=== PATIENT | male | born 1960 | race Caucasian/White ===

== ENCOUNTER 2021-03-24 09:14 | Emergency (ER) | payer MEDICAID, SELFPAY ==
[2021-03-24] VITALS (7 sets, daily range): BP systolic 117–142; BP diastolic 68–89; PULSE 80–116; RESP 16–20; TEMP 36.6–37.1; O2SAT 95–99; BMI 22.4
--- NOTE | ~2021-03-24 | XR_ITS ---
EXAMINATION: PELVIS AND LEFT FEMUR X-RAY CLINICAL INFORMATION: Pain post fall COMPARISON: None TECHNIQUE: One view of the pelvis and 2 views of the left femur FINDINGS: Pelvis: Bone alignment is normal. No fracture or dislocation is seen. There is mild arthritis at both hip joints. There is ankylosis of the lower lumbar spine and ankylosis at the sacroiliac joints. Soft tissues are unremarkable. Left femur: There is a laterally placed plate and screws seen in the left distal femur. There is a fracture of the distal medial tibial shaft and supracondylar region which appears recent or acute. There is a approximately 8 x 3.5 cm area of lucency and surrounding and sclerosis seen in the lateral distal femoral shaft. It is uncertain whether this is related to old trauma, osteopenia or underlying bone lesion. Correlation with patient's clinical history is recommended. There is also question of a lucency in the proximal to mid femoral shaft measuring 1 x 2 cm versus changes due to osteopenia. Soft tissues are unremarkable. XR/XR pelvis 1-2V IMPRESSION: Recent appearing fracture of the distal medial femoral shaft and supracondylar region. Orthopedic hardware seen in the lateral distal femoral shaft and condylar region. Question osteopenia versus bone lesion in the femur. Correlation with patient's clinical history is recommended. Arthritis at the hip joints. Ankylosis of the visualized lower lumbar spine and sacroiliac joints.
--- NOTE | ~2021-03-24 | XR_ITS ---
EXAMINATION: PELVIS AND LEFT FEMUR X-RAY CLINICAL INFORMATION: Pain post fall COMPARISON: None TECHNIQUE: One view of the pelvis and 2 views of the left femur FINDINGS: Pelvis: Bone alignment is normal. No fracture or dislocation is seen. There is mild arthritis at both hip joints. There is ankylosis of the lower lumbar spine and ankylosis at the sacroiliac joints. Soft tissues are unremarkable. Left femur: There is a laterally placed plate and screws seen in the left distal femur. There is a fracture of the distal medial tibial shaft and supracondylar region which appears recent or acute. There is a approximately 8 x 3.5 cm area of lucency and surrounding and sclerosis seen in the lateral distal femoral shaft. It is uncertain whether this is related to old trauma, osteopenia or underlying bone lesion. Correlation with patient's clinical history is recommended. There is also question of a lucency in the proximal to mid femoral shaft measuring 1 x 2 cm versus changes due to osteopenia. Soft tissues are unremarkable. XR/XR femur LT 2V IMPRESSION: Recent appearing fracture of the distal medial femoral shaft and supracondylar region. Orthopedic hardware seen in the lateral distal femoral shaft and condylar region. Question osteopenia versus bone lesion in the femur. Correlation with patient's clinical history is recommended. Arthritis at the hip joints. Ankylosis of the visualized lower lumbar spine and sacroiliac joints.
--- NOTE | 2021-03-24 09:48 | ED_ITS ---
HPI - Fall General Chief Complaint: Fall <JOCELYNE Amos - Last Filed: 03/24/21 14:11> Stated Complaint: FALL T-1, R KNEE/LEG PAIN <JOCELYNE Amos - Last Filed: 03/24/21 14:11> Time Seen by Provider: 03/24/21 09:21 <JOCELYNE Amos - Last Filed: 03/24/21 14:11> Source: EMS <JOCELYNE Amos - Last Filed: 03/24/21 14:11> Mode of arrival: EMS <JOCELYNE Amos Last Filed: 03/24/21 14:11> Limitations: altered mental status <JOCELYNE Amos Last Filed: 03/24/21 14:11> History of Present Illness HPI Narrative: 60 y/o male with history of schizoaffective disorder, encephalomalacia, spastic quadriplegia, cerebral atrophy, peripheral neuropathy, atrial fibrillation, HTN, osteoporosis, seizure disorder, and history of bilateral femur fractures in 2017 who presents to the ED from SNF via EMS with left knee pain and swelling after a fall out of his wheelchair last night. He was brought to the ER for further evaluation. Patient is a poor historian, only reporting pain and not answering questions appropriately. Unknown baseline. Left knee is tender and swollen as well as distal femur. Unable to straighten leg due to pain. <JOCELYNE Amos - Last Filed: 03/24/21 14:11> MD complaint: fall <JOCELYNE Amos - Last Filed: 03/24/21 14:11> Onset (ago): hour(s) (12+) <JOCELYNE Amos - Last Filed: 03/24/21 14:11> Fall from: wheelchair <JOCELYNE Amos - Last Filed: 03/24/21 14:11> Place fall occurred: [facility] <JOCELYNE Amos - Last Filed: 03/24/21 14:11> Loss of consciousness: none <JOCELYNE Amos - Last Filed: 03/24/21 14:11> Prolonged down time: no <JOCELYNE Amos - Last Filed: 03/24/21 14:11> Symptoms prior to fall: none <JOCELYNE Amos - Last Filed: 03/24/21 14:11> Location of injury - extremities: left: knee <JOCELYNE Amos - Last Filed: 03/24/21 14:11> Associated symptoms (after fall): denies <JOCELYNE Amos - Last Filed: 03/24/21 14:11> Related Data Home Medications: Home Medications Medication Instructions Recorded Confirmed acetaminophen 650 mg PO Q4H PRN 03/24/21 03/24/21 alendronate 70 mg PO BERRY 03/24/21 03/24/21 bupropion HCl 100 mg PO BID 03/24/21 03/24/21 cholecalciferol (vitamin D3) 25 mcg PO DAILY 03/24/21 03/24/21 divalproex 1,000 mg PO BID@0900,1500 03/24/21 03/24/21 divalproex 1,000 mg PO Q2D@2100 03/24/21 03/24/21 divalproex 500 mg PO Q2D@2100 03/24/21 03/24/21 docusate sodium 100 mg PO BID 03/24/21 03/24/21 finasteride 5 mg PO DAILY 03/24/21 03/24/21 fluticasone propionate [Flovent 2 puff INHALATION BID 03/24/21 03/24/21 HFA] lactulose 30 ml PO BEDTIME PRN 03/24/21 03/24/21 loperamide 2 mg PO QID PRN 03/24/21 03/24/21 mometasone 1 appl TOPICAL DAILY PRN 03/24/21 03/24/21 multivitamin 1 tab PO DAILY 03/24/21 03/24/21 phenobarbital 32.4 mg PO DAILY 03/24/21 03/24/21 risperidone 3 mg PO DAILY 03/24/21 03/24/21 selenium sulfide-aloe vera 1 ea TOPICAL TUSA 03/24/21 03/24/21 tamsulosin [Flomax] 0.4 mg PO DAILY 03/24/21 03/24/21 tizanidine 4 mg PO BID 03/24/21 03/24/21 <JOCELYNE Amos - Last Filed: 03/24/21 14:11> Allergies/Adverse Reactions: Allergies Allergy/AdvReac Type Severity Reaction Status Date / Time morphine [MORPHINE] Allergy Mild LOOPY Verified 03/24/21 11:17 ciprofloxacin [CIPROFLOXACIN] AdvReac Intermediate skin Verified 03/24/21 11:17 erythema/macular rash <JOCELYNE Amos - Last Filed: 03/24/21 14:11> Review of Systems Review of Systems: Constitutional: No Fever, No Chills ENT/Mouth: No sore throat, No Rhinorrhea, No Swallowing Difficulty Eyes: No Eye Pain, No Swelling, No Redness Cardiovascular: No Chest Pain, No SOB, No Orthopnea, No Edema Respiratory: No Cough, No Sputum, No Wheezing, No dyspnea Gastrointestinal: No Nausea, No Vomiting, No Diarrhea, No abdominal Pain Genitourinary: No Dysuria, No Urinary Frequency, No Hematuria Musculoskeletal: + joint pain, + Myalgias Skin: No Skin Lesions, No rash Neuro: No Weakness, No Numbness, No Dizziness, No Headache Psych: No Anxiety/Panic, No Depression Heme/Lymph: No Bruising, No Lymphadenopathy Endocrine: No Polyuria, No Polydipsia <JOCELYNE Amos Last Filed: 03/24/21 14:11> [facility] Past Medical History Attestation statement: The following information was validated with the patient. <JOCELYNE Amos - Last Filed: 03/24/21 14:11> Social History Social History: Social History Use of substances other than those prescribed or required for medical reasons: No Any prior treatment program specific to substance use: No Advance Directives: No Advance Directives Information Provided: No <JOCELYNE Amos - Last Filed: 03/24/21 14:11> Physical Exam Vital Signs: Vital Signs: Last Vital Signs Temp 97.8 F 03/24/21 16:06 Pulse 74 03/25/21 05:00 Resp 16 03/25/21 05:00 BP 122/68 03/25/21 05:00 Pulse Ox 96 03/25/21 04:00 Body Mass Index 22.4 Appearance: Chronically ill appearing male, sitting up in bed, eyes closed, appears older than stated age, no distress Eyes: Pupils equal, round and reactive to light. ENT: Pharynx normal. Neck: Normal inspection. Neck supple. CVS: Normal heart rate and rhythm. Pulses normal. Respiratory: No respiratory distress. Breath sounds normal. Abdomen: Soft and nontender. +BS x4 Skin: Skin warm and dry. Normal skin color. Normal skin turgor. No rashes. Extremities: left lower extremity with swelling and tenderness to left knee superiorly, slight bend in knee, unable to straighten or flex further. no skin changes, no ecchymosis. Neuro: Oriented X 2. Slow to respond. Agitated at times. Bed bound. Uncooperative with exam. <JOCELYNE Amos - Last Filed: 03/24/21 14:11> Vital Signs: Last Vital Signs Temp 97.8 F 03/24/21 16:06 Pulse 74 03/25/21 05:00 Resp 16 03/25/21 05:00 BP 122/68 03/25/21 05:00 Pulse Ox 96 03/25/21 04:00 Body Mass Index 22.4 <Raphael Clemente MD - Last Filed: 03/24/21 11:43> Vital Signs: Last Vital Signs Temp 97.8 F 03/24/21 16:06 Pulse 74 03/25/21 05:00 Resp 16 03/25/21 05:00 BP 122/68 03/25/21 05:00 Pulse Ox 96 03/25/21 04:00 Body Mass Index 22.4 <Pooja Gregg DO - Last Filed: 03/25/21 07:10> Course Course Course Narrative: 60 y/o male presenting with left knee and leg pain s/p fall out of wheelchair. History of bilateral femur fractures in 2017. XR's are pending. <JOCELYNE Amos - Last Filed: 03/24/21 14:11> I have discussed the case and management with the YELENA <Raphael Clemente MD - Last Filed: 03/24/21 11:43> 03/25 Physician observation continued. Patient started on oxycodone and tylenol for L femur fracture - orthopedics consulted recommended conservative management. Needs CM for placement as he cannot be managed at retirement at this time. VS stable.. Patient resting comfortably, NAD, lungs clear, CV RRR, Abd nontender. <Pooja Gregg DO - Last Filed: 03/25/21 07:10> Reevaluation(s) Reevaluation #1: XR showing Recent appearing fracture of the distal medial femoral shaft and supracondylar region. Orthopedic hardware seen in the lateral distal femoral shaft and condylar region. Question osteopenia versus bone lesion in the femur. Correlation with patient's clinical history is recommended. Arthritis at the hip joints. Ankylosis of the visualized lower lumbar spine and sacroiliac joints. Dr. Garnica from Ortho has been paged for recs. <JOCELYNE Amos - Last Filed: 03/24/21 14:11> Reevaluation #2: Spoke with Dr. Garnica who is not recommending any surgical intervention at this time. He states the patient can be splinted in a knee immobilizer for comfort however patient has LLE contracture at baseline and is unable to fully straighten his leg. This was confirmed with the patient's BARREL BANDER at bedside who states his left leg is always somewhat bent. Will conservatively manage with pain control. He comes from longterm NOT a SNF. Given patient's acute injury he will need placement to a SNF for pain control and rehab. Case Management consulted. Does not need PT consult given he is bed/wheelchair bound. Physician observation started at 13:40. Patient placed in physician observation because patient is awaiting placement to a SNF. At the time observation was started patient's vital signs were stable. Patient is alert and oriented x2. Neuro exam is non-focal. CV: RRR and lungs are clear. Will continue to monitor. <JOCELYNE Amos - Last Filed: 03/24/21 14:11> Consultations Consultation #1: Ortho - Dr. Garnica <JOCELYNE Amos - Last Filed: 03/24/21 14:11> Consultation #2: Case management <JOCELYNE Amos - Last Filed: 03/24/21 14:11> MDM - Fall Lab Data Labs: Lab Results 03/24/21 Range/Units 12:48 COVID-19 (ALAN) Negative (Negative) COVID-19 Clin Com See Note <JOCELYNE Amos - Last Filed: 03/24/21 14:11> Lab Results 03/24/21 Range/Units 12:48 COVID-19 (ALAN) Negative (Negative) COVID-19 Clin Com See Note <Raphael Cleemnte MD - Last Filed: 03/24/21 11:43> Lab Results 03/24/21 Range/Units 12:48 COVID-19 (ALAN) Negative (Negative) COVID-19 Clin Com See Note <Pooja Gregg DO - Last Filed: 03/25/21 07:10> Discharge Plan Discharge Clinical Impression: Femur fracture, left Qualifiers: Encounter type: initial encounter Femur location: shaft Fracture type: closed Fracture morphology: unspecified fracture morphology Qualified Code(s): S72.302A - Unspecified fracture of shaft of left femur, initial encounter for closed fracture <JOCELYNE Amos - Last Filed: 03/24/21 14:11> Patient Disposition: Xfer SNF <JOCELYNE Amos - Last Filed: 03/24/21 14:11> Instructions: Leg Fracture (ED) <JOCELYNE Amos - Last Filed: 03/24/21 14:11> Additional Instructions: X-ray today showed a small fracture at the end of the femur bone, down near the knee. No surgical intervention is recommended at this time. Knee immobilizer is recommended <JOCELYNE Amos - Last Filed: 03/24/21 14:11> Prescriptions: No Action alendronate 70 mg Tablet 70 mg PO BERRY RF: 0 divalproex 500 mg Tablet,Delayed Release (Dr/Ec) 1,000 mg PO Q2D@2100 RF: 0 bupropion HCl 100 mg Tablet 100 mg PO BID RF: 0 selenium sulfide-aloe vera 1 % Shampoo 1 ea TOPICAL TUSA RF: 0 cholecalciferol (vitamin D3) 25 mcg (1,000 unit) Tablet 25 mcg PO DAILY RF: 0 multivitamin Tablet 1 tab PO DAILY RF: 0 acetaminophen 325 mg Tablet 650 mg PO Q4H PRN (Reason: Pain) RF: 0 loperamide 2 mg Capsule 2 mg PO QID PRN (Reason: Diarrhea) RF: 0 tizanidine 4 mg Tablet 4 mg PO BID RF: 0 divalproex 500 mg Tablet,Delayed Release (Dr/Ec) 1,000 mg PO BID@0900,1500 RF: 0 divalproex 500 mg Tablet,Delayed Release (Dr/Ec) 500 mg PO Q2D@2100 RF: 0 risperidone 3 mg Tablet 3 mg PO DAILY RF: 0 tamsulosin [Flomax] 0.4 mg Capsule 0.4 mg PO DAILY RF: 0 docusate sodium 100 mg Capsule 100 mg PO BID RF: 0 finasteride 5 mg Tablet 5 mg PO DAILY RF: 0 Flovent HFA 110 mcg/actuation Hfa Aerosol Inhaler 2 puff INHALATION BID RF: 0 mometasone 0.1 % Cream 1 appl TOPICAL DAILY PRN (Reason: Dry Skin) RF: 0 phenobarbital 32.4 mg Tablet 32.4 mg PO DAILY RF: 0 lactulose 10 gram/15 mL Solution 30 ml PO BEDTIME PRN (Reason: Constipation) RF: 0 <JOCELYNE Amos - Last Filed: 03/24/21 14:11> Referrals: Carine Shankar NP [Primary Care Provider] - 2 days <JOCELYNE Amos - Last Filed: 03/24/21 14:11>
[2021-03-24] MEDS: Acetaminophen 325 MG TABLET 975 MG PO (10:26)
--- NOTE | 2021-03-24 13:08 | MHC.CM.ED ---
Received case management consult from Barbara CASANOVA. Patient lives at a skilled nursing. Is wheelchair bound at baseline. Typically is able to self transfer. However, patient fell transferring and was found to have fractured a piece of his femur. Per ortho, not a surgical candidate. Patient will need to be non-weight bearing at this time. Per Celso at patient's skilled nursing, he will need to be able to self transfer in order to return. Short term rehab is anticipated to be needed for patient's safety, in order to transfer back to the skilled nursing when medically stable. PASRR screening completed and faxed to [facility]. Continue to monitor for d/c needs.
[2021-03-24 13:16] LABS: COVID-19 Test Negative (Negative)
--- NOTE | 2021-03-24 14:00 | MHC.CM.ED ---
Spoke with Celso. Patient received 2nd Pfizer on 11/29. Spoke with patient's sister/HCP, Neelam Lopez via telephone at [phone]. Patient has been to [facility] in the past. Neelam Lopez does not want patient to return there. Neelam Lopez requesting referral to [facility] Referral made via [employer]. Continue to monitor for d/c needs.
[2021-03-24] MEDS: oxyCODONE HCl Immed Release 5 MG TABLET PO ×2 (16:17→22:46)
--- NOTE | 2021-03-24 17:09 | MHC.CM.ED ---
CM spoke with HCP/sister Yamini Lopez and given an update. Aware that pt will go to [facility] tomorrow and that the PASSR consent has been obtained. Yamini Lopez stated that vaccination record can be obtained from [facility]. Alex Lopez had no specific questions or concerns. CM called and spoke with Shreya, quality assurance group leader, who will email CM copy of pt Vaccination record. Update give to Shreya as to PASSR approval and [facility] offering a bed tomorrow. Will upload vaccination record into [email or web address] when obtained. CM to follow for d/c needs.
--- NOTE | 2021-03-24 22:39 | MHC.CM.ED ---
Covid Vaccination record e-mailed to CM from longterm. Uploaded into [employer]. CM will follow for d/c needs.
[2021-03-25] MEDS: oxyCODONE HCl Immed Release 5 MG TABLET PO ×2 (03:57→11:56)
[2021-03-25] MEDS: Acetaminophen 325 MG TABLET 650 MG PO ×2 (03:57→09:26)
[2021-03-25 04:00] VITALS: BP 129/84; PULSE 100; RESP 16; O2SAT 96
[2021-03-25 05:00] VITALS: BP 122/68; PULSE 74; RESP 16
[2021-03-25 08:00] VITALS: BP 120/80; PULSE 109; RESP 18; TEMP 37.1
--- NOTE | 2021-03-25 10:42 | MHC.CM.ED ---
Patient remains in ER. Per Lexi at [facility], patient can leave at 2pm. [facility] BLS booked. Med [facility] with chart. Patient, sister/HCP Neelam Jessica, manager group home Sully [place] RN and Barbara CASANOVA aware. Continue to monitor for d/c needs.
[2021-03-25 11:57] VITALS: BP 118/73; PULSE 109; RESP 16; O2SAT 95
== END 2021-03-25 14:20 | disposition skilled nursing facility (03) ==
PROVIDERS: Physician Assistant; Emergency Provider Emergency Medicine; PCP Nurse Practitioner Family
DX: S72.302A Unspecified fracture of shaft of left femur, initial encounter for closed fracture (principal); M79.605 Pain in left leg; I48.91 Unspecified atrial fibrillation; I10 Essential (primary) hypertension; R10.2 Pelvic and perineal pain; G82.50 Quadriplegia, unspecified; F20.9 Schizophrenia, unspecified; W05.0XXA Fall from non-moving wheelchair, initial encounter; Y93.9 Activity, unspecified; Y92.129 Unspecified place in nursing home as the place of occurrence of the external cause; Y99.9 Unspecified external cause status; Z79.899 Other long term (current) drug therapy; Z20.822 Contact with and (suspected) exposure to COVID-19
CPT/HCPCS: 36415; 72170; 73552; 87635; 99285

== ENCOUNTER 2021-06-18 11:00 | Outpatient (REF) | payer MEDICAID, SELFPAY | END 2021-06-18 11:01 | disposition home or self-care (01) | LOC: HO.LNP 11:00 | PROVIDERS: PCP Nurse Practitioner Family | DX: N39.0 Urinary tract infection, site not specified (principal) | CPT/HCPCS: 51798; 87086; 87088; 87186; 99212 ==

== ENCOUNTER 2021-12-17 16:10 | Outpatient (REF) | payer MEDICAID, SELFPAY ==
[2021-12-17 17:49] LABS: Prostate Specific Antigen < 0.05 ng/mL (<0.05-4.0)
== END 2021-12-17 16:11 | disposition home or self-care (01) ==
LOC: HO.LAB 16:10
PROVIDERS: Visit Provider Urology
DX: Z12.5 Encounter for screening for malignant neoplasm of prostate (principal)
CPT/HCPCS: 36415; 84153

== ENCOUNTER → 2022-01-07 13:36 | Outpatient (BNVA) | payer MEDICAID, SELFPAY | PROVIDERS: PCP Nurse Practitioner Family; Visit Provider Urology | DX: R33.9 Retention of urine, unspecified (principal); N39.0 Urinary tract infection, site not specified; R97.20 Elevated prostate specific antigen [PSA]; Z88.6 Allergy status to analgesic agent; Z88.3 Allergy status to other anti-infective agents; Z99.3 Dependence on wheelchair | CPT/HCPCS: 99202 ==

== ENCOUNTER 2022-02-21 04:07 | Emergency (ER) | payer MEDICAID, SELFPAY ==
[2022-02-21] VITALS (7 sets, daily range): BP systolic 109–140; BP diastolic 63–91; PULSE 83–110; RESP 14–18; TEMP 36.3–37.1; O2SAT 97–98; BMI 27.7
--- NOTE | ~2022-02-21 | XR_ITS ---
EXAMINATION: LEFT TIBIA-FIBULA LEFT FOOT CLINICAL INFORMATION: Trauma. Pain. Fall. COMPARISON: Left femur 03/24/2021 TECHNIQUE: Left tibia-fibula: 3 views Left foot: 3 views FINDINGS: Left tibia-fibula: Diffuse pronounced demineralization. 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 Plate and screw fixation of distal femoral fracture. No acute tibial or fibular fracture. There appears to be an old healed proximal fibular fracture with well-corticated irregularity. Diffuse cervical pediatric. Diffuse soft tissue swelling. Extensive vascular calcifications. Diffuse soft tissue swelling. Vascular calcifications. Hammertoe deformities. Degenerative disease. No cortical destruction or periosteal reaction to indicate osteomyelitis. XR/XR tibia fibula LT 2V IMPRESSION: Diffuse soft tissue swelling. Diffuse osteopenia. Extensive vascular calcifications. Old healed fibular fracture. ORIF distal femoral fracture.
--- NOTE | ~2022-02-21 | CT_ITS ---
EXAMINATION: CT LEFT LOWER LEG CT LEFT FOOT CLINICAL INFORMATION: Pain, status post fall COMPARISON: X-ray 02/21/2022 TECHNIQUE: Axial imaging. Sagittal and coronal reconstructions. FINDINGS: Left lower extremity: Bones are severely osteopenic markedly limiting sensitivity and specificity. Postsurgical changes with hardware in the distal femur. Metallic artifact limits evaluation. Dysmorphic appearance of the distal femur, probably chronic. No definite acute fractures seen. There is a mildly displaced fracture of the proximal fibular head/neck junction. There is patchy sclerosis in the proximal tibia. There is a mildly displaced fracture of the proximal tibial metaphysis, with mild cortical offset anteriorly and posteriorly. No definite displaced fractures identified in the more distal aspect of the tibia or fibula. There is an area of increased attenuation in the muscles of the proximal calf. Image [id number]. This measures approximately 2.3 x 2.2 cm in cross-sectional measurements. This probably reflects a hematoma. There is fatty atrophy of the musculature otherwise. Arthritis in the knee, suboptimally evaluated. Suspected loose body in the posterior joint space. Right lower extremity: The right lower extremities included in the [id number] on the axial imaging. There is incomplete evaluation on the provided sequences. Bones are diffusely osteopenic limiting evaluation. On the provided axial sequences, there are postsurgical changes, hardware metallic artifact in the distal femur limiting evaluation. On the axial sequences, no definite acute displaced fractures identified in the tibia or fibula. Left foot: Bones are severely osteopenic, markedly limiting sensitivity and specificity. There is a displaced fracture of the dorsal aspect of the talar head/neck, with an osseous fragment displaced superiorly by approximately 6 mm. There is a angulation of the inferior cortex of the anterior process of the calcaneus. There is some apparent irregularity of the anterior process of the calcaneus more dorsally. Findings raise concern for possible undisplaced fracture in this region. No additional grossly displaced fractures are identified. Plantar and posterior calcaneal spurring. Extensive fatty atrophy of the intrinsic muscles of the foot. Dorsal subcutaneous edema. CT/CT lower leg LT wo con IMPRESSION: Left lower extremity: 1. Bones are severely osteopenic, markedly limiting sensitivity and specifically. Close clinical correlation is recommended. If this clinical concern for additional occult osseous injuries, further evaluation with MRI should be obtained. 2. Mildly displaced fracture of the left proximal fibular head/neck. 3. Mildly displaced left proximal tibial metaphyseal fracture 4. Focus of increased attenuation in the posterior muscles of the proximal calf, could represent hematoma. 5. Postsurgical changes in the distal femur. Left knee arthritis, suboptimally evaluated. Left foot: 1. Displaced fracture of the dorsal aspect of the talar head and neck, described above. 2. Question fracture of the anterior process of the calcaneus, described above. 3. Given the marked osteopenia, additional fractures cannot be excluded. Close clinical correlation management is recommended. If there is clinical concern for additional osseous injuries/fracture, further evaluation with MRI should be obtained. Additional findings and details as above.
--- NOTE | ~2022-02-21 | XR_ITS ---
EXAMINATION: LEFT TIBIA-FIBULA LEFT FOOT CLINICAL INFORMATION: Trauma. Pain. Fall. COMPARISON: Left femur 03/24/2021 TECHNIQUE: Left tibia-fibula: 3 views Left foot: 3 views FINDINGS: Left tibia-fibula: Diffuse pronounced demineralization. 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 Plate and screw fixation of distal femoral fracture. No acute tibial or fibular fracture. There appears to be an old healed proximal fibular fracture with well-corticated irregularity. Diffuse cervical pediatric. Diffuse soft tissue swelling. Extensive vascular calcifications. Diffuse soft tissue swelling. Vascular calcifications. Hammertoe deformities. Degenerative disease. No cortical destruction or periosteal reaction to indicate osteomyelitis. XR/XR foot LT min 3V IMPRESSION: Diffuse soft tissue swelling. Diffuse osteopenia. Extensive vascular calcifications. Old healed fibular fracture. ORIF distal femoral fracture.
--- NOTE | 2022-02-21 06:57 | ED_ITS ---
HPI - Fall General Chief Complaint: Fall Stated Complaint: left leg and knee pain due to fall Time Seen by Provider: 02/21/22 06:55 History of Present Illness HPI Narrative: Patient is a 61-year-old male in a nursing home. Presents today with having fallen. Patient was awake alert taking a shower at the time. Patient is slated he slipped and fell. Subsequently having pain to his left lower extremity. Patient denies any loss of consciousness no head injury not on blood thinners. He was having some diarrhea earlier. No coughing or congestion or upper respiratory symptoms. No fever no chills. Patient stated that it was an accident. Related Data Home Medications Medication Instructions Recorded Confirmed acetaminophen 325 mg tablet 650 mg PO Q4H PRN 03/24/21 02/21/22 alendronate 70 mg tablet 70 mg PO QWEEK 03/24/21 02/21/22 bupropion HCl 100 mg tablet 100 mg PO BID 03/24/21 02/21/22 cholecalciferol (vitamin D3) 25 25 mcg PO DAILY 03/24/21 02/21/22 mcg (1,000 unit) tablet divalproex 500 mg tablet,delayed 1,000 mg PO BID 03/24/21 02/21/22 release divalproex 500 mg tablet,delayed 1,000 mg PO BID@0900,1500 03/24/21 02/21/22 release divalproex 500 mg tablet,delayed 500 mg PO Q2D@2100 03/24/21 02/21/22 release finasteride 5 mg tablet 5 mg PO DAILY 03/24/21 02/21/22 fluticasone propionate 110 1 puff INHALATION BID 03/24/21 02/21/22 mcg/actuation HFA aerosol inhaler (Flovent HFA) lactulose 10 gram/15 mL oral 30 ml PO BEDTIME PRN 03/24/21 02/21/22 solution loperamide 2 mg capsule 2 mg PO QID PRN 03/24/21 02/21/22 mometasone 0.1 % topical cream 1 appl TOPICAL DAILY PRN 03/24/21 02/21/22 multivitamin 1 tab PO DAILY 03/24/21 02/21/22 phenobarbital 32.4 mg tablet 32.4 mg PO DAILY 03/24/21 02/21/22 risperidone 3 mg tablet 3 mg PO DAILY 03/24/21 02/21/22 selenium sulfide-aloe vera 1 % 1 ea TOPICAL TUSA 03/24/21 02/21/22 shampoo tamsulosin 0.4 mg capsule (Flomax) 0.4 mg PO DAILY 03/24/21 02/21/22 tizanidine 4 mg tablet 4 mg PO BID 03/24/21 02/21/22 Previous Rx's Medication Instructions Recorded oxycodone 5 mg tablet 5 mg PO Q8H PRN #10 tab 03/25/21 sulfamethoxazole 800 1 tab PO BID 5 Days #10 tab 06/20/21 mg-trimethoprim 160 mg tablet (Bactrim DS) Allergies Allergy/AdvReac Type Severity Reaction Status Date / Time morphine [MORPHINE] Allergy Mild LOOPY Verified 01/07/22 13:38 ciprofloxacin [CIPROFLOXACIN] AdvReac Intermediate skin Verified 01/07/22 13:38 erythema/macular rash Review of Systems Review of Systems: Positive pain to the left lower extremity. Positive fall. No head injury. No nausea no vomiting. No focal weakness. Yes all other systems are reviewed and are negative PMFSH Past Medical History Medical History UTI (urinary tract infection) Social History Social History Advance Directives: Yes Advance Directives on File: Yes Advance Directives Date on File: 03/24/21 Physical Exam Vital Signs: Vital Signs: Last Vital Signs Temp 98.7 F 02/21/22 12:05 Pulse 83 02/21/22 05:32 Resp 18 02/21/22 12:05 BP 123/74 02/21/22 14:11 Pulse Ox 97 02/21/22 14:11 BMI result Body Mass Index 27.7 Appearance: Alert. Oriented X3. No acute distress. Eyes: Pupils equal, round and reactive to light. ENT: Pharynx normal. Neck: Normal inspection. Neck supple. No lymph nodes noted. No crepitus CVS: Normal heart rate and rhythm. Pulses normal. Normal S1 and S2 Respiratory: No respiratory distress. Breath sounds normal. No Wheezing. No rales Abdomen: Soft and nontender. No rigidity. No distention. good BS x4 Skin: Skin warm and dry. Normal skin color. Normal skin turgor. Extremities: Positive pain on palpation of the left lower tib-fib area. Minimal movement in the left ankle. Pain on palpation the left foot. Skin intact. Sensation over the foot intact. Able to move his toes. Pulses 2+ at dorsalis pedis. Capillary refill at the toes intact. Neuro: Oriented X 3. No motor deficit. No sensory deficit. Moving all ext ermities. No slurred speech MDM - Fall MDM Narrative Medical decision making narrative: X-ray showed questionable fractures. A CT scan was done. Showed multiple fractures. The finding is out as below. Bones are severely osteopenic, markedly limiting sensitivity and specifically. Close clinical correlation is recommended. If this clinical concern for additional occult osseous injuries, further evaluation with MRI should be obtained. ? 2. Mildly displaced fracture of the left proximal fibular head/neck. ? 3. Mildly displaced left proximal tibial metaphyseal fracture ? 4. Focus of increased attenuation in the posterior muscles of the proximal calf, could represent hematoma. ? 5. Postsurgical changes in the distal femur. Left knee arthritis, suboptimally evaluated. ? ? Left foot: ? 1. Displaced fracture of the dorsal aspect of the talar head and neck, described above. ? 2. Question fracture of the anterior process of the calcaneus, described above. The CT finding were discussed with Orthopedics. Given patient normally just pivots. Does not ambulate. Does not feel patient his a candidate for operations. Will have patient follow-up on an outpatient basis. Patient michael scott lives in a nursing home. nursing home feels they are unable to take care of patient given the multiple fractures. Physical therapy documented patient cannot ambulate. Case management involved for placement. Patient will require follow-up with orthopedics on an outpatient basis. Lab Data Result diagrams: 02/21/22 07:19 02/21/22 07:19 Labs: Lab Results 02/21/22 02/21/22 Range/Units 07:19 07:19 WBC 13.3 H (4.8-10.8) X10*3/uL RBC 4.57 L (4.60-5.80) X10*6/uL Hgb 13.7 L (14.0-18.0) g/dl Hct 42.3 (42.0-52.0) % MCV 92.6 (80.0-98.0) fL MCH 30.0 (27.0-33.0) pg MCHC 32.4 (31.0-36.0) g/dl RDW 12.0 (11.0-16.0) % Plt Count 128 L (160-400) X10*3/uL MPV 11.0 (9.4-12.4) fL Immature Gran % (Auto) 0.3 (0.0-0.4) % Neut % (Auto) 82.7 H (45-73) % Lymph % (Auto) 7.6 L (20-40) % Lewis % (Auto) 8.6 (2-11) % Eos % (Auto) 0.5 (0-4) % Baso % (Auto) 0.3 (0-2) % Lymph # (Auto) 1.0 L (1.2-4.9) X10*3/uL Lewis # (Auto) 1.2 (0.1-1.2) X10*3/uL Eos # (Auto) 0.1 (0.0-0.4) X10*3/uL Baso # (Auto) 0.0 (0.0-0.2) X10*3/uL Abs Immat Gran (auto) 0.04 H (0.00-0.03) X10*3/uL Absolute Neuts (auto) 11.0 H (2.0-8.3) x10*3/uL Absolute Nucleated RBC 0.000 (0.0-0.012) X10*3/uL Nucleated RBC % (auto) 0.0 (0.0-0.2) /100WBC Sodium 142 (135-145) mmol/L Potassium 4.3 (3.3-5.1) mmol/L Chloride 105 (96-108) mmol/L Carbon Dioxide 30 H (22-29) mmol/L Anion Gap 11 L (12-20) BUN 9 (9-16) mg/dL Creatinine 0.74 (0.5-1.4) mg/dL Estim Creat Clear Calc 118.4 Estimated GFR > 60 Random Glucose 126 H (60-115) mg/dL Calcium 10.4 H (8.4-10.2) mg/dL Discharge Plan Discharge Clinical Impression: Closed fracture of leg, Closed fracture of foot, Closed fracture of ankle Patient Disposition: Still a Patient Prescriptions: No Action alendronate 70 mg Tablet 70 mg PO QWEEK 0RF divalproex 500 mg Tablet,Delayed Release (Dr/Ec) 1,000 mg PO BID 0RF Rx Instructions: 1000MG IN THE MORNING AND NOON, AND 1000MG ALTERNATING WITH 500MG EVERY OTHER DAY AT NIGHT bupropion HCl 100 mg Tablet 100 mg PO BID 0RF selenium sulfide-aloe vera 1 % Shampoo 1 ea TOPICAL TUSA 0RF cholecalciferol (vitamin D3) 25 mcg (1,000 unit) Tablet 25 mcg PO DAILY 0RF multivitamin Tablet 1 tab PO DAILY 0RF acetaminophen 325 mg Tablet 650 mg PO Q4H PRN (Reason: Pain) 0RF loperamide 2 mg Capsule 2 mg PO QID PRN (Reason: Diarrhea) 0RF tizanidine 4 mg Tablet 4 mg PO BID 0RF divalproex 500 mg Tablet,Delayed Release (Dr/Ec) 1,000 mg PO BID@0900,1500 0RF Rx Instructions: 1000MG IN THE MORNING AND NOON, AND 1000MG ALTERNATING WITH 500MG EVERY OTHER DAY AT NIGHT divalproex 500 mg Tablet,Delayed Release (Dr/Ec) 500 mg PO Q2D@2100 0RF Rx Instructions: 1000MG IN THE MORNING AND NOON, AND 1000MG ALTERNATING WITH 500MG EVERY OTHER DAY AT NIGHT risperidone 3 mg Tablet 3 mg PO DAILY 0RF tamsulosin [Flomax] 0.4 mg Capsule 0.4 mg PO DAILY 0RF finasteride 5 mg Tablet 5 mg PO DAILY 0RF Flovent HFA 110 mcg/actuation Hfa Aerosol Inhaler 1 puff INHALATION BID 0RF mometasone 0.1 % Cream 1 appl TOPICAL DAILY PRN (Reason: Dry Skin) 0RF phenobarbital 32.4 mg Tablet 32.4 mg PO DAILY 0RF lactulose 10 gram/15 mL Solution 30 ml PO BEDTIME PRN (Reason: Constipation) 0RF oxycodone 5 mg tablet 5 mg PO Q8H PRN (Reason: pain) Qty: 10 0RF sulfamethoxazole-trimethoprim [Bactrim DS] 800-160 mg tablet 1 tab PO BID 5 Days Qty: 10 0RF
[2022-02-21 07:22] LABS: MANUAL DIFF FLAG NO
[2022-02-21 07:25] LABS: PLT CLUMP 1; SCAN SMEAR FLAG 1
[2022-02-21 07:35] LABS: Basophils Percent Auto 0.3 % (0-2); Eosinophils Absolute Auto 0.1 X10*3/uL (0.0-0.4); Eosinophils Percent Auto 0.5 % (0-4); Hematocrit 42.3 % (42.0-52.0); Hemoglobin 13.7 g/dl (14.0-18.0); Imm Gran Abs Auto 0.04 X10*3/uL (0.00-0.03); Imm Gran Pct Auto 0.3 % (0.0-0.4); Lymphocytes Percent Auto 7.6 % (20-40); Mean Corpuscular HGB Conc 32.4 g/dl (31.0-36.0); Mean Corpuscular Volume 92.6 fL (80.0-98.0); Monocytes Absolute Auto 1.2 X10*3/uL (0.1-1.2); Monocytes Percent Auto 8.6 % (2-11); Neutrophils Percent Auto 82.7 % (45-73); Platelet Count 128 X10*3/uL (160-400); Red Blood Count 4.57 X10*6/uL (4.60-5.80); White Blood Count 13.3 X10*3/uL (4.8-10.8)
[2022-02-21 07:44] LABS: Anion Gap 11 (12-20); Blood Urea Nitrogen 9 mg/dL (9-16); Calcium 10.4 mg/dL (8.4-10.2); Carbon Dioxide 30 mmol/L (22-29); Chloride 105 mmol/L (96-108); Creatinine Clr Calc Pharmacy 118.4; Estimated Glomerular Filt Rate > 60; Glucose Random 126 mg/dL (60-115); Potassium 4.3 mmol/L (3.3-5.1); Sodium 142 mmol/L (135-145)
--- NOTE | 2022-02-21 14:03 | MHC.CM.ED ---
PATIENT'S TIE TAPE MACHINE OPERATOR IS ABHINAV ([phone]) CARE HOME RN IS JASBIR HUFFMAN IS INVOLVED WITH [facility] AND ABHINAV WILL GET US THE NECESSARY INFORMATION HCP IS ON FILE AND VERIFIED. ABHINAV ASKS FOR A REFERRAL TO [facility] IN ANTICIPATION OF NEEDING STR
--- NOTE | 2022-02-21 17:14 | PC.NURSE ---
POSTERIOR SHORT LEG SPLINT PLACED ON LEFT LEG PER PROVIDER.
--- NOTE | 2022-02-21 17:15 | PC.NURSE ---
PT INCONTINENT OF URINE AND LARGE AMOUNT OF SOFT BROWN STOOL. PT CLEANED AND BEDDING CHANGED, RN AWARE.
--- NOTE | 2022-02-21 18:48 | PHA.MEDREC ---
Pharmacy Consult ? Medication Reconciliation Pharmacy has completed the medication reconciliation.
[2022-02-21] MEDS: buPROPion HCL 100 MG TABLET PO (21:36)
[2022-02-21] MEDS: TiZANidine HCL 4 MG TABLET PO (21:36)
[2022-02-21] MEDS: Divalproex Sodium 500 MG TABLET.DR 1000 MG PO (21:37)
--- NOTE | 2022-02-21 21:41 | PC.NURSE ---
Pt medicated per DEC, takes pills whole with applesauce. No difficulty swallowing noted.
[2022-02-21] MEDS: Morphine Sulfate 2 MG/ML CARTRIDGE IVPUSH (21:52)
--- NOTE | 2022-02-21 21:53 | PC.NURSE ---
2mg Morphine given after IV established.
[2022-02-22] VITALS (8 sets, daily range): BP systolic 119–151; BP diastolic 76–97; PULSE 96–127; RESP 14–20; TEMP 36.6–37.1; O2SAT 94–98
[2022-02-22] MEDS: oxyCODONE HCl Immed Release 5 MG TABLET PO ×3 (01:34→19:15)
[2022-02-22 02:38] LABS: COVID-19 Test Negative (Negative)
[2022-02-22] MEDS: PHENobarbitaL 30 MG TABLET PO (08:13)
[2022-02-22] MEDS: TiZANidine HCL 4 MG TABLET PO ×2 (08:13→20:14)
[2022-02-22] MEDS: Divalproex Sodium 500 MG TABLET.DR 1000 MG PO ×2 (08:14→16:41)
[2022-02-22] MEDS: Finasteride 5 MG TABLET PO (08:15)
[2022-02-22] MEDS: Cholecalciferol (Vitamin D3) 25 MCG TABLET PO (08:15)
[2022-02-22] MEDS: Tamsulosin HCL 0.4 MG CAPSULE PO (08:15)
[2022-02-22] MEDS: Multivitamin TABLET 1 TAB PO (08:15)
[2022-02-22] MEDS: risperiDONE 3 MG TABLET PO (08:15)
[2022-02-22] MEDS: Fluticasone Propionate 100 MCG BLST.W.DEV 1 PUFF INHALE ×2 (08:38→20:18)
[2022-02-22] MEDS: buPROPion HCL 100 MG TABLET PO ×2 (08:53→20:14)
[2022-02-22] MEDS: Acetaminophen 325 MG TABLET 975 MG PO ×2 (09:29→19:15)
--- NOTE | 2022-02-22 11:28 | PC.NURSE ---
winery worker at bedside with pt at this time.
[2022-02-22] MEDS: Divalproex Sodium 500 MG TABLET.DR PO (20:15)
--- NOTE | 2022-02-22 20:58 | ECG_ITS ---
Test Reason : TACHYCARDIA Blood Pressure : / mmHG Vent. Rate : 136 BPM Atrial Rate : 136 BPM P-R Int : 094 ms QRS Dur : 090 ms QT Int : 290 ms P-R-T Axes : 018 010 -05 degrees QTc Int : 436 ms Poor data quality Sinus tachycardia with Premature ventricular complexes Possible Inferior-posterior infarct Abnormal ECG When compared with ECG of 11-JUL-2012 19:39, Inverted T waves have replaced nonspecific T wave abnormality in Anterior leads Referred By: Zackery Rainey Electronically Signed By:ED FERNANDO MD
[2022-02-22] MEDS: 0.9 % Sodium Chloride 1,000 ML 999 ML IV (21:40)
[2022-02-22 21:41] LABS: MANUAL DIFF FLAG NO
[2022-02-22 21:43] LABS: Basophils Absolute Auto 0.1 X10*3/uL (0.0-0.2); Basophils Percent Auto 0.4 % (0-2); Eosinophils Percent Auto 3.9 % (0-4); Imm Gran Pct Auto 0.3 % (0.0-0.4); Mean Corpuscular Hemoglobin 30.4 pg (27.0-33.0); PLT CLUMP 1; SCAN SMEAR FLAG 1
[2022-02-22 21:45] LABS: Eosinophils Absolute Auto 0.5 X10*3/uL (0.0-0.4); Hematocrit 39.3 % (42.0-52.0); Imm Gran Abs Auto 0.03 X10*3/uL (0.00-0.03); Lymphocytes Absolute Auto 1.5 X10*3/uL (1.2-4.9); Mean Corpuscular HGB Conc 33.1 g/dl (31.0-36.0); Mean Corpuscular Volume 91.8 fL (80.0-98.0); Mean Platelet Volume 10.7 fL (9.4-12.4); Monocytes Absolute Auto 1.5 X10*3/uL (0.1-1.2); Monocytes Percent Auto 12.4 % (2-11); Neutrophils Absolute Auto 8.2 x10*3/uL (2.0-8.3); Red Blood Count 4.28 X10*6/uL (4.60-5.80); Red Cell Distribution Width 12.4 % (11.0-16.0)
[2022-02-22 21:46] LABS: Platelet Count 126 X10*3/uL (160-400); White Blood Count 11.7 X10*3/uL (4.8-10.8)
[2022-02-22 21:51] LABS: INTERNATIONAL NORM RATIO 1.1 (0.9-1.1); Prothrombin Time 12.5 SEC (9.9-13.0)
[2022-02-22 21:53] LABS: D Dimer High Sensitivity 721 NG/ML; Partial Thromboplastin Time 35.3 SEC (24.1-38.0)
[2022-02-22 21:59] LABS: Alanine Aminotransferase 12 U/L (0-40); Albumin Level 3.5 g/dL (3.5-5.0); Alkaline Phosphatase 68 U/L (39-117); Anion Gap 13 (12-20); Aspartate Amino Transferase 20 U/L (5-37); Bilirubin Total 0.5 mg/dL (0.0-1.0); Blood Urea Nitrogen 9 mg/dL (9-16); Calcium 10.4 mg/dL (8.4-10.2); Carbon Dioxide 25 mmol/L (22-29); Chloride 106 mmol/L (96-108); Creatinine Clr Calc Pharmacy 112.3; Estimated Glomerular Filt Rate > 60; Glucose Random 142 mg/dL (60-115); Potassium 4.4 mmol/L (3.3-5.1); Sodium 140 mmol/L (135-145); Total Protein 6.6 g/dL (6.5-8.0)
[2022-02-22 22:02] LABS: B Type Natriuretic Peptide 41 pg/mL (<100); Troponin-I High Sensitivity 8.8 ng/L (<3.5-35.0)
[2022-02-23] VITALS (10 sets, daily range): BP systolic 95–138; BP diastolic 45–98; PULSE 94–133; RESP 15–20; TEMP 36.4–37.2; O2SAT 94–98
--- NOTE | 2022-02-23 00:24 | PC.NURSE ---
patient was change into hospital attire by this pct ,patient was incontinent of large amount of urine ,bed bath was given ,bedding was change ,patient had a drink of water ,now patient resting quietly watching television .
[2022-02-23] MEDS: oxyCODONE HCl Immed Release 5 MG TABLET PO ×3 (05:00→20:02)
[2022-02-23] MEDS: Fluticasone Propionate 100 MCG BLST.W.DEV 1 PUFF INHALE ×2 (08:29→19:38)
[2022-02-23] MEDS: PHENobarbitaL 30 MG TABLET PO (08:36)
[2022-02-23] MEDS: Finasteride 5 MG TABLET PO (08:36)
[2022-02-23] MEDS: Divalproex Sodium 500 MG TABLET.DR 1000 MG PO ×3 (08:36→22:37)
[2022-02-23] MEDS: Tamsulosin HCL 0.4 MG CAPSULE PO (08:36)
[2022-02-23] MEDS: TiZANidine HCL 4 MG TABLET PO ×2 (08:36→20:03)
[2022-02-23] MEDS: Cholecalciferol (Vitamin D3) 25 MCG TABLET PO (08:36)
[2022-02-23] MEDS: risperiDONE 3 MG TABLET PO (08:36)
[2022-02-23] MEDS: buPROPion HCL 100 MG TABLET PO ×2 (08:36→22:36)
[2022-02-23] MEDS: Multivitamin TABLET 1 TAB PO (08:36)
--- NOTE | 2022-02-23 10:05 | MHC.CM.ED ---
Addendum entered by Nancy Darden 02/23/22 12:24: [facility] PASRR screen completed and emailed to [facility]. Original Note: Patient remains in ER. Physical therapy eval completed. STR is being recommended. Patient has Medicaid for insurance. May be difficult to place due to this. Referral broadcasted within 20 miles of patient's residence. Continue to monitor for d/c needs.
--- NOTE | 2022-02-23 13:56 | MHC.CM.ED ---
24 referrals have been made at this time. Still waiting to hear from [facility]. Referral broadcasted within 40 miles. Continue to monitor for d/c needs.
--- NOTE | 2022-02-23 19:44 | PC.NURSE ---
patient ate 50 % of meal ,drank 360 ml fluids ,patient was given a bed bath ,had small bowel movement ,bedding was change ,patient now resting and watching television .
[2022-02-24 02:00] VITALS: BP 119/66; PULSE 100; RESP 16; TEMP 36.6; O2SAT 96
[2022-02-24 04:03] VITALS: BP 134/57; PULSE 102; RESP 21; O2SAT 94
[2022-02-24 06:05] VITALS: BP 122/62; PULSE 100; RESP 24; O2SAT 94
[2022-02-24 07:07] VITALS: BP 142/68; PULSE 108; RESP 24; O2SAT 93
[2022-02-24] MEDS: Finasteride 5 MG TABLET PO (07:59)
[2022-02-24] MEDS: risperiDONE 3 MG TABLET PO (07:59)
[2022-02-24] MEDS: Cholecalciferol (Vitamin D3) 25 MCG TABLET PO (08:00)
[2022-02-24] MEDS: PHENobarbitaL 30 MG TABLET PO (08:00)
[2022-02-24] MEDS: TiZANidine HCL 4 MG TABLET PO (08:00)
[2022-02-24] MEDS: Multivitamin TABLET 1 TAB PO (08:03)
[2022-02-24] MEDS: Divalproex Sodium 500 MG TABLET.DR 1000 MG PO (08:03)
[2022-02-24] MEDS: buPROPion HCL 100 MG TABLET PO (08:04)
[2022-02-24] MEDS: Tamsulosin HCL 0.4 MG CAPSULE PO (08:05)
[2022-02-24 08:35] VITALS: PULSE 114; RESP 14; O2SAT 97
[2022-02-24] MEDS: Fluticasone Propionate 100 MCG BLST.W.DEV 1 PUFF INHALE (08:35)
--- NOTE | 2022-02-24 09:23 | MHC.CM.ED ---
Patient remains in ER. 45 referrals made. No bed offers yet. PASRR Level 2 was submitted to [facility]. Left voicemail asking for return call. Continue to monitor for d/c needs.
[2022-02-24] MEDS: oxyCODONE HCl Immed Release 5 MG TABLET PO (10:42)
--- NOTE | 2022-02-24 12:57 | MHC.CM.ED ---
Received telephone call from [facility] of [facility] PASRR. Patient's cognitive issues occurred after the age of 22. He does not screen in for [facility]. He also doesn't screen in for [facility]. Level 1 PASRR screen updated. [facility]antal Fajardo should be able to accept patient on 02/25. New Covid swab is needed. Test is currently pending. [facility] completed and faxed to [facility]. Continue to monitor for d/c needs.
--- NOTE | 2022-02-24 13:26 | MHC.CM.ED ---
Addendum entered by Nancy Darden 02/24/22 13:45: Radha NELSON, Glendy Lopez and Venkata at [facility] aware. Original Note: Patient can transfer to [facility] at 3pm. [facility] booked. Patient, sister Neelam Jessica, Madelin CASANOVA aware. Continue to monitor for d/c needs.
[2022-02-24 14:01] LABS: COVID-19 Test Negative (Negative)
--- NOTE | 2022-02-24 14:52 | PC.NURSE ---
attempted to call julien bassett # is not in service
== END 2022-02-24 14:51 | disposition skilled nursing facility (03) ==
PROVIDERS: Emergency Medicine Emergency Medical Services; Physician Assistant; Emergency Provider Emergency Medicine Emergency Medical Services; PCP Nurse Practitioner Family
DX: S82.832A Other fracture of upper and lower end of left fibula, initial encounter for closed fracture (principal); S82.192A Other fracture of upper end of left tibia, initial encounter for closed fracture; S92.122A Displaced fracture of body of left talus, initial encounter for closed fracture; S92.112A Displaced fracture of neck of left talus, initial encounter for closed fracture; M85.89 Other specified disorders of bone density and structure, multiple sites; I49.3 Ventricular premature depolarization; R00.0 Tachycardia, unspecified; R79.1 Abnormal coagulation profile; Z79.899 Other long term (current) drug therapy; Z20.822 Contact with and (suspected) exposure to COVID-19; W18.2XXA Fall in (into) shower or empty bathtub, initial encounter; Y93.E1 Activity, personal bathing and showering; Y92.192 Bathroom in other specified residential institution as the place of occurrence of the external cause; Y99.9 Unspecified external cause status
CPT/HCPCS: 36415; 73590; 73630; 73700; 80048; 80053; 83880; 84484; 85025; 85379; 85610; 85730; 87635; 93005; 96361; 96374; 97163; 99285; J2270

== ENCOUNTER 2022-04-29 16:30 | Emergency (ER) | payer MEDICAID, SELFPAY ==
--- NOTE | ~2022-04-29 | XR_ITS ---
EXAMINATION: XR foot LT 2V, XR tibia fibula LT 2V CLINICAL INFORMATION: Reason for Exam swollen and red COMPARISON: CT left lower extremity and foot 12/22/2021 TECHNIQUE: 3 views left foot; AP and lateral views left tibia and fibula FINDINGS: Left foot: Generalized osteopenia. No acute fracture or dislocation. Interval sclerosis of the dorsal cortex of the talar head/neck likely healing of the prior avulsion fracture seen on CT of 12/22/2021. No osseous destructive change or periostitis. Diffuse soft tissue swelling about the dorsal foot. Minimal degenerative change at the first MTP joint. Prominent plantar calcaneal spur. Left tibia and fibula: Generalized osteopenia. Chronic appearing proximal fibular fracture deformity. There is trabecular sclerosis to the proximal tibial metaphysis compatible with subacute to chronic healing fracture as well. Status post plate and screw fixation of a prior distal femur fracture. No acute fracture. No osseous destructive change or periostitis. No tracking soft tissue gas. Mild vascular calcifications. XR/XR tibia fibula LT 2V IMPRESSION: 1. No acute fracture or radiographic evidence of advanced osteomyelitis identified. 2. Subacute to chronic healing or healed fractures of the proximal tibia, fibula, and dorsal talar head/neck. 3. Marked osteopenia/osteoporosis.
--- NOTE | ~2022-04-29 | XR_ITS ---
EXAMINATION: XR foot LT 2V, XR tibia fibula LT 2V CLINICAL INFORMATION: Reason for Exam swollen and red COMPARISON: CT left lower extremity and foot 12/22/2021 TECHNIQUE: 3 views left foot; AP and lateral views left tibia and fibula FINDINGS: Left foot: Generalized osteopenia. No acute fracture or dislocation. Interval sclerosis of the dorsal cortex of the talar head/neck likely healing of the prior avulsion fracture seen on CT of 12/22/2021. No osseous destructive change or periostitis. Diffuse soft tissue swelling about the dorsal foot. Minimal degenerative change at the first MTP joint. Prominent plantar calcaneal spur. Left tibia and fibula: Generalized osteopenia. Chronic appearing proximal fibular fracture deformity. There is trabecular sclerosis to the proximal tibial metaphysis compatible with subacute to chronic healing fracture as well. Status post plate and screw fixation of a prior distal femur fracture. No acute fracture. No osseous destructive change or periostitis. No tracking soft tissue gas. Mild vascular calcifications. XR/XR foot LT 2V IMPRESSION: 1. No acute fracture or radiographic evidence of advanced osteomyelitis identified. 2. Subacute to chronic healing or healed fractures of the proximal tibia, fibula, and dorsal talar head/neck. 3. Marked osteopenia/osteoporosis.
--- NOTE | ~2022-04-29 | US_ITS ---
EXAMINATION: US VENOUS ULTRASOUND WITH DOPPLER LOWER EXTREMITY, LEFT CLINICAL INFORMATION: Left lower extremity swelling, question DVT COMPARISON: 08/02/2012 TECHNIQUE: Ultrasound of the deep veins is performed from the hip to the calf with compression sonography and color and pulse Doppler assessment. Spectral analysis with color-flow imaging is performed. FINDINGS: The left posterior tibial vein appears noncompressible, suspicious for thrombosis. There is otherwise normal venous compression and respiratory variation and augmented flow. The visualized common femoral vein, superficial femoral vein, profunda femoral vein, popliteal vein, and peroneal vein show no evidence of deep venous thrombosis. There is no significant popliteal fossa cyst. US/US venous duplex LE LT IMPRESSION: Noncompressible posterior tibial vein in the midcalf, consistent with thrombosis. This critical result was discussed with JOCELYNE Combs on 04/30/2022 1:36 AM, and it was ascertained that the content and urgency of the report was understood at the time of direct communication.
[2022-04-29 17:28] VITALS: BP 127/64; PULSE 92; RESP 18; TEMP 36.8; O2SAT 98; BMI 26.2
[2022-04-29 17:48] LABS: MANUAL DIFF FLAG NO
[2022-04-29 17:49] LABS: Basophils Percent Auto 0.4 % (0-2); Eosinophils Absolute Auto 0.3 X10*3/uL (0.0-0.4); Eosinophils Percent Auto 3.4 % (0-4); Hematocrit 38.9 % (42.0-52.0); Hemoglobin 12.5 g/dl (14.0-18.0); Imm Gran Abs Auto 0.02 X10*3/uL (0.00-0.03); Imm Gran Pct Auto 0.3 % (0.0-0.4); Lymphocytes Absolute Auto 1.4 X10*3/uL (1.2-4.9); Mean Corpuscular HGB Conc 32.1 g/dl (31.0-36.0); Mean Corpuscular Hemoglobin 29.5 pg (27.0-33.0); Mean Corpuscular Volume 91.7 fL (80.0-98.0); Mean Platelet Volume 10.2 fL (9.4-12.4); Monocytes Absolute Auto 0.8 X10*3/uL (0.1-1.2); Neutrophils Absolute Auto 5.3 x10*3/uL (2.0-8.3); Neutrophils Percent Auto 67.9 % (45-73); Platelet Count 171 X10*3/uL (160-400); Red Blood Count 4.24 X10*6/uL (4.60-5.80); White Blood Count 7.9 X10*3/uL (4.8-10.8)
[2022-04-29 18:05] LABS: Alanine Aminotransferase 9 U/L (0-40); Albumin Level 3.7 g/dL (3.5-5.0); Alkaline Phosphatase 83 U/L (39-117); Anion Gap 11 (12-20); Aspartate Amino Transferase 14 U/L (5-37); Bilirubin Total 0.3 mg/dL (0.0-1.0); Blood Urea Nitrogen 10 mg/dL (9-16); Carbon Dioxide 27 mmol/L (22-29); Chloride 108 mmol/L (96-108); Creatinine Clr Calc Pharmacy 123.6; Estimated Glomerular Filt Rate > 60; Glucose Random 113 mg/dL (60-115); Potassium 4.4 mmol/L (3.3-5.1); Sodium 142 mmol/L (135-145); Total Protein 6.7 g/dL (6.5-8.0)
[2022-04-29 22:58] LABS: Partial Thromboplastin Time 52.1 SEC (24.1-38.0)
[2022-04-29 23:03] VITALS: BP 108/62; PULSE 77; RESP 16; TEMP 36.8; O2SAT 96
--- NOTE | 2022-04-29 23:26 | ED.GENADULT ---
HPI - General Adult General Chief complaint: Extremity Injury, Lower Stated complaint: left foot swollen Time Seen by Provider: 04/29/22 21:23 Source: patient Mode of arrival: ambulatory Limitations: no limitations History of Present Illness HPI narrative: 61 yold male with pmh of afib, htn, and wheel chair bound with chronic paralysis of lower extremities presents to the ED left leg swelling and redness. Patient states hits has been occurring the past 3 days. patient denies any swelling of right leg, chest pain, shortness of breath, pleurisy, recent long travel, recent surgery, or estrogen use. As per [facility] aide and patient INR last weeks 1.6 and 1.9 Related Data Home Medications Medication Instructions Recorded Confirmed acetaminophen 325 mg tablet 650 mg PO Q6H PRN Pain 03/24/21 02/21/22 alendronate 70 mg tablet 70 mg PO SA 03/24/21 02/21/22 bupropion HCl 100 mg tablet 100 mg PO BID 03/24/21 02/21/22 cholecalciferol (vitamin D3) 25 25 mcg PO DAILY 03/24/21 02/21/22 mcg (1,000 unit) tablet divalproex 500 mg tablet,delayed 1,000 mg PO BID@0900,1600 03/24/21 02/21/22 release divalproex 500 mg tablet,delayed 1,000 mg PO Q2D@199903/24/21 02/21/22 release finasteride 5 mg tablet 5 mg PO DAILY 03/24/21 02/21/22 fluticasone propionate 110 1 puff inhalation BID 03/24/21 02/21/22 mcg/actuation HFA aerosol inhaler (Flovent HFA) multivitamin 1 tab PO DAILY 03/24/21 02/21/22 phenobarbital 32.4 mg tablet 32.4 mg PO DAILY 03/24/21 02/21/22 risperidone 3 mg tablet 3 mg PO DAILY 03/24/21 02/21/22 tamsulosin 0.4 mg capsule (Flomax) 0.4 mg PO BEDTIME 03/24/21 02/21/22 tizanidine 4 mg tablet 4 mg PO BID 03/24/21 02/21/22 atorvastatin 20 mg tablet 20 mg PO BEDTIME 02/21/22 02/21/22 divalproex 500 mg tablet,delayed 500 mg PO Q2D@199902/21/22 02/21/22 release (Depakote) Previous Rx's Medication Instructions Recorded hydrocodone 5 mg-acetaminophen 325 1 tab PO Q8H PRN pain, severe 3 02/24/22 mg tablet days #9 tabs Allergies Allergy/AdvReac Type Severity Reaction Status Date / Time morphine [MORPHINE] Allergy Mild LOOPY Verified 04/29/22 17:28 ciprofloxacin [CIPROFLOXACIN] AdvReac Intermediate skin Verified 04/29/22 17:28 erythema/macular rash Review of Systems Review of Systems: LEft leg swelling Yes all other systems are reviewed and are negative [facility] Past Medical History Medical History UTI (urinary tract infection) Social History Social History Advance Directives: Yes Advance Directives on File: Yes Advance Directives Date on File: 03/24/21 Physical Exam ED Vital Signs: Vital Signs - 24 hr 04/29/22 17:28 04/29/22 23:03 Temperature 98.3 F 98.3 F Pulse Rate 92 77 Respiratory Rate 18 16 Blood Pressure 127/64 108/62 Pulse Oximetry 98 96 Oxygen Delivery Method Room Air Room Air BMI result Body Mass Index 26.2 Const General: cooperative, healthy appearing, comfortable, no acute distress, well developed, alert, awake and Physically active Orientation/consciousness: oriented to person, oriented to place, oriented to time and patient oriented x3 HENMT Head: Yes normal to inspection, Yes No palpable skull fracture present, Yes normocephalic, Yes atraumatic and No abrasion Eyes General: appearance normal, both eyes and all related structures Neck Neck: Yes normal visual inspection, Yes full ROM, Yes no lymphadenopathy, Yes no meningeal signs, Yes trachea midline, Yes supple, No anterior neck swelling and No tender Chest Chest palpation & inspection: normal inspection of the chest and normal palpation of entire chest wall Resp Effort & Inspection: normal respiratory effort and able to speak in complete sentences Auscultation: clear to auscultation bilaterally Cardio Jugular venous distension: no JVD Heart sounds: S1 normal heart sound present and S2 normal heart sound present Bruits: no abdominal aortic bruits GI Inspection: Yes normal to inspection and No abdominal wall ecchymosis Palpation (GI): No Abdominal aortic bruit present, Soft to palpation, not firm, nontender, no guarding and not rigid General: No CVA tenderness and Yes no CVA tenderness Back/Spine/Pelvis Back: no CVA tenderness, No CVA tenderness and No back tenderness Skin General skin exam: no rashes or lesions noted and elasticity normal Neuro Other: Chronic left leg paralysis General: oriented to person, oriented to place, oriented to time, patient oriented x3, no meningeal signs and CN's II-XI intact bilaterally Extrem General: Yes normal to inspection and Yes full ROM Upper/lower leg/hip images: 1. positive for redness and swelling with pitting edema and warmth. Negative for crepitus ecchymosis or deformity. Pedal pulses intact. motor neuro exam decreased due to the paralysis of lower extremity which is chronic. Psych Appearance: grossly normal, well kempt and not disheveled Course Course Course Narrative: labs drawn wet ESR CRP. Lower extremity x-ray and ultrasound. Reevaluation(s) Reevaluation #1: Labs negative for elevated WBC. Xray negative for osteomyelitis. ESR normal and CRP slightly elevated. Ultrasound of lower extremity shows Posterior tibial VEint thrombosis. patient has no chest pain or shortness of breath. Not suspecting PE. Case discussed with Dr. Dsouza who states can be given one dose of lovenox and patient can be discharged and patient and [facility] nurse and Director should contact Coumadin clinic to increase coumaind dose. patient presently taking 4mg of coumadin Time: 02:13 Medical Decision Making [facility] Narrative Medical decision making narrative: Posterior tibial vein thrombosis Lab Data Result diagrams: 04/29/22 17:38 04/29/22 17:38 Labs: Lab Results 04/29/22 04/29/22 04/29/22 Range/Units 17:38 17:38 22:41 WBC 7.9 (4.8-10.8) X10*3/uL RBC 4.24 L (4.60-5.80) X10*6/uL Hgb 12.5 L (14.0-18.0) g/dl Hct 38.9 L (42.0-52.0) % MCV 91.7 (80.0-98.0) fL MCH 29.5 (27.0-33.0) pg MCHC 32.1 (31.0-36.0) g/dl RDW 13.0 (11.0-16.0) % Plt Count 171 D (160-400) X10*3/uL MPV 10.2 (9.4-12.4) fL Immature Gran % (Auto) 0.3 (0.0-0.4) % Neut % (Auto) 67.9 (45-73) % Lymph % (Auto) 18.0 L (20-40) % [place] % (Auto) 10.0 (2-11) % Eos % (Auto) 3.4 (0-4) % Baso % (Auto) 0.4 (0-2) % Lymph # (Auto) 1.4 (1.2-4.9) X10*3/uL [place] # (Auto) 0.8 (0.1-1.2) X10*3/uL Eos # (Auto) 0.3 (0.0-0.4) X10*3/uL Baso # (Auto) 0.0 (0.0-0.2) X10*3/uL Abs Immat Gran (auto) 0.02 (0.00-0.03) X10*3/uL Absolute Neuts (auto) 5.3 (2.0-8.3) x10*3/uL Absolute Nucleated RBC 0.000 (0.0-0.012) X10*3/uL Nucleated RBC % (auto) 0.0 (0.0-0.2) /100WBC ESR (0-15) MM/HR PT 24.0 H (10.0-13.1) SEC INR 2.0 H (0.9-1.1) APTT 52.1 H D (24.1-38.0) SEC Sodium 142 (135-145) mmol/L Potassium 4.4 (3.3-5.1) mmol/L Chloride 108 (96-108) mmol/L Carbon Dioxide 27 (22-29) mmol/L Anion Gap 11 L (12-20) BUN 10 (9-16) mg/dL Creatinine 0.75 (0.5-1.4) mg/dL Estim Creat Clear Calc 123.6 Estimated GFR > 60 Random Glucose 113 (60-115) mg/dL Calcium 10.0 (8.4-10.2) mg/dL Total Bilirubin 0.3 (0.0-1.0) mg/dL AST 14 (5-37) U/L ALT 9 (0-40) U/L Alkaline Phosphatase 83 D (39-117) U/L C-Reactive Protein (< or = 0.50) mg/dL Total Protein 6.7 (6.5-8.0) g/dL Albumin 3.7 (3.5-5.0) g/dL 04/29/22 04/29/22 Range/Units 22:41 22:41 WBC (4.8-10.8) X10*3/uL RBC (4.60-5.80) X10*6/uL Hgb (14.0-18.0) g/dl Hct (42.0-52.0) % MCV (80.0-98.0) fL MCH (27.0-33.0) pg MCHC (31.0-36.0) g/dl RDW (11.0-16.0) % Plt Count (160-400) X10*3/uL MPV (9.4-12.4) fL Immature Gran % (Auto) (0.0-0.4) % Neut % (Auto) (45-73) % Lymph % (Auto) (20-40) % [place] % (Auto) (2-11) % Eos % (Auto) (0-4) % Baso % (Auto) (0-2) % Lymph # (Auto) (1.2-4.9) X10*3/uL [place] # (Auto) (0.1-1.2) X10*3/uL Eos # (Auto) (0.0-0.4) X10*3/uL Baso # (Auto) (0.0-0.2) X10*3/uL Abs Immat Gran (auto) (0.00-0.03) X10*3/uL Absolute Neuts (auto) (2.0-8.3) x10*3/uL Absolute Nucleated RBC (0.0-0.012) X10*3/uL Nucleated RBC % (auto) (0.0-0.2) /100WBC ESR 10 (0-15) MM/HR PT (10.0-13.1) SEC INR (0.9-1.1) APTT (24.1-38.0) SEC Sodium (135-145) mmol/L Potassium (3.3-5.1) mmol/L Chloride (96-108) mmol/L Carbon Dioxide (22-29) mmol/L Anion Gap (12-20) BUN (9-16) mg/dL Creatinine (0.5-1.4) mg/dL Estim Creat Clear Calc Estimated GFR Random Glucose (60-115) mg/dL Calcium (8.4-10.2) mg/dL Total Bilirubin (0.0-1.0) mg/dL AST (5-37) U/L ALT (0-40) U/L Alkaline Phosphatase (39-117) U/L C-Reactive Protein 1.20 H (< or = 0.50) mg/dL Total Protein (6.5-8.0) g/dL Albumin (3.5-5.0) g/dL Discharge Plan Discharge Clinical Impression: Deep vein thrombosis (DVT) of tibial vein Patient Disposition: Home, Self-Care Instructions: Deep Vein Thrombosis (ED) Additional Instructions: ultrasound showed DVT in posterior tibial vein of left leg. Please follow-up with Coumadin clinic today so they can adjust and increasing Coumadin dosage to address DVT in your leg. You were given 1 dose of Lovenox in the ER. Return to the ED immediately for any chest pain, shortness of breath, increased swelling of legs, rectal bleeding, vomiting blood, syncope, or any other concerning symptoms. Prescriptions: No Action alendronate 70 mg Tablet 70 mg PO SA bupropion HCl 100 mg Tablet 100 mg PO BID cholecalciferol (vitamin D3) 25 mcg (1,000 unit) Tablet 25 mcg PO DAILY multivitamin Tablet 1 tab PO DAILY acetaminophen 325 mg Tablet 650 mg PO Q6H PRN (Reason: Pain) tizanidine 4 mg Tablet 4 mg PO BID divalproex 500 mg Tablet,Delayed Release (Dr/Ec) 1,000 mg PO BID@0900,1600 divalproex 500 mg Tablet,Delayed Release (Dr/Ec) 1,000 mg PO Q2D@2000 Rx Instructions: 1000MG IN THE MORNING AND NOON, AND 1000MG ALTERNATING WITH 500MG EVERY OTHER DAY AT NIGHT risperidone 3 mg Tablet 3 mg PO DAILY tamsulosin [Flomax] 0.4 mg Capsule 0.4 mg PO BEDTIME finasteride 5 mg Tablet 5 mg PO DAILY Flovent HFA 110 mcg/actuation Hfa Aerosol Inhaler 1 puff INHALATION BID phenobarbital 32.4 mg Tablet 32.4 mg PO DAILY atorvastatin 20 mg Tablet 20 mg PO BEDTIME divalproex [Depakote] 500 mg Tablet,Delayed Release (Dr/Ec) 500 mg PO Q2D@2000 hydrocodone-acetaminophen 5-325 mg tablet 1 tab PO Q8H PRN (Reason: pain, severe) 3 Days Qty: 9 0RF Print Language: Thai
[2022-04-29 23:29] LABS: Erythrocyte Sedimentation Rate 10 MM/HR (0-15)
[2022-04-30] MEDS: Enoxaparin Sodium 100 MG/ML SYRINGE 90 MG SUBCUT (02:16)
== END 2022-04-30 03:14 | disposition home or self-care (01) ==
PROVIDERS: Physician Assistant; Emergency Provider Internal Medicine
DX: I82.442 Acute embolism and thrombosis of left tibial vein (principal); R60.0 Localized edema
CPT/HCPCS: 36415; 73590; 73620; 80053; 85025; 85610; 85652; 85730; 86140; 93971; 96372; 99284; J1650

== ENCOUNTER 2022-05-14 16:23 | Emergency (ER) | payer MEDICAID, SELFPAY ==
[2022-05-14 20:14] VITALS: BP 118/78; PULSE 86; RESP 18; TEMP 36.8; O2SAT 97; BMI 28.9
--- NOTE | 2022-05-14 22:36 | ED_ITS ---
HPI - Extremity Injury (Lower) General Chief Complaint: Extremity Injury, Lower Stated Complaint: swollen l foot Time Seen by Provider: 05/14/22 22:19 Source: patient and other (penitentiary staff member, Chaya) Mode of arrival: ambulatory Limitations: no limitations History of Present Illness HPI Narrative: 61-year-old male who presents emergency department for evaluation of swelling of his left lower extremity. The patient was seen here in the emergency department on 04/29/2022 for left lower extremity swelling and redness x3 days. The patient was diagnosed with a left posterior to revealed deep venous thrombosis. The patient was taking Coumadin and he was given a dose of Lovenox and advised to follow-up with his who was in clinic for further management. The nursing home was concerned that the patient's left lower extremity swelling has not improved. The nursing home did bring in a dosing schedule dated 05/11/2022 for the patient is taking 5 mg on Wednesday, Wednesday, 6 mg Wednesday, 5 mg Wednesday, 6 mg , 5 mg Wednesday and Wednesday. The patient denies any symptoms such as chest pain, shortness of breath, fever, chills, cough, nausea, vomiting. Related Data Home Medications Medication Instructions Recorded Confirmed acetaminophen 325 mg tablet 650 mg PO Q6H PRN Pain 03/24/21 02/21/22 alendronate 70 mg tablet 70 mg PO SA 03/24/21 02/21/22 bupropion HCl 100 mg tablet 100 mg PO BID 03/24/21 02/21/22 cholecalciferol (vitamin D3) 25 25 mcg PO DAILY 03/24/21 02/21/22 mcg (1,000 unit) tablet divalproex 500 mg tablet,delayed 1,000 mg PO BID@0900,1600 03/24/21 02/21/22 release divalproex 500 mg tablet,delayed 1,000 mg PO Q2D@2000 03/24/21 02/21/22 release finasteride 5 mg tablet 5 mg PO DAILY 03/24/21 02/21/22 fluticasone propionate 110 1 puff inhalation BID 03/24/21 02/21/22 mcg/actuation HFA aerosol inhaler (Flovent HFA) multivitamin 1 tab PO DAILY 03/24/21 02/21/22 phenobarbital 32.4 mg tablet 32.4 mg PO DAILY 03/24/21 02/21/22 risperidone 3 mg tablet 3 mg PO DAILY 03/24/21 02/21/22 tamsulosin 0.4 mg capsule (Flomax) 0.4 mg PO BEDTIME 03/24/21 02/21/22 tizanidine 4 mg tablet 4 mg PO BID 03/24/21 02/21/22 atorvastatin 20 mg tablet 20 mg PO BEDTIME 02/21/22 02/21/22 divalproex 500 mg tablet,delayed 500 mg PO Q2D@199902/21/22 02/21/22 release (Depakote) Previous Rx's Medication Instructions Recorded hydrocodone 5 mg-acetaminophen 325 1 tab PO Q8H PRN pain, severe 3 02/24/22 mg tablet days #9 tabs enoxaparin 150 mg/mL subcutaneous 150 mg subcut DAILY 7 days #7 mL 05/14/22 syringe (Lovenox) Allergies Allergy/AdvReac Type Severity Reaction Status Date / Time morphine [MORPHINE] Allergy Mild LOOPY Verified 04/29/22 17:28 ciprofloxacin [CIPROFLOXACIN] AdvReac Intermediate skin Verified 04/29/22 17:28 erythema/macular rash Review of Systems Review of Systems: Yes all other systems are reviewed and are negative [facility] Past Medical History [facility] Narrative: Social history: The patient lives in a nursing home. Patient is wheelchair- bound. He does not smoke cigarettes and does not drink alcohol. He denies drug use. Medical History UTI (urinary tract infection) Social History Social History Advance Directives: Yes Advance Directives on File: Yes Advance Directives Date on File: 03/24/21 Physical Exam Vital Signs: Vital Signs: Last Vital Signs Temp 98.3 F 05/14/22 20:14 Pulse 86 05/14/22 20:14 Resp 18 05/14/22 20:14 BP 118/78 05/14/22 20:14 Pulse Ox 97 05/14/22 20:14 O2 Del Method 05/14/22 20:14 BMI result Body Mass Index 28.9 Const: General: cooperative and no acute distress Orientation/ consciousness: oriented to person and oriented to place Limitations: no limitations HEENT: Head: Yes normocephalic and Yes atraumatic Ears: external ears normal General nose exam: Normal external nose present Face and sinus: Yes normal facial exam Mouth: Normal oral and palatal mucosa present Throat: Yes posterior oropharynx normal Eyes: General: appearance normal, both eyes and all related structures Pupils: Equal, round and reactive pupils present Neck: Neck: Yes normal visual inspection, Yes no lymphadenopathy, Yes trachea midline and Yes supple Chest: Chest palpation & inspection: normal inspection of the chest and normal palpation of entire chest wall Resp: Effort & Inspection: normal respiratory effort and able to speak in complete sentences Auscultation: clear to auscultation bilaterally Cardio: Rate: regular rate Rhythm: regular rhythm Heart sounds: S1 normal heart sound present, S2 normal heart sound present and no murmurs GI: Inspection: Yes normal to inspection Palpation (GI): Soft to palpation, nontender and no guarding Auscultation: normal bowel sounds : General: Yes no CVA tenderness Back/Spine/Pelvis: Back: no CVA tenderness Skin: General skin exam: no rashes or lesions noted Neuro: General: oriented to person and oriented to place Cranial nerves: Yes CN's II-XII intact bilaterally and Yes Equal, round and reactive pupils present Cognition (Neuro): normal cognition Motor exam (neuro): 5/5 motor strength present throughout Extrem: Other: The patient's left lower extremities approximately 1/2 times the size of the right lower extremity, patient does have bilateral nonpitting edema, his extremities neurovascularly intact. Psych: Appearance: grossly normal Speech and movement: Normal speech and movement present Affect: normal affect Attitude: cooperative Thought process: Normal thought process present Thought content: Normal thought content present Course Course Course Narrative: 61-year-old male brought to the emergency department from his nursing home for evaluation persistent swelling of his left lower extremity despite being on Coumadin for a left posterior tibial vein DVT diagnosed on 04/29/2022. The patient's Coumadin is been managed by a Coumadin clinic at [facility] in [place]. Over the past 2 weeks, the patient's INR has been 1.8 and 1.5 and he is subtherapeutic. The patient has not had any symptoms that are concerning for a pulmonary embolism. I did order a CBC, CMP, PT/INR and PTT. 2344: Laboratory evaluation: H&H was normal. Platelet count is 265034 this is chronic. PT/INR was 1.9 and 21.8 which is subtherapeutic. PTT is elevated 42.4. CMP was normal. The nursing home was concerned that there is no improvement in the patient's swelling however I did tell the nursing home member and the patient that the swelling from a DVT can sometimes persist for 6 months and can often be chronic. More concerning however the patient is still subtherapeutic after 2 weeks of being on Coumadin. Therefore the patient was given Lovenox 1.5 milligrams/kilogram subcutaneously (150 mg). The patient will be started on Lovenox 150 mg subcutaneously daily for 1 week. This medication can be stopped if the patient becomes therapeutic or should be continued until his INR is between 2 and 3. The patient will be discharged back to his group facility. MDM - Extremity Injury (Lower) Lab Data Result diagrams: 05/14/22 22:58 05/14/22 22:58 Labs: Lab Results 05/14/22 05/14/22 05/14/22 Range/Units 22:58 22:58 22:58 WBC 6.5 (4.8-10.8) X10*3/uL RBC 4.35 L (4.60-5.80) X10*6/uL Hgb 12.8 L (14.0-18.0) g/dl Hct 40.0 L (42.0-52.0) % MCV 92.0 (80.0-98.0) fL MCH 29.4 (27.0-33.0) pg MCHC 32.0 (31.0-36.0) g/dl RDW 13.1 (11.0-16.0) % Plt Count 153 L (160-400) X10*3/uL MPV 10.2 (9.4-12.4) fL Immature Gran % (Auto) 0.2 (0.0-0.4) % Neut % (Auto) 63.5 (45-73) % Lymph % (Auto) 21.8 (20-40) % Ponce % (Auto) 10.2 (2-11) % Eos % (Auto) 3.7 (0-4) % Baso % (Auto) 0.6 (0-2) % Lymph # (Auto) 1.4 (1.2-4.9) X10*3/uL Ponce # (Auto) 0.7 (0.1-1.2) X10*3/uL Eos # (Auto) 0.2 (0.0-0.4) X10*3/uL Baso # (Auto) 0.0 (0.0-0.2) X10*3/uL Abs Immat Gran (auto) 0.01 (0.00-0.03) X10*3/uL Absolute Neuts (auto) 4.1 (2.0-8.3) x10*3/uL Absolute Nucleated RBC 0.000 (0.0-0.012) X10*3/uL Nucleated RBC % (auto) 0.0 (0.0-0.2) /100WBC PT 21.8 H (10.0-13.1) SEC INR 1.9 H (0.9-1.1) APTT 42.4 H (26.0-36.4) SEC Sodium 139 (135-145) mmol/L Potassium 4.4 (3.3-5.1) mmol/L Chloride 104 (96-108) mmol/L Carbon Dioxide 28 (22-29) mmol/L Anion Gap 11 L (12-20) BUN 14 (9-16) mg/dL Creatinine 0.74 (0.5-1.4) mg/dL Estim Creat Clear Calc 137.4 Estimated GFR > 60 Random Glucose 120 H (60-115) mg/dL Calcium 10.2 (8.4-10.2) mg/dL Total Bilirubin < 0.2 (0.0-1.0) mg/dL AST 17 (5-37) U/L ALT 12 (0-40) U/L Alkaline Phosphatase 77 (39-117) U/L Total Protein 7.0 (6.5-8.0) g/dL Albumin 3.8 (3.5-5.0) g/dL Discharge Plan Discharge Clinical Impression: Left leg swelling, Acute DVT of left tibial vein, Subtherapeutic a nticoagulation Patient Disposition: Home, Self-Care Instructions: Deep Vein Thrombosis (ED) Additional Instructions: The swelling of your left legs is caused by the deep venous thrombosis (DVT) and decreased blood flow out of your leg caused by the blood clot. This swelling can sometimes last up to 6 months and can sometimes not go away completely Eventually, your body will reabsorbed the blood clots in your leg and hopefully the blood flow will improve and then the swelling will go down. The goal of anticoagulation therapy with Coumadin (warfarin) is to prevent new blood clots from forming on top of the old blood clots and to prevent you from getting a blood clot in your lungs (pulmonary embolism). A therapeutic Coumadin/INR is between 2 and 3. Your INR today was 1.9. I am starting you on subcutaneous Lovenox 150 mg daily for 1 week. You were given your 1st dose of Lovenox this evening. You need to stay on Lovenox daily until your INR is between 2 and 3. Therefore I prescribed 1 week of this medication but you may need to be on it longer if it takes a longer period of time to get your INR in the therapeutic range. Your nursing home will need to arrange for visiting nurse to give you the Lovenox shots once a day until your INR is therapeutic. Follow-up with your doctor in 2 days. Please return to the emergency department if your symptoms get worse or if you d evelop any symptoms that are concerning to you. Prescriptions: New enoxaparin [Lovenox] 150 mg/mL syringe 150 mg subcut DAILY 7 Days Qty: 7 0RF No Action alendronate 70 mg Tablet 70 mg PO SA bupropion HCl 100 mg Tablet 100 mg PO BID cholecalciferol (vitamin D3) 25 mcg (1,000 unit) Tablet 25 mcg PO DAILY multivitamin Tablet 1 tab PO DAILY acetaminophen 325 mg Tablet 650 mg PO Q6H PRN (Reason: Pain) tizanidine 4 mg Tablet 4 mg PO BID divalproex 500 mg Tablet,Delayed Release (Dr/Ec) 1,000 mg PO BID@0900,1600 divalproex 500 mg Tablet,Delayed Release (Dr/Ec) 1,000 mg PO Q2D@2000 Rx Instructions: 1000MG IN THE MORNING AND NOON, AND 1000MG ALTERNATING WITH 500MG EVERY OTHER DAY AT NIGHT risperidone 3 mg Tablet 3 mg PO DAILY tamsulosin [Flomax] 0.4 mg Capsule 0.4 mg PO BEDTIME finasteride 5 mg Tablet 5 mg PO DAILY Flovent HFA 110 mcg/actuation Hfa Aerosol Inhaler 1 puff INHALATION BID phenobarbital 32.4 mg Tablet 32.4 mg PO DAILY atorvastatin 20 mg Tablet 20 mg PO BEDTIME divalproex [Depakote] 500 mg Tablet,Delayed Release (Dr/Ec) 500 mg PO Q2D@1999 hydrocodone-acetaminophen 5-325 mg tablet 1 tab PO Q8H PRN (Reason: pain, severe) 3 Days Qty: 9 0RF
[2022-05-14 23:08] LABS: MANUAL DIFF FLAG NO
[2022-05-14 23:09] LABS: Basophils Percent Auto 0.6 % (0-2); Eosinophils Absolute Auto 0.2 X10*3/uL (0.0-0.4); Eosinophils Percent Auto 3.7 % (0-4); Hemoglobin 12.8 g/dl (14.0-18.0); Imm Gran Abs Auto 0.01 X10*3/uL (0.00-0.03); Imm Gran Pct Auto 0.2 % (0.0-0.4); Lymphocytes Absolute Auto 1.4 X10*3/uL (1.2-4.9); Lymphocytes Percent Auto 21.8 % (20-40); Mean Corpuscular Hemoglobin 29.4 pg (27.0-33.0); Mean Platelet Volume 10.2 fL (9.4-12.4); Monocytes Absolute Auto 0.7 X10*3/uL (0.1-1.2); Monocytes Percent Auto 10.2 % (2-11); Neutrophils Absolute Auto 4.1 x10*3/uL (2.0-8.3); Neutrophils Percent Auto 63.5 % (45-73); Platelet Count 153 X10*3/uL (160-400); Red Blood Count 4.35 X10*6/uL (4.60-5.80); Red Cell Distribution Width 13.1 % (11.0-16.0); White Blood Count 6.5 X10*3/uL (4.8-10.8)
[2022-05-14 23:17] LABS: INTERNATIONAL NORM RATIO 1.9 (0.9-1.1); Prothrombin Time 21.8 SEC (10.0-13.1)
[2022-05-14 23:19] LABS: Partial Thromboplastin Time 42.4 SEC (26.0-36.4)
[2022-05-14 23:29] LABS: Alanine Aminotransferase 12 U/L (0-40); Albumin Level 3.8 g/dL (3.5-5.0); Alkaline Phosphatase 77 U/L (39-117); Anion Gap 11 (12-20); Aspartate Amino Transferase 17 U/L (5-37); Bilirubin Total < 0.2 mg/dL (0.0-1.0); Blood Urea Nitrogen 14 mg/dL (9-16); Calcium 10.2 mg/dL (8.4-10.2); Carbon Dioxide 28 mmol/L (22-29); Chloride 104 mmol/L (96-108); Creatinine Clr Calc Pharmacy 137.4; Estimated Glomerular Filt Rate > 60; Glucose Random 120 mg/dL (60-115); Potassium 4.4 mmol/L (3.3-5.1); Sodium 139 mmol/L (135-145)
[2022-05-14 23:32] VITALS: BP 125/68; PULSE 73; RESP 13; TEMP 36.6; O2SAT 99
[2022-05-15] MEDS: Enoxaparin Sodium 150 MG/ML SYRINGE SUBCUT (00:08)
--- NOTE | 2022-05-15 12:05 | MHC.CM.ED ---
Patient was discharged from ER around 1230am. [facility] is from a [facility] and was prescribed Lovenox. Recieved telephone call from Venkata at the [facility]. He can be reached via telephone at [phone]. He is requesting VNA be arranged. Referral made to [facility]. They will be able to see patient tomorrow, 05/16, help with Lovenox and draw INR.
== END 2022-05-15 00:41 | disposition home or self-care (01) ==
PROVIDERS: Emergency Provider Emergency Medicine Emergency Medical Services; PCP Physician Assistant
DX: I82.442 Acute embolism and thrombosis of left tibial vein (principal); R60.0 Localized edema; Z79.899 Other long term (current) drug therapy
CPT/HCPCS: 36415; 80053; 85025; 85610; 85730; 96372; 99283; 99284; J1650

== ENCOUNTER 2022-09-24 13:43 | Emergency (ER) | payer MEDICAID, SELFPAY ==
--- NOTE | ~2022-09-24 | XR_ITS ---
EXAMINATION: XR CHEST CLINICAL INFORMATION: Altered mental status. COMPARISON: 12/03/2012 chest radiograph. TECHNIQUE: 2 views of the chest were obtained. FINDINGS: No significant abnormality is noted involving the heart, lungs, mediastinum, bony thorax or soft tissues. Sclerosis in the proximal left humerus without interval change. XR/XR chest 2V IMPRESSION: No acute cardiopulmonary process.
--- NOTE | ~2022-09-24 | CT_ITS ---
EXAMINATION: CT HEAD WITHOUT CONTRAST CLINICAL INFORMATION: Altered mental status. COMPARISON: Head CT scan dated 08/29/2010. TECHNIQUE: Contiguous axial imaging was performed from the skull base to vertex without intravenous administration of contrast. Coronal and sagittal reformatted images were obtained. This CT examination was performed using dose optimization techniques as appropriate, variously including the following: *Automated exposure control *Adjustment of mA and/or kV according to patient size (this includes techniques or standardized protocols for targeted exams where dose is matched to indication/reason for exam; i.e. extremities or head) *Use of iterative reconstruction technique DLP: 1332.08 mGy-cm FINDINGS: There is moderate widening of the cortical sulci. Symmetric lateral ventriculomegaly appears mildly out of proportion to the degree of cortical atrophy. Callosal angle is 23 degrees. The third and fourth ventricles are in their normal midline position. The basilar and prepontine cisterns are unremarkable. There is no acute intra or extracerebral abnormality. There is no mass effect or midline shift. Sections through the bony calvarium are unremarkable. The paranasal sinuses are clear. The bony orbits and orbital contents are unremarkable. Mild anterior nasal septal deviation is seen apex to the left. CT/CT head/brain wo IV con IMPRESSION: 1. No acute intracranial pathology. 2. Symmetric lateral ventriculomegaly appears mildly out of proportion to the degree of cortical atrophy. This could be secondary to normal pressure hydrocephalus. Atrophy appears mildly increased compared to the 2010 study.
--- NOTE | 2022-09-24 13:54 | ECG_ITS ---
Test Reason : AMS Blood Pressure : / mmHG Vent. Rate : 090 BPM Atrial Rate : 090 BPM P-R Int : 152 ms QRS Dur : 086 ms QT Int : 356 ms P-R-T Axes : 019 028 -15 degrees QTc Int : 435 ms Sinus rhythm with Premature atrial complexes with Aberrant conduction Nonspecific ST and T wave abnormality Abnormal ECG When compared with ECG of 22-FEB-2022 20:54, Previous ECG has undetermined rhythm, needs review Referred By: Joellen Dewey Electronically Signed By:ED FERNANDO MD
[2022-09-24 14:10] VITALS: BP 130/68; PULSE 107; O2SAT 97
[2022-09-24 14:11] VITALS: BP 108/72; PULSE 94; RESP 20; TEMP 36.4; O2SAT 96; BMI 28.5
[2022-09-24 15:48] LABS: MANUAL DIFF FLAG NO
[2022-09-24 15:52] LABS: Appearance Urine Cloudy; Color Urine Yellow; Glucose Urine UA Negative (Negative); Leukocyte Esterase Urine Large (3+) (Negative); Nitrite Urine Negative (Negative); PH 7.5 (5.0-9.0); Specific Gravity - Urine 1.015 (1.005-1.025); UMIC TRIGGER UACC YES; Urine Blood Small (1+) (Negative); Urine Ketones Negative (Negative); Urine Protein 30 (1+) mg/dL (Neg-Trace)
[2022-09-24 15:56] LABS: Hemoglobin 13.7 g/dl (14.0-18.0); PLT CLUMP 1; Red Cell Distribution Width 13.3 % (11.0-16.0); SCAN SMEAR FLAG 1
[2022-09-24 15:57] LABS: Basophils Percent Auto 0.3 % (0-2); Eosinophils Absolute Auto 0.1 X10*3/uL (0.0-0.4); Eosinophils Percent Auto 1.1 % (0-4); Hematocrit 41.7 % (42.0-52.0); Imm Gran Abs Auto 0.03 X10*3/uL (0.00-0.03); Imm Gran Pct Auto 0.5 % (0.0-0.4); Lymphocytes Absolute Auto 0.5 X10*3/uL (1.2-4.9); Lymphocytes Percent Auto 8.7 % (20-40); Mean Corpuscular HGB Conc 32.9 g/dl (31.0-36.0); Mean Corpuscular Volume 91.2 fL (80.0-98.0); Mean Platelet Volume 10.5 fL (9.4-12.4); Monocytes Absolute Auto 0.7 X10*3/uL (0.1-1.2); Monocytes Percent Auto 11.3 % (2-11); Neutrophils Absolute Auto 4.8 x10*3/uL (2.0-8.3); Neutrophils Percent Auto 78.1 % (45-73); Red Blood Count 4.57 X10*6/uL (4.60-5.80)
[2022-09-24 16:00] LABS: Platelet Count 122 X10*3/uL (160-400); White Blood Count 6.2 X10*3/uL (4.8-10.8)
[2022-09-24 16:04] LABS: Bacteria Urine None Seen (None Seen); Hyaline Casts Urine 0-2 /LPF (0-2); Squamous Epithelial Cell Urine 0-2 /HPF (0-2); UACC Culture Trigger YES; WBC Urine >50 /HPF (0-5)
[2022-09-24 16:10] LABS: Alanine Aminotransferase 26 U/L (0-40); Albumin Level 3.5 g/dL (3.5-5.0); Alkaline Phosphatase 67 U/L (39-117); Anion Gap 10 (12-20); Aspartate Amino Transferase 31 U/L (5-37); Bilirubin Total 0.4 mg/dL (0.0-1.0); Blood Urea Nitrogen 16 mg/dL (9-16); Calcium 10.6 mg/dL (8.4-10.2); Carbon Dioxide 29 mmol/L (22-29); Chloride 108 mmol/L (96-108); Estimated Glomerular Filt Rate > 60; Glucose Random 95 mg/dL (60-115); Potassium 4.4 mmol/L (3.3-5.1); Sodium 143 mmol/L (135-145); Total Protein 6.2 g/dL (6.5-8.0)
--- NOTE | 2022-09-24 16:24 | ED_ITS ---
HPI - Altered Mental Status General Chief Complaint: Altered Mental Status Stated Complaint: AMS, HX TBI Time Seen by Provider: 09/24/22 13:50 Source: EMS and old records reviewed Mode of arrival: EMS Limitations: altered mental status and physical limitation History of Present Illness HPI narrative: 61 year old wheelchair-bound male with a past medical history of schizoaffective disorder, encephalomalacia, spastic quadriplegia, cerebral atrophy, peripheral neuropathy, atrial fibrillation, HTN, osteoporosis, seizure disorder, and history of bilateral femur fractures in 2017 presents to the [facility] from senior living via EMS?with REFINERY TECHNICIAN from senior living with complaints of altered mental status. REFINERY TECHNICIAN states patient has been less engaged and increasingly somnolent throughout the day which is abnormal for him. Her REFINERY TECHNICIAN report patient has not had any recent illness, sick contacts, fever, chills, nausea, vomiting, diarrhea, or constipation. She states he has not had any complaints of headache, chest pain, abdominal pain, myalgias, or arthralgias. MD complaint: altered mental status Onset (ago): hour(s) Timing confirmed by: caregiver Severity: mild Consistency of symptoms: unknown Context: unknown Associated symptoms: denies other symptoms Related Data Home Medications Medication Instructions Recorded Confirmed acetaminophen 325 mg tablet 650 mg PO Q6H PRN Pain 03/24/21 08/11/22 alendronate 70 mg tablet 70 mg PO SA 03/24/21 08/11/22 bupropion HCl 100 mg tablet 100 mg PO BID 03/24/21 08/11/22 cholecalciferol (vitamin D3) 25 25 mcg PO DAILY 03/24/21 08/11/22 mcg (1,000 unit) tablet divalproex 500 mg tablet,delayed 1,000 mg PO BID@0900,1600 03/24/21 08/11/22 release divalproex 500 mg tablet,delayed 1,000 mg PO Q2D@2000 03/24/21 08/11/22 release fluticasone propionate 110 1 puff inhalation BID 03/24/21 08/11/22 mcg/actuation HFA aerosol inhaler (Flovent HFA) multivitamin 1 tab PO DAILY 03/24/21 08/11/22 phenobarbital 32.4 mg tablet 32.4 mg PO DAILY 03/24/21 08/11/22 risperidone 3 mg tablet 3 mg PO DAILY 03/24/21 08/11/22 tizanidine 4 mg tablet 4 mg PO BID 03/24/21 08/11/22 atorvastatin 20 mg tablet 20 mg PO BEDTIME 02/21/22 08/11/22 divalproex 500 mg tablet,delayed 500 mg PO Q2D@199902/21/22 08/11/22 release (Depakote) Previous Rx's Medication Instructions Recorded hydrocodone 5 mg-acetaminophen 325 1 tab PO Q8H PRN pain, severe 3 02/24/22 mg tablet days #9 tabs enoxaparin 150 mg/mL subcutaneous 150 mg subcut DAILY 7 days #7 mL 05/14/22 syringe (Lovenox) finasteride 5 mg tablet 5 mg PO DAILY 90 days #90 tabs 08/11/22 tamsulosin 0.4 mg capsule (Flomax) 0.4 mg PO BEDTIME 90 days #90 caps 08/11/22 cefuroxime axetil 500 mg tablet 500 mg PO BID 7 days #14 tabs 09/24/22 Allergies Allergy/AdvReac Type Severity Reaction Status Date / Time morphine [MORPHINE] Allergy Mild LOOPY Verified 08/06/22 10:29 ciprofloxacin [CIPROFLOXACIN] AdvReac Intermediate skin Verified 08/06/22 10:29 erythema/macular rash Review of Systems Review of Systems: Yes Unobtainable due to mental status (Limited, obtained from senior living REFINERY TECHNICIAN ) Constitutional: Constitutional: Reports no additional constitutional complaints, Denies chills, Reports daytime sleepiness, Denies fever(s), Denies frequent falls, Denies headache(s), Denies night sweats, Denies weakness and Denies weight loss Eyes: Eyes: Reports no additional eye complaints ENT: Reports system reviewed and no additional complaints, except as documented, Denies dysphagia, Denies headache(s), Denies nasal congestion, Denies nasal discharge and Denies sore throat Cardiovascular: Cardiovascular: Reports no additional cardiovascular complaints, Denies chest pain, Reports leg edema (baseline per REFINERY TECHNICIAN and patient), Denies Loss of Consciousness and Denies dyspnea Respiratory: Respiratory: Reports no additional respiratory complaints, Denies chest congestion, Denies cough, Denies dyspnea and Denies wheezing Gastrointestinal: Gastrointestinal: Reports no additional gastrointestinal complaints, Denies abdominal pain, Denies change in bowel habits, Denies constipation, Denies dysphagia, Denies diarrhea, Denies nausea and Denies vomiting Genitourinary: Genitourinary: Reports no additional male genitourinary complaints and Denies oliguria Musculoskeletal: Musculoskeletal: Reports no additional musculoskeletal complaints and Denies myalgias Integumentary/Breasts: Skin/Breast: Reports system reviewed and no additional complaints, except as docu, Denies lesions, Denies rash, Denies sores and Denies wounds Neurologic: Reports system reviewed and no additional complaints, except as documented, Reports confusion, Denies frequent falls, Denies headache(s) and Denies weakness Psychiatric: Psychiatric: Reports no additional psychiatric complaints and Reports confusion Endocrine: Endocrine: Reports no additional endocrine complaints, Denies change in body appearance, Denies polyphagia, Denies polydipsia and Denies polyuria Hematologic/Lymphatic: Hematologic/Lymphatic: Reports no additional hematologic/lymphatic complaints, Denies easy bleeding and Denies easy bruising Allergic/Immunologic: Allergic/Immunologic: Reports no additional allergic/immunologic complaints, Denies seasonal rhinorrhea and Denies wheezing PMFSH Past Medical History Attestation statement: The following information was validated with the patient. Source: old records reviewed and obtained from family Medical History Impaired cognition Rectal bleeding UTI (urinary tract infection) Social History Social History Advance Directives: Yes Advance Directives on File: Yes Advance Directives Date on File: 03/24/21 Physical Exam ED Vital Signs: Vital Signs - 24 hr 09/24/22 14:11 Temperature 97.5 F Pulse Rate 94 Respiratory Rate 20 Blood Pressure 108/72 Pulse Oximetry 96 Oxygen Delivery Method Room Air BMI result Body Mass Index 28.5 Const General: alert, confusion and other Nutritional Appearance: average body habitus Orientation/consciousness: oriented to person and confusion Limitations: altered mental status and physical limitations HENMA Other: No acute changes to [facility] assessment. Head: Yes atraumatic Ears: external ears normal and TM's normal bilaterally General nose exam: Normal nares present Face and sinus: Yes scar (left mormon, healed) Eyes General: appearance normal, both eyes and all related structures Visual Kraft: normal visual kraft by confrontation Alignment and Position: alignment normal Periorbital: periorbital findings normal Eyelids: Yes eyelids normal Conjunctivae: conjunctivae normal Sclerae: sclerae normal Corneas: corneas normal Pupils: Equal, round and reactive pupils present EOM: EOMs intact bilaterally Neck Neck: Yes normal visual inspection and Yes no lymphadenopathy Chest Chest palpation & inspection: normal inspection of the chest Resp Effort & Inspection: normal respiratory effort and not labored Auscultation: no crackles, no rhonchi, no wheezes and diminished lung sounds bilateral in the lower lung kraft Cardio Rate: regular rate Rhythm: regular rhythm GI Inspection: Yes normal to inspection Palpation (GI): Soft to palpation and nontender Auscultation: normal bowel sounds Skin General skin exam: no rashes or lesions noted Neuro General: oriented to person, confusion and Unable to assess gait Cranial nerves: Yes Equal, round and reactive pupils present Cognition (Neuro): abnormal cognition Gait exam (Neuro): Unable to assess gait Medical Decision Making Medical Decision Making MDM Narrative: 61-year-old wheelchair bound with man with complex medical history presents to the emergency department by EMS with complaints of altered mental status. During exam patient is alert answering questions and following commands appropriate to his baseline, moving upper extremities with good strength. Blood work unremarkable. Chest x-ray with no acute cardiopulmonary process. CT head with no acute intracranial pathology with mildly increased atrophy compared to 2010 study. Urinalysis consistent with urinary tract infection. Cefuroxime 500 mg given in the emergency department start antibiotic therapy with plan to continue cefuroxime b.i.d. x7 days. HPI, physical, diagnosis, plan discussed with REFINERY TECHNICIAN from senior living with no answer questions. Preferred pharmacy verified with REFINERY TECHNICIAN. Educated to return to the emergency department with worsening mental status, fever despite use of [id number] Tylenol or Motrin, abdominal pain, or any other concerning symptoms. Recommended to follow up with primary care for further treatment and management. Discharge Plan Discharge Clinical Impression: UTI (urinary tract infection) Patient Disposition: Home, Self-Care Instructions: Cefuroxime (By mouth), Urinary Tract Infection in Men (ED) Additional Instructions: You have been diagnosed with a urinary tract infection. Urinary tract infections can contribute to changes in mental status, weakness, fatigue, and potential fever. A prescription for antibiotics has been prescribed to your p referred pharmacy to be taken 2 times a day. He has received a dose in the Emergency Department, your next dose is due tomorrow morning, 09/25/2022. Please complete the prescription as ordered. Please return to the emergency department with worsening mental status, fever despite use of [id number] Tylenol or Motrin, abdominal pain, or any other concerning symptoms. Recommended to follow up with primary care for further treatment and management. Prescriptions: New cefuroxime axetil 500 mg tablet 500 mg PO BID 7 Days Qty: 14 0RF No Action finasteride 5 mg tablet 5 mg PO DAILY 90 Days Qty: 90 3RF alendronate 70 mg Tablet 70 mg PO SA bupropion HCl 100 mg Tablet 100 mg PO BID cholecalciferol (vitamin D3) 25 mcg (1,000 unit) Tablet 25 mcg PO DAILY multivitamin Tablet 1 tab PO DAILY acetaminophen 325 mg Tablet 650 mg PO Q6H PRN (Reason: Pain) tizanidine 4 mg Tablet 4 mg PO BID divalproex 500 mg Tablet,Delayed Release (Dr/Ec) 1,000 mg PO BID@0900,1600 divalproex 500 mg Tablet,Delayed Release (Dr/Ec) 1,000 mg PO Q2D@1999 Rx Instructions: 1000MG IN THE MORNING AND NOON, AND 1000MG ALTERNATING WITH 500MG EVERY OTHER DAY AT NIGHT risperidone 3 mg Tablet 3 mg PO DAILY Flovent HFA 110 mcg/actuation Hfa Aerosol Inhaler 1 puff INHALATION BID phenobarbital 32.4 mg Tablet 32.4 mg PO DAILY atorvastatin 20 mg Tablet 20 mg PO BEDTIME divalproex [Depakote] 500 mg Tablet,Delayed Release (Dr/Ec) 500 mg PO Q2D@1999 hydrocodone-acetaminophen 5-325 mg tablet 1 tab PO Q8H PRN (Reason: pain, severe) 3 Days Qty: 9 0RF enoxaparin [Lovenox] 150 mg/mL syringe 150 mg subcut DAILY 7 Days Qty: 7 0RF tamsulosin [Flomax] 0.4 mg capsule 0.4 mg PO BEDTIME 90 Days Qty: 90 3RF
--- NOTE | 2022-09-24 18:52 | PC.NURSE ---
Pt has been resting on stretcher in hallway with no complaints. hop farm worker is present at the bedside. Pt states he has no pain and would like to go home. Awaiting an ambulance for transport back to the residential at this time
== END 2022-09-24 20:47 | disposition home or self-care (01) ==
PROVIDERS: Nurse Practitioner Family; Emergency Provider Emergency Medicine; PCP Nurse Practitioner Family
DX: N39.0 Urinary tract infection, site not specified (principal); R41.82 Altered mental status, unspecified; R51.9 Headache, unspecified; R07.89 Other chest pain; Z79.899 Other long term (current) drug therapy
CPT/HCPCS: 36415; 70450; 71046; 80053; 81001; 85025; 87086; 87088; 87186; 93005; 99284

== ENCOUNTER 2023-02-09 16:04 | Emergency (ER) | payer OTHER, SELFPAY ==
--- NOTE | ~2023-02-09 | XR_ITS ---
EXAMINATION: XR FOOT, LEFT CLINICAL INFORMATION: Evaluate for osteomyelitis. COMPARISON: Radiograph of the left foot 04/29/2022. TECHNIQUE: AP, lateral, and oblique views of the left foot. FINDINGS: Marked diffuse osteopenia limiting evaluation of fine osseous details. Accounting for this limitation, no discrete erosive changes are noted to suspect osteomyelitis. No displaced fractures. Mild to moderate multifocal degenerative osteoarthritis. Extensive diffuse soft tissue thickening. XR/XR foot LT min 3V IMPRESSION: No discrete erosive changes to suspect osteomyelitis. However, if there is high clinical suspicious for osteomyelitis, correlation with an MR is recommended.
--- NOTE | ~2023-02-09 | US_ITS ---
EXAMINATION: US VENOUS ULTRASOUND WITH DOPPLER LOWER EXTREMITY, BILATERAL CLINICAL INFORMATION: Bilateral lower extremity edema. COMPARISON: None available. TECHNIQUE: Ultrasound of the deep veins is performed from the hip to the calf with compression sonography and color and pulse Doppler assessment. Spectral analysis with color-flow imaging is performed. FINDINGS: RIGHT: There is normal venous compression and respiratory variation and augmented flow. The visualized common femoral vein, superficial femoral vein, profunda femoral vein, popliteal vein, and the trifurcation region shows no evidence of deep venous thrombosis. There is no significant popliteal fossa cyst. LEFT: There is normal venous compression and respiratory variation and augmented flow. The visualized common femoral vein, superficial femoral vein, profunda femoral vein, popliteal vein, and the visualized trifurcation region shows no evidence of deep venous thrombosis. There is no significant popliteal fossa cyst. If the patient's symptoms persist, followup ultrasound in 5 days 7 days might be of value to exclude proximal propagation from a non-visualized calf vein. US/US venous duplex LE BI IMPRESSION: No DVT demonstrated in the bilateral lower extremities.
[2023-02-09 16:25] VITALS: BP 101/74; PULSE 84; RESP 19; TEMP 35.9; O2SAT 94; BMI 26.2
--- NOTE | 2023-02-09 16:25 | ED.LOWEXIN ---
HPI - Extremity Injury (Lower) General Chief Complaint: Extremity Problem <JOCELYNE Scott - Last Filed: 02/09/23 16:32> Stated Complaint: ?L foot infection <JOCELYNE Scott - Last Filed: 02/09/23 16:32> Time Seen by Provider: 02/09/23 20:35 <JOCELYNE Scott - Last Filed: 02/09/23 16:32> Source: patient <Zackery Rainey MD - Last Filed: 02/09/23 21:35> Mode of arrival: ambulatory <Zackery Rainey MD - Last Filed: 02/09/23 21:35> Limitations: no limitations <Zackery Rainey MD - Last Filed: 02/09/23 21:35> History of Present Illness HPI Narrative: 62-year-old male brought in from his intermediate for evaluation of infected right toenail. The patient has been on Keflex for approximately 5 days with no improvement. According to the intermediate staff member, the toe is been draining pus. Patient has not been ill in any other way. The patient does have significant peripheral edema in does have a DVT of the left tibial vein. <Zackery Rainey MD - Last Filed: 02/09/23 21:35> Related Data Home Medications: Home Medications Medication Instructions Recorded Confirmed acetaminophen 325 mg tablet 650 mg PO Q6H PRN Pain 03/24/21 08/11/22 alendronate 70 mg tablet 70 mg PO SA 03/24/21 08/11/22 bupropion HCl 100 mg tablet 100 mg PO BID 03/24/21 08/11/22 cholecalciferol (vitamin D3) 25 25 mcg PO DAILY 03/24/21 08/11/22 mcg (1,000 unit) tablet divalproex 500 mg tablet,delayed 1,000 mg PO BID@0900,1600 03/24/21 08/11/22 release divalproex 500 mg tablet,delayed 1,000 mg PO Q2D@2000 03/24/21 08/11/22 release fluticasone propionate 110 1 puff inhalation BID 03/24/21 08/11/22 mcg/actuation HFA aerosol inhaler (Flovent HFA) multivitamin 1 tab PO DAILY 03/24/21 08/11/22 phenobarbital 32.4 mg tablet 32.4 mg PO DAILY 03/24/21 08/11/22 risperidone 3 mg tablet 3 mg PO DAILY 03/24/21 08/11/22 tizanidine 4 mg tablet 4 mg PO BID 03/24/21 08/11/22 atorvastatin 20 mg tablet 20 mg PO BEDTIME 02/21/22 08/11/22 divalproex 500 mg tablet,delayed 500 mg PO Q2D@199902/21/22 08/11/22 release (Depakote) Previous Rx's Medication Instructions Recorded hydrocodone 5 mg-acetaminophen 325 1 tab PO Q8H PRN pain, severe 3 02/24/22 mg tablet days #9 tabs enoxaparin 150 mg/mL subcutaneous 150 mg subcut DAILY 7 days #7 mL 05/14/22 syringe (Lovenox) finasteride 5 mg tablet 5 mg PO DAILY 90 days #90 tabs 08/11/22 tamsulosin 0.4 mg capsule (Flomax) 0.4 mg PO BEDTIME 90 days #90 caps 08/11/22 cefuroxime axetil 500 mg tablet 500 mg PO BID 7 days #14 tabs 09/24/22 bacitracin 500 unit/gram topical 1 appl topical BID 7 days #28 grams 02/09/23 ointment cephalexin 500 mg capsule 500 mg PO QID 5 days #20 caps 02/09/23 doxycycline hyclate 100 mg tablet 100 mg PO Q12H 5 days #10 tabs 02/09/23 <JOCELYNE Scott - Last Filed: 02/09/23 16:32> Allergies/Adverse Reactions: Allergies Allergy/AdvReac Type Severity Reaction Status Date / Time morphine [MORPHINE] Allergy Mild LOOPY Verified 08/06/22 10:29 ciprofloxacin [CIPROFLOXACIN] AdvReac Intermediate skin Verified 08/06/22 10:29 erythema/macular rash <JOCELYNE Scott - Last Filed: 02/09/23 16:32> Review of Systems Review of Systems: Yes all other systems are reviewed and are negative <Zackery Rainey MD - Last Filed: 02/09/23 21:35> PMFSH Past Medical History Medical History: Medical History Impaired cognition Rectal bleeding UTI (urinary tract infection) <JOCELYNE Scott - Last Filed: 02/09/23 16:32> Social History Social History: Social History Alcohol intake: never Advance Directives Date on File: 03/24/21 <JOCELYNE Scott - Last Filed: 02/09/23 16:32> Physical Exam Vital Signs: Vital Signs: Last Vital Signs Temp 96.6 F L 02/09/23 16:25 Pulse 84 02/09/23 16:25 Resp 19 02/09/23 16:25 BP 101/74 02/09/23 16:25 Pulse Ox 94 02/09/23 16:25 O2 Del Method Room Air 02/09/23 16:25 BMI result Body Mass Index 26.2 <JOCELYNE Scott - Last Filed: 02/09/23 16:32> Vital Signs: Last Vital Signs Temp 96.6 F L 02/09/23 16:25 Pulse 84 02/09/23 16:25 Resp 19 02/09/23 16:25 BP 101/74 02/09/23 16:25 Pulse Ox 94 02/09/23 16:25 O2 Del Method Room Air 02/09/23 16:25 BMI result Body Mass Index 26.2 Vital signs stable <Zackery Rainey MD - Last Filed: 02/09/23 21:35> General: Awake, alert, male patient, minimally verbal secondary to his encephalomalacia Extremities: Patient has 2+ pitting edema to the feet and lower extremities which are symmetric the patient left great toenail is thick secondary to fungal infection could there is significant periungual erythema with purulent drainage from the medial aspect of the great toe your <Zackery Rainey MD - Last Filed: 02/09/23 21:35> Course Course Course Narrative: RME: 61 year old wheelchair-bound male with a PMHx of schizoaffective disorder, encephalomalacia, spastic quadriplegia, cerebral atrophy, peripheral neuropathy, atrial fibrillation, HTN, osteoporosis, seizure disorder, and history of bilateral femur fractures presenting to the ED from intermediate c/o infected L toe x 1 week with active pus drainage. reports acute on chronic LE edema. has been on Keflex since Wednesday w/o improvement Denies fever, SOB +4 b/l LE pitting edema, L great toe with erythema and drainage Labs, lactic/blood Cx, venous duplex US, Foot XR ordered Full HPI, ROS and PE to be performed by primary ED provider. <JOCELYNE Scott - Last Filed: 02/09/23 16:32> Medical Decision Making Medical Decision Making [facility] Narrative: 62-year-old male with past medical history of schizoaffective disorder, encephalomalacia, spastic quadriplegia, cerebral atrophy, peripheral neuropathy, atrial fibrillation, HTN, osteoporosis, seizure disorder, and history of bilateral femur fractures in 2017 presents to the ED for evaluation infected left great toe . The patient has been on Keflex for 5 days with only minimal improvement. The patient most likely has an ingrown toenail which is infected. The left great toe anesthetized with a digital block and the toenail was then removed. The toenail was however with bacitracin and a gauze dressing. Patient will be discharged with instructions to apply bacitracin twice a day keep the toenail wrapped with gauze dressing . Patient was given prescriptions for Keflex 500 mg 4 times a day for 5 days and doxycycline 100 mg every 12 hours for 5 days your <Zackery Rainey MD - Last Filed: 02/09/23 21:35> Differential Diagnosis Differential diagnosis includes was not limited to cellulitis, infected ingrown toenail, osteomyelitis, DVT <Zackery Rainey MD - Last Filed: 02/09/23 21:35> Admission/Observation Consideration of admission/observation: Escalation of care including admission/observation considered <Zackery Rainey MD - Last Filed: 02/09/23 21:35> Lab Data [facility] Lab Attestation statement: I reviewed the patient's lab results. <Zackery Rainey MD - Last Filed: 02/09/23 21:35> My interpretation of the patient's laboratory data is as follows: Low platelet count [id number]. Elevated glucose 143. <Zackery Rainey MD - Last Filed: 02/09/23 21:35> Result Diagrams: 02/09/23 17:16 02/09/23 17:16 <JOCELYNE Scott - Last Filed: 02/09/23 16:32> Labs: Lab Results 02/09/23 02/09/23 02/09/23 Range/Units 17:16 17:16 17:16 WBC 6.3 (4.8-10.8) X10*3/uL RBC 4.80 (4.60-5.80) X10*6/uL Hgb 14.9 (14.0-18.0) g/dl Hct 45.3 (42.0-52.0) % MCV 94.4 (80.0-98.0) fL MCH 31.0 (27.0-33.0) pg MCHC 32.9 (31.0-36.0) g/dl RDW 12.1 (11.0-16.0) % Plt Count 131 L (160-400) X10*3/uL MPV 10.8 (9.4-12.4) fL Immature Gran % (Auto) 0.3 (0.0-0.4) % Neut % (Auto) 65.0 (45-73) % Lymph % (Auto) 17.3 L (20-40) % Powell % (Auto) 13.8 H (2-11) % Eos % (Auto) 3.3 (0-4) % Baso % (Auto) 0.3 (0-2) % Lymph # (Auto) 1.1 L (1.2-4.9) X10*3/uL Powell # (Auto) 0.9 (0.1-1.2) X10*3/uL Eos # (Auto) 0.2 (0.0-0.4) X10*3/uL Baso # (Auto) 0.0 (0.0-0.2) X10*3/uL Abs Immat Gran (auto) 0.02 (0.00-0.03) X10*3/uL Absolute Neuts (auto) 4.1 (2.0-8.3) x10*3/uL Absolute Nucleated RBC 0.000 (0.0-0.012) X10*3/uL Nucleated RBC % (auto) 0.0 (0.0-0.2) /100WBC PT 38.2 H (10.0-13.1) SEC INR 3.2 H (0.9-1.1) Sodium 139 (135-145) mmol/L Potassium 3.8 (3.3-5.1) mmol/L Chloride 97 (96-108) mmol/L Carbon Dioxide 32 H (22-29) mmol/L Anion Gap 14 (12-20) BUN 18 H (9-16) mg/dL Creatinine 1.01 (0.5-1.4) mg/dL Estim Creat Clear Calc 90.6 Estimated GFR > 60 Random Glucose 143 H (60-115) mg/dL Lactic Acid (0.5-2.0) mmol/L Calcium 10.6 H (8.4-10.2) mg/dL Total Bilirubin 0.4 (0.0-1.0) mg/dL Direct Bilirubin 0.2 (0.0-0.5) mg/dL AST 27 (5-37) U/L ALT 19 (0-40) U/L Alkaline Phosphatase 79 (39-117) U/L B-Natriuretic Peptide (<100) pg/mL Total Protein 7.2 (6.5-8.0) g/dL Albumin 3.9 (3.5-5.0) g/dL 02/09/23 02/09/23 Range/Units 17:16 17:16 WBC (4.8-10.8) X10*3/uL RBC (4.60-5.80) X10*6/uL Hgb (14.0-18.0) g/dl Hct (42.0-52.0) % MCV (80.0-98.0) fL MCH (27.0-33.0) pg MCHC (31.0-36.0) g/dl RDW (11.0-16.0) % Plt Count (160-400) X10*3/uL MPV (9.4-12.4) fL Immature Gran % (Auto) (0.0-0.4) % Neut % (Auto) (45-73) % Lymph % (Auto) (20-40) % Powell % (Auto) (2-11) % Eos % (Auto) (0-4) % Baso % (Auto) (0-2) % Lymph # (Auto) (1.2-4.9) X10*3/uL Powell # (Auto) (0.1-1.2) X10*3/uL Eos # (Auto) (0.0-0.4) X10*3/uL Baso # (Auto) (0.0-0.2) X10*3/uL Abs Immat Gran (auto) (0.00-0.03) X10*3/uL Absolute Neuts (auto) (2.0-8.3) x10*3/uL Absolute Nucleated RBC (0.0-0.012) X10*3/uL Nucleated RBC % (auto) (0.0-0.2) /100WBC PT (10.0-13.1) SEC INR (0.9-1.1) Sodium (135-145) mmol/L Potassium (3.3-5.1) mmol/L Chloride (96-108) mmol/L Carbon Dioxide (22-29) mmol/L Anion Gap (12-20) BUN (9-16) mg/dL Creatinine (0.5-1.4) mg/dL Estim Creat Clear Calc Estimated GFR Random Glucose (60-115) mg/dL Lactic Acid 1.5 (0.5-2.0) mmol/L Calcium (8.4-10.2) mg/dL Total Bilirubin (0.0-1.0) mg/dL Direct Bilirubin (0.0-0.5) mg/dL AST (5-37) U/L ALT (0-40) U/L Alkaline Phosphatase (39-117) U/L B-Natriuretic Peptide 85 (<100) pg/mL Total Protein (6.5-8.0) g/dL Albumin (3.5-5.0) g/dL <JOCELYNE Scott - Last Filed: 02/09/23 16:32> Lab Results 02/09/23 02/09/23 02/09/23 Range/Units 17:16 17:16 17:16 WBC 6.3 (4.8-10.8) X10*3/uL RBC 4.80 (4.60-5.80) X10*6/uL Hgb 14.9 (14.0-18.0) g/dl Hct 45.3 (42.0-52.0) % MCV 94.4 (80.0-98.0) fL MCH 31.0 (27.0-33.0) pg MCHC 32.9 (31.0-36.0) g/dl RDW 12.1 (11.0-16.0) % Plt Count 131 L (160-400) X10*3/uL MPV 10.8 (9.4-12.4) fL Immature Gran % (Auto) 0.3 (0.0-0.4) % Neut % (Auto) 65.0 (45-73) % Lymph % (Auto) 17.3 L (20-40) % Powell % (Auto) 13.8 H (2-11) % Eos % (Auto) 3.3 (0-4) % Baso % (Auto) 0.3 (0-2) % Lymph # (Auto) 1.1 L (1.2-4.9) X10*3/uL Powell # (Auto) 0.9 (0.1-1.2) X10*3/uL Eos # (Auto) 0.2 (0.0-0.4) X10*3/uL Baso # (Auto) 0.0 (0.0-0.2) X10*3/uL Abs Immat Gran (auto) 0.02 (0.00-0.03) X10*3/uL Absolute Neuts (auto) 4.1 (2.0-8.3) x10*3/uL Absolute Nucleated RBC 0.000 (0.0-0.012) X10*3/uL Nucleated RBC % (auto) 0.0 (0.0-0.2) /100WBC PT 38.2 H (10.0-13.1) SEC INR 3.2 H (0.9-1.1) Sodium 139 (135-145) mmol/L Potassium 3.8 (3.3-5.1) mmol/L Chloride 97 (96-108) mmol/L Carbon Dioxide 32 H (22-29) mmol/L Anion Gap 14 (12-20) BUN 18 H (9-16) mg/dL Creatinine 1.01 (0.5-1.4) mg/dL Estim Creat Clear Calc 90.6 Estimated GFR > 60 Random Glucose 143 H (60-115) mg/dL Lactic Acid (0.5-2.0) mmol/L Calcium 10.6 H (8.4-10.2) mg/dL Total Bilirubin 0.4 (0.0-1.0) mg/dL Direct Bilirubin 0.2 (0.0-0.5) mg/dL AST 27 (5-37) U/L ALT 19 (0-40) U/L Alkaline Phosphatase 79 (39-117) U/L B-Natriuretic Peptide (<100) pg/mL Total Protein 7.2 (6.5-8.0) g/dL Albumin 3.9 (3.5-5.0) g/dL 02/09/23 02/09/23 Range/Units 17:16 17:16 WBC (4.8-10.8) X10*3/uL RBC (4.60-5.80) X10*6/uL Hgb (14.0-18.0) g/dl Hct (42.0-52.0) % MCV (80.0-98.0) fL MCH (27.0-33.0) pg MCHC (31.0-36.0) g/dl RDW (11.0-16.0) % Plt Count (160-400) X10*3/uL MPV (9.4-12.4) fL Immature Gran % (Auto) (0.0-0.4) % Neut % (Auto) (45-73) % Lymph % (Auto) (20-40) % Powell % (Auto) (2-11) % Eos % (Auto) (0-4) % Baso % (Auto) (0-2) % Lymph # (Auto) (1.2-4.9) X10*3/uL Powell # (Auto) (0.1-1.2) X10*3/uL Eos # (Auto) (0.0-0.4) X10*3/uL Baso # (Auto) (0.0-0.2) X10*3/uL Abs Immat Gran (auto) (0.00-0.03) X10*3/uL Absolute Neuts (auto) (2.0-8.3) x10*3/uL Absolute Nucleated RBC (0.0-0.012) X10*3/uL Nucleated RBC % (auto) (0.0-0.2) /100WBC PT (10.0-13.1) SEC INR (0.9-1.1) Sodium (135-145) mmol/L Potassium (3.3-5.1) mmol/L Chloride (96-108) mmol/L Carbon Dioxide (22-29) mmol/L Anion Gap (12-20) BUN (9-16) mg/dL Creatinine (0.5-1.4) mg/dL Estim Creat Clear Calc Estimated GFR Random Glucose (60-115) mg/dL Lactic Acid 1.5 (0.5-2.0) mmol/L Calcium (8.4-10.2) mg/dL Total Bilirubin (0.0-1.0) mg/dL Direct Bilirubin (0.0-0.5) mg/dL AST (5-37) U/L ALT (0-40) U/L Alkaline Phosphatase (39-117) U/L B-Natriuretic Peptide 85 (<100) pg/mL Total Protein (6.5-8.0) g/dL Albumin (3.5-5.0) g/dL <Zackery Rainey MD - Last Filed: 02/09/23 21:35> Independent Interpretation I performed an independent interpretation of an: Plain X-Ray <Zackery Rainey MD - Last Filed: 02/09/23 21:35> Interpretation: No acute fracture, no evidence for osteomyelitis lesion over the great toe <Zackery Rainey MD - Last Filed: 02/09/23 21:35> Radiology Impression Discussion of test interpretation with radiology: I have reviewed the radiologist's reading. <Zackery Rainey MD - Last Filed: 02/09/23 21:35> Radiologist Impression: XR foot LT min 3V IMPRESSION: No discrete erosive changes to suspect osteomyelitis. However, if there is high clinical suspicious for osteomyelitis, correlation with an MR is recommended. ? Dictated By: Nasrin Spencer Duplex ultrasound Bilateral lower extremities, no DVT <Zackery Rainey MD - Last Filed: 02/09/23 21:35> Independent Historian Clinical information obtained from an independent historian. History obtained from or confirmed by: Other (intermediate staff member, Chaya) <Zackery Rainey MD - Last Filed: 02/09/23 21:35> External Record Review External record reviewed: Inpatient record <Zackery Rainey MD - Last Filed: 02/09/23 21:35> Procedures Procedure Narrative Procedure Narrative: Left great toe Infected ingrown toenail, toenail room co The patient's left great toe was prepped with Betadine. 6 cc of 1% lidocaine was used for a digital block of the left great toe. Using hemostats, a left great toe was grasped and with gentle pressure was removed intact. The nailbed was then covered with bacitracin and a gauze dressing was applied. The patient tolerated the procedure well. <Zackery Rainey MD - Last Filed: 02/09/23 21:35> Discharge Plan Discharge Clinical Impression: Ingrowing left great toenail, Cellulitis <JOCELYNE Scott - Last Filed: 02/09/23 16:32> Patient Disposition: Home, Self-Care <JOCELYNE Scott - Last Filed: 02/09/23 16:32> Instructions: Ingrown Nail (ED), Warm Compress or Soak (ED) <JOCELYNE Scott - Last Filed: 02/09/23 16:32> Additional Instructions: Your left great toenail was ingrown infected. This was removed by me. Apply bacitracin to the nailbed twice a day and keep the nail bed wrapped with a gauze dressing. Apply warm compress for 15 minutes 4 to 6 times a day to the toe. This will increase the blood flow to the area and help the healing process. Take Keflex (cephalexin) 500 mg pills, 1 pill 4 times a day for 5 days Take doxycycline 100 mg pills, 1 pill every 12 hours for 5 days Follow-up with your doctor in 2 days. Please return to the emergency department if your symptoms get worse or if you develop any symptoms that are concerning to you. The x-ray of your toe did not reveal an infection of the bone The duplex ultrasound of your extremities did not reveal any blood clots. <JOCELYNE Scott - Last Filed: 02/09/23 16:32> Prescriptions: New cephalexin 500 mg capsule 500 mg PO QID 5 Days Qty: 20 0RF doxycycline hyclate 100 mg tablet 100 mg PO Q12H 5 Days Qty: 10 0RF bacitracin 500 unit/gram ointment 1 appl topical BID 7 Days Qty: 28 0RF Rx Instructions: Apply to left great toe nail bed No Action finasteride 5 mg tablet 5 mg PO DAILY 90 Days Qty: 90 3RF alendronate 70 mg Tablet 70 mg PO SA bupropion HCl 100 mg Tablet 100 mg PO BID cholecalciferol (vitamin D3) 25 mcg (1,000 unit) Tablet 25 mcg PO DAILY multivitamin Tablet 1 tab PO DAILY acetaminophen 325 mg Tablet 650 mg PO Q6H PRN (Reason: Pain) tizanidine 4 mg Tablet 4 mg PO BID divalproex 500 mg Tablet,Delayed Release (Dr/Ec) 1,000 mg PO BID@0900,1600 divalproex 500 mg Tablet,Delayed Release (Dr/Ec) 1,000 mg PO Q2D@2000 Rx Instructions: 1000MG IN THE MORNING AND NOON, AND 1000MG ALTERNATING WITH 500MG EVERY OTHER DAY AT NIGHT risperidone 3 mg Tablet 3 mg PO DAILY Flovent HFA 110 mcg/actuation Hfa Aerosol Inhaler 1 puff INHALATION BID phenobarbital 32.4 mg Tablet 32.4 mg PO DAILY cefuroxime axetil 500 mg tablet 500 mg PO BID 7 Days Qty: 14 0RF atorvastatin 20 mg Tablet 20 mg PO BEDTIME divalproex [Depakote] 500 mg Tablet,Delayed Release (Dr/Ec) 500 mg PO Q2D@2000 hydrocodone-acetaminophen 5-325 mg tablet 1 tab PO Q8H PRN (Reason: pain, severe) 3 Days Qty: 9 0RF enoxaparin [Lovenox] 150 mg/mL syringe 150 mg subcut DAILY 7 Days Qty: 7 0RF tamsulosin [Flomax] 0.4 mg capsule 0.4 mg PO BEDTIME 90 Days Qty: 90 3RF <JOCELYNE Scott - Last Filed: 02/09/23 16:32>
[2023-02-09 17:22] LABS: MANUAL DIFF FLAG NO
[2023-02-09 17:36] LABS: INTERNATIONAL NORM RATIO 3.2 (0.9-1.1); Prothrombin Time 38.2 SEC (10.0-13.1)
[2023-02-09 17:39] LABS: Lactic Acid 1.5 mmol/L (0.5-2.0)
[2023-02-09 17:48] LABS: Alanine Aminotransferase 19 U/L (0-40); Albumin Level 3.9 g/dL (3.5-5.0); Alkaline Phosphatase 79 U/L (39-117); Anion Gap 14 (12-20); Aspartate Amino Transferase 27 U/L (5-37); Bilirubin Direct 0.2 mg/dL (0.0-0.5); Bilirubin Total 0.4 mg/dL (0.0-1.0); Blood Urea Nitrogen 18 mg/dL (9-16); Calcium 10.6 mg/dL (8.4-10.2); Carbon Dioxide 32 mmol/L (22-29); Chloride 97 mmol/L (96-108); Creatinine Clr Calc Pharmacy 90.6; Estimated Glomerular Filt Rate > 60; Glucose Random 143 mg/dL (60-115); Potassium 3.8 mmol/L (3.3-5.1); Sodium 139 mmol/L (135-145); Total Protein 7.2 g/dL (6.5-8.0)
[2023-02-09 17:50] LABS: B Type Natriuretic Peptide 85 pg/mL (<100)
[2023-02-09 17:54] LABS: Basophils Percent Auto 0.3 % (0-2); Eosinophils Absolute Auto 0.2 X10*3/uL (0.0-0.4); Eosinophils Percent Auto 3.3 % (0-4); Hematocrit 45.3 % (42.0-52.0); Hemoglobin 14.9 g/dl (14.0-18.0); Imm Gran Abs Auto 0.02 X10*3/uL (0.00-0.03); Imm Gran Pct Auto 0.3 % (0.0-0.4); Lymphocytes Absolute Auto 1.1 X10*3/uL (1.2-4.9); Lymphocytes Percent Auto 17.3 % (20-40); Mean Corpuscular HGB Conc 32.9 g/dl (31.0-36.0); Mean Corpuscular Volume 94.4 fL (80.0-98.0); Mean Platelet Volume 10.8 fL (9.4-12.4); Monocytes Absolute Auto 0.9 X10*3/uL (0.1-1.2); Monocytes Percent Auto 13.8 % (2-11); Neutrophils Absolute Auto 4.1 x10*3/uL (2.0-8.3); Platelet Count 131 X10*3/uL (160-400); Red Cell Distribution Width 12.1 % (11.0-16.0); White Blood Count 6.3 X10*3/uL (4.8-10.8)
[2023-02-09 20:51] VITALS: BP 154/75; PULSE 91; RESP 20; TEMP 37.1; O2SAT 99
[2023-02-09] MEDS: cephALEXin 500 MG CAPSULE PO (21:35)
[2023-02-09] MEDS: Doxycycline Monohydrate 100 MG CAPSULE PO (21:35)
[2023-02-09] MEDS: Bacitracin Oint 0.9 GM PACKET 1 APPL TOPICAL (21:36)
== END 2023-02-09 22:12 | disposition home or self-care (01) ==
PROVIDERS: Physician Assistant; Emergency Provider Emergency Medicine Emergency Medical Services; PCP Physician Assistant
DX: L60.0 Ingrowing nail (principal); L03.032 Cellulitis of left toe; M79.672 Pain in left foot; R60.0 Localized edema; R06.02 Shortness of breath; Z79.899 Other long term (current) drug therapy
CPT/HCPCS: 11750; 36415; 73630; 80048; 80076; 83605; 83880; 85025; 85610; 87040; 93970; 99284

== ENCOUNTER 2023-02-16 17:11 | Emergency (ER) | payer OTHER, SELFPAY ==
--- NOTE | ~2023-02-16 | XR_ITS ---
EXAMINATION: XR CHEST CLINICAL INFORMATION: Shortness of breath. COMPARISON: Chest radiograph 09/24/2022. TECHNIQUE: Frontal view of the chest was obtained. FINDINGS: Stable prominence of the cardiomediastinal silhouette. Diffuse interstitial thickening, not significantly changed. No new focal airspace opacity, pleural effusion or pneumothorax. Redemonstration of a nonaggressive appearing proximal left humeral lesion, only partially included within the [id number]. No acute osseous abnormalities. XR/XR chest 1V IMPRESSION: No significant change when compared to 09/24/2022. No new focal airspace opacity.
[2023-02-16 17:44] VITALS: BP 108/70; BP 140/68; PULSE 110; PULSE 111; RESP 20; TEMP 37.9; O2SAT 95; BMI 30.3
--- NOTE | 2023-02-16 18:33 | ED.GENADULT ---
HPI - General Adult General Chief complaint: General Medical Stated complaint: ams Time Seen by Provider: 02/16/23 17:14 Source: other (Staff member, Chaya) Mode of arrival: EMS Limitations: other (Encephalomalacia) History of Present Illness HPI narrative: 62-year-old male with past medical history of schizoaffective disorder, encephalomalacia, spastic quadriplegia, cerebral atrophy, peripheral neuropathy, atrial fibrillation, HTN, osteoporosis, seizure disorder, and history of bilateral femur fractures, left lower extremity DVT who presents emergency department for evaluation of shaking, elevated heart rate of 110 and increased peripheral edema. The information comes from the patient's caregiver, Chaya. The patient had an episode of shaking today which the caregiver states does not look like his seizure disorder. He was found to have an elevated heart rate of 110. Patient has had decreased oral intake. Patient has had increasing peripheral edema over the past week. The patient was seen here in the emergency department on 02/09/2023 for left great toe infection and the toenail was removed. He was started on doxycycline and Keflex. He has completed his course of this medication. According to his caregiver the toe infections seems to have improved. Related Data Home Medications Medication Instructions Recorded Confirmed acetaminophen 325 mg tablet 650 mg PO Q6H PRN Pain 03/24/21 08/11/22 alendronate 70 mg tablet 70 mg PO SA 03/24/21 08/11/22 bupropion HCl 100 mg tablet 100 mg PO BID 03/24/21 08/11/22 cholecalciferol (vitamin D3) 25 25 mcg PO DAILY 03/24/21 08/11/22 mcg (1,000 unit) tablet divalproex 500 mg tablet,delayed 1,000 mg PO BID@0900,1600 03/24/21 08/11/22 release divalproex 500 mg tablet,delayed 1,000 mg PO Q2D@2000 03/24/21 08/11/22 release fluticasone propionate 110 1 puff inhalation BID 03/24/21 08/11/22 mcg/actuation HFA aerosol inhaler (Flovent HFA) multivitamin 1 tab PO DAILY 03/24/21 08/11/22 phenobarbital 32.4 mg tablet 32.4 mg PO DAILY 03/24/21 08/11/22 risperidone 3 mg tablet 3 mg PO DAILY 03/24/21 08/11/22 tizanidine 4 mg tablet 4 mg PO BID 03/24/21 08/11/22 atorvastatin 20 mg tablet 20 mg PO BEDTIME 02/21/22 08/11/22 divalproex 500 mg tablet,delayed 500 mg PO Q2D@199902/21/22 08/11/22 release (Depakote) Previous Rx's Medication Instructions Recorded hydrocodone 5 mg-acetaminophen 325 1 tab PO Q8H PRN pain, severe 3 02/24/22 mg tablet days #9 tabs enoxaparin 150 mg/mL subcutaneous 150 mg subcut DAILY 7 days #7 mL 05/14/22 syringe (Lovenox) finasteride 5 mg tablet 5 mg PO DAILY 90 days #90 tabs 08/11/22 tamsulosin 0.4 mg capsule (Flomax) 0.4 mg PO BEDTIME 90 days #90 caps 08/11/22 cefuroxime axetil 500 mg tablet 500 mg PO BID 7 days #14 tabs 09/24/22 bacitracin 500 unit/gram topical 1 appl topical BID 7 days #28 grams 02/09/23 ointment cephalexin 500 mg capsule 500 mg PO QID 5 days #20 caps 02/09/23 doxycycline hyclate 100 mg tablet 100 mg PO Q12H 5 days #10 tabs 02/09/23 furosemide 40 mg tablet (Lasix) See Rx Instructions .Route 02/16/23 .COMPLEX #42 tabs Allergies Allergy/AdvReac Type Severity Reaction Status Date / Time morphine [MORPHINE] Allergy Mild LOOPY Verified 08/06/22 10:29 ciprofloxacin [CIPROFLOXACIN] AdvReac Intermediate skin Verified 08/06/22 10:29 erythema/macular rash Review of Systems Review of Systems: Yes Unobtainable due to mental condition [facility] Past Medical History [facility] Narrative: Past medical history: schizoaffective disorder, encephalomalacia, spastic quadriplegia, cerebral atrophy, peripheral neuropathy, atrial fibrillation, HTN, osteoporosis, seizure disorder, and history of bilateral femur fractures, left lower extremity DVT. Social history: Patient lives in a fpc and there was a staff member here with the patient. Medical History Impaired cognition Rectal bleeding UTI (urinary tract infection) Social History Social History Alcohol intake: never Smoked in Last 30 Days: No Use of substances other than those prescribed or required for medical reasons: No Advance Directives: Yes Advance Directives on File: Yes Advance Directives Date on File: 03/24/21 Physical Exam ED Vital Signs: Vital Signs - 24 hr 02/16/23 17:44 Temperature 100.2 F Pulse Rate 111 H Respiratory Rate 20 Blood Pressure 108/70 Pulse Oximetry 95 Oxygen Delivery Method Room Air BMI result Body Mass Index 30.3 General: Awake, alert, male patient, does answer questions in 1 or 2 word sentences. HEENT: Head is atraumatic, pupils are pinpoint but symmetric and reactive, mouth revealed moist membranes, no erythema or exudate Neck: Supple, no adenopathy Lung: Clear to auscultation breath sounds symmetric bilateral Heart: Regular rate rhythm, normal S1-S2 Abdomen: Soft, nontender, normoactive bowel sounds Back: No CVA tenderness Extremities: 2+ pitting edema left greater than right. Left great toe does not appear to be infected, toenail has been removed , the nail bed is intact with no bleeding Neuro: Patient moves extremities symmetrically Medications Administered Discontinued Medications Generic Name Dose Route Start Last Admin Trade Name Freq PRN Reason Stop Dose Admin Lorazepam 2 mg 02/16/23 18:45 02/16/23 19:43 Lorazepam 1 Mg Tablet PO 02/16/23 18:46 2 mg ONCE STA Administration Medical Decision Making Medical Decision Making MDM Narrative: 62-year-old male lives in a fpc, brought to emergency department by ambulance for evaluation of shaking, decreased oral intake, tachycardia and increased peripheral edema. Patient's examination is consistent with his baseline, the left great toe does not appear to be infected. The patient has significant pitting edema. I did order a CBC, CMP, lipase, PT/INR, PTT, troponin, EKG chest x-ray one view. Patient was ordered to get lorazepam 2 mg orally for possible anxiety. 2202: My interpretation patient's laboratory evaluation is as follows: CBC revealed low platelet count a [id number] which is chronic.. PT/INR 38.93.2-therapeutic. PTT elevated 46. Bicarb elevated 30-summer previous values. Glucose elevated 137. Chest x-ray unremarkable. Twelve EKG was difficult to interpret secondary to the patient's tremors, but was unchanged from previous. This time, I do not think that the patient had a seizure or rigors to explain his symptoms. The patient does appear to be fluid loaded with significant peripheral edema therefore I will increase the patient's Lasix to 80 mg in the morning and 40 mg at night. Patient will be placed on a fluid restriction of 1 L per day to try to get him in a negative fluid balance. Differential Diagnosis Differential diagnosis includes was not limited to peripheral edema, congestive heart failure, right-sided heart failure, electrolyte abnormality, pneumonia Admission/Observation Consideration of admission/observation: Escalation of care including admission/observation considered Lab Data [facility] Lab Attestation statement: I reviewed the patient's lab results. See [facility] 02/16/23 21:30 02/16/23 21:30 Labs: Lab Results 02/16/23 02/16/23 02/16/23 Range/Units 21:30 21:30 21:30 WBC 9.1 (4.8-10.8) X10*3/uL RBC 4.77 (4.60-5.80) X10*6/uL Hgb 14.6 (14.0-18.0) g/dl Hct 43.6 (42.0-52.0) % MCV 91.4 (80.0-98.0) fL MCH 30.6 (27.0-33.0) pg MCHC 33.5 (31.0-36.0) g/dl RDW 12.2 (11.0-16.0) % Plt Count 115 L (160-400) X10*3/uL MPV 10.7 (9.4-12.4) fL Immature Gran % (Auto) 0.6 H (0.0-0.4) % Neut % (Auto) 82.1 H (45-73) % Lymph % (Auto) 6.7 L (20-40) % [place] % (Auto) 10.2 (2-11) % Eos % (Auto) 0.2 (0-4) % Baso % (Auto) 0.2 (0-2) % Lymph # (Auto) 0.6 L (1.2-4.9) X10*3/uL [place] # (Auto) 0.9 (0.1-1.2) X10*3/uL Eos # (Auto) 0.0 (0.0-0.4) X10*3/uL Baso # (Auto) 0.0 (0.0-0.2) X10*3/uL Abs Immat Gran (auto) 0.05 H (0.00-0.03) X10*3/uL Absolute Neuts (auto) 7.4 (2.0-8.3) x10*3/uL Absolute Nucleated RBC 0.000 (0.0-0.012) X10*3/uL Nucleated RBC % (auto) 0.0 (0.0-0.2) /100WBC PT 38.9 H (10.0-13.1) SEC INR 3.2 H (0.9-1.1) APTT 46.0 H (26.0-36.4) SEC Sodium 142 (135-145) mmol/L Potassium 3.3 (3.3-5.1) mmol/L Chloride 102 (96-108) mmol/L Carbon Dioxide 30 H (22-29) mmol/L Anion Gap 13 (12-20) BUN 18 H (9-16) mg/dL Creatinine 0.76 (0.5-1.4) mg/dL Estim Creat Clear Calc 134.9 Estimated GFR > 60 Random Glucose 137 H (60-115) mg/dL Calcium 10.8 H (8.4-10.2) mg/dL Total Bilirubin 0.5 (0.0-1.0) mg/dL AST 35 (5-37) U/L ALT 23 (0-40) U/L Alkaline Phosphatase 77 (39-117) U/L Troponin I High Sens (<3.5-35.0) ng/L Total Protein 6.7 (6.5-8.0) g/dL Albumin 3.6 (3.5-5.0) g/dL Lipase 10 (8-78) U/L 02/16/23 Range/Units 21:30 WBC (4.8-10.8) X10*3/uL RBC (4.60-5.80) X10*6/uL Hgb (14.0-18.0) g/dl Hct (42.0-52.0) % MCV (80.0-98.0) fL MCH (27.0-33.0) pg MCHC (31.0-36.0) g/dl RDW (11.0-16.0) % Plt Count (160-400) X10*3/uL MPV (9.4-12.4) fL Immature Gran % (Auto) (0.0-0.4) % Neut % (Auto) (45-73) % Lymph % (Auto) (20-40) % [place] % (Auto) (2-11) % Eos % (Auto) (0-4) % Baso % (Auto) (0-2) % Lymph # (Auto) (1.2-4.9) X10*3/uL [place] # (Auto) (0.1-1.2) X10*3/uL Eos # (Auto) (0.0-0.4) X10*3/uL Baso # (Auto) (0.0-0.2) X10*3/uL Abs Immat Gran (auto) (0.00-0.03) X10*3/uL Absolute Neuts (auto) (2.0-8.3) x10*3/uL Absolute Nucleated RBC (0.0-0.012) X10*3/uL Nucleated RBC % (auto) (0.0-0.2) /100WBC PT (10.0-13.1) SEC INR (0.9-1.1) APTT (26.0-36.4) SEC Sodium (135-145) mmol/L Potassium (3.3-5.1) mmol/L Chloride (96-108) mmol/L Carbon Dioxide (22-29) mmol/L Anion Gap (12-20) BUN (9-16) mg/dL Creatinine (0.5-1.4) mg/dL Estim Creat Clear Calc Estimated GFR Random Glucose (60-115) mg/dL Calcium (8.4-10.2) mg/dL Total Bilirubin (0.0-1.0) mg/dL AST (5-37) U/L ALT (0-40) U/L Alkaline Phosphatase (39-117) U/L Troponin I High Sens 6.7 (<3.5-35.0) ng/L Total Protein (6.5-8.0) g/dL Albumin (3.5-5.0) g/dL Lipase (8-78) U/L Independent Interpretation I performed an independent interpretation of an: EKG and Plain X-Ray Interpretation: My independent interpretation patient's 12 EKG done at 21:12 is as follows: Patient is tremulous making the baseline difficult to interpret, normal sinus rhythm with a rate of 99, normal MA interval, elevated QRS duration of 102 milliseconds normal QTC interval, ST segment depression V2 and V3. Compared to EKG dated 02/16/2023 there is no significant change. My independent review of the patient's one-view chest x-ray is as follows: No acute disease Radiology Impression Discussion of test interpretation with radiology: I have reviewed the radiologist's reading. Radiologist Impression: XR chest 1V IMPRESSION: No significant change when compared to 09/24/2022. No new focal airspace opacity. Dictated By:Nasrin Spencer Independent Historian Clinical information obtained from an independent historian. History obtained from or confirmed by: Other (snf member) External Record Review External record reviewed: Outpatient record Discharge Plan Discharge Clinical Impression: Tremors of nervous system Patient Disposition: Home, Self-Care Additional Instructions: Your complete blood count was unremarkable except for low platelet count which is chronic. Your blood chemistries were unremarkable as well and similar to your previous labs. Your 12 EKG was unremarkable and similar to previous 12 EKG. I am increasing your Lasix to 80 mg in the morning and 40 mg in the afternoon for 2 weeks. You need to be placed on a fluid restriction to 1 L of fluid per day to try to get you into a negative fluid balance to improve the edema in your legs. Follow-up with your doctor in 2 days. Please return to the emergency department if your symptoms get worse or if you develop any symptoms that are concerning to you. Prescriptions: New furosemide [Lasix] 40 mg tablet See Rx Instructions .ROUTE .COMPLEX Qty: 42 0RF Rx Instructions: Lasix 40 mg pills, 2 pills in the morning and 1 pill 6 hours later x2 weeks No Action finasteride 5 mg tablet 5 mg PO DAILY 90 Days Qty: 90 3RF alendronate 70 mg Tablet 70 mg PO SA bupropion HCl 100 mg Tablet 100 mg PO BID cholecalciferol (vitamin D3) 25 mcg (1,000 unit) Tablet 25 mcg PO DAILY multivitamin Tablet 1 tab PO DAILY acetaminophen 325 mg Tablet 650 mg PO Q6H PRN (Reason: Pain) tizanidine 4 mg Tablet 4 mg PO BID divalproex 500 mg Tablet,Delayed Release (Dr/Ec) 1,000 mg PO BID@0900,1600 divalproex 500 mg Tablet,Delayed Release (Dr/Ec) 1,000 mg PO Q2D@2000 Rx Instructions: 1000MG IN THE MORNING AND NOON, AND 1000MG ALTERNATING WITH 500MG EVERY OTHER DAY AT NIGHT risperidone 3 mg Tablet 3 mg PO DAILY Flovent HFA 110 mcg/actuation Hfa Aerosol Inhaler 1 puff INHALATION BID phenobarbital 32.4 mg Tablet 32.4 mg PO DAILY cefuroxime axetil 500 mg tablet 500 mg PO BID 7 Days Qty: 14 0RF atorvastatin 20 mg Tablet 20 mg PO BEDTIME divalproex [Depakote] 500 mg Tablet,Delayed Release (Dr/Ec) 500 mg PO Q2D@2000 hydrocodone-acetaminophen 5-325 mg tablet 1 tab PO Q8H PRN (Reason: pain, severe) 3 Days Qty: 9 0RF enoxaparin [Lovenox] 150 mg/mL syringe 150 mg subcut DAILY 7 Days Qty: 7 0RF cephalexin 500 mg capsule 500 mg PO QID 5 Days Qty: 20 0RF doxycycline hyclate 100 mg tablet 100 mg PO Q12H 5 Days Qty: 10 0RF bacitracin 500 unit/gram ointment 1 appl topical BID 7 Days Qty: 28 0RF Rx Instructions: Apply to left great toe nail bed tamsulosin [Flomax] 0.4 mg capsule 0.4 mg PO BEDTIME 90 Days Qty: 90 3RF
--- NOTE | 2023-02-16 18:55 | ECG_ITS ---
Test Reason : weakness Blood Pressure : / mmHG Vent. Rate : 102 BPM Atrial Rate : 102 BPM P-R Int : 126 ms QRS Dur : 094 ms QT Int : 346 ms P-R-T Axes : 019 005 -45 degrees QTc Int : 450 ms Sinus tachycardia with occasional Premature ventricular complexes Possible Inferior-posterior infarct ST & T wave abnormality, consider lateral ischemia Abnormal ECG When compared with ECG of 24-SEP-2022 16:19, Premature ventricular complexes are now Present Aberrant conduction is no longer Present T wave inversion more evident in Anterior leads Referred By: Zackery Rainey Electronically Signed By:ED FERNANDO MD
[2023-02-16] MEDS: LORazepam 1 MG TABLET 2 MG PO (19:43)
--- NOTE | 2023-02-16 19:46 | PC.NURSE ---
Pt a&ox3 responds to verbal command. Pt given meds per mar. Pt has peripheral pitting edema bilaterally. No distress noted. Will continue to monitor.
[2023-02-16 21:35] LABS: Basophils Percent Auto 0.2 % (0-2); Mean Corpuscular Volume 91.4 fL (80.0-98.0); Mean Platelet Volume 10.7 fL (9.4-12.4); PLT CLUMP 1; Red Cell Distribution Width 12.2 % (11.0-16.0); SCAN SMEAR FLAG 1
[2023-02-16 21:37] LABS: Eosinophils Percent Auto 0.2 % (0-4); Hematocrit 43.6 % (42.0-52.0); Hemoglobin 14.6 g/dl (14.0-18.0); Imm Gran Abs Auto 0.05 X10*3/uL (0.00-0.03); Imm Gran Pct Auto 0.6 % (0.0-0.4); Lymphocytes Absolute Auto 0.6 X10*3/uL (1.2-4.9); Lymphocytes Percent Auto 6.7 % (20-40); MANUAL DIFF FLAG SCAN; Mean Corpuscular HGB Conc 33.5 g/dl (31.0-36.0); Mean Corpuscular Hemoglobin 30.6 pg (27.0-33.0); Monocytes Absolute Auto 0.9 X10*3/uL (0.1-1.2); Monocytes Percent Auto 10.2 % (2-11); Neutrophils Absolute Auto 7.4 x10*3/uL (2.0-8.3); Neutrophils Percent Auto 82.1 % (45-73); Red Blood Count 4.77 X10*6/uL (4.60-5.80)
[2023-02-16 21:42] LABS: INTERNATIONAL NORM RATIO 3.2 (0.9-1.1); Prothrombin Time 38.9 SEC (10.0-13.1)
[2023-02-16 21:51] LABS: Alanine Aminotransferase 23 U/L (0-40); Albumin Level 3.6 g/dL (3.5-5.0); Alkaline Phosphatase 77 U/L (39-117); Anion Gap 13 (12-20); Aspartate Amino Transferase 35 U/L (5-37); Bilirubin Total 0.5 mg/dL (0.0-1.0); Blood Urea Nitrogen 18 mg/dL (9-16); Calcium 10.8 mg/dL (8.4-10.2); Carbon Dioxide 30 mmol/L (22-29); Chloride 102 mmol/L (96-108); Creatinine Clr Calc Pharmacy 134.9; Estimated Glomerular Filt Rate > 60; Glucose Random 137 mg/dL (60-115); Lipase 10 U/L (8-78); Potassium 3.3 mmol/L (3.3-5.1); Sodium 142 mmol/L (135-145); Total Protein 6.7 g/dL (6.5-8.0)
[2023-02-16 21:59] LABS: Troponin-I High Sensitivity 6.7 ng/L (<3.5-35.0)
[2023-02-16 22:06] LABS: White Blood Count 9.1 X10*3/uL (4.8-10.8)
[2023-02-16 22:07] LABS: Platelet Count 115 X10*3/uL (160-400)
[2023-02-16 22:08] LABS: SLIDE REVIEW VERIFIED
--- NOTE | 2023-02-16 22:22 | PC.NURSE ---
Provider with pt. Per provider pt okay to eat. Pt requesting food and drink. Pt given sandwich and juice. No signs of distress. Will continue to monitor.
[2023-02-16 22:29] VITALS: RESP 16
--- NOTE | 2023-02-16 22:54 | PC.NURSE ---
pt a&o,no sob or chest pain, no sign of distress, reviewed discharge instructions , pt verbalized understanding.
== END 2023-02-16 22:55 | disposition home or self-care (01) ==
PROVIDERS: Emergency Provider Emergency Medicine Emergency Medical Services; PCP Physician Assistant
DX: R25.1 Tremor, unspecified (principal); R06.02 Shortness of breath; I10 Essential (primary) hypertension; Z79.899 Other long term (current) drug therapy
CPT/HCPCS: 36415; 71045; 80053; 83690; 84484; 85025; 85610; 85730; 93005; 99283; 99284

== ENCOUNTER 2023-03-18 13:49 | Emergency (ER) | payer OTHER, SELFPAY ==
[2023-03-18 13:58] VITALS: BP 106/61; BP 115/62; PULSE 66; PULSE 70; RESP 16; TEMP 36.7; O2SAT 96; O2SAT 98; BMI 26.4
[2023-03-18 15:17] VITALS: BP 106/55; PULSE 74; RESP 14; O2SAT 94
[2023-03-18 15:37] LABS: MANUAL DIFF FLAG NO
[2023-03-18 15:39] LABS: Basophils Percent Auto 0.4 % (0-2); Hemoglobin 13.1 g/dl (14.0-18.0); Imm Gran Abs Auto 0.03 X10*3/uL (0.00-0.03); Imm Gran Pct Auto 0.4 % (0.0-0.4); Monocytes Absolute Auto 0.7 X10*3/uL (0.1-1.2); PLT CLUMP 1; SCAN SMEAR FLAG 1
[2023-03-18 15:41] LABS: Eosinophils Absolute Auto 0.2 X10*3/uL (0.0-0.4); Eosinophils Percent Auto 2.3 % (0-4); Hematocrit 40.1 % (42.0-52.0); Lymphocytes Absolute Auto 1.3 X10*3/uL (1.2-4.9); Mean Corpuscular HGB Conc 32.7 g/dl (31.0-36.0); Mean Corpuscular Hemoglobin 30.8 pg (27.0-33.0); Mean Corpuscular Volume 94.4 fL (80.0-98.0); Mean Platelet Volume 10.5 fL (9.4-12.4); Monocytes Percent Auto 9.8 % (2-11); Neutrophils Absolute Auto 5.1 x10*3/uL (2.0-8.3); Neutrophils Percent Auto 69.1 % (45-73); Red Blood Count 4.25 X10*6/uL (4.60-5.80); Red Cell Distribution Width 12.8 % (11.0-16.0)
[2023-03-18 15:42] LABS: Platelet Count 103 X10*3/uL (160-400); White Blood Count 7.4 X10*3/uL (4.8-10.8)
--- NOTE | 2023-03-18 15:45 | PC.NURSE ---
cleaned and changed into hospital attire, bilateral edema noted with swelling worse in left lower extremity
[2023-03-18 16:08] LABS: Alanine Aminotransferase 9 U/L (0-40); Albumin Level 3.3 g/dL (3.5-5.0); Alkaline Phosphatase 63 U/L (39-117); Anion Gap 12 (12-20); Aspartate Amino Transferase 27 U/L (5-37); B Type Natriuretic Peptide 35 pg/mL (<100); Bilirubin Total 0.4 mg/dL (0.0-1.0); Blood Urea Nitrogen 14 mg/dL (9-16); Calcium 10.4 mg/dL (8.4-10.2); Carbon Dioxide 25 mmol/L (22-29); Chloride 106 mmol/L (96-108); Creatinine Clr Calc Pharmacy 116.9; Estimated Glomerular Filt Rate > 60; Glucose Random 107 mg/dL (60-115); Potassium 4.6 mmol/L (3.3-5.1); Sodium 138 mmol/L (135-145); Total Protein 6.7 g/dL (6.5-8.0)
--- NOTE | 2023-03-18 16:10 | ED.MALEGU ---
HPI - Male Genitourinary General Chief complaint: Urogenital-Male Stated complaint: ATAFF ?'S AMS D/T UTI PER EMS Time Seen by Provider: 03/18/23 16:10 Source: patient, RN notes reviewed, old records reviewed and other (long-term staff) Mode of arrival: EMS Limitations: other (Previous TBI) History of Present Illness HPI Narrative: 62-year-old male with past medical history significant for UTI presents for evaluation of burning with urination. Staff at his adult daycare felt that he was not acting himself and seemed to feel that he was confused Per senior living staff, the patient currently at his mental baseline The patient does complain of ?I have another UTI. He states that he has some burning with urination and is having difficulty going He denies any blood in the urine Denies any abdominal pain, fevers, chills or flank pain Denies any rashes, testicular pain or swelling Related Data Home Medications Medication Instructions Recorded Confirmed acetaminophen 325 mg tablet 650 mg PO Q6H PRN Pain 03/24/21 08/11/22 alendronate 70 mg tablet 70 mg PO SA 03/24/21 08/11/22 bupropion HCl 100 mg tablet 100 mg PO BID 03/24/21 08/11/22 cholecalciferol (vitamin D3) 25 25 mcg PO DAILY 03/24/21 08/11/22 mcg (1,000 unit) tablet divalproex 500 mg tablet,delayed 1,000 mg PO BID@0900,1600 03/24/21 08/11/22 release divalproex 500 mg tablet,delayed 1,000 mg PO Q2D@199903/24/21 08/11/22 release fluticasone propionate 110 1 puff inhalation BID 03/24/21 08/11/22 mcg/actuation HFA aerosol inhaler (Flovent HFA) multivitamin 1 tab PO DAILY 03/24/21 08/11/22 phenobarbital 32.4 mg tablet 32.4 mg PO DAILY 03/24/21 08/11/22 risperidone 3 mg tablet 3 mg PO DAILY 03/24/21 08/11/22 tizanidine 4 mg tablet 4 mg PO BID 03/24/21 08/11/22 atorvastatin 20 mg tablet 20 mg PO BEDTIME 02/21/22 08/11/22 divalproex 500 mg tablet,delayed 500 mg PO Q2D@199902/21/22 08/11/22 release (Depakote) Previous Rx's Medication Instructions Recorded hydrocodone 5 mg-acetaminophen 325 1 tab PO Q8H PRN pain, severe 3 02/24/22 mg tablet days #9 tabs enoxaparin 150 mg/mL subcutaneous 150 mg subcut DAILY 7 days #7 mL 05/14/22 syringe (Lovenox) finasteride 5 mg tablet 5 mg PO DAILY 90 days #90 tabs 08/11/22 tamsulosin 0.4 mg capsule (Flomax) 0.4 mg PO BEDTIME 90 days #90 caps 08/11/22 cefuroxime axetil 500 mg tablet 500 mg PO BID 7 days #14 tabs 09/24/22 bacitracin 500 unit/gram topical 1 appl topical BID 7 days #28 grams 02/09/23 ointment cephalexin 500 mg capsule 500 mg PO QID 5 days #20 caps 02/09/23 doxycycline hyclate 100 mg tablet 100 mg PO Q12H 5 days #10 tabs 02/09/23 furosemide 40 mg tablet (Lasix) See Rx Instructions .Route 02/16/23 .COMPLEX #42 tabs cefuroxime axetil 250 mg tablet 250 mg PO Q12H #14 tabs 03/18/23 phenazopyridine 200 mg tablet 200 mg PO TID 6 doses #6 tabs 03/18/23 (Pyridium) Allergies Allergy/AdvReac Type Severity Reaction Status Date / Time morphine [MORPHINE] Allergy Mild LOOPY Verified 08/06/22 10:29 ciprofloxacin [CIPROFLOXACIN] AdvReac Intermediate skin Verified 08/06/22 10:29 erythema/macular rash Review of Systems Constitutional: Constitutional: Reports as per HPI, Denies chills, Denies fatigue, Denies fever(s) and Denies headache(s) ENT: Denies headache(s) Cardiovascular: Cardiovascular: Denies chest pain and Denies dyspnea Respiratory: Respiratory: Denies cough and Denies dyspnea Gastrointestinal: Gastrointestinal: Denies abdominal pain, Denies constipation and Denies vomiting Neurologic: Denies headache(s) and Denies focal weakness Endocrine: Endocrine: Denies fatigue PMFSH Past Medical History Medical History Impaired cognition Rectal bleeding UTI (urinary tract infection) Social History Social History Alcohol intake: never Smoked in Last 30 Days: No Use of substances other than those prescribed or required for medical reasons: No Advance Directives: Yes Advance Directives on File: Yes Advance Directives Date on File: 03/24/21 Physical Exam Vital Signs: Vital Signs: Last Vital Signs Temp 98.2 F 03/18/23 19:21 Pulse 87 03/18/23 19:21 Resp 14 03/18/23 19:21 BP 119/86 03/18/23 19:21 Pulse Ox 96 03/18/23 19:21 O2 Del Method Room Air 03/18/23 19:21 BMI result Body Mass Index 26.4 Const: General: no acute distress, alert and awake Nutritional Appearance: well nourished Orientation/consciousness: patient oriented x3 HEENT: Head: Yes normocephalic and Yes atraumatic Eyes: Eyelids: Yes eyelids normal Conjunctivae: conjunctivae normal Sclerae: sclerae normal Corneas: corneas normal Pupils: Equal, round and reactive pupils present EOM: EOMs intact bilaterally Resp: Effort & Inspection: normal respiratory effort, able to speak in complete sentences, no audible wheezes and not labored Auscultation: clear to auscultation bilaterally Cardio: Rate: regular rate Rhythm: regular rhythm GI: Inspection: No distended Palpation (GI): Soft to palpation, not firm, nontender, no guarding and not rigid Auscultation: normoactive bowel sounds : Other: Normal, circumcised male phallus, no significant rashes or edema Skin: General skin exam: no rashes or lesions noted and elasticity normal Neuro: General: patient oriented x3 Cranial nerves: Yes Equal, round and reactive pupils present and Yes Bilaterally intact EOM present Medical Decision Making Medical Decision Making MDM Narrative: 62-year-old male with medical history significant for TBI, intellectual disability presents for evaluation of UTI symptoms. Will get a bladder scan and possibly straight cath. His labs are reassuring, no significant renal injury, no leukocytosis. Vital signs are stable. He does have a very slight hypertension of 106/55 but consistent with his recent baseline. Differential Diagnosis Differential Diagnoses: The differential diagnosis associated with the presentation includes UTI Urosepsis obstructive uropathy Urinary retention BPH Lab Data 03/18/23 15:31 03/18/23 15:31 Labs: Lab Results 03/18/23 03/18/23 03/18/23 Range/Units 15:31 15:31 15:31 WBC 7.4 (4.8-10.8) X10*3/uL RBC 4.25 L (4.60-5.80) X10*6/uL Hgb 13.1 L (14.0-18.0) g/dl Hct 40.1 L (42.0-52.0) % MCV 94.4 (80.0-98.0) fL MCH 30.8 (27.0-33.0) pg MCHC 32.7 (31.0-36.0) g/dl RDW 12.8 (11.0-16.0) % Plt Count 103 L (160-400) X10*3/uL MPV 10.5 (9.4-12.4) fL Immature Gran % (Auto) 0.4 (0.0-0.4) % Neut % (Auto) 69.1 (45-73) % Lymph % (Auto) 18.0 L (20-40) % [place] % (Auto) 9.8 (2-11) % Eos % (Auto) 2.3 (0-4) % Baso % (Auto) 0.4 (0-2) % Lymph # (Auto) 1.3 (1.2-4.9) X10*3/uL [place] # (Auto) 0.7 (0.1-1.2) X10*3/uL Eos # (Auto) 0.2 (0.0-0.4) X10*3/uL Baso # (Auto) 0.0 (0.0-0.2) X10*3/uL Abs Immat Gran (auto) 0.03 (0.00-0.03) X10*3/uL Absolute Neuts (auto) 5.1 (2.0-8.3) x10*3/uL Absolute Nucleated RBC 0.000 (0.0-0.012) X10*3/uL Nucleated RBC % (auto) 0.0 (0.0-0.2) /100WBC Sodium 138 (135-145) mmol/L Potassium 4.6 D (3.3-5.1) mmol/L Chloride 106 (96-108) mmol/L Carbon Dioxide 25 (22-29) mmol/L Anion Gap 12 (12-20) BUN 14 (9-16) mg/dL Creatinine 0.74 (0.5-1.4) mg/dL Estim Creat Clear Calc 116.9 Estimated GFR > 60 Random Glucose 107 (60-115) mg/dL Calcium 10.4 H (8.4-10.2) mg/dL Total Bilirubin 0.4 (0.0-1.0) mg/dL AST 27 (5-37) U/L ALT 9 (0-40) U/L Alkaline Phosphatase 63 (39-117) U/L B-Natriuretic Peptide 35 (<100) pg/mL Total Protein 6.7 (6.5-8.0) g/dL Albumin 3.3 L (3.5-5.0) g/dL Urine Color Urine Appearance Urine pH (5.0-9.0) Ur Specific [place] (1.005-1.025) Urine Protein (Neg-Trace) mg/dL Urine Glucose (UA) (Negative) mg/dL Urine Ketones (Negative) mg/dL Urine Blood (Negative) Urine Nitrite (Negative) Ur Leukocyte Esterase (Negative) Urine RBC (0-2) /HPF Urine WBC (0-5) /HPF Ur Squamous Epith Cells (0-2) /HPF Urine Bacteria (None Seen) Hyaline Casts (0-2) /LPF 03/18/23 Range/Units 18:52 WBC (4.8-10.8) X10*3/uL RBC (4.60-5.80) X10*6/uL Hgb (14.0-18.0) g/dl Hct (42.0-52.0) % MCV (80.0-98.0) fL MCH (27.0-33.0) pg MCHC (31.0-36.0) g/dl RDW (11.0-16.0) % Plt Count (160-400) X10*3/uL MPV (9.4-12.4) fL Immature Gran % (Auto) (0.0-0.4) % Neut % (Auto) (45-73) % Lymph % (Auto) (20-40) % [place] % (Auto) (2-11) % Eos % (Auto) (0-4) % Baso % (Auto) (0-2) % Lymph # (Auto) (1.2-4.9) X10*3/uL [place] # (Auto) (0.1-1.2) X10*3/uL Eos # (Auto) (0.0-0.4) X10*3/uL Baso # (Auto) (0.0-0.2) X10*3/uL Abs Immat Gran (auto) (0.00-0.03) X10*3/uL Absolute Neuts (auto) (2.0-8.3) x10*3/uL Absolute Nucleated RBC (0.0-0.012) X10*3/uL Nucleated RBC % (auto) (0.0-0.2) /100WBC Sodium (135-145) mmol/L Potassium (3.3-5.1) mmol/L Chloride (96-108) mmol/L Carbon Dioxide (22-29) mmol/L Anion Gap (12-20) BUN (9-16) mg/dL Creatinine (0.5-1.4) mg/dL Estim Creat Clear Calc Estimated GFR Random Glucose (60-115) mg/dL Calcium (8.4-10.2) mg/dL Total Bilirubin (0.0-1.0) mg/dL AST (5-37) U/L ALT (0-40) U/L Alkaline Phosphatase (39-117) U/L B-Natriuretic Peptide (<100) pg/mL Total Protein (6.5-8.0) g/dL Albumin (3.5-5.0) g/dL Urine Color Yellow Urine Appearance Cloudy Urine pH 7.0 (5.0-9.0) Ur Specific [place] 1.015 (1.005-1.025) Urine Protein Trace (Neg-Trace) mg/dL Urine Glucose (UA) Negative (Negative) mg/dL Urine Ketones 15 (Negative) mg/dL Urine Blood Small (1+) H (Negative) Urine Nitrite Positive H (Negative) Ur Leukocyte Esterase Large (3+) H (Negative) Urine RBC 6-10 H (0-2) /HPF Urine WBC >50 H (0-5) /HPF Ur Squamous Epith Cells 0-2 (0-2) /HPF Urine Bacteria 1+ (None Seen) Hyaline Casts 3-5 (0-2) /LPF Discharge Plan Discharge Clinical Impression: UTI (urinary tract infection) Patient Disposition: Home, Self-Care Instructions: Urinary Tract Infection in Men (ED) Additional Instructions: Take Ceftin twice daily for the next 7 days Use Pyridium as needed for discomfort Drink lots of fluids Follow-up with your primary doctor Prescriptions: New cefuroxime axetil 250 mg tablet 250 mg PO Q12H Qty: 14 0RF phenazopyridine [Pyridium] 200 mg tablet 200 mg PO TID Qty: 6 0RF No Action finasteride 5 mg tablet 5 mg PO DAILY 90 Days Qty: 90 3RF alendronate 70 mg Tablet 70 mg PO SA bupropion HCl 100 mg Tablet 100 mg PO BID cholecalciferol (vitamin D3) 25 mcg (1,000 unit) Tablet 25 mcg PO DAILY multivitamin Tablet 1 tab PO DAILY acetaminophen 325 mg Tablet 650 mg PO Q6H PRN (Reason: Pain) tizanidine 4 mg Tablet 4 mg PO BID divalproex 500 mg Tablet,Delayed Release (Dr/Ec) 1,000 mg PO BID@0900,1600 divalproex 500 mg Tablet,Delayed Release (Dr/Ec) 1,000 mg PO Q2D@1999 Rx Instructions: 1000MG IN THE MORNING AND NOON, AND 1000MG ALTERNATING WITH 500MG EVERY OTHER DAY AT NIGHT risperidone 3 mg Tablet 3 mg PO DAILY Flovent HFA 110 mcg/actuation Hfa Aerosol Inhaler 1 puff INHALATION BID phenobarbital 32.4 mg Tablet 32.4 mg PO DAILY cefuroxime axetil 500 mg tablet 500 mg PO BID 7 Days Qty: 14 0RF atorvastatin 20 mg Tablet 20 mg PO BEDTIME divalproex [Depakote] 500 mg Tablet,Delayed Release (Dr/Ec) 500 mg PO Q2D@1999 hydrocodone-acetaminophen 5-325 mg tablet 1 tab PO Q8H PRN (Reason: pain, severe) 3 Days Qty: 9 0RF enoxaparin [Lovenox] 150 mg/mL syringe 150 mg subcut DAILY 7 Days Qty: 7 0RF furosemide [Lasix] 40 mg tablet See Rx Instructions .ROUTE .COMPLEX Qty: 42 0RF Rx Instructions: Lasix 40 mg pills, 2 pills in the morning and 1 pill 6 hours later x2 weeks cephalexin 500 mg capsule 500 mg PO QID 5 Days Qty: 20 0RF doxycycline hyclate 100 mg tablet 100 mg PO Q12H 5 Days Qty: 10 0RF bacitracin 500 unit/gram ointment 1 appl topical BID 7 Days Qty: 28 0RF Rx Instructions: Apply to left great toe nail bed tamsulosin [Flomax] 0.4 mg capsule 0.4 mg PO BEDTIME 90 Days Qty: 90 3RF
[2023-03-18 17:02] VITALS: BP 107/50; PULSE 62; RESP 14
[2023-03-18 19:04] LABS: Appearance Urine Cloudy; Color Urine Yellow; Glucose Urine UA Negative (Negative); Leukocyte Esterase Urine Large (3+) (Negative); Nitrite Urine Positive (Negative); Specific Gravity - Urine 1.015 (1.005-1.025); UMIC TRIGGER UACC YES; Urine Blood Small (1+) (Negative); Urine Ketones 15 mg/dL (Negative); Urine Protein Trace mg/dL (Neg-Trace)
[2023-03-18 19:09] LABS: Bacteria Urine 1+ (None Seen); Squamous Epithelial Cell Urine 0-2 /HPF (0-2); UACC Culture Trigger YES; WBC Urine >50 /HPF (0-5)
[2023-03-18 19:21] VITALS: BP 119/86; PULSE 87; RESP 14; TEMP 36.8; O2SAT 96
--- NOTE | 2023-03-18 20:51 | PC.NURSE ---
Took over care from OMAR Holley at 19:00, pt reposition for comfort, pt medicated per Mar, ambulance ride book, awaiting transportation back to senior living, group staff member at the bedside, no sign of distress at this time. Will continue tomonitor.
[2023-03-18 21:27] VITALS: BP 135/71; PULSE 70; RESP 14; TEMP 36.8; O2SAT 95
--- NOTE | 2023-03-18 22:31 | PC.NURSE ---
Reviewed, discharge instructions with jail co-worker, pt transported by to facility by ambulance.
== END 2023-03-18 22:32 | disposition home or self-care (01) ==
PROVIDERS: Physician Assistant; Emergency Provider Internal Medicine
DX: N39.0 Urinary tract infection, site not specified (principal); R06.02 Shortness of breath; R33.9 Retention of urine, unspecified; Z79.899 Other long term (current) drug therapy
CPT/HCPCS: 36415; 51798; 80053; 81001; 83880; 85025; 87086; 87088; 87186; 99283; 99285

== ENCOUNTER 2023-04-01 07:30 | Emergency (ER) | payer OTHER, SELFPAY ==
--- NOTE | ~2023-04-01 | XR_ITS ---
EXAMINATION: XR CHEST CLINICAL INFORMATION: Cough. Dyspnea. COMPARISON: 02/16/2023 TECHNIQUE: Frontal view of the chest was obtained. FINDINGS: Lung volumes are low. Central vascular prominence without overt edema. No pleural effusion or pneumothorax. No dense consolidation. The cardiomediastinal silhouette is within normal limits. Nonaggressive appearing lesion in the proximal left humerus, unchanged. XR/XR chest 1V IMPRESSION: Low lung volumes. Central vascular prominence without overt edema.
[2023-04-01 07:41] VITALS: BP 106/60; BP 132/49; PULSE 104; PULSE 105; RESP 20; TEMP 36.6; O2SAT 94; O2SAT 99; BMI 29.8
--- NOTE | 2023-04-01 07:59 | ECG_ITS ---
Test Reason : CHEST PAIN Blood Pressure : / mmHG Vent. Rate : 090 BPM Atrial Rate : 090 BPM P-R Int : 144 ms QRS Dur : 098 ms QT Int : 322 ms P-R-T Axes : 021 026 -31 degrees QTc Int : 393 ms Sinus rhythm with occasional Premature ventricular complexes ST & T wave abnormality, consider anterior ischemia Abnormal ECG When compared with ECG of 16-FEB-2023 21:11, Criteria for Inferior-posterior infarct are no longer Present Nonspecific T wave abnormality has replaced inverted T waves in Lateral leads Referred By: Dez Hernandez Electronically Signed By:ED FERNANDO MD
[2023-04-01 08:33] LABS: MANUAL DIFF FLAG NO
[2023-04-01 08:39] LABS: Basophils Percent Auto 0.1 % (0-2); Eosinophils Percent Auto 0.6 % (0-4); Hemoglobin 12.7 g/dl (14.0-18.0); Imm Gran Abs Auto 0.03 X10*3/uL (0.00-0.03); Imm Gran Pct Auto 0.4 % (0.0-0.4); Lymphocytes Absolute Auto 0.5 X10*3/uL (1.2-4.9); Lymphocytes Percent Auto 7.1 % (20-40); Mean Corpuscular HGB Conc 32.6 g/dl (31.0-36.0); Mean Corpuscular Hemoglobin 30.8 pg (27.0-33.0); Mean Corpuscular Volume 94.7 fL (80.0-98.0); Mean Platelet Volume 10.2 fL (9.4-12.4); Monocytes Absolute Auto 0.9 X10*3/uL (0.1-1.2); Monocytes Percent Auto 13.2 % (2-11); Neutrophils Absolute Auto 5.4 x10*3/uL (2.0-8.3); Neutrophils Percent Auto 78.6 % (45-73); Platelet Count 125 X10*3/uL (160-400); Red Blood Count 4.12 X10*6/uL (4.60-5.80); Red Cell Distribution Width 13.2 % (11.0-16.0); White Blood Count 6.9 X10*3/uL (4.8-10.8)
[2023-04-01 08:45] LABS: Lactic Acid 1.4 mmol/L (0.5-2.0)
[2023-04-01 09:00] LABS: Alanine Aminotransferase 14 U/L (0-40); Albumin Level 3.1 g/dL (3.5-5.0); Alkaline Phosphatase 56 U/L (39-117); Anion Gap 11 (12-20); Aspartate Amino Transferase 37 U/L (5-37); Bilirubin Total 0.4 mg/dL (0.0-1.0); Blood Urea Nitrogen 20 mg/dL (9-16); Calcium 10.5 mg/dL (8.4-10.2); Carbon Dioxide 28 mmol/L (22-29); Chloride 107 mmol/L (96-108); Creatinine Clr Calc Pharmacy 120.1; Estimated Glomerular Filt Rate > 60; Glucose Random 114 mg/dL (60-115); Potassium 3.9 mmol/L (3.3-5.1); Sodium 142 mmol/L (135-145); Total Protein 6.6 g/dL (6.5-8.0)
[2023-04-01 09:01] LABS: IDNOW Serial# BCCEAD1C; Influenza A Negative (Negative); Influenza B2 Negative (Negative)
[2023-04-01 09:11] LABS: TSH reflex Free T4 2.62 uIU/mL (0.32-4.0)
--- NOTE | 2023-04-01 09:49 | PHA.MEDREC ---
Pharmacy Consult ? Medication Reconciliation Pharmacy has completed the medication reconciliation. Spoke to patient's long-term for med list clarification on warfarin and depakote. According to long-term, patient is to be DC'd on lasix and put on torsemide, but they haven't started it yet. Warfarin is currently 4mg daily. Med list was sent to pharmacy.
[2023-04-01 09:58] LABS: COVID-19 Test Negative (Negative); IDNOW Serial# 9DB6401D
[2023-04-01 10:02] LABS: B Type Natriuretic Peptide 68 pg/mL (<100)
[2023-04-01 10:05] LABS: COVID-19 Test Invalid (Negative); IDNOW Serial# 9DB6401D
[2023-04-01 10:20] VITALS: BP 104/62; PULSE 85; RESP 20; TEMP 36.6; O2SAT 98
--- NOTE | 2023-04-01 12:39 | ED.GENADULT ---
HPI - General Adult General Chief complaint: Altered Mental Status Stated complaint: SOB,FEELS WARM,CONFUSED PER [facility] HOME Time Seen by Provider: 04/01/23 07:55 Source: EMS Mode of arrival: EMS Limitations: altered mental status History of Present Illness HPI narrative: 62-year-old male with history of schizoaffective disorder, cephalo malacia, spastic quadriplegia, cerebral atrophy, peripheral neuropathy, atrial fibrillation, hypertension, I have osteoporosis and seizure disorder presents with shortness of breath and altered mental status. Patient was last seen normal yesterday. When 8 from his shelter some today, he appeared to be having difficulty breathing and was confused and not particularly verbal. Symptoms are described as moderate to severe in nature. He has had similar symptoms in the past. He has had workups which are reportedly negative. There have been no reports of fevers, chills or cough. Patient is unable to provide any history due to his chronic mental conditions. Related Data Home Medications Medication Instructions Recorded Confirmed acetaminophen 325 mg tablet 650 mg PO Q6H PRN Fever Or Pain 03/24/21 04/01/23 alendronate 70 mg tablet 70 mg PO TU 03/24/21 04/01/23 cholecalciferol (vitamin D3) 25 25 mcg PO DAILY 03/24/21 04/01/23 mcg (1,000 unit) tablet divalproex 500 mg tablet,delayed 1,000 mg PO BID@0900,1600 03/24/21 04/01/23 release divalproex 500 mg tablet,delayed 1,000 mg PO Q2D@199903/24/21 04/01/23 release fluticasone propionate 110 1 puff inhalation BID 03/24/21 04/01/23 mcg/actuation HFA aerosol inhaler (Flovent HFA) multivitamin 1 tab PO DAILY 03/24/21 04/01/23 risperidone 3 mg tablet 3 mg PO BEDTIME 03/24/21 04/01/23 tizanidine 4 mg tablet 4 mg PO BID 03/24/21 04/01/23 divalproex 500 mg tablet,delayed 500 mg PO Q2D@199902/21/22 04/01/23 release (Depakote) bupropion HCl 100 mg tablet,12 hr 100 mg PO BID 04/01/23 04/01/23 sustained-release diltiazem HCl 240 mg 240 mg PO DAILY 04/01/23 04/01/23 capsule,extended release 24 hr, controlled (DILT-XR) docusate sodium 100 mg capsule 100 mg PO DAILY PRN Constipation 04/01/23 04/01/23 hydrocortisone 1 % topical cream 1 appl topical Q12H PRN Hemorrhoids 04/01/23 04/01/23 (Preparation H Hydrocortisone) lactulose 20 gram/30 mL oral 30 g PO BID PRN Constipation 04/01/23 04/01/23 solution loperamide 2 mg tablet (Imodium 4 mg PO Q6H PRN Loose Stool 04/01/23 04/01/23 A-D) metoprolol succinate 25 mg 25 mg PO DAILY 04/01/23 04/01/23 tablet,extended release 24 hr mometasone 0.1 % topical cream 1 appl topical DAILY PRN eczema 04/01/23 04/01/23 potassium chloride 10 mEq 10 meq PO DAILY 04/01/23 04/01/23 tablet,extended release torsemide 20 mg tablet 40 mg PO DAILY 04/01/23 04/01/23 warfarin 4 mg tablet 4 mg PO DAILY@1800 04/01/23 04/01/23 Previous Rx's Medication Instructions Recorded finasteride 5 mg tablet 5 mg PO DAILY 90 days #90 tabs 08/11/22 tamsulosin 0.4 mg capsule (Flomax) 0.4 mg PO BEDTIME 90 days #90 caps 08/11/22 Allergies Allergy/AdvReac Type Severity Reaction Status Date / Time morphine [MORPHINE] Allergy Mild LOOPY Verified 04/01/23 07:43 ciprofloxacin [CIPROFLOXACIN] AdvReac Intermediate skin Verified 04/01/23 07:43 erythema/macular rash Review of Systems Review of Systems: Yes Unobtainable due to mental condition and Unobtainable due to mental status [facility] Past Medical History Medical History Impaired cognition Rectal bleeding UTI (urinary tract infection) Social History Social History Alcohol intake: never Advance Directives: Yes Advance Directives on File: Yes Advance Directives Date on File: 03/24/21 Physical Exam ED Vital Signs: Vital Signs - 24 hr 04/01/23 07:41 04/01/23 10:20 Temperature 97.8 F 97.8 F Pulse Rate 105 H 85 Respiratory Rate 20 20 Blood Pressure 132/49 L 104/62 Pulse Oximetry 99 98 Oxygen Delivery Method Room Air Nasal Cannula Oxygen Flow Rate 2 BMI result Body Mass Index 29.8 GEN: Well developed, no acute distress, HEENT: Normocephalic, atraumatic, normal external ears, nose appears normal, no oropharyngeal edema or exudates Eyes: Normal to appearance Neck: Supple, no lymphadenopathy Respiratory: Tachypneic otherwise clear to auscultation bilaterally Cardiovascular: Regular rate and rhythm, no murmurs rubs or gallops Abdomen: Soft, nontender, nondistended, no guarding, no rebound Extremities: No clubbing cyanosis 3+ by pedal pitting edema Neurologic: Patient moves extremities symmetrically but limited Skin: No rash Course Course Course Narrative: 62-year-old male with multiple medical problems presents with shortness of breath mental status changes. Workup is complete. There is no significant elevated white blood cell count. There is no large consolidation, CHF and he is COVID negative. There is no significant anemia. Patient does have peripheral edema which apparently is chronic and not significantly changed. Na is currently present. He is at his baseline mental status. He appears to be breathing is baseline as well. At this time, there is no indication for for admission or further evaluation. I did discuss fluid restriction and return instructions. Medical Decision Making Medical Decision Making [facility] Narrative: Patient presents with shortness of breath and mental status changes. Exam reveals a chronically ill-appearing male, tachypneic but otherwise no acute distress. Oxygen saturation appears to be good. Lungs were clear to auscultation bilaterally. He does have significant peripheral edema which is apparently his baseline. Will order chest x-ray, EKG, laboratory analysis to rule out a plethora of differential diagnosis including CHF, pneumonia, bronchitis, viral infection, anemia, electrolyte abnormality, UTI. Differential Diagnosis Differential Diagnoses: The differential diagnosis associated with the presentation includes (See above) Acute dyspnea Admission/Observation Consideration of admission/observation: Escalation of care including admission/observation considered Lab Data [facility] Lab Attestation statement: I reviewed the patient's lab results. 04/01/23 08:25 04/01/23 08:25 Labs: Lab Results 04/01/23 04/01/23 04/01/23 Range/Units 08:25 08:25 08:25 WBC 6.9 (4.8-10.8) X10*3/uL RBC 4.12 L (4.60-5.80) X10*6/uL Hgb 12.7 L (14.0-18.0) g/dl Hct 39.0 L (42.0-52.0) % MCV 94.7 (80.0-98.0) fL MCH 30.8 (27.0-33.0) pg MCHC 32.6 (31.0-36.0) g/dl RDW 13.2 (11.0-16.0) % Plt Count 125 L (160-400) X10*3/uL MPV 10.2 (9.4-12.4) fL Immature Gran % (Auto) 0.4 (0.0-0.4) % Neut % (Auto) 78.6 H (45-73) % Lymph % (Auto) 7.1 L (20-40) % [place] % (Auto) 13.2 H (2-11) % Eos % (Auto) 0.6 (0-4) % Baso % (Auto) 0.1 (0-2) % Lymph # (Auto) 0.5 L (1.2-4.9) X10*3/uL [place] # (Auto) 0.9 (0.1-1.2) X10*3/uL Eos # (Auto) 0.0 (0.0-0.4) X10*3/uL Baso # (Auto) 0.0 (0.0-0.2) X10*3/uL Abs Immat Gran (auto) 0.03 (0.00-0.03) X10*3/uL Absolute Neuts (auto) 5.4 (2.0-8.3) x10*3/uL Absolute Nucleated RBC 0.000 (0.0-0.012) X10*3/uL Nucleated RBC % (auto) 0.0 (0.0-0.2) /100WBC Sodium 142 (135-145) mmol/L Potassium 3.9 (3.3-5.1) mmol/L Chloride 107 (96-108) mmol/L Carbon Dioxide 28 (22-29) mmol/L Anion Gap 11 L (12-20) BUN 20 H (9-16) mg/dL Creatinine 0.78 (0.5-1.4) mg/dL Estim Creat Clear Calc 120.1 Estimated GFR > 60 Random Glucose 114 (60-115) mg/dL Lactic Acid (0.5-2.0) mmol/L Calcium 10.5 H (8.4-10.2) mg/dL Total Bilirubin 0.4 (0.0-1.0) mg/dL AST 37 (5-37) U/L ALT 14 (0-40) U/L Alkaline Phosphatase 56 (39-117) U/L B-Natriuretic Peptide (<100) pg/mL Total Protein 6.6 (6.5-8.0) g/dL Albumin 3.1 L (3.5-5.0) g/dL TSH (0.32-4.0) uIU/mL COVID-19 (ALAN) Invalid (Negative) COVID-19 Clin Com See Note Influenza Type A (ABE) (Negative) Influenza Type B (ABE) (Negative) Influenza A & B Note 04/01/23 04/01/23 04/01/23 Range/Units 08:25 08:25 08:25 WBC (4.8-10.8) X10*3/uL RBC (4.60-5.80) X10*6/uL Hgb (14.0-18.0) g/dl Hct (42.0-52.0) % MCV (80.0-98.0) fL MCH (27.0-33.0) pg MCHC (31.0-36.0) g/dl RDW (11.0-16.0) % Plt Count (160-400) X10*3/uL MPV (9.4-12.4) fL Immature Gran % (Auto) (0.0-0.4) % Neut % (Auto) (45-73) % Lymph % (Auto) (20-40) % [place] % (Auto) (2-11) % Eos % (Auto) (0-4) % Baso % (Auto) (0-2) % Lymph # (Auto) (1.2-4.9) X10*3/uL [place] # (Auto) (0.1-1.2) X10*3/uL Eos # (Auto) (0.0-0.4) X10*3/uL Baso # (Auto) (0.0-0.2) X10*3/uL Abs Immat Gran (auto) (0.00-0.03) X10*3/uL Absolute Neuts (auto) (2.0-8.3) x10*3/uL Absolute Nucleated RBC (0.0-0.012) X10*3/uL Nucleated RBC % (auto) (0.0-0.2) /100WBC Sodium (135-145) mmol/L Potassium (3.3-5.1) mmol/L Chloride (96-108) mmol/L Carbon Dioxide (22-29) mmol/L Anion Gap (12-20) BUN (9-16) mg/dL Creatinine (0.5-1.4) mg/dL Estim Creat Clear Calc Estimated GFR Random Glucose (60-115) mg/dL Lactic Acid 1.4 (0.5-2.0) mmol/L Calcium (8.4-10.2) mg/dL Total Bilirubin (0.0-1.0) mg/dL AST (5-37) U/L ALT (0-40) U/L Alkaline Phosphatase (39-117) U/L B-Natriuretic Peptide (<100) pg/mL Total Protein (6.5-8.0) g/dL Albumin (3.5-5.0) g/dL TSH 2.62 (0.32-4.0) uIU/mL COVID-19 (ALAN) (Negative) COVID-19 Clin Com Influenza Type A (ABE) Negative (Negative) Influenza Type B (ABE) Negative (Negative) Influenza A & B Note See Note 04/01/23 04/01/23 Range/Units 08:25 09:23 WBC (4.8-10.8) X10*3/uL RBC (4.60-5.80) X10*6/uL Hgb (14.0-18.0) g/dl Hct (42.0-52.0) % MCV (80.0-98.0) fL MCH (27.0-33.0) pg MCHC (31.0-36.0) g/dl RDW (11.0-16.0) % Plt Count (160-400) X10*3/uL MPV (9.4-12.4) fL Immature Gran % (Auto) (0.0-0.4) % Neut % (Auto) (45-73) % Lymph % (Auto) (20-40) % [place] % (Auto) (2-11) % Eos % (Auto) (0-4) % Baso % (Auto) (0-2) % Lymph # (Auto) (1.2-4.9) X10*3/uL [place] # (Auto) (0.1-1.2) X10*3/uL Eos # (Auto) (0.0-0.4) X10*3/uL Baso # (Auto) (0.0-0.2) X10*3/uL Abs Immat Gran (auto) (0.00-0.03) X10*3/uL Absolute Neuts (auto) (2.0-8.3) x10*3/uL Absolute Nucleated RBC (0.0-0.012) X10*3/uL Nucleated RBC % (auto) (0.0-0.2) /100WBC Sodium (135-145) mmol/L Potassium (3.3-5.1) mmol/L Chloride (96-108) mmol/L Carbon Dioxide (22-29) mmol/L Anion Gap (12-20) BUN (9-16) mg/dL Creatinine (0.5-1.4) mg/dL Estim Creat Clear Calc Estimated GFR Random Glucose (60-115) mg/dL Lactic Acid (0.5-2.0) mmol/L Calcium (8.4-10.2) mg/dL Total Bilirubin (0.0-1.0) mg/dL AST (5-37) U/L ALT (0-40) U/L Alkaline Phosphatase (39-117) U/L B-Natriuretic Peptide 68 (<100) pg/mL Total Protein (6.5-8.0) g/dL Albumin (3.5-5.0) g/dL TSH (0.32-4.0) uIU/mL COVID-19 (ALAN) Negative (Negative) COVID-19 Clin Com See Note Influenza Type A (ABE) (Negative) Influenza Type B (ABE) (Negative) Influenza A & B Note Independent Interpretation I performed an independent interpretation of an: EKG (Normal sinus rhythm heart rate 90, PVC, no acute ST elevations , L visits of LVH. There are some ST depressions in V2 and V3 that her possibly consistent with strain pattern.) and Plain X-Ray (No acute cardiopulmonary disease seen on chest x-ray) Independent Historian Clinical information obtained from an independent historian. History obtained from or confirmed by: EMS and Other (Caregiver) External Record Review External record reviewed: Inpatient record Prescription Management I considered prescription management with: Antibiotic Discharge Plan Discharge Clinical Impression: Acute dyspnea Patient Disposition: Home, Self-Care Instructions: Dyspnea (ED) Prescriptions: No Action finasteride 5 mg tablet 5 mg PO DAILY 90 Days Qty: 90 3RF alendronate 70 mg Tablet 70 mg PO TU cholecalciferol (vitamin D3) 25 mcg (1,000 unit) Tablet 25 mcg PO DAILY multivitamin Tablet 1 tab PO DAILY acetaminophen 325 mg Tablet 650 mg PO Q6H PRN (Reason: Fever Or Pain) tizanidine 4 mg Tablet 4 mg PO BID divalproex 500 mg Tablet,Delayed Release (Dr/Ec) 1,000 mg PO BID@0900,1600 divalproex 500 mg Tablet,Delayed Release (Dr/Ec) 1,000 mg PO Q2D@2000 Rx Instructions: 1000MG IN THE MORNING AND NOON, AND 1000MG ALTERNATING WITH 500MG EVERY OTHER DAY AT NIGHT risperidone 3 mg Tablet 3 mg PO BEDTIME fluticasone propionate [Flovent HFA] 110 mcg/actuation Hfa Aerosol Inhaler 1 puff INHALATION BID divalproex [Depakote] 500 mg Tablet,Delayed Release (Dr/Ec) 500 mg PO Q2D@1999 diltiazem HCl [DILT-XR] 240 mg Capsule,Ext.Rel 24h Degradable 240 mg PO DAILY loperamide [Imodium A-D] 2 mg Tablet 4 mg PO Q6H PRN (Reason: Loose Stool) hydrocortisone [Preparation H Hydrocortisone] 1 % Cream 1 appl TOPICAL Q12H PRN (Reason: Hemorrhoids) docusate sodium 100 mg Capsule 100 mg PO DAILY PRN (Reason: Constipation) metoprolol succinate 25 mg Tablet Extended Release 24 Hr 25 mg PO DAILY mometasone 0.1 % Cream 1 appl TOPICAL DAILY PRN (Reason: eczema) Rx Instructions: apply to areas of red on face or forehead lactulose 20 gram/30 mL Solution 30 g PO BID PRN (Reason: Constipation) torsemide 20 mg tablet 40 mg PO DAILY potassium chloride 10 mEq tablet extended release 10 meq PO DAILY bupropion HCl 100 mg tablet sustained-release 12 hr 100 mg PO BID warfarin 4 mg tablet 4 mg PO DAILY@1800 tamsulosin [Flomax] 0.4 mg capsule 0.4 mg PO BEDTIME 90 Days Qty: 90 3RF Referrals: Fabiola Laws PA-C [Primary Care Provider] - 3 days
[2023-04-01 12:57] LABS: Appearance Urine Clear; Color Urine Yellow; Glucose Urine UA Negative (Negative); Leukocyte Esterase Urine Small (1+) (Negative); Nitrite Urine Negative (Negative); PH 6.5 (5.0-9.0); UMIC TRIGGER UACC YES; Urine Blood Trace (Negative); Urine Ketones Negative (Negative); Urine Protein Negative (Neg-Trace)
[2023-04-01 12:59] LABS: Bacteria Urine None Seen (None Seen); Hyaline Casts Urine 0-2 /LPF (0-2); Squamous Epithelial Cell Urine 0-2 /HPF (0-2); UACC Culture Trigger YES
== END 2023-04-01 14:15 | disposition home or self-care (01) ==
PROVIDERS: Physician Assistant; Emergency Provider Emergency Medicine; PCP Physician Assistant
DX: R06.02 Shortness of breath (principal); R05.9 Cough, unspecified; Z20.822 Contact with and (suspected) exposure to COVID-19; Z20.828 Contact with and (suspected) exposure to other viral communicable diseases; Z79.899 Other long term (current) drug therapy
CPT/HCPCS: 71045; 80053; 81001; 83605; 83880; 84443; 85025; 87040; 87086; 87088; 87186; 87502; 87635; 93005; 99284

== ENCOUNTER → 2023-04-06 14:37 | Outpatient (BNVA) | payer OTHER, SELFPAY | PROVIDERS: PCP Physician Assistant; Visit Provider Nurse Practitioner Family | DX: R32 Unspecified urinary incontinence (principal); N39.0 Urinary tract infection, site not specified | CPT/HCPCS: 51798 ==

== ENCOUNTER 2023-04-19 19:07 | Emergency (ER) | payer OTHER, SELFPAY ==
[2023-04-19 19:25] VITALS: BP 116/51; BP 121/70; PULSE 87; PULSE 88; RESP 15; TEMP 36.8; O2SAT 96; O2SAT 98; BMI 26.2
--- NOTE | 2023-04-19 20:03 | ED.GENADULT ---
HPI - General Adult General Chief complaint: General Medical Stated complaint: weakness Time Seen by Provider: 04/19/23 19:59 Source: patient, RN notes reviewed and old records reviewed Mode of arrival: EMS Limitations: no limitations History of Present Illness HPI narrative: Patient is 62 years old with history of schizoaffective disorder cephalo malacia spastic quadriplegic and cerebral atrophy atrial fibrillation, hypertension on Coumadin came here as patient did feel hungry since 1500 less interactive and lethargic. No fever no vomiting no diarrhea no abdominal pain On arrival patient asked for the food and had turkey sandwich and had fluids patient was here on 04/01 for similar reasons with workup negative Related Data Home Medications Medication Instructions Recorded Confirmed acetaminophen 325 mg tablet 650 mg PO Q6H PRN Fever Or Pain 03/24/21 04/01/23 alendronate 70 mg tablet 70 mg PO TU 03/24/21 04/01/23 cholecalciferol (vitamin D3) 25 25 mcg PO DAILY 03/24/21 04/01/23 mcg (1,000 unit) tablet divalproex 500 mg tablet,delayed 1,000 mg PO BID@0900,1600 03/24/21 04/01/23 release divalproex 500 mg tablet,delayed 1,000 mg PO Q2D@199903/24/21 04/01/23 release fluticasone propionate 110 1 puff inhalation BID 03/24/21 04/01/23 mcg/actuation HFA aerosol inhaler (Flovent HFA) multivitamin 1 tab PO DAILY 03/24/21 04/01/23 risperidone 3 mg tablet 3 mg PO BEDTIME 03/24/21 04/01/23 tizanidine 4 mg tablet 4 mg PO BID 03/24/21 04/01/23 divalproex 500 mg tablet,delayed 500 mg PO Q2D@199902/21/22 04/01/23 release (Depakote) bupropion HCl 100 mg tablet,12 hr 100 mg PO BID 04/01/23 04/01/23 sustained-release diltiazem HCl 240 mg 240 mg PO DAILY 04/01/23 04/01/23 capsule,extended release 24 hr, controlled (DILT-XR) docusate sodium 100 mg capsule 100 mg PO DAILY PRN Constipation 04/01/23 04/01/23 hydrocortisone 1 % topical cream 1 appl topical Q12H PRN Hemorrhoids 04/01/23 04/01/23 (Preparation H Hydrocortisone) lactulose 20 gram/30 mL oral 30 g PO BID PRN Constipation 04/01/23 04/01/23 solution loperamide 2 mg tablet (Imodium 4 mg PO Q6H PRN Loose Stool 04/01/23 04/01/23 A-D) metoprolol succinate 25 mg 25 mg PO DAILY 04/01/23 04/01/23 tablet,extended release 24 hr mometasone 0.1 % topical cream 1 appl topical DAILY PRN eczema 04/01/23 04/01/23 potassium chloride 10 mEq 10 meq PO DAILY 04/01/23 04/01/23 tablet,extended release torsemide 20 mg tablet 40 mg PO DAILY 04/01/23 04/01/23 warfarin 4 mg tablet 4 mg PO DAILY@1800 04/01/23 04/01/23 diltiazem HCl 240 mg 240 mg PO DAILY 04/06/23 capsule,extended release 24 hr furosemide 40 mg tablet 40 mg PO BID 04/06/23 Previous Rx's Medication Instructions Recorded finasteride 5 mg tablet 5 mg PO DAILY 90 days #90 tabs 08/11/22 tamsulosin 0.4 mg capsule (Flomax) 0.4 mg PO BEDTIME 90 days #90 caps 08/11/22 catheter ([facility] Male #[id number] ea 04/08/23 External Catheter) urinary bag ([email or web address] Urinary #6 ea 04/08/23 Drainage Bag) Allergies Allergy/AdvReac Type Severity Reaction Status Date / Time morphine [MORPHINE] Allergy Mild LOOPY Verified 04/06/23 15:16 ciprofloxacin [CIPROFLOXACIN] AdvReac Intermediate skin Verified 04/06/23 15:16 erythema/macular rash Review of Systems Review of Systems: Yes all other systems are reviewed and are negative [facility] Past Medical History Medical History Impaired cognition Rectal bleeding UTI (urinary tract infection) Social History Social History Alcohol intake: never Smoked in Last 30 Days: No Use of substances other than those prescribed or required for medical reasons: No Advance Directives: Yes Advance Directives on File: Yes Advance Directives Date on File: 03/24/21 Physical Exam ED Vital Signs: Vital Signs - 24 hr 04/19/23 19:25 04/19/23 21:21 Temperature 98.2 F 98.3 F Pulse Rate 87 85 Respiratory Rate 15 13 Blood Pressure 121/70 106/60 Pulse Oximetry 96 95 Oxygen Delivery Method Room Air Room Air BMI result Body Mass Index 26.2 Appearance: Alert. Oriented X2. No acute distress. Eyes: PERRLA, No Nystagmus ENT: Pharynx normal. Oral Mucosa moist Neck: Normal inspection. Neck supple. CVS: Normal heart rate and rhythm. Pulses normal. Respiratory: No respiratory distress. Equal air entry bilateral, no wheezing/rales/rhonchi Abdomen: Soft and nontender. Bowel sounds are present, no mass palpable, no CVA tenderness Skin: Skin warm and dry. Normal skin color. Normal skin turgor. Extremities: 1+ lower extremity edema. No calf tenderness limited movements of lower extremities Neuro: Oriented X 2. Limited movements of lower extremity Medical Decision Making Medical Decision Making [facility] Narrative: Patient ate sandwich and had p.o. fluids in the ER denies any significant abdominal pain symptoms likely psychological discharge patient back to [facility], labs are stable Lab Data [facility] Lab Attestation statement: I reviewed the patient's lab results. 04/19/23 20:32 04/19/23 20:32 Labs: Lab Results 04/19/23 04/19/23 04/19/23 Range/Units 20:32 20:32 20:32 WBC 10.4 (4.8-10.8) X10*3/uL RBC 4.58 L (4.60-5.80) X10*6/uL Hgb 14.5 (14.0-18.0) g/dl Hct 43.2 (42.0-52.0) % MCV 94.3 (80.0-98.0) fL MCH 31.7 (27.0-33.0) pg MCHC 33.6 (31.0-36.0) g/dl RDW 13.7 (11.0-16.0) % Plt Count 141 L (160-400) X10*3/uL MPV 10.6 (9.4-12.4) fL Immature Gran % (Auto) 0.7 H (0.0-0.4) % Neut % (Auto) 64.7 (45-73) % Lymph % (Auto) 18.0 L (20-40) % [place] % (Auto) 14.1 H (2-11) % Eos % (Auto) 2.2 (0-4) % Baso % (Auto) 0.3 (0-2) % Lymph # (Auto) 1.9 (1.2-4.9) X10*3/uL [place] # (Auto) 1.5 H (0.1-1.2) X10*3/uL Eos # (Auto) 0.2 (0.0-0.4) X10*3/uL Baso # (Auto) 0.0 (0.0-0.2) X10*3/uL Abs Immat Gran (auto) 0.07 H (0.00-0.03) X10*3/uL Absolute Neuts (auto) 6.7 (2.0-8.3) x10*3/uL Absolute Nucleated RBC 0.000 (0.0-0.012) X10*3/uL Nucleated RBC % (auto) 0.0 (0.0-0.2) /100WBC PT (10.0-13.1) SEC INR (0.9-1.1) Sodium 140 (135-145) mmol/L Potassium 3.7 (3.3-5.1) mmol/L Chloride 101 (96-108) mmol/L Carbon Dioxide 28 (22-29) mmol/L Anion Gap 15 (12-20) BUN 19 H (9-16) mg/dL Creatinine 0.88 (0.5-1.4) mg/dL Estim Creat Clear Calc 104.0 Estimated GFR > 60 Random Glucose 141 H (60-115) mg/dL Calcium 11.2 H D (8.4-10.2) mg/dL Total Bilirubin 0.5 (0.0-1.0) mg/dL AST 19 (5-37) U/L ALT 11 (0-40) U/L Alkaline Phosphatase 66 (39-117) U/L Total Protein 7.0 (6.5-8.0) g/dL Albumin 3.3 L (3.5-5.0) g/dL COVID-19 (ALAN) Invalid (Negative) COVID-19 Clin Com See Note 04/19/23 Range/Units 21:44 WBC (4.8-10.8) X10*3/uL RBC (4.60-5.80) X10*6/uL Hgb (14.0-18.0) g/dl Hct (42.0-52.0) % MCV (80.0-98.0) fL MCH (27.0-33.0) pg MCHC (31.0-36.0) g/dl RDW (11.0-16.0) % Plt Count (160-400) X10*3/uL MPV (9.4-12.4) fL Immature Gran % (Auto) (0.0-0.4) % Neut % (Auto) (45-73) % Lymph % (Auto) (20-40) % [place] % (Auto) (2-11) % Eos % (Auto) (0-4) % Baso % (Auto) (0-2) % Lymph # (Auto) (1.2-4.9) X10*3/uL [place] # (Auto) (0.1-1.2) X10*3/uL Eos # (Auto) (0.0-0.4) X10*3/uL Baso # (Auto) (0.0-0.2) X10*3/uL Abs Immat Gran (auto) (0.00-0.03) X10*3/uL Absolute Neuts (auto) (2.0-8.3) x10*3/uL Absolute Nucleated RBC (0.0-0.012) X10*3/uL Nucleated RBC % (auto) (0.0-0.2) /100WBC PT 15.7 H (10.0-13.1) SEC INR 1.4 H (0.9-1.1) Sodium (135-145) mmol/L Potassium (3.3-5.1) mmol/L Chloride (96-108) mmol/L Carbon Dioxide (22-29) mmol/L Anion Gap (12-20) BUN (9-16) mg/dL Creatinine (0.5-1.4) mg/dL Estim Creat Clear Calc Estimated GFR Random Glucose (60-115) mg/dL Calcium (8.4-10.2) mg/dL Total Bilirubin (0.0-1.0) mg/dL AST (5-37) U/L ALT (0-40) U/L Alkaline Phosphatase (39-117) U/L Total Protein (6.5-8.0) g/dL Albumin (3.5-5.0) g/dL COVID-19 (ALAN) (Negative) COVID-19 Clin Com Discharge Plan Discharge Clinical Impression: Adult failure to thrive Patient Disposition: Xfer Other Transfer Details: Patient had food in the ER no significant discomfort labs are stable INR 1.4 Instructions: Failure to Thrive in Older Adults (ED) Additional Instructions: Follow with PCP continue your medications Prescriptions: No Action finasteride 5 mg tablet 5 mg PO DAILY 90 Days Qty: 90 3RF (DME) [place] Male External Cath Misc See Rx Instructions .Route Qty: 180 1RF Rx Instructions: As directed 2 per day for incontinence (DME) [facility] Drainage Bag Misc See Rx Instructions .Route Qty: 6 1RF Rx Instructions: As directed 2 per month alendronate 70 mg Tablet 70 mg PO TU cholecalciferol (vitamin D3) 25 mcg (1,000 unit) Tablet 25 mcg PO DAILY multivitamin Tablet 1 tab PO DAILY acetaminophen 325 mg Tablet 650 mg PO Q6H PRN (Reason: Fever Or Pain) tizanidine 4 mg Tablet 4 mg PO BID divalproex 500 mg Tablet,Delayed Release (Dr/Ec) 1,000 mg PO BID@0900,1600 divalproex 500 mg Tablet,Delayed Release (Dr/Ec) 1,000 mg PO Q2D@2000 Rx Instructions: 1000MG IN THE MORNING AND NOON, AND 1000MG ALTERNATING WITH 500MG EVERY OTHER DAY AT NIGHT risperidone 3 mg Tablet 3 mg PO BEDTIME fluticasone propionate [Flovent HFA] 110 mcg/actuation Hfa Aerosol Inhaler 1 puff INHALATION BID divalproex [Depakote] 500 mg Tablet,Delayed Release (Dr/Ec) 500 mg PO Q2D@2000 diltiazem HCl [DILT-XR] 240 mg Capsule,Ext.Rel 24h Degradable 240 mg PO DAILY loperamide [Imodium A-D] 2 mg Tablet 4 mg PO Q6H PRN (Reason: Loose Stool) hydrocortisone [Preparation H Hydrocortisone] 1 % Cream 1 appl TOPICAL Q12H PRN (Reason: Hemorrhoids) docusate sodium 100 mg Capsule 100 mg PO DAILY PRN (Reason: Constipation) metoprolol succinate 25 mg Tablet Extended Release 24 Hr 25 mg PO DAILY mometasone 0.1 % Cream 1 appl TOPICAL DAILY PRN (Reason: eczema) Rx Instructions: apply to areas of red on face or forehead lactulose 20 gram/30 mL Solution 30 g PO BID PRN (Reason: Constipation) torsemide 20 mg tablet 40 mg PO DAILY potassium chloride 10 mEq tablet extended release 10 meq PO DAILY bupropion HCl 100 mg tablet sustained-release 12 hr 100 mg PO BID warfarin 4 mg tablet 4 mg PO DAILY@1800 tamsulosin [Flomax] 0.4 mg capsule 0.4 mg PO BEDTIME 90 Days Qty: 90 3RF furosemide 40 mg tablet 40 mg PO BID diltiazem HCl 240 mg capsule,extended release 24hr 240 mg PO DAILY Interventions: ED Discharge Assessment Last Done: 04/20/23 01:25 Discharge Date/Time: 04/20/23 01:26
[2023-04-19 21:01] LABS: Alanine Aminotransferase 11 U/L (0-40); Albumin Level 3.3 g/dL (3.5-5.0); Alkaline Phosphatase 66 U/L (39-117); Anion Gap 15 (12-20); Aspartate Amino Transferase 19 U/L (5-37); Bilirubin Total 0.5 mg/dL (0.0-1.0); Blood Urea Nitrogen 19 mg/dL (9-16); Calcium 11.2 mg/dL (8.4-10.2); Carbon Dioxide 28 mmol/L (22-29); Chloride 101 mmol/L (96-108); Estimated Glomerular Filt Rate > 60; Glucose Random 141 mg/dL (60-115); Potassium 3.7 mmol/L (3.3-5.1); Sodium 140 mmol/L (135-145)
[2023-04-19 21:21] VITALS: BP 106/60; PULSE 85; RESP 13; TEMP 36.8; O2SAT 95
--- NOTE | 2023-04-19 21:23 | PC.NURSE ---
Pt ate 1/2 turkey sandwich with thornton and 4oz of leonardo gasca. aware.
--- NOTE | 2023-04-19 22:38 | PC.NURSE ---
Pt provided with chicken salad sandwich and leonardo elo. [facility] staff at bedside assisting with feeding. Pt actively eating with no difficulty. Requires encouragement to eat.
--- NOTE | 2023-04-19 23:49 | MHC.EDTECH ---
call out to norma at 1147 to book transport back to [facility], ETA given was [phone]
== END 2023-04-20 01:26 | disposition other institution (70) ==
PROVIDERS: Emergency Provider Internal Medicine
DX: R62.7 Adult failure to thrive (principal); Z68.26 Body mass index [BMI] 26.0-26.9, adult; R53.1 Weakness; Z20.822 Contact with and (suspected) exposure to COVID-19; I10 Essential (primary) hypertension; I48.91 Unspecified atrial fibrillation; F25.9 Schizoaffective disorder, unspecified; G80.0 Spastic quadriplegic cerebral palsy; Z86.718 Personal history of other venous thrombosis and embolism; Z87.440 Personal history of urinary (tract) infections; Z79.01 Long term (current) use of anticoagulants; Z79.899 Other long term (current) drug therapy
CPT/HCPCS: 36415; 80053; 85025; 85610; 87635; 99283; 99284

== ENCOUNTER 2023-04-29 15:46 | Outpatient (REF) | payer OTHER, SELFPAY ==
[2023-04-29 19:05] LABS: Prostate Specific Antigen < 0.10 ng/mL (<0.05-4.0)
== END 2023-04-29 15:47 | disposition home or self-care (01) ==
LOC: HO.US 15:46
PROVIDERS: Visit Provider Nurse Practitioner Family
DX: Z12.5 Encounter for screening for malignant neoplasm of prostate (principal); N39.0 Urinary tract infection, site not specified; R32 Unspecified urinary incontinence
CPT/HCPCS: 36415; 84153

== ENCOUNTER 2023-05-05 15:55 | Outpatient (REF) | payer OTHER, SELFPAY ==
--- NOTE | ~2023-05-05 | US_ITS ---
EXAMINATION: US RETROPERITONEAL COMPLETE (RENAL) CLINICAL INFORMATION: Urinary tract infection, site not specified. COMPARISON: None available. TECHNIQUE: Real-time imaging of the kidneys and bladder. Technically limited study secondary to body habitus and patient mobility. FINDINGS: RIGHT KIDNEY: 10.3 x 5.0 x 4.6 cm (SAG x AP x TRV). The kidney is normal in size and contour. Increased parenchymal echogenicity. Renal cortical thickness is normal. No calculi or focal parenchymal lesions. No hydronephrosis. LEFT KIDNEY: 9.7 x 5.4 x 6.1 cm (SAG x AP x TRV). The kidney is normal in size and contour. Renal cortical thickness is normal. No renal calculi or hydronephrosis. Increased parenchymal echogenicity. Benign-appearing renal cyst measuring 2.0 cm. No follow up imaging is recommended. BLADDER: Well distended and normal. Bilateral ureteral jets are demonstrated. Prevoid bladder volume is 258 mL. Postvoid bladder volume is 26.6 mL. ADDITIONAL FINDINGS: Prostate is enlarged measuring 57.7 mL. US/US retroperitoneal comp IMPRESSION: 1. Echogenic kidneys which can be seen in the setting of medical renal disease. 2. Prostatomegaly.
== END 2023-05-05 15:56 | disposition home or self-care (01) ==
LOC: HO.US 15:55
PROVIDERS: Visit Provider Nurse Practitioner Family
DX: N39.0 Urinary tract infection, site not specified (principal); R32 Unspecified urinary incontinence
CPT/HCPCS: 76770

== ENCOUNTER 2023-05-25 15:22 | Outpatient (AMB) | payer OTHER, SELFPAY ==
--- NOTE | 2023-05-25 15:30 | A.OFFVIS_ITS ---
Intake Intake Visit Reasons: 6 wk ultrasound/psa(set) Intake Note: Patient presents for follow up recurrent uti/ultrasound/lab/recurrent uti (imaging 04/29 & 05/05) (psa 0.10) Urology Medications: d/c furosemide, tamsulosin, finasteride Blood Thinner: Warfarin PVR: 0ml Roofing Layer Required: No Accompanied by: Other Relationship Allergies morphine [MORPHINE] Allergy (Mild, Verified 04/06/23 15:16) LOOPY ciprofloxacin [CIPROFLOXACIN] Adverse Reaction (Intermediate, Verified 04/06/23 15:16) skin erythema/macular rash HPI HPI Comments History of Present Illness Details Ramsey is a pleasant 62-year-old male patient of Dr. Laws who is accompanied by his rn case manager hospice worker at today's visit. He resides in a senior living. He has a past medical history of impaired cognition, rectal bleeding, and recurrent UTIs. He presents to the office today for follow-up. Of note, patient was seen approximately 6 weeks ago as a new patient for recurrent urinary tract infections and incontinence at which time recommendations were made to obtain retroperitoneal ultrasound for further assessment evaluation and [place] catheter for urinary incontinence in the setting of decreased mobility. Much of today's history is provided by rn case manager hospice as patient only responding to yes or no questions and appears somewhat lethargic but easily arousable. Recent retroperitoneal ultrasound results reviewed with patient's rn case manager hospice and patient. Right kidney with no calculi, lesions, and or hydronephrosis. Left kidney with no calculi or hydronephrosis. Benign-appearing renal cyst measuring 2.0 cm with no imaging follow-up recommended per radiology report. The bladder is well distended and normal. Pre void bladder volume is approximately 260 mL. Postvoid bladder volume is approximately 30 mL. The prostate gland is measuring approximately 60 mL. Patient's medical case manager discusses patient's overall decline and increase in bilateral lower leg edema. He discusses question of retention however PVR 0 mL and most recent retroperitoneal ultrasound showing normal bladder. Discussed continuing finasteride and tamsulosin at this time. Difficult to obtain and understand history from patient due to cognitive impairment and slurred speech. Staff otherwise denies patient to have or report hematuria, dysuria, foul smelling urine, flank pain, fever, and or chills. Unable to obtain urine for urinalysis as patient with PVR 0mls. PSAs are as follows: 01/07--<0.05 05/09--<0.10 PFSH Medical History Impaired cognition Rectal bleeding UTI (urinary tract infection) Social History Alcohol intake: never Smoked in Last 30 Days: No Use of substances other than those prescribed or required for medical reasons: No Advance Directives: Yes Advance Directives on File: Yes Advance Directives Date on File: 03/24/21 Review of Systems Const Other (as noted in HPI ) Reports as per HPI Eyes Reports no additional complaints ENT Reports no additional complaints Resp Reports no additional complaints GI Reports as per HPI Reports as per HPI Musc Reports as per HPI Neuro Reports as per HPI Physical Exam Const General: cooperative, comfortable, no acute distress, well developed, ill appearing, lethargic and tired appearing Orientation/consciousness: oriented to person and lethargic Limitations: wheelchair Eyes Other: discharge noted from left eye Neck Neck: Yes normal visual inspection and Yes trachea midline Chest Chest palpation & inspection: normal inspection of the chest Resp Effort & Inspection: normal respiratory effort Cardio Rate: regular rate Skin Other: Skin breakdown per facility staff bilateral lower leg edema Neuro General: oriented to person Extrem Other: Bilateral lower extremity with significant edema right heal wound noted Psych Appearance: well kempt Speech and movement: Slurred speech present Attitude: cooperative Insight: Limited insight present (Psych) Judgement: Limited judgement present (Psych) Office Procedures Post Void Residual Post Residual Void Post Void Residual (PVR): 0 [id number] Void Residual by ultrasound Results Reviewed Results Reviewed: Date of Service: 05/05/23 EXAMINATION: US RETROPERITONEAL COMPLETE (RENAL) FINDINGS: RIGHT KIDNEY: 10.3 x 5.0 x 4.6 cm (SAG x AP x TRV). The kidney is normal in size and contour. Increased parenchymal echogenicity. Renal cortical thickness is normal. No calculi or focal parenchymal lesions. No hydronephrosis. LEFT KIDNEY: 9.7 x 5.4 x 6.1 cm (SAG x AP x TRV). The kidney is normal in size and contour. Renal cortical thickness is normal. No renal calculi or hydronephrosis. Increased parenchymal echogenicity. Benign-appearing renal cyst measuring 2.0 cm. No follow up imaging is recommended. BLADDER: Well distended and normal. Bilateral ureteral jets are demonstrated. Prevoid bladder volume is 258 mL. Postvoid bladder volume is 26.6 mL. ADDITIONAL FINDINGS: Prostate is enlarged measuring 57.7 mL. US/US retroperitoneal comp IMPRESSION: 1.? Echogenic kidneys which can be seen in the setting of medical renal disease. 2.? Prostatomegaly. Assessment & Plan Assessment & Plan (1) Incontinence: Code(s): R32 - Unspecified urinary incontinence (2) Renal cyst: Code(s): N28.1 - Cyst of kidney, acquired (3) Enlarged prostate: Code(s): N40.0 - Benign prostatic hyperplasia without lower urinary tract symptoms Plan Unable to obtain urine for urinalysis however PVR 0 mL. Recent retroperitoneal ultrasound results reviewed with the patient in rn case manager hospice today; as noted above Recent PSA results reviewed with the patient and rn case manager hospice today; as noted above Continue Flomax and finasteride as discussed Continue with [place] catheter due to urinary incontinence in the setting of cognitive decline in decreased mobility Follow-up in 6 months with PVR; or sooner with any issues, concerns, and or questions. Orders: Orders AMB Post Void Residual by ultrasound 05/25/23 N39.8 - Other specified disorders of urinary system Medications: Discontinued furosemide Lasix 40 mg pills, 2 pills in the morning and 1 pill 6 hours later x2 weeks 42 tabs 0RF Patient Instructions: The patient had an opportunity to ask questions regarding the treatment plan. All questions were answered. Physical exam, labs, and imaging were discussed and reviewed in detail. As well as risks, benefits, and discussion of treatment choices. No major barriers to understanding were identified. The patient exp ressed understanding and agreement with the above treatment plan. The patient was made aware they should contact our office by phone for worsening of their current condition, the appearance of new symptoms, or with any questions or concerns. Compliance is encouraged with any medications and follow up testing that is ordered. It is a privilege to be allowed the opportunity to participate in? your urological care.? Again, if you have any questions or concerns If you have any questions or concerns please do not hesitate to contact me. The office is [phone]. This note is constructed using voice recognition software. While every effort has been made to ensure accuracy slat basket maker machine errors may have been included. Yours sincerely, TIEN Rubi Coding Level of Care Code Est Pt Level 3 (01911) Diagnoses Incontinence R32 Renal cyst N28.1 Enlarged prostate N40.0 CPT Codes Post Residual Void - PVR CPT Code: 51337-Wlnh Void Residual by ultrasound ([id number])
== END 2023-05-25 15:52 | disposition home or self-care (01) ==
PROVIDERS: PCP Physician Assistant; Visit Provider Nurse Practitioner Family
DX: R32 Unspecified urinary incontinence (principal); N28.1 Cyst of kidney, acquired; N40.0 Benign prostatic hyperplasia without lower urinary tract symptoms
CPT/HCPCS: 99213

== ENCOUNTER → 2023-05-25 15:22 | Outpatient (BNVA) | payer OTHER, SELFPAY | PROVIDERS: PCP Physician Assistant; Visit Provider Nurse Practitioner Family | DX: R32 Unspecified urinary incontinence (principal); N28.1 Cyst of kidney, acquired; N40.0 Benign prostatic hyperplasia without lower urinary tract symptoms; N39.0 Urinary tract infection, site not specified; Z79.01 Long term (current) use of anticoagulants; Z79.899 Other long term (current) drug therapy | CPT/HCPCS: 51798 ==

== ENCOUNTER 2023-05-25 16:19 | Inpatient (IN) | payer MEDICAID, SELFPAY ==
--- NOTE | ~2023-05-25 | CT_ITS ---
EXAMINATION: CT HEAD WITHOUT CONTRAST CLINICAL INFORMATION: Lethargy. On Coumadin. COMPARISON: Head CT 09/24/2022. TECHNIQUE: Contiguous axial imaging was performed from the skull base to vertex without intravenous administration of contrast. This CT examination was performed using dose optimization techniques as appropriate, variously including the following: *Automated exposure control *Adjustment of mA and/or kV according to patient size (this includes techniques or standardized protocols for targeted exams where dose is matched to indication/reason for exam; i.e. extremities or head) *Use of iterative reconstruction technique DLP: 666 mGy-cm. FINDINGS: There is no intracranial hemorrhage, extra-axial collection, mass effect, or extra-axial fluid collection. There is disproportionate prominence of the ventricles, effacement of the sulci in the parietal vertex, and prominence of the subarachnoid spaces, which may represent normal pressure hydrocephalus but appears similar compared with prior. The extracranial structures are within normal limits. Degenerative changes are seen at the atlantodental articulation. CT/CT head/brain wo IV con IMPRESSION: No acute intracranial abnormality. No hemorrhage or extra-axial fluid collection. Redemonstration of disproportionate prominence of the ventricles, effacement of the sulci in the parietal vertex, and prominence of the subarachnoid spaces, which may represent normal pressure hydrocephalus but appears similar compared with 09/24/2022.
--- NOTE | ~2023-05-25 | XR_ITS ---
EXAMINATION: XR CHEST CLINICAL INFORMATION: Weakness COMPARISON: Chest x-ray 04/01/2023 TECHNIQUE: Frontal view of the chest was obtained. FINDINGS: The lungs are hypoexpanded but clear. The heart size is borderline enlarged. Pulmonary vascularity is normal. No gross bony abnormality. XR/XR chest 1V IMPRESSION: Low lung volumes otherwise unremarkable.
--- NOTE | ~2023-05-25 | XR_ITS ---
EXAMINATION: XR CHEST CLINICAL INFORMATION: Shortness of breath. COMPARISON: 05/25/2023 TECHNIQUE: Frontal view of the chest was obtained. FINDINGS: The lung volumes are low and the patient is rotated. The cardiomediastinal silhouette is stable. There is a left lower lobe infiltrate. The right lung is clear. There are no significant pleural effusions. There is a left proximal humeral bone infarct. The soft tissues are unremarkable XR/XR chest 1V IMPRESSION: Low lung volumes limits evaluation. Left lower lung field infiltrate. Suspect pneumonia.
[2023-05-25 16:36] VITALS: BP 126/67; PULSE 66; RESP 18; TEMP 36.6; O2SAT 95; BMI 24.4
--- NOTE | 2023-05-25 16:37 | ED.AMS ---
HPI - Altered Mental Status General Chief Complaint: Altered Mental Status Stated Complaint: Lethargic/ Out of it Time Seen by Provider: 05/25/23 19:09 Source: other (long-term staff member, Chaya) History of Present Illness HPI narrative: 62-year-old male who lives in a senior living was brought to emergency department by a senior living staff member,Chaya for evaluation of altered mental status and having difficulty swallowing. Patient also has a discharge from his left eye as well as a wound to his left ankle and right heel which the staff members concerned about. The patient is not able to give a history secondary to schizoaffective disorder, cerebral atrophy and encephalomalacia. According to the caregiver the patient has not been talking as much as usual and is not respond as quickly as usual. The caregiver states that this happens to him whenever he gets a urinary tract infection. Related Data Home Medications Medication Instructions Recorded Confirmed acetaminophen 325 mg tablet 650 mg PO Q6H PRN Fever Or Pain 03/24/21 05/25/23 alendronate 70 mg tablet 70 mg PO TU 03/24/21 05/25/23 cholecalciferol (vitamin D3) 25 25 mcg PO DAILY 03/24/21 05/25/23 mcg (1,000 unit) tablet divalproex 500 mg tablet,delayed 1,000 mg PO BID@0900,1600 03/24/21 05/25/23 release divalproex 500 mg tablet,delayed 1,000 mg PO Q2D@199903/24/21 05/25/23 release fluticasone propionate 110 1 puff inhalation BID 03/24/21 05/25/23 mcg/actuation HFA aerosol inhaler (Flovent HFA) multivitamin 1 tab PO DAILY 03/24/21 05/25/23 risperidone 3 mg tablet 3 mg PO BEDTIME 03/24/21 05/25/23 tizanidine 4 mg tablet 4 mg PO BID 03/24/21 05/25/23 divalproex 500 mg tablet,delayed 500 mg PO Q2D@199902/21/22 05/25/23 release (Depakote) bupropion HCl 100 mg tablet,12 hr 100 mg PO BID 04/01/23 05/25/23 sustained-release hydrocortisone 1 % topical cream 1 appl topical Q12H PRN Hemorrhoids 04/01/23 05/25/23 (Preparation H Hydrocortisone) loperamide 2 mg tablet (Imodium 4 mg PO Q6H PRN Loose Stool 04/01/23 05/25/23 A-D) metoprolol succinate 25 mg 25 mg PO DAILY 04/01/23 05/25/23 tablet,extended release 24 hr torsemide 20 mg tablet 40 mg PO BID 04/01/23 05/25/23 warfarin 4 mg tablet 2 mg PO DAILY@1800 04/01/23 05/25/23 diltiazem HCl 240 mg 240 mg PO DAILY 04/06/23 05/25/23 capsule,extended release 24 hr potassium chloride 20 mEq 20 meq PO BID 05/25/23 05/25/23 tablet,extended release(part/cryst) Previous Rx's Medication Instructions Recorded finasteride 5 mg tablet 5 mg PO DAILY 90 days #90 tabs 08/11/22 tamsulosin 0.4 mg capsule (Flomax) 0.4 mg PO BEDTIME 90 days #90 caps 08/11/22 catheter ([facility] Male #180 ea 04/08/23 External Catheter) urinary bag ([facility] #6 ea 04/08/23 Drainage Bag) Allergies Allergy/AdvReac Type Severity Reaction Status Date / Time morphine [MORPHINE] Allergy Mild LOOPY Verified 04/06/23 15:16 ciprofloxacin [CIPROFLOXACIN] AdvReac Intermediate skin Verified 04/06/23 15:16 erythema/macular rash Review of Systems Review of Systems: Yes Unobtainable due to mental condition [facility] Past Medical History [facility] Narrative: Past medical history: Schizoaffective disorder, encephalomalacia, spastic quadriplegia, cerebral atrophy, peripheral neuropathy, atrial fibrillation, HTN, osteoporosis, seizure disorder, and history of bilateral femur fractures, left lower extremity DVT. Social history: The patient lives in a senior living. Medical History Impaired cognition Rectal bleeding UTI (urinary tract infection) Social History Social History Alcohol intake: never Smoked in Last 30 Days: No Use of substances other than those prescribed or required for medical reasons: No Advance Directives: Yes Advance Directives on File: Yes Advance Directives Date on File: 03/24/21 Physical Exam ED Vital Signs: Vital Signs - 24 hr 05/25/23 16:36 05/25/23 21:16 Temperature 97.9 F Pulse Rate 66 98 Respiratory Rate 18 16 Blood Pressure 126/67 Pulse Oximetry 95 98 Oxygen Delivery Method Room Air Room Air BMI result Body Mass Index 24.4 Vital signs were normal General: Chronically ill-appearing male, does respond verbally Head: Normocephalic, atraumatic EENT: PERRL, Lids normal, sclera normal, conjunctiva normal, patient has a thick yellowish discharge from the left eye, nose normal , ears normal, throat without erythema or exudates, mouth revealed dry membranes Neck: Supple, no adenopathy, trachea midline and nontender Lung: breath sounds symmetric, no wheezing, rales or rhonchi Chest: symmetric movement, nontender Heart: regular rate and rhythm, normal S1, S2, 3/6 holosystolic murmur heard diffusely throughout the precordium Abdomen: soft, non-tender, nondistended, normal bowel sounds Extremities: Patient has significant peripheral edema of which is bilaterally symmetric, 1+ pitting, patient has a skin tear to the left medial malleolus which does not appear to be infected , he also has a chronic appearing right heel wound which does not appear to be infected Skin: no rashes, no lesion, normal color and warmth Neuro patient is awake, he is minimally verbal but this is consistent with his encephalomalacia Course Course Course Narrative: RME - 62 yo wheelchair bound male, schizoaffective disorder, cerebral atrophy, encephalomalacia, afib, DVT on Coumadin, hx UTI who presents to the ER for evaluation of lethargy and not acting himself that his caregiver noticed today. Was in usual state of health yesterday. Patient denies physical complaints. Recently had torsemide dose doubled, which he on for LE edema. VSS in triage. Plan: labs, UA, CXR, CT head Medical Decision Making Medical Decision Making [facility] Narrative: 62-year-old male with past medical history of schizoaffective disorder, encephalomalacia, spastic quadriplegia, cerebral atrophy, peripheral neuropathy, atrial fibrillation, HTN, osteoporosis, seizure disorder, and history of bilateral femur fractures, left lower extremity DVT who presents emergency department for evaluation change in mental status with decreased oral intake. Patient's vital signs were normal. Physical examination did reveal evidence for left eye infection consistent with his baseline. Following evaluation was ordered CBC, BMP, liver panel, ammonia, VBG, magnesium, PT/INR, PTT, urinalysis, TSH, COVID-19, flu, RSV 2157: Patient's laboratory evaluation was unremarkable except for a positive urinalysis. Patient's presentation is consistent with urinary tract infection. According to the patient's group am member, the patient is not able to swallow and he does not believe that the patient can be managed at the senior living. I did order blood culture x2, lactic acid, IV placement. Patient's last urine culture grew Pseudomonas aeruginosa, sensitive to cefepime and Zosyn. Therefore I ordered Zosyn 4.5 g IV. I will discuss admission with the covering hospitalist. 2234: I did discuss admission with the covering hospitalist the patient will be admitted for further treatment. 2301: The patient's lactic acid was 2.0. The patient has not had any low blood pressure, given his significant peripheral edema I do not think he needs a fluid bolus but I will given normal saline at 150 mL/hr Differential Diagnosis 2211: Differential diagnosis includes but is not limited to urinary tract infection, electrolyte abnormality, anemia Admission/Observation Consideration of admission/observation: Escalation of care including admission/observation considered Consult Healthcare Provider Management of the patient was discussed with: Hospitalist Lab Data MDM Lab Attestation statement: I reviewed the patient's lab results. My independent interpretation patient's laboratory evaluation is as follows: Normal CBC, no significant abnormalities on the BMP or liver panel. Calcium high at 11.5-similar elevations in the past. PH was elevated 7.51. TSH was normal at 2.12. Urinalysis was positive for protein, blood, leukocyte esterase and nitrates. Microscopic pending. Urine tox screen was negative. COVID-19, influenza and RSV were negative. 05/25/23 17:21 05/25/23 17:21 Labs: Lab Results 05/25/23 05/25/23 05/25/23 Range/Units 17:21 17:21 17:21 WBC 11.1 H (4.8-10.8) X10*3/uL RBC 4.67 (4.60-5.80) X10*6/uL Hgb 14.4 (14.0-18.0) g/dl Hct 44.1 (42.0-52.0) % MCV 94.4 (80.0-98.0) fL MCH 30.8 (27.0-33.0) pg MCHC 32.7 (31.0-36.0) g/dl RDW 14.5 (11.0-16.0) % Plt Count 171 (160-400) X10*3/uL MPV 10.2 (9.4-12.4) fL Immature Gran % (Auto) 0.5 H (0.0-0.4) % Neut % (Auto) 66.5 (45-73) % Lymph % (Auto) 13.4 L (20-40) % [place] % (Auto) 18.9 H (2-11) % Eos % (Auto) 0.5 (0-4) % Baso % (Auto) 0.2 (0-2) % Lymph # (Auto) 1.5 (1.2-4.9) X10*3/uL [place] # (Auto) 2.1 H (0.1-1.2) X10*3/uL Eos # (Auto) 0.1 (0.0-0.4) X10*3/uL Baso # (Auto) 0.0 (0.0-0.2) X10*3/uL Abs Immat Gran (auto) 0.06 H (0.00-0.03) X10*3/uL Absolute Neuts (auto) 7.4 (2.0-8.3) x10*3/uL Absolute Nucleated RBC 0.000 (0.0-0.012) X10*3/uL Nucleated RBC % (auto) 0.0 (0.0-0.2) /100WBC Smear Tech's Comments VERIFIED PT 27.0 H (11.1-13.3) SEC INR 2.2 H (0.9-1.1) APTT 40.9 H (26.0-36.4) SEC VBG pH (7.32-7.43) VBG pCO2 mmHg VBG pO2 mmHg VBG HCO3 (22-26) mmol/L VBG O2 Saturation % VBG Base Excess mmol/L Sodium 142 (135-145) mmol/L Potassium 3.6 (3.3-5.1) mmol/L Chloride 101 (96-108) mmol/L Carbon Dioxide 32 H (22-29) mmol/L Anion Gap 13 (12-20) BUN 15 (9-16) mg/dL Creatinine 0.69 (0.5-1.4) mg/dL Estim Creat Clear Calc 129.0 Estimated GFR > 60 Random Glucose 119 H (60-115) mg/dL Lactic Acid (0.5-2.0) mmol/L Calcium 11.5 H (8.4-10.2) mg/dL Magnesium 2.1 (1.6-2.6) mg/dL Total Bilirubin 0.5 (0.0-1.0) mg/dL Direct Bilirubin 0.2 (0.0-0.5) mg/dL AST 19 (5-37) U/L ALT 9 (0-40) U/L Alkaline Phosphatase 82 (39-117) U/L Total Protein 7.4 (6.5-8.0) g/dL Albumin 3.4 L (3.5-5.0) g/dL TSH (0.32-4.0) uIU/mL Urine Color Urine Appearance Urine pH (5.0-9.0) Ur Specific [place] (1.005-1.025) Urine Protein (Neg-Trace) mg/dL Urine Glucose (UA) (Negative) mg/dL Urine Ketones (Negative) mg/dL Urine Blood (Negative) Urine Nitrite (Negative) Ur Leukocyte Esterase (Negative) Urine RBC (0-2) /HPF Urine WBC (0-5) /HPF Ur Squamous Epith Cells (0-2) /HPF Urine Bacteria (None Seen) Hyaline Casts (0-2) /LPF Urine Opiates Screen (Not Detect) Urine Fentanyl Screen (Not Detect) Ur Barbiturates Screen (Not Detect) Ur Phencyclidine Scrn (Not Detect) Ur Amphetamines Screen (Not Detect) U Benzodiazepines Scrn (Not Detect) Urine Cocaine Screen (Not Detect) U Marijuana (THC) Screen (Not Detect) COVID-19 (ALAN) (Negative) COVID-19 Clin Com Influenza Type A (PCR) (Negative) Influenza Type B (PCR) (Negative) RSV RNA Qual (PCR) (Negative) SARS-CoV-2 RNA (RT-PCR) (Negative) 05/25/23 05/25/23 05/25/23 Range/Units 17:21 17:31 18:40 WBC (4.8-10.8) X10*3/uL RBC (4.60-5.80) X10*6/uL Hgb (14.0-18.0) g/dl Hct (42.0-52.0) % MCV (80.0-98.0) fL MCH (27.0-33.0) pg MCHC (31.0-36.0) g/dl RDW (11.0-16.0) % Plt Count (160-400) X10*3/uL MPV (9.4-12.4) fL Immature Gran % (Auto) (0.0-0.4) % Neut % (Auto) (45-73) % Lymph % (Auto) (20-40) % [place] % (Auto) (2-11) % Eos % (Auto) (0-4) % Baso % (Auto) (0-2) % Lymph # (Auto) (1.2-4.9) X10*3/uL [place] # (Auto) (0.1-1.2) X10*3/uL Eos # (Auto) (0.0-0.4) X10*3/uL Baso # (Auto) (0.0-0.2) X10*3/uL Abs Immat Gran (auto) (0.00-0.03) X10*3/uL Absolute Neuts (auto) (2.0-8.3) x10*3/uL Absolute Nucleated RBC (0.0-0.012) X10*3/uL Nucleated RBC % (auto) (0.0-0.2) /100WBC Smear Tech's Comments PT (11.1-13.3) SEC INR (0.9-1.1) APTT (26.0-36.4) SEC VBG pH 7.51 H (7.32-7.43) VBG pCO2 45 mmHg VBG pO2 61 mmHg VBG HCO3 36 H (22-26) mmol/L VBG O2 Saturation 87.0 % VBG Base Excess 11.6 mmol/L Sodium (135-145) mmol/L Potassium (3.3-5.1) mmol/L Chloride (96-108) mmol/L Carbon Dioxide (22-29) mmol/L Anion Gap (12-20) BUN (9-16) mg/dL Creatinine (0.5-1.4) mg/dL Estim Creat Clear Calc Estimated GFR Random Glucose (60-115) mg/dL Lactic Acid (0.5-2.0) mmol/L Calcium (8.4-10.2) mg/dL Magnesium (1.6-2.6) mg/dL Total Bilirubin (0.0-1.0) mg/dL Direct Bilirubin (0.0-0.5) mg/dL AST (5-37) U/L ALT (0-40) U/L Alkaline Phosphatase (39-117) U/L Total Protein (6.5-8.0) g/dL Albumin (3.5-5.0) g/dL TSH (0.32-4.0) uIU/mL Urine Color Urine Appearance Urine pH (5.0-9.0) Ur Specific [place] (1.005-1.025) Urine Protein (Neg-Trace) mg/dL Urine Glucose (UA) (Negative) mg/dL Urine Ketones (Negative) mg/dL Urine Blood (Negative) Urine Nitrite (Negative) Ur Leukocyte Esterase (Negative) Urine RBC (0-2) /HPF Urine WBC (0-5) /HPF Ur Squamous Epith Cells (0-2) /HPF Urine Bacteria (None Seen) Hyaline Casts (0-2) /LPF Urine Opiates Screen (Not Detect) Urine Fentanyl Screen (Not Detect) Ur Barbiturates Screen (Not Detect) Ur Phencyclidine Scrn (Not Detect) Ur Amphetamines Screen (Not Detect) U Benzodiazepines Scrn (Not Detect) Urine Cocaine Screen (Not Detect) U Marijuana (THC) Screen (Not Detect) COVID-19 (ALAN) Invalid (Negative) COVID-19 Clin Com See Note Influenza Type A (PCR) NEGATIVE (Negative) Influenza Type B (PCR) NEGATIVE (Negative) RSV RNA Qual (PCR) NEGATIVE (Negative) SARS-CoV-2 RNA (RT-PCR) NEGATIVE (Negative) 05/25/23 05/25/23 05/25/23 Range/Units 18:46 19:56 19:56 WBC (4.8-10.8) X10*3/uL RBC (4.60-5.80) X10*6/uL Hgb (14.0-18.0) g/dl Hct (42.0-52.0) % MCV (80.0-98.0) fL MCH (27.0-33.0) pg MCHC (31.0-36.0) g/dl RDW (11.0-16.0) % Plt Count (160-400) X10*3/uL MPV (9.4-12.4) fL Immature Gran % (Auto) (0.0-0.4) % Neut % (Auto) (45-73) % Lymph % (Auto) (20-40) % [place] % (Auto) (2-11) % Eos % (Auto) (0-4) % Baso % (Auto) (0-2) % Lymph # (Auto) (1.2-4.9) X10*3/uL [place] # (Auto) (0.1-1.2) X10*3/uL Eos # (Auto) (0.0-0.4) X10*3/uL Baso # (Auto) (0.0-0.2) X10*3/uL Abs Immat Gran (auto) (0.00-0.03) X10*3/uL Absolute Neuts (auto) (2.0-8.3) x10*3/uL Absolute Nucleated RBC (0.0-0.012) X10*3/uL Nucleated RBC % (auto) (0.0-0.2) /100WBC Smear Tech's Comments PT (11.1-13.3) SEC INR (0.9-1.1) APTT (26.0-36.4) SEC VBG pH (7.32-7.43) VBG pCO2 mmHg VBG pO2 mmHg VBG HCO3 (22-26) mmol/L VBG O2 Saturation % VBG Base Excess mmol/L Sodium (135-145) mmol/L Potassium (3.3-5.1) mmol/L Chloride (96-108) mmol/L Carbon Dioxide (22-29) mmol/L Anion Gap (12-20) BUN (9-16) mg/dL Creatinine (0.5-1.4) mg/dL Estim Creat Clear Calc Estimated GFR Random Glucose (60-115) mg/dL Lactic Acid (0.5-2.0) mmol/L Calcium (8.4-10.2) mg/dL Magnesium (1.6-2.6) mg/dL Total Bilirubin (0.0-1.0) mg/dL Direct Bilirubin (0.0-0.5) mg/dL AST (5-37) U/L ALT (0-40) U/L Alkaline Phosphatase (39-117) U/L Total Protein (6.5-8.0) g/dL Albumin (3.5-5.0) g/dL TSH 2.12 (0.32-4.0) uIU/mL Urine Color Yellow Urine Appearance Turbid Urine pH 6.5 (5.0-9.0) Ur Specific [place] 1.020 (1.005-1.025) Urine Protein 100 (2+) H (Neg-Trace) mg/dL Urine Glucose (UA) Negative (Negative) mg/dL Urine Ketones 40 (Negative) mg/dL Urine Blood Large (3+) H (Negative) Urine Nitrite Positive H (Negative) Ur Leukocyte Esterase Large (3+) H (Negative) Urine RBC >20 H (0-2) /HPF Urine WBC >50 H (0-5) /HPF Ur Squamous Epith Cells >20 (0-2) /HPF Urine Bacteria 4+ (None Seen) Hyaline Casts 0-2 (0-2) /LPF Urine Opiates Screen Not Detected (Not Detect) Urine Fentanyl Screen Not Detected (Not Detect) Ur Barbiturates Screen Not Detected (Not Detect) Ur Phencyclidine Scrn Not Detected (Not Detect) Ur Amphetamines Screen Not Detected (Not Detect) U Benzodiazepines Scrn Not Detected (Not Detect) Urine Cocaine Screen Not Detected (Not Detect) U Marijuana (THC) Screen Not Detected (Not Detect) COVID-19 (ALAN) (Negative) COVID-19 Clin Com Influenza Type A (PCR) (Negative) Influenza Type B (PCR) (Negative) RSV RNA Qual (PCR) (Negative) SARS-CoV-2 RNA (RT-PCR) (Negative) 05/25/23 Range/Units 22:28 WBC (4.8-10.8) X10*3/uL RBC (4.60-5.80) X10*6/uL Hgb (14.0-18.0) g/dl Hct (42.0-52.0) % MCV (80.0-98.0) fL MCH (27.0-33.0) pg MCHC (31.0-36.0) g/dl RDW (11.0-16.0) % Plt Count (160-400) X10*3/uL MPV (9.4-12.4) fL Immature Gran % (Auto) (0.0-0.4) % Neut % (Auto) (45-73) % Lymph % (Auto) (20-40) % [place] % (Auto) (2-11) % Eos % (Auto) (0-4) % Baso % (Auto) (0-2) % Lymph # (Auto) (1.2-4.9) X10*3/uL [place] # (Auto) (0.1-1.2) X10*3/uL Eos # (Auto) (0.0-0.4) X10*3/uL Baso # (Auto) (0.0-0.2) X10*3/uL Abs Immat Gran (auto) (0.00-0.03) X10*3/uL Absolute Neuts (auto) (2.0-8.3) x10*3/uL Absolute Nucleated RBC (0.0-0.012) X10*3/uL Nucleated RBC % (auto) (0.0-0.2) /100WBC Smear Tech's Comments PT (11.1-13.3) SEC INR (0.9-1.1) APTT (26.0-36.4) SEC VBG pH (7.32-7.43) VBG pCO2 mmHg VBG pO2 mmHg VBG HCO3 (22-26) mmol/L VBG O2 Saturation % VBG Base Excess mmol/L Sodium (135-145) mmol/L Potassium (3.3-5.1) mmol/L Chloride (96-108) mmol/L Carbon Dioxide (22-29) mmol/L Anion Gap (12-20) BUN (9-16) mg/dL Creatinine (0.5-1.4) mg/dL Estim Creat Clear Calc Estimated GFR Random Glucose (60-115) mg/dL Lactic Acid 2.0 (0.5-2.0) mmol/L Calcium (8.4-10.2) mg/dL Magnesium (1.6-2.6) mg/dL Total Bilirubin (0.0-1.0) mg/dL Direct Bilirubin (0.0-0.5) mg/dL AST (5-37) U/L ALT (0-40) U/L Alkaline Phosphatase (39-117) U/L Total Protein (6.5-8.0) g/dL Albumin (3.5-5.0) g/dL TSH (0.32-4.0) uIU/mL Urine Color Urine Appearance Urine pH (5.0-9.0) Ur Specific [place] (1.005-1.025) Urine Protein (Neg-Trace) mg/dL Urine Glucose (UA) (Negative) mg/dL Urine Ketones (Negative) mg/dL Urine Blood (Negative) Urine Nitrite (Negative) Ur Leukocyte Esterase (Negative) Urine RBC (0-2) /HPF Urine WBC (0-5) /HPF Ur Squamous Epith Cells (0-2) /HPF Urine Bacteria (None Seen) Hyaline Casts (0-2) /LPF Urine Opiates Screen (Not Detect) Urine Fentanyl Screen (Not Detect) Ur Barbiturates Screen (Not Detect) Ur Phencyclidine Scrn (Not Detect) Ur Amphetamines Screen (Not Detect) U Benzodiazepines Scrn (Not Detect) Urine Cocaine Screen (Not Detect) U Marijuana (THC) Screen (Not Detect) COVID-19 (ALAN) (Negative) COVID-19 Clin Com Influenza Type A (PCR) (Negative) Influenza Type B (PCR) (Negative) RSV RNA Qual (PCR) (Negative) SARS-CoV-2 RNA (RT-PCR) (Negative) Independent Interpretation I performed an independent interpretation of an: Plain X-Ray Interpretation: My interpretation of the patient's chest x-ray is as follows: No pneumonia or acute disease Radiology Impression Discussion of test interpretation with radiology: I have reviewed the radiologist's reading. Radiologist Impression: XR chest 1V IMPRESSION: Low lung volumes otherwise unremarkable. Dictated By:Sylvester Bernabe MD Independent Historian Clinical information obtained from an independent historian. History obtained from or confirmed by: Other (long-term staff member) External Record Review External record reviewed: Outpatient record Chronic Conditions Patient?s care impacted by: Other (Schizoaffective disorder) Discharge Plan Discharge Clinical Impression: Altered mental state, Urinary tract infection, Conjunctivitis, left eye Patient Disposition: Admitted As Inpatient
--- NOTE | 2023-05-25 16:41 | ECG_ITS ---
Test Reason : ALTER MENTAL STATUS Blood Pressure : / mmHG Vent. Rate : 109 BPM Atrial Rate : 109 BPM P-R Int : 122 ms QRS Dur : 078 ms QT Int : 336 ms P-R-T Axes : 040 023 029 degrees QTc Int : 452 ms Sinus tachycardia with occasional Premature ventricular complexes ST & T wave abnormality, consider anterolateral ischemia Abnormal ECG When compared with ECG of 01-APR-2023 08:04, ST less depressed in Anterior leads Inverted T waves have replaced nonspecific T wave abnormality in Lateral leads QT has lengthened Referred By: Barbara Connor Electronically Signed By:Te Heart
[2023-05-25 17:38] LABS: Basophils Percent Auto 0.2 % (0-2); Eosinophils Absolute Auto 0.1 X10*3/uL (0.0-0.4); Eosinophils Percent Auto 0.5 % (0-4); Hematocrit 44.1 % (42.0-52.0); Hemoglobin 14.4 g/dl (14.0-18.0); Imm Gran Abs Auto 0.06 X10*3/uL (0.00-0.03); Imm Gran Pct Auto 0.5 % (0.0-0.4); Lymphocytes Absolute Auto 1.5 X10*3/uL (1.2-4.9); Lymphocytes Percent Auto 13.4 % (20-40); MANUAL DIFF FLAG SCAN; Mean Corpuscular HGB Conc 32.7 g/dl (31.0-36.0); Mean Corpuscular Hemoglobin 30.8 pg (27.0-33.0); Mean Corpuscular Volume 94.4 fL (80.0-98.0); Mean Platelet Volume 10.2 fL (9.4-12.4); Monocytes Absolute Auto 2.1 X10*3/uL (0.1-1.2); Monocytes Percent Auto 18.9 % (2-11); Neutrophils Absolute Auto 7.4 x10*3/uL (2.0-8.3); Neutrophils Percent Auto 66.5 % (45-73); Platelet Count 171 X10*3/uL (160-400); Red Blood Count 4.67 X10*6/uL (4.60-5.80); Red Cell Distribution Width 14.5 % (11.0-16.0); SCAN SMEAR FLAG 1; White Blood Count 11.1 X10*3/uL (4.8-10.8)
[2023-05-25 17:40] LABS: VBG Base Excess 11.6 mmol/L; VBG HCO3 36 mmol/L (22-26); VBG pCO2 45 mmHg; VBG pH 7.51 (7.32-7.43); VBG pO2 61 mmHg
[2023-05-25 17:41] LABS: Venous Blood Gas Refer to POC result
[2023-05-25 17:51] LABS: INTERNATIONAL NORM RATIO 2.2 (0.9-1.1)
[2023-05-25 17:53] LABS: Alanine Aminotransferase 9 U/L (0-40); Albumin Level 3.4 g/dL (3.5-5.0); Alkaline Phosphatase 82 U/L (39-117); Anion Gap 13 (12-20); Aspartate Amino Transferase 19 U/L (5-37); Bilirubin Direct 0.2 mg/dL (0.0-0.5); Bilirubin Total 0.5 mg/dL (0.0-1.0); Blood Urea Nitrogen 15 mg/dL (9-16); Calcium 11.5 mg/dL (8.4-10.2); Carbon Dioxide 32 mmol/L (22-29); Chloride 101 mmol/L (96-108); Estimated Glomerular Filt Rate > 60; Glucose Random 119 mg/dL (60-115); Magnesium 2.1 mg/dL (1.6-2.6); Partial Thromboplastin Time 40.9 SEC (26.0-36.4); Potassium 3.6 mmol/L (3.3-5.1); Sodium 142 mmol/L (135-145); Total Protein 7.4 g/dL (6.5-8.0)
[2023-05-25 17:57] LABS: SLIDE REVIEW VERIFIED
[2023-05-25 18:31] LABS: IDNOW Serial# 08D9AD1C
[2023-05-25 18:32] LABS: COVID-19 Test Invalid (Negative)
[2023-05-25 19:30] LABS: Influenza A PCR NEGATIVE (Negative); Influenza B PCR NEGATIVE (Negative); Resp Syncy Virus RNA Qual PCR NEGATIVE (Negative); SARS COV2 PCR INHOUSE NEGATIVE (Negative)
[2023-05-25 19:35] LABS: TSH reflex Free T4 2.12 uIU/mL (0.32-4.0)
[2023-05-25 20:07] LABS: Color Urine Yellow
[2023-05-25 20:08] LABS: Appearance Urine Turbid
[2023-05-25 20:13] LABS: Leukocyte Esterase Urine Large (3+) (Negative)
[2023-05-25 20:15] LABS: Glucose Urine UA Negative (Negative); PH 6.5 (5.0-9.0); Urine Ketones 40 mg/dL (Negative)
[2023-05-25 20:16] LABS: Urine Blood Large (3+) (Negative); Urine Protein 100 (2+) mg/dL (Neg-Trace)
[2023-05-25 20:22] LABS: Amphetamine Screen Urine Not Detected (Not Detect); Barbiturates, Urine Not Detected (Not Detect); Benzodiazepines Screen Urine Not Detected (Not Detect); Cannabinoid Screen Urine Not Detected (Not Detect); Cocaine Screen Urine Not Detected (Not Detect); Fentanyl, urine Not Detected (Not Detect); Opiate Screen Urine Not Detected (Not Detect); Phencyclidine Screen Urine Not Detected (Not Detect)
--- NOTE | 2023-05-25 20:33 | PC.NURSE ---
Pt straight cathed by this RN, cloudy odorous urine return. Urine sent down to the lab. Awaiting MD at this time. Pt and caregiver offer no other complaints at this time
[2023-05-25 21:16] VITALS: PULSE 98; RESP 16; O2SAT 98
[2023-05-25 21:26] LABS: Nitrite Urine Positive (Negative); UMIC TRIGGER UACC YES
[2023-05-25 21:59] LABS: Bacteria Urine 4+ (None Seen); Hyaline Casts Urine 0-2 /LPF (0-2); RBC Urine >20 /HPF (0-2); Squamous Epithelial Cell Urine >20 /HPF (0-2); UACC Culture Trigger YES; WBC Urine >50 /HPF (0-5)
--- NOTE | 2023-05-25 22:32 | PHA.MEDREC ---
Pharmacy Consult ? Medication Reconciliation Pharmacy has completed the medication reconciliation. [facility] with [facility]. Reported the Coudamin dose has been decrease 2 mg daily until next INR drawn on 06/02. Patient was switch from furosemide to torsemide. Patient is due for divalproex 1000 mg tonight. Elana Rodriguez, PharmD
--- NOTE | 2023-05-25 23:15 | P.HPHOSP_ITS ---
History of Present Illness Date of Service: 05/25/23 Chief Complaint: Altered mental status 62-year-old male past medical history of S affective disorder, encephalomalacia, spastic quadriplegia, cerebral atrophy, peripheral neuropathy, AFib, HTN, osteoporosis, seizure disorder, history of DVT comes into the hospital secondary to change in mental status And decreased oral intake. Patient has underlying encephalomalacia, not a good historian, history is obtained from the forest and conservation worker at bedside, states the patient has been having increased confusion, as well as decreased oral intake for the past 1 day. Patient has history of UTI, and staff were concerned that fire he was sent to the hospital. Patient himself denies any chest pain, no shortness of breath, no abdominal pain, no diarrhea constipation, no nausea vomiting, no Urinary symptoms and no lower extremity edema( although not reliable). on arrival to the ED patient hemodynamically stable slightly has an elevated heart rate, Labs are significant for WBC count of 11, INR of 2.2, UA positive for nitrites, leukocyte Estrace, WBC, bacteria Patient has grown Pseudomonas in the past, patient will be started on antibiotics and will be admitted for further management Review of Systems Review of Systems: Yes all other systems are reviewed and are negative PMFSH Medical History Acute DVT of left tibial vein Afib Cerebral atrophy Encephalomalacia Enlarged prostate Hypertension Impaired cognition Osteoporosis Rectal bleeding Schizoaffective disorder Seizure disorder Urinary retention with incomplete bladder emptying UTI (urinary tract infection) Surgical History (Updated 05/26/23 @ 06:21 by Melvin Harding MD) No pertinent past surgical history Social History Alcohol intake: never Patient Tobacco Use Status: Never used Tobacco Smoked in Last 30 Days: No Use of substances other than those prescribed or required for medical reasons: No Advance Directives: Yes Advance Directives on File: Yes Advance Directives Date on File: 03/24/21 Nutrition Risks: No Nutritional Risk Meds Allergies Allergy/AdvReac Type Severity Reaction Status Date / Time morphine [MORPHINE] Allergy Mild LOOPY Verified 04/06/23 15:16 ciprofloxacin [CIPROFLOXACIN] AdvReac Intermediate skin Verified 04/06/23 15:16 erythema/macular rash Active Medications: Current Medications Acetaminophen (Acetaminophen 325 Mg Tablet) 650 mg PO Q6H PRN PRN Reason: Pain, Mild (Pain Scale 1-3) Diltiazem HCl (Diltiazem Hcl Cd 240 Mg Cap.Er.Deg) 240 mg PO DAILY JULIA; Protocol Divalproex Sodium (Divalproex Sodium 500 Mg Tablet.) 500 mg PO Q2D@2000 [facility] Divalproex Sodium (Divalproex Sodium 500 Mg Tablet.) 1,000 mg PO BID@0900,1600 [facility] Divalproex Sodium (Divalproex Sodium 500 Mg Tablet.) 1,000 mg PO Q2D@2000 [facility] Docusate Sodium (Docusate Sodium 100 Mg Capsule) 100 mg PO DAILY PRN PRN Reason: Constipation Enoxaparin Sodium (Enoxaparin Sodium 40 Mg/0.4 Ml Syringe) 40 mg SUBCUT Q24H [facility] Erythromycin (Erythromycin Base 0.5% Oph Oin 1 Gm Tube) 1 cm EYE-LEFT BID [facility] Finasteride (Finasteride 5 Mg Tablet) 5 mg PO DAILY [facility] Hydrocortisone (Hydrocortisone 1 % Cream 28.35 Gm Tube) 1 appl TOPICAL Q12H PRN; Protocol PRN Reason: Hemorrhoids Piperacillin Sod/Tazobactam (Sod 3.375 gm/ Sodium Chloride) 50 mls @ 100 mls/hr IV Q6H [facility] Sodium Chloride (Ns) 1,000 mls @ 150 mls/hr IVCONT .Q6H40M [facility] Metoprolol Succinate (Metoprolol Succinate Er 25 Mg Tab.Er.24h) 25 mg PO DAILY [facility]; Protocol Multivitamins/Vitamin C (Multivitamin Tablet) 1 tab PO DAILY [facility] Non-Formulary Medication (Alendronate) 70 mg PO TU [facility] Non-Formulary Medication (Bupropion Hcl) 100 mg PO BID [facility] Non-Formulary Medication (Fluticasone Propionate [Flovent Hfa]) 1 puff INHALE BID [facility] Ondansetron HCl (Ondansetron Hcl 4 Mg/2 Ml Vial) 4 mg IVPUSH Q8H PRN PRN Reason: Nausea and Vomiting Pharmacy Consult (Consult Rx Perform Med Rec) 1 each MISCELLANE ONCE PRN PRN Reason: Consult order Potassium Chloride (Potassium Chloride Er 20 Meq Tab.Er.Prt) 20 meq PO BID [facility] Risperidone (Risperidone 3 Mg Tablet) 3 mg PO BEDTIME [facility] Sodium Chloride (0.9 % Sodium Chloride Flush 3 Ml Syringe) 3 ml IVFLUSH QSHIFT [facility] Tamsulosin HCl (Tamsulosin Hcl 0.4 Mg Capsule) 0.4 mg PO BEDTIME [facility] Tizanidine HCl (Tizanidine Hcl 4 Mg Tablet) 4 mg PO BID [facility] Torsemide (Torsemide 20 Mg Tablet) 40 mg PO BID [facility]; Protocol Vitamin D (Cholecalciferol (Vitamin D3) 25 Mcg Tablet) 25 mcg PO DAILY [facility] Warfarin Sodium (Warfarin Sodium 2 Mg Tablet) 2 mg PO DAILY@1800 [facility] Home Medications Medication Instructions Recorded Confirmed Last Taken Type acetaminophen 325 mg tablet 650 mg PO Q6H PRN Fever Or Pain 03/24/21 05/25/23 Unknown History alendronate 70 mg tablet 70 mg PO 03/24/21 05/25/23 03/30/23 History cholecalciferol (vitamin D3) 25 25 mcg PO DAILY 03/24/21 05/25/23 05/25/23 History mcg (1,000 unit) tablet divalproex 500 mg tablet,delayed 1,000 mg PO BID@0900,1600 03/24/21 05/25/2306/09 History release divalproex 500 mg tablet,delayed 1,000 mg PO Q2D@199903/24/21 05/25/23 05/23/23 History release fluticasone propionate 110 1 puff inhalation BID 03/24/21 05/25/23 05/25/23 History mcg/actuation HFA aerosol inhaler (Flovent HFA) multivitamin 1 tab PO DAILY 03/24/21 05/25/23 05/25/23 History risperidone 3 mg tablet 3 mg PO BEDTIME 03/24/21 05/25/23 05/24/23 History tizanidine 4 mg tablet 4 mg PO BID 03/24/21 05/25/23 05/25/23 History divalproex 500 mg tablet,delayed 500 mg PO Q2D@199902/21/22 05/25/23 05/24/23 History release (Depakote) bupropion HCl 100 mg tablet,12 hr 100 mg PO BID 04/01/23 05/25/23 05/25/23 History sustained-release hydrocortisone 1 % topical cream 1 appl topical Q12H PRN Hemorrhoids 04/01/23 05/25/23 Unknown History (Preparation H Hydrocortisone) loperamide 2 mg tablet (Imodium 4 mg PO Q6H PRN Loose Stool 04/01/23 05/25/23 Unknown History A-D) metoprolol succinate 25 mg 25 mg PO DAILY 04/01/23 05/25/23 05/25/23 History tablet,extended release 24 hr torsemide 20 mg tablet 40 mg PO BID 04/01/23 05/25/23 05/25/23 History warfarin 4 mg tablet 2 mg PO DAILY@1800 04/01/23 05/25/23 05/24/23 History diltiazem HCl 240 mg 240 mg PO DAILY 04/06/23 05/25/23 05/25/23 History capsule,extended release 24 hr potassium chloride 20 mEq 20 meq PO BID 05/25/23 05/25/23 05/25/23 History tablet,extended release(part/cryst) Physical Exam Vital Signs and Narrative: Vital Signs: Last Vital Signs Temp 97.9 F 05/25/23 16:36 Pulse 98 05/25/23 21:16 Resp 16 05/25/23 21:16 BP 126/67 05/25/23 16:36 Pulse Ox 98 05/25/23 21:16 O2 Del Method Room Air 05/25/23 21:16 BMI result Body Mass Index 24.4 Const: General: cooperative and no acute distress Eyes: General: appearance normal, both eyes and all related structures Resp: Effort & Inspection: normal respiratory effort Auscultation: clear to auscultation bilaterally Cardio: Rate: regular rate Rhythm: regular rhythm GI: Palpation (GI): Soft to palpation Auscultation: normal bowel sounds Skin: General skin exam: no rashes or lesions noted Extrem: Other: 2+ lower extremity edema General: Yes normal to inspection Results Labs 05/25/23 17:21 05/25/23 17:21 Labs: Laboratory Results - last 24 hr 05/25/23 05/25/23 05/25/23 17:21 17:21 17:21 MCV 94.4 MCH 30.8 MCHC 32.7 RDW 14.5 Plt Count 171 MPV 10.2 Immature Gran % (Auto) 0.5 H Neut % (Auto) 66.5 Lymph % (Auto) 13.4 L Kle[place] % (Auto) 18.9 H Eos % (Auto) 0.5 Baso % (Auto) 0.2 Lymph # (Auto) 1.5 [place] # (Auto) 2.1 H Eos # (Auto) 0.1 Baso # (Auto) 0.0 Abs Immat Gran (auto) 0.06 H Absolute Neuts (auto) 7.4 Absolute Nucleated RBC 0.000 Nucleated RBC % (auto) 0.0 Smear Tech's Comments VERIFIED PT 27.0 H INR 2.2 H APTT 40.9 H VBG pH VBG pCO2 VBG pO2 VBG HCO3 VBG O2 Saturation VBG Base Excess Anion Gap 13 Estim Creat Clear Calc 129.0 Estimated GFR > 60 Random Glucose 119 H Lactic Acid Calcium 11.5 H Magnesium 2.1 Total Bilirubin 0.5 Direct Bilirubin 0.2 AST 19 ALT 9 Alkaline Phosphatase 82 Total Protein 7.4 Albumin 3.4 L TSH Urine Color Urine Appearance Urine pH Ur Specific [place] Urine Protein Urine Glucose (UA) Urine Ketones Urine Blood Urine Nitrite Ur Leukocyte Esterase Urine RBC Urine WBC Ur Squamous Epith Cells Urine Bacteria Hyaline Casts Urine Opiates Screen Urine Fentanyl Screen Ur Barbiturates Screen Ur Phencyclidine Scrn Ur Amphetamines Screen U Benzodiazepines Scrn Urine Cocaine Screen U Marijuana (THC) Screen COVID-19 (ALAN) COVID-19 Clin Com Influenza Type A (PCR) Influenza Type B (PCR) RSV RNA Qual (PCR) SARS-CoV-2 RNA (RT-PCR) 05/25/23 05/25/23 05/25/23 17:21 17:31 18:40 MCV MCH MCHC RDW Plt Count MPV Immature Gran % (Auto) Neut % (Auto) Lymph % (Auto) [place] % (Auto) Eos % (Auto) Baso % (Auto) Lymph # (Auto) [place] # (Auto) Eos # (Auto) Baso # (Auto) Abs Immat Gran (auto) Absolute Neuts (auto) Absolute Nucleated RBC Nucleated RBC % (auto) Smear Tech's Comments PT INR APTT VBG pH 7.51 H VBG pCO2 45 VBG pO2 61 VBG HCO3 36 H VBG O2 Saturation 87.0 VBG Base Excess 11.6 Anion Gap Estim Creat Clear Calc Estimated GFR Random Glucose Lactic Acid Calcium Magnesium Total Bilirubin Direct Bilirubin AST ALT Alkaline Phosphatase Total Protein Albumin TSH Urine Color Urine Appearance Urine pH Ur Specific [place] Urine Protein Urine Glucose (UA) Urine Ketones Urine Blood Urine Nitrite Ur Leukocyte Esterase Urine RBC Urine WBC Ur Squamous Epith Cells Urine Bacteria Hyaline Casts Urine Opiates Screen Urine Fentanyl Screen Ur Barbiturates Screen Ur Phencyclidine Scrn Ur Amphetamines Screen U Benzodiazepines Scrn Urine Cocaine Screen U Marijuana (THC) Screen COVID-19 (ALAN) Invalid COVID-19 Clin Com See Note Influenza Type A (PCR) NEGATIVE Influenza Type B (PCR) NEGATIVE RSV RNA Qual (PCR) NEGATIVE SARS-CoV-2 RNA (RT-PCR) NEGATIVE 05/25/23 05/25/23 05/25/23 18:46 19:56 19:56 MCV MCH MCHC RDW Plt Count MPV Immature Gran % (Auto) Neut % (Auto) Lymph % (Auto) [place] % (Auto) Eos % (Auto) Baso % (Auto) Lymph # (Auto) [place] # (Auto) Eos # (Auto) Baso # (Auto) Abs Immat Gran (auto) Absolute Neuts (auto) Absolute Nucleated RBC Nucleated RBC % (auto) Smear Tech's Comments PT INR APTT VBG pH VBG pCO2 VBG pO2 VBG HCO3 VBG O2 Saturation VBG Base Excess Anion Gap Estim Creat Clear Calc Estimated GFR Random Glucose Lactic Acid Calcium Magnesium Total Bilirubin Direct Bilirubin AST ALT Alkaline Phosphatase Total Protein Albumin TSH 2.12 Urine Color Yellow Urine Appearance Turbid Urine pH 6.5 Ur Specific [place] 1.020 Urine Protein 100 (2+) H Urine Glucose (UA) Negative Urine Ketones 40 Urine Blood Large (3+) H Urine Nitrite Positive H Ur Leukocyte Esterase Large (3+) H Urine RBC >20 H Urine WBC >50 H Ur Squamous Epith Cells >20 Urine Bacteria 4+ Hyaline Casts 0-2 Urine Opiates Screen Not Detected Urine Fentanyl Screen Not Detected Ur Barbiturates Screen Not Detected Ur Phencyclidine Scrn Not Detected Ur Amphetamines Screen Not Detected U Benzodiazepines Scrn Not Detected Urine Cocaine Screen Not Detected U Marijuana (THC) Screen Not Detected COVID-19 (ALAN) COVID-19 Clin Com Influenza Type A (PCR) Influenza Type B (PCR) RSV RNA Qual (PCR) SARS-CoV-2 RNA (RT-PCR) 05/25/23 22:28 MCV MCH MCHC RDW Plt Count MPV Immature Gran % (Auto) Neut % (Auto) Lymph % (Auto) [place] % (Auto) Eos % (Auto) Baso % (Auto) Lymph # (Auto) [place] # (Auto) Eos # (Auto) Baso # (Auto) Abs Immat Gran (auto) Absolute Neuts (auto) Absolute Nucleated RBC Nucleated RBC % (auto) Smear Tech's Comments PT INR APTT VBG pH VBG pCO2 VBG pO2 VBG HCO3 VBG O2 Saturation VBG Base Excess Anion Gap Estim Creat Clear Calc Estimated GFR Random Glucose Lactic Acid 2.0 Calcium Magnesium Total Bilirubin Direct Bilirubin AST ALT Alkaline Phosphatase Total Protein Albumin TSH Urine Color Urine Appearance Urine pH Ur Specific [place] Urine Protein Urine Glucose (UA) Urine Ketones Urine Blood Urine Nitrite Ur Leukocyte Esterase Urine RBC Urine WBC Ur Squamous Epith Cells Urine Bacteria Hyaline Casts Urine Opiates Screen Urine Fentanyl Screen Ur Barbiturates Screen Ur Phencyclidine Scrn Ur Amphetamines Screen U Benzodiazepines Scrn Urine Cocaine Screen U Marijuana (THC) Screen COVID-19 (ALAN) COVID-19 Clin Com Influenza Type A (PCR) Influenza Type B (PCR) RSV RNA Qual (PCR) SARS-CoV-2 RNA (RT-PCR) Imaging Radiologist's Impressions: Impressions Chest X-Ray 05/25/23 17:50 IMPRESSION: Low lung volumes otherwise unremarkable. Head CT 05/25/23 19:20 IMPRESSION: No acute intracranial abnormality. No hemorrhage or extra-axial fluid collection. Redemonstration of disproportionate prominence of the ventricles, effacement of the sulci in the parietal vertex, and prominence of the subarachnoid spaces, which may represent normal pressure hydrocephalus but appears similar compared with 09/24/2022. Assessment and Plan (1) Altered mental state: Status: Acute (2) Urinary tract infection: Status: Acute (3) Conjunctivitis, left eye: Status: Acute Plan 62-year-old male with past medical history as mentioned above comes into the hospital with increased change in mental status found to have acute UTI # encephalopathy/altered mental status - secondary to acute toxic metabolic in the setting of acute UTI - will treat underlying UTI - monitor mentation # acute UTI - history of pseudomonal infection - will treat with Zosyn - follow cultures # conductive of left eye - erythromycins ointment b.i.d. # history of seizure disorder - continue antiepileptics # history of DVT - continue warfarin - INR therapeutic # hypertension - continue antihypertensives # Osteoporosis DVT prophylaxis: warfarin given patient's need for IV antibiotics patient require minimum 2 nights inpatient hospital stay for further management and monitoring Time Spent With Patient Time: Total time managing care of this patient today ____ minutes. Quality Stroke Does the patient have a stroke diagnosis?: No VTE Prior VTE?: No VTE Risk Level:: Medical - moderate - high VTE Device Contraindication: Treatment Not Indicated VTE Drug Contraindication: N/A - Med Ordered
[2023-05-25] MEDS: Piperacillin Sodium/Tazobactam 3.375 GM in 0.9 % Sodium Chloride 50 ML IV (23:41)
[2023-05-25] MEDS: 0.9 % Sodium Chloride 1,000 ML 150 ML IVCONT (23:41)
[2023-05-25] MEDS: Erythromycin Base 0.5% Oph Oin 1 GM TUBE 1 CM EYE-LEFT (23:42)
[2023-05-26] MEDS: Divalproex Sodium 500 MG TABLET.DR 1000 MG PO ×3 (00:17→17:30)
[2023-05-26] MEDS: risperiDONE 3 MG TABLET PO ×2 (00:18→21:24)
[2023-05-26] MEDS: Torsemide 20 MG TABLET 40 MG PO ×2 (00:18→09:30)
[2023-05-26] MEDS: Tamsulosin HCL 0.4 MG CAPSULE PO ×2 (00:18→20:29)
[2023-05-26 00:38] VITALS: PULSE 124; RESP 18; TEMP 36.5; O2SAT 97
--- NOTE | 2023-05-26 01:05 | PC.NURSE ---
Late entry: 20g IV placed in LFA, NS running at 150ml/hr Pt takes medications crushed in pudding, he needs to take sips of juice/water in between. Pt is able to answer yes//no to questions, is otherwise baseline unable to answer questions. Pt is also baseline unable to walk, needs assistance with bed mobility
--- NOTE | 2023-05-26 02:52 | PC.NURSE ---
Pt sleeping at this time, respirations even and unlabored, skin pwd, no apparent distress, continue plan of care for admission
[2023-05-26] MEDS: Piperacillin Sodium/Tazobactam 3.375 GM in 0.9 % Sodium Chloride 50 ML IV ×4 (04:46→22:59)
[2023-05-26 04:51] VITALS: BP 117/69; PULSE 114; RESP 18; O2SAT 95
[2023-05-26 05:29] VITALS: TEMP 37.5
--- NOTE | 2023-05-26 05:29 | MHC.EDTECH ---
pt cleaned,linens changed. weeping from wounds on heels noted, RN notified. Pillows placed under legs for comfort. pt resting comfortably at this time.
--- NOTE | 2023-05-26 06:02 | PC.NURSE ---
This check writer assumed care of this Pt at 0300. Pt denies any pain. IV fluids running per MAR. Pt incontinent of urine, incontinent care provided. Pt skin intact. BLL swelling noted, weeping yellow fluid, inner right ankle to heal skin tear noted, and left top of foot redness noted. Pt repositioned. Will CTM.
[2023-05-26] MEDS: 0.9 % Sodium Chloride 1,000 ML 150 ML IVCONT (06:11)
[2023-05-26 06:27] LABS: Basophils Percent Auto 0.1 % (0-2); Eosinophils Absolute Auto 0.1 X10*3/uL (0.0-0.4); Eosinophils Percent Auto 0.7 % (0-4); Hemoglobin 12.9 g/dl (14.0-18.0); Imm Gran Abs Auto 0.06 X10*3/uL (0.00-0.03); Imm Gran Pct Auto 0.6 % (0.0-0.4); Lymphocytes Absolute Auto 1.7 X10*3/uL (1.2-4.9); Mean Corpuscular HGB Conc 32.3 g/dl (31.0-36.0); Mean Corpuscular Hemoglobin 30.8 pg (27.0-33.0); Mean Corpuscular Volume 95.5 fL (80.0-98.0); Mean Platelet Volume 10.2 fL (9.4-12.4); Monocytes Absolute Auto 1.8 X10*3/uL (0.1-1.2); Neutrophils Absolute Auto 5.9 x10*3/uL (2.0-8.3); Neutrophils Percent Auto 61.6 % (45-73); Platelet Count 149 X10*3/uL (160-400); Red Blood Count 4.19 X10*6/uL (4.60-5.80); Red Cell Distribution Width 14.5 % (11.0-16.0); White Blood Count 9.6 X10*3/uL (4.8-10.8)
[2023-05-26 06:29] LABS: INTERNATIONAL NORM RATIO 2.9 (0.9-1.1); Prothrombin Time 35.5 SEC (11.1-13.3)
[2023-05-26 06:39] LABS: Anion Gap 14 (12-20); Blood Urea Nitrogen 13 mg/dL (9-16); Calcium 10.9 mg/dL (8.4-10.2); Carbon Dioxide 28 mmol/L (22-29); Chloride 103 mmol/L (96-108); Creatinine Clr Calc Pharmacy 117.1; Estimated Glomerular Filt Rate > 60; Glucose Random 105 mg/dL (60-115); Potassium 3.3 mmol/L (3.3-5.1); Sodium 142 mmol/L (135-145)
--- NOTE | 2023-05-26 07:02 | PC.NURSE ---
Patient alert and responsive to yes and no questions. Denies pain or discomfort. Bilateral feet swollen, right foot weeping. Feet elevated on pillow
--- NOTE | 2023-05-26 08:19 | PC.NURSE ---
Poor appetite for breakfast, taking po fluids well
--- NOTE | 2023-05-26 09:18 | PC.NURSE ---
Patients sister updated on current condition.
--- NOTE | 2023-05-26 09:21 | PC.NURSE ---
Patients sister stating she wants him taken off depakote. sister made aware to follow up with pcp or neuorologist regarding med changes.
[2023-05-26] MEDS: Multivitamin TABLET 1 TAB PO (09:30)
[2023-05-26] MEDS: Metoprolol Succinate ER 25 MG TAB.ER.24H PO (09:30)
[2023-05-26] MEDS: TiZANidine HCL 4 MG TABLET PO ×2 (09:30→20:28)
[2023-05-26] MEDS: buPROPion HCL 100 MG TABLET PO ×2 (09:31→20:28)
[2023-05-26] MEDS: Potassium Chloride ER 20 MEQ TAB.ER.PRT PO ×2 (09:31→20:28)
[2023-05-26] MEDS: Cholecalciferol (Vitamin D3) 25 MCG TABLET PO (09:31)
[2023-05-26] MEDS: dilTIAZem HCL CD 240 MG CAP.ER.DEG PO (09:31)
[2023-05-26] MEDS: Erythromycin Base 0.5% Oph Oin 1 GM TUBE 1 CM EYE-LEFT ×2 (09:33→20:29)
[2023-05-26] MEDS: 0.9 % Sodium Chloride Flush 3 ML SYRINGE IVFLUSH ×3 (09:38→20:28)
[2023-05-26] MEDS: Finasteride 5 MG TABLET PO (09:38)
[2023-05-26] MEDS: Fluticasone Propionate 100 MCG BLST.W.DEV 1 PUFF INHALE ×2 (09:42→19:55)
--- NOTE | 2023-05-26 12:03 | P.PNIM_ITS ---
Subjective Subjective Date of Service: 05/26/23 Interval History: Patient awake, alert, answering no to all questions, denies pain, shortness of breath, vital stable no fever noted, no nausea, no vomiting, admitted last night for mental status change in diagnosed to have UTI. Review of Systems detail review of systems not obtained since patient only answering yes and no. Physical Exam Vital Signs: Vital Signs: Last Vital Signs Temp 99.5 F 05/26/23 05:29 Pulse 114 H 05/26/23 04:51 Resp 18 05/26/23 04:51 BP 117/69 05/26/23 04:51 Pulse Ox 95 05/26/23 04:51 O2 Del Method Room Air 05/26/23 04:51 BMI result Body Mass Index 24.4 Const: Other: General resting comfortably in no acute distress, chronically ill-appearing. Neck supple no JVD. CVS regular rate rhythm, systolic murmur Respiratory lungs clear to auscultation, no respiratory distress, no wheeze, no rhonchi. Gastrointestinal abdomen soft, nontender, bowel sounds audible, no guarding , no rigidity. Extremities bilateral edema Neuro awake minimally verbal Skin no rash, skin tear to the left malleolus, does not appear infected, chronic appearing right heel wound, no drainage. Objective Data Active Medications Acetaminophen (Acetaminophen 325 Mg Tablet) 650 mg PO Q6H PRN PRN Reason: Pain, Mild (Pain Scale 1-3) Bupropion HCl (Bupropion Hcl 100 Mg Tablet) 100 mg PO BID [facility] Last Admin: 05/26/23 09:31 Dose: 100 mg Documented By: RAJ Diltiazem HCl (Diltiazem Hcl Cd 240 Mg Cap.Er.Deg) 240 mg PO DAILY [facility]; Protocol Last Admin: 05/26/23 09:31 Dose: 240 mg Documented By: RAJ Divalproex Sodium (Divalproex Sodium 500 Mg Tablet.) 500 mg PO Q2D@1999 [facility] Divalproex Sodium (Divalproex Sodium 500 Mg Tablet.) 1,000 mg PO BID@0900,1600 [facility] Last Admin: 05/26/23 09:31 Dose: 1,000 mg Documented By: RAJ Divalproex Sodium (Divalproex Sodium 500 Mg Tablet.) 1,000 mg PO Q2D@1999 [facility] Last Admin: 05/26/23 00:17 Dose: 1,000 mg Documented By: RONNIE Docusate Sodium (Docusate Sodium 100 Mg Capsule) 100 mg PO DAILY PRN PRN Reason: Constipation Erythromycin (Erythromycin Base 0.5% Oph Oin 1 Gm Tube) 1 cm EYE-LEFT BID [facility] Last Admin: 05/26/23 09:33 Dose: 1 cm Documented By: RAJ Finasteride (Finasteride 5 Mg Tablet) 5 mg PO DAILY [facility] Last Admin: 05/26/23 09:38 Dose: 5 mg Documented By: RAJ Fluticasone Propionate (Fluticasone Propionate 100 Mcg Blst.W.Dev) 1 puff INH KEISHA RBID [facility] Last Admin: 05/26/23 09:42 Dose: 1 puff Documented By: RAJ Hydrocortisone (Hydrocortisone 1 % Cream 28.35 Gm Tube) 1 appl TOPICAL Q12H PRN; Protocol PRN Reason: Hemorrhoids Piperacillin Sod/Tazobactam (Sod 3.375 gm/ Sodium Chloride) 50 mls @ 100 mls/hr IV Q6H [facility] Last Infusion: 05/26/23 11:27 Dose: 0 mls/hr Documented By: RAJ Sodium Chloride (Ns) 1,000 mls @ 150 mls/hr IVCONT .Q6H40M [facility] Last Admin: 05/26/23 06:11 Dose: 150 mls/hr Documented By: SERRELIEZER Metoprolol Succinate (Metoprolol Succinate Er 25 Mg Tab.Er.24h) 25 mg PO DAILY [facility]; Protocol Last Admin: 05/26/23 09:30 Dose: 25 mg Documented By: RAJ Multivitamins/Vitamin C (Multivitamin Tablet) 1 tab PO DAILY [facility] Last Admin: 05/26/23 09:30 Dose: 1 tab Documented By: RAJ Ondansetron HCl (Ondansetron Hcl 4 Mg/2 Ml Vial) 4 mg IVPUSH Q8H PRN PRN Reason: Nausea and Vomiting Pharmacy Consult (Consult Rx Perform Med Rec) 1 each MISCELLANE ONCE PRN PRN Reason: Consult order Potassium Chloride (Potassium Chloride Er 20 Meq Tab.Er.Prt) 20 meq PO BID [facility] Last Admin: 05/26/23 09:31 Dose: 20 meq Documented By: RAJ Risperidone (Risperidone 3 Mg Tablet) 3 mg PO BEDTIME [facility] Last Admin: 05/26/23 00:18 Dose: 3 mg Documented By: RONNIE Sodium Chloride (0.9 % Sodium Chloride Flush 3 Ml Syringe) 3 ml IVFLUSH QSHIFT [facility] Last Admin: 05/26/23 09:38 Dose: 3 ml Documented By: RAJ Tamsulosin HCl (Tamsulosin Hcl 0.4 Mg Capsule) 0.4 mg PO BEDTIME [facility] Last Admin: 05/26/23 00:18 Dose: 0.4 mg Documented By: RONNIE Tizanidine HCl (Tizanidine Hcl 4 Mg Tablet) 4 mg PO BID [facility] Last Admin: 05/26/23 09:30 Dose: 4 mg Documented By: RAJ Torsemide (Torsemide 20 Mg Tablet) 40 mg PO BID [facility]; Protocol Last Admin: 05/26/23 09:30 Dose: 40 mg Documented By: RAJ Vitamin D (Cholecalciferol (Vitamin D3) 25 Mcg Tablet) 25 mcg PO DAILY [facility] Last Admin: 05/26/23 09:31 Dose: 25 mcg Documented By: RAJ Warfarin Sodium (Warfarin Sodium 2 Mg Tablet) 2 mg PO DAILY@1800 [facility] Labs 05/26/23 05:59 05/26/23 05:59 Labs: Laboratory Results - last 24 hr 05/25/23 05/25/23 05/25/23 17:21 17:21 17:21 MCV 94.4 MCH 30.8 MCHC 32.7 RDW 14.5 Plt Count 171 MPV 10.2 Immature Gran % (Auto) 0.5 H Neut % (Auto) 66.5 Lymph % (Auto) 13.4 L [place] % (Auto) 18.9 H Eos % (Auto) 0.5 Baso % (Auto) 0.2 Lymph # (Auto) 1.5 [place] # (Auto) 2.1 H Eos # (Auto) 0.1 Baso # (Auto) 0.0 Abs Immat Gran (auto) 0.06 H Absolute Neuts (auto) 7.4 Absolute Nucleated RBC 0.000 Nucleated RBC % (auto) 0.0 Smear Tech's Comments VERIFIED PT 27.0 H INR 2.2 H APTT 40.9 H VBG pH VBG pCO2 VBG pO2 VBG HCO3 VBG O2 Saturation VBG Base Excess Anion Gap 13 Estim Creat Clear Calc 129.0 Estimated GFR > 60 Random Glucose 119 H Lactic Acid Calcium 11.5 H Magnesium 2.1 Total Bilirubin 0.5 Direct Bilirubin 0.2 AST 19 ALT 9 Alkaline Phosphatase 82 Total Protein 7.4 Albumin 3.4 L TSH Urine Color Urine Appearance Urine pH Ur Specific [place] Urine Protein Urine Glucose (UA) Urine Ketones Urine Blood Urine Nitrite Ur Leukocyte Esterase Urine RBC Urine WBC Ur Squamous Epith Cells Urine Bacteria Hyaline Casts Urine Opiates Screen Urine Fentanyl Screen Ur Barbiturates Screen Ur Phencyclidine Scrn Ur Amphetamines Screen U Benzodiazepines Scrn Urine Cocaine Screen U Marijuana (THC) Screen COVID-19 (ALAN) COVID-19 Clin Com Influenza Type A (PCR) Influenza Type B (PCR) RSV RNA Qual (PCR) SARS-CoV-2 RNA (RT-PCR) 05/25/23 05/25/23 05/25/23 17:21 17:31 18:40 MCV MCH MCHC RDW Plt Count MPV Immature Gran % (Auto) Neut % (Auto) Lymph % (Auto) [place] % (Auto) Eos % (Auto) Baso % (Auto) Lymph # (Auto) [place] # (Auto) Eos # (Auto) Baso # (Auto) Abs Immat Gran (auto) Absolute Neuts (auto) Absolute Nucleated RBC Nucleated RBC % (auto) Smear Tech's Comments PT INR APTT VBG pH 7.51 H VBG pCO2 45 VBG pO2 61 VBG HCO3 36 H VBG O2 Saturation 87.0 VBG Base Excess 11.6 Anion Gap Estim Creat Clear Calc Estimated GFR Random Glucose Lactic Acid Calcium Magnesium Total Bilirubin Direct Bilirubin AST ALT Alkaline Phosphatase Total Protein Albumin TSH Urine Color Urine Appearance Urine pH Ur Specific [place] Urine Protein Urine Glucose (UA) Urine Ketones Urine Blood Urine Nitrite Ur Leukocyte Esterase Urine RBC Urine WBC Ur Squamous Epith Cells Urine Bacteria Hyaline Casts Urine Opiates Screen Urine Fentanyl Screen Ur Barbiturates Screen Ur Phencyclidine Scrn Ur Amphetamines Screen U Benzodiazepines Scrn Urine Cocaine Screen U Marijuana (THC) Screen COVID-19 (ALAN) Invalid COVID-19 Clin Com See Note Influenza Type A (PCR) NEGATIVE Influenza Type B (PCR) NEGATIVE RSV RNA Qual (PCR) NEGATIVE SARS-CoV-2 RNA (RT-PCR) NEGATIVE 05/25/23 05/25/23 05/25/23 18:46 19:56 19:56 MCV MCH MCHC RDW Plt Count MPV Immature Gran % (Auto) Neut % (Auto) Lymph % (Auto) [place] % (Auto) Eos % (Auto) Baso % (Auto) Lymph # (Auto) [place] # (Auto) Eos # (Auto) Baso # (Auto) Abs Immat Gran (auto) Absolute Neuts (auto) Absolute Nucleated RBC Nucleated RBC % (auto) Smear Tech's Comments PT INR APTT VBG pH VBG pCO2 VBG pO2 VBG HCO3 VBG O2 Saturation VBG Base Excess Anion Gap Estim Creat Clear Calc Estimated GFR Random Glucose Lactic Acid Calcium Magnesium Total Bilirubin Direct Bilirubin AST ALT Alkaline Phosphatase Total Protein Albumin TSH 2.12 Urine Color Yellow Urine Appearance Turbid Urine pH 6.5 Ur Specific [place] 1.020 Urine Protein 100 (2+) H Urine Glucose (UA) Negative Urine Ketones 40 Urine Blood Large (3+) H Urine Nitrite Positive H Ur Leukocyte Esterase Large (3+) H Urine RBC >20 H Urine WBC >50 H Ur Squamous Epith Cells >20 Urine Bacteria 4+ Hyaline Casts 0-2 Urine Opiates Screen Not Detected Urine Fentanyl Screen Not Detected Ur Barbiturates Screen Not Detected Ur Phencyclidine Scrn Not Detected Ur Amphetamines Screen Not Detected U Benzodiazepines Scrn Not Detected Urine Cocaine Screen Not Detected U Marijuana (THC) Screen Not Detected COVID-19 ([facility]AN) COVID-19 Clin Com Influenza Type A (PCR) Influenza Type B (PCR) RSV RNA Qual (PCR) SARS-CoV-2 RNA (RT-PCR) 05/25/23 05/26/23 05/26/23 22:28 05:59 05:59 MCV 95.5 MCH 30.8 MCHC 32.3 RDW 14.5 Plt Count 149 L MPV 10.2 Immature Gran % (Auto) 0.6 H Neut % (Auto) 61.6 Lymph % (Auto) 18.0 L [place] % (Auto) 19.0 H Eos % (Auto) 0.7 Baso % (Auto) 0.1 Lymph # (Auto) 1.7 [place] # (Auto) 1.8 H Eos # (Auto) 0.1 Baso # (Auto) 0.0 Abs Immat Gran (auto) 0.06 H Absolute Neuts (auto) 5.9 Absolute Nucleated RBC 0.000 Nucleated RBC % (auto) 0.0 Smear Tech's Comments PT INR APTT VBG pH VBG pCO2 VBG pO2 VBG HCO3 VBG O2 Saturation VBG Base Excess Anion Gap 14 Estim Creat Clear Calc 117.1 Estimated GFR > 60 Random Glucose 105 Lactic Acid 2.0 Calcium 10.9 H Magnesium Total Bilirubin Direct Bilirubin AST ALT Alkaline Phosphatase Total Protein Albumin TSH Urine Color Urine Appearance Urine pH Ur Specific [place] Urine Protein Urine Glucose (UA) Urine Ketones Urine Blood Urine Nitrite Ur Leukocyte Esterase Urine RBC Urine WBC Ur Squamous Epith Cells Urine Bacteria Hyaline Casts Urine Opiates Screen Urine Fentanyl Screen Ur Barbiturates Screen Ur Phencyclidine Scrn Ur Amphetamines Screen U Benzodiazepines Scrn Urine Cocaine Screen U Marijuana (THC) Screen COVID-19 (ALAN) COVID-19 Clin Com Influenza Type A (PCR) Influenza Type B (PCR) RSV RNA Qual (PCR) SARS-CoV-2 RNA (RT-PCR) 05/26/23 05:59 MCV MCH MCHC RDW Plt Count MPV Immature Gran % (Auto) Neut % (Auto) Lymph % (Auto) [place] % (Auto) Eos % (Auto) Baso % (Auto) Lymph # (Auto) [place] # (Auto) Eos # (Auto) Baso # (Auto) Abs Immat Gran (auto) Absolute Neuts (auto) Absolute Nucleated RBC Nucleated RBC % (auto) Smear Tech's Comments PT 35.5 H D INR 2.9 H APTT VBG pH VBG pCO2 VBG pO2 VBG HCO3 VBG O2 Saturation VBG Base Excess Anion Gap Estim Creat Clear Calc Estimated GFR Random Glucose Lactic Acid Calcium Magnesium Total Bilirubin Direct Bilirubin AST ALT Alkaline Phosphatase Total Protein Albumin TSH Urine Color Urine Appearance Urine pH Ur Specific [place] Urine Protein Urine Glucose (UA) Urine Ketones Urine Blood Urine Nitrite Ur Leukocyte Esterase Urine RBC Urine WBC Ur Squamous Epith Cells Urine Bacteria Hyaline Casts Urine Opiates Screen Urine Fentanyl Screen Ur Barbiturates Screen Ur Phencyclidine Scrn Ur Amphetamines Screen U Benzodiazepines Scrn Urine Cocaine Screen U Marijuana (THC) Screen COVID-19 (ALAN) COVID-19 Clin Com Influenza Type A (PCR) Influenza Type B (PCR) RSV RNA Qual (PCR) SARS-CoV-2 RNA (RT-PCR) Assessment and Plan (1) Altered mental state: Status: Acute (2) Urinary tract infection: Status: Acute (3) Conjunctivitis, left eye: Status: Acute Plan 62-year-old male with past medical history as mentioned above comes into the hospital with increased change in mental status found to have acute UTI. #?acute toxic encephalopathy/altered mental status due to UTI -? history of pseudomonal infection -? continue IV Zosyn day 1, DC IV fluids -? follow urine and blood cultures #? acute conjunctivitis left eye -?on erythromycins ointment b.i.d., follow clinical course #? history of seizure disorder -? continue antiepileptics , seizure precautions #? history of DVT - ? INR 2.9, hold Coumadin , follow daily PT INR of #? hypertension -? continue diltiazem 240, metoprolol 25, BP stable # mood disorder continue Wellbutrin and risperidone. ?DVT prophylaxis:? warfarin ?given patient's need for IV antibiotics patient require continued inpatient hospital stay for further management and monitoring of uti and encephalopathy. Time Spent With Patient Time: Total time managing care of this patient today ____ minutes. Quality Stroke Does the patient have a stroke diagnosis?: No VTE Prior VTE?: No VTE Risk Level:: Medical - moderate - high VTE Device Contraindication: Treatment Not Indicated VTE Drug Contraindication: N/A - Med Ordered
--- NOTE | 2023-05-26 14:44 | PC.NURSE ---
Patient alert and responsive. denies pain, ate well for lunch. Staff from [facility] at bedside , updated on current condition.
--- NOTE | 2023-05-26 16:55 | PC.NURSE ---
Report given to accepting unit, transport notified, [facility] staff aware.
[2023-05-26 17:17] VITALS: BP 188/66; PULSE 94; RESP 17; TEMP 36.2; O2SAT 95
[2023-05-26 17:36] VITALS: BMI 24.3
[2023-05-26 19:36] VITALS: BP 131/72; PULSE 90; RESP 16; TEMP 36.2; O2SAT 96
[2023-05-26 19:57] VITALS: PULSE 90; RESP 16
[2023-05-26] MEDS: Divalproex Sodium 500 MG TABLET.DR PO (20:29)
[2023-05-27 04:00] VITALS: BP 104/59; PULSE 94; RESP 16; TEMP 36.1; O2SAT 93
[2023-05-27] MEDS: Piperacillin Sodium/Tazobactam 3.375 GM in 0.9 % Sodium Chloride 50 ML IV ×4 (05:01→22:29)
[2023-05-27 06:55] LABS: INTERNATIONAL NORM RATIO 3.4 (0.9-1.1); Prothrombin Time 41.2 SEC (11.1-13.3)
[2023-05-27 07:49] VITALS: BP 104/56; PULSE 90; RESP 18; TEMP 36.1; O2SAT 95
[2023-05-27] MEDS: Fluticasone Propionate 100 MCG BLST.W.DEV 1 PUFF INHALE ×2 (08:10→19:37)
[2023-05-27 08:12] VITALS: PULSE 78; RESP 20; O2SAT 95
--- NOTE | 2023-05-27 08:13 | PC.RT ---
pt. ordered on flovent diskus inhaler. patient does not have inspiratory force for adequate medication deposition. aware
[2023-05-27] MEDS: Finasteride 5 MG TABLET PO (09:42)
[2023-05-27] MEDS: Multivitamin TABLET 1 TAB PO (09:42)
[2023-05-27] MEDS: Erythromycin Base 0.5% Oph Oin 1 GM TUBE 1 CM EYE-LEFT ×2 (09:42→20:36)
[2023-05-27] MEDS: Torsemide 20 MG TABLET 40 MG PO ×2 (09:43→20:36)
[2023-05-27] MEDS: Divalproex Sodium 500 MG TABLET.DR 1000 MG PO ×3 (09:43→20:37)
[2023-05-27] MEDS: Potassium Chloride ER 20 MEQ TAB.ER.PRT PO ×2 (09:43→20:36)
[2023-05-27] MEDS: Cholecalciferol (Vitamin D3) 25 MCG TABLET PO (09:43)
[2023-05-27] MEDS: buPROPion HCL 100 MG TABLET PO ×2 (09:44→20:36)
[2023-05-27] MEDS: TiZANidine HCL 4 MG TABLET PO ×2 (09:44→20:36)
[2023-05-27] MEDS: dilTIAZem HCL CD 240 MG CAP.ER.DEG PO (09:44)
[2023-05-27] MEDS: Metoprolol Succinate ER 25 MG TAB.ER.24H PO (09:44)
[2023-05-27] MEDS: 0.9 % Sodium Chloride Flush 3 ML SYRINGE IVFLUSH ×3 (09:44→23:43)
[2023-05-27 13:53] VITALS: BMI 24.3
--- NOTE | 2023-05-27 13:58 | MHC.CLN ---
RE: CONSULT PT WITH INCREASE NUTRITION RISK R/T PRESSURE INJURY 75% PO DIET RX: REGULAR-APPROPRIATE RECOMMEND ADDING ENSURE TID AND GELATEIN TO PROMOTE WOUND HEALING SUPPS TO PROVIDE 1370KCALS, 100G PROTEIN WITH 100% ACCEPTANCE MONITOR PO INTAKE CLOSELY SEE ALSO FULL CLINICAL NUTRITION ASSESSMENT
--- NOTE | 2023-05-27 15:18 | P.PNIM_ITS ---
Subjective Subjective Date of Service: 05/27/23 Interval History: Somnolent but arousable with verbal stimuli, offers no acute complaints, no overnight events, no fevers, no chills, vitals stable tolerating diet. Review of Systems Unable to obtain due to mental status. Physical Exam Vital Signs: Vital Signs: Last Vital Signs Temp 97.0 F 05/27/23 07:49 Pulse 78 05/27/23 08:12 Resp 20 05/27/23 08:12 BP 104/56 L 05/27/23 07:49 Pulse Ox 95 05/27/23 07:49 O2 Del Method Room Air 05/27/23 07:49 BMI result Body Mass Index 24.3 Const: Other: General in no acut e distress, chroni robert ill-appearin g.? Neck? supple n o JVD. CVS? regula r rate rhythm, sys tolic murmur Respi ratory lungs clear to auscultation, no respiratory dis tress, no wheeze, no rhonchi. Gastro intestinal abdomen soft, non tender, bowel sounds gilson ble, no guarding , no rigidity. Extr emities bilateral lower extremity pi tting edema Neuro somnolent but arou sable, minimally v erbal Skin no rash , skin tear to the left malleolus, d oes not appear inf ected, chronic xenia earing? right heel wound, no drainag e. Also pressure u lcer right knee Objective Data Active Medications Acetaminophen (Acetaminophen 325 Mg Tablet) 650 mg PO Q6H PRN PRN Reason: Pain, Mild (Pain Scale 1-3) Bupropion HCl (Bupropion Hcl 100 Mg Tablet) 100 mg PO BID [facility] Last Admin: 05/27/23 09:44 Dose: 100 mg Documented By: IVELISSE Diltiazem HCl (Diltiazem Hcl Cd 240 Mg Cap.Er.Deg) 240 mg PO DAILY [facility]; Protocol Last Admin: 05/27/23 09:44 Dose: 240 mg Documented By: IVELISSE Divalproex Sodium (Divalproex Sodium 500 Mg Tablet.) 500 mg PO Q2D@2000 [facility] Last Admin: 05/26/23 20:29 Dose: 500 mg Documented By: MANFRED Divalproex Sodium (Divalproex Sodium 500 Mg Tablet.) 1,000 mg PO BID@0900,1600 [facility] Last Admin: 05/27/23 09:43 Dose: 1,000 mg Documented By: IVELISSE Divalproex Sodium (Divalproex Sodium 500 Mg Tablet.) 1,000 mg PO Q2D@2000 [facility] Last Admin: 05/26/23 00:17 Dose: 1,000 mg Documented By: ENRICOSIKing Docusate Sodium (Docusate Sodium 100 Mg Capsule) 100 mg PO DAILY PRN PRN Reason: Constipation Erythromycin (Erythromycin Base 0.5% Oph Oin 1 Gm Tube) 1 cm EYE-LEFT BID [facility] Last Admin: 05/27/23 09:42 Dose: 1 cm Documented By: IVELISSE Finasteride (Finasteride 5 Mg Tablet) 5 mg PO DAILY [facility] Last Admin: 05/27/23 09:42 Dose: 5 mg Documented By: IVELISSE Fluticasone Propionate (Fluticasone Propionate 100 Mcg Blst.W.Dev) 1 puff INHALE RBID [facility] Last Admin: 05/27/23 08:10 Dose: 1 puff Documented By: TONIO Hydrocortisone (Hydrocortisone 1 % Cream 28.35 Gm Tube) 1 appl TOPICAL Q12H PRN; Protocol PRN Reason: Hemorrhoids Piperacillin Sod/Tazobactam (Sod 3.375 gm/ Sodium Chloride) 50 mls @ 100 mls/hr IV Q6H [facility] Last Infusion: 05/27/23 13:11 Dose: 0 mls/hr Documented By: IVELISSE Metoprolol Succinate (Metoprolol Succinate Er 25 Mg Tab.Er.24h) 25 mg PO DAILY [facility]; Protocol Last Admin: 05/27/23 09:44 Dose: 25 mg Documented By: IVELISSE Multivitamins/Vitamin C (Multivitamin Tablet) 1 tab PO DAILY [facility] Last Admin: 05/27/23 09:42 Dose: 1 tab Documented By: IVELISSE Ondansetron HCl (Ondansetron Hcl 4 Mg/2 Ml Vial) 4 mg IVPUSH Q8H PRN PRN Reason: Nausea and Vomiting Pharmacy Consult (Consult Rx Perform Med Rec) 1 each MISCELLANE ONCE PRN PRN Reason: Consult order Potassium Chloride (Potassium Chloride Er 20 Meq Tab.Er.Prt) 20 meq PO BID [facility] Last Admin: 05/27/23 09:43 Dose: 20 meq Documented By: IVELISSE Risperidone (Risperidone 3 Mg Tablet) 3 mg PO BEDTIME [facility] Last Admin: 05/26/23 21:24 Dose: 3 mg Documented By: MANFRED Sodium Chloride (0.9 % Sodium Chloride Flush 3 Ml Syringe) 3 ml IVFLUSH QSHIFT [facility] Last Admin: 05/27/23 09:44 Dose: 3 ml Documented By: IVELISES Tamsulosin HCl (Tamsulosin Hcl 0.4 Mg Capsule) 0.4 mg PO BEDTIME [facility] Last Admin: 05/26/23 20:29 Dose: 0.4 mg Documented By: MANFRED Tizanidine HCl (Tizanidine Hcl 4 Mg Tablet) 4 mg PO BID [facility] Last Admin: 05/27/23 09:44 Dose: 4 mg Documented By: IVELISSE Torsemide (Torsemide 20 Mg Tablet) 40 mg PO BID [facility]; Protocol Last Admin: 05/27/23 09:43 Dose: 40 mg Documented By: IVELISSE Vitamin D (Cholecalciferol (Vitamin D3) 25 Mcg Tablet) 25 mcg PO DAILY [facility] Last Admin: 05/27/23 09:43 Dose: 25 mcg Documented By: IVELISSE Labs 05/26/23 05:59 05/26/23 05:59 Labs: Laboratory Results - last 24 hr 05/27/23 05:56 PT 41.2 H INR 3.4 H Microbiology Microbiology Results: Microbiology 05/25/23 Unknown Urine Culture - Preliminary Urine clean catch - Urine caceres top Pseudomonas species 05/25/23 22:49 Blood Culture - Preliminary Blood - Venous No growth after 24 hours. 05/25/23 22:49 Blood Culture - Preliminary Blood - Venous No growth after 24 hours. Assessment and Plan (1) Altered mental state: Status: Acute (2) Urinary tract infection: Status: Acute (3) Conjunctivitis, left eye: Status: Acute Plan 62-year-old male with past medical history as mentioned above comes into the hospital with increased change in mental status found to have acute UTI. #?acute toxic encephalopathy/altered mental status due to UTI -? urine culture grew Pseudomonas greater than 100,000 continue IV Zosyn day 2 -? follow urine and blood cultures #? acute conjunctivitis left eye -?on erythromycins ointment b.i.d., follow clinical course #? history of seizure disorder -? continue antiepileptics , seizure precautions #? history of DVT - ? INR 3.4, Coumadin held, follow daily PT INR #? hypertension -? continue diltiazem 240, metoprolol 25, BP stable # mood disorder continue Wellbutrin and risperidone. # chronic bilateral lower extremity edema likely due to DVT, venous stasis, quadriplegia on diuretics # pressure ulcer right heel, high protein diet foam dressing. ?DVT prophylaxis:? warfarin. ?given patient's need for IV antibiotics patient require continued inpatient hospital stay for further management and monitoring of uti and encephalopathy. Time Spent With Patient Time: Total time managing care of this patient today ____ minutes. Quality Stroke Does the patient have a stroke diagnosis?: No VTE Prior VTE?: No VTE Risk Level:: Medical - moderate - high VTE Device Contraindication: Treatment Not Indicated VTE Drug Contraindication: N/A - Med Ordered
[2023-05-27 15:29] VITALS: BP 97/52; PULSE 98; RESP 18; TEMP 36; O2SAT 97
--- NOTE | 2023-05-27 16:23 | MHC.CM.PN ---
Addendum entered by Maira Ross 05/28/23 09:01: CM ALSO ATTEMPTED TO REACH PTS SISTER/PRIMARY CONTACT, [place] [phone], HOWEVER THE NUMBER APPEARS TO BE FOR A BUSINESS AND THE VM BELONGS TO A PILO. Original Note: CM ATTEMPTED TO CONTACT STAFF TO OBTAIN MORE INFO REGARDING PTS BASELINE FUNCTIONAL STATUS CM CALLED THE NUMBER LISTED [phone], CALL WENT TO [facility] MESSAGE LEFT REQUESTING RETURN CALL
[2023-05-27 19:08] VITALS: BP 107/64; PULSE 95; RESP 18; TEMP 36.2; O2SAT 94
[2023-05-27 19:38] VITALS: PULSE 95; RESP 18; O2SAT 95
[2023-05-27] MEDS: Tamsulosin HCL 0.4 MG CAPSULE PO (20:36)
[2023-05-27] MEDS: risperiDONE 3 MG TABLET PO (20:37)
[2023-05-27] MEDS: Acetaminophen 325 MG TABLET 650 MG PO (22:29)
[2023-05-28 04:00] VITALS: BP 116/62; PULSE 74; RESP 18; TEMP 35.9; O2SAT 95
[2023-05-28] MEDS: Piperacillin Sodium/Tazobactam 3.375 GM in 0.9 % Sodium Chloride 50 ML IV ×4 (05:01→22:31)
[2023-05-28 06:41] LABS: INTERNATIONAL NORM RATIO 2.8 (0.9-1.1); Prothrombin Time 34.3 SEC (11.1-13.3)
[2023-05-28 07:47] VITALS: BP 124/55; PULSE 75; RESP 18; TEMP 36.2; O2SAT 97
[2023-05-28] MEDS: dilTIAZem HCL CD 240 MG CAP.ER.DEG PO (09:16)
[2023-05-28] MEDS: 0.9 % Sodium Chloride Flush 3 ML SYRINGE IVFLUSH ×2 (09:16→16:06)
[2023-05-28] MEDS: Finasteride 5 MG TABLET PO (09:16)
[2023-05-28] MEDS: Metoprolol Succinate ER 25 MG TAB.ER.24H PO (09:17)
[2023-05-28] MEDS: Potassium Chloride ER 20 MEQ TAB.ER.PRT PO ×2 (09:17→20:27)
[2023-05-28] MEDS: Divalproex Sodium 500 MG TABLET.DR 1000 MG PO ×2 (09:17→16:10)
[2023-05-28] MEDS: TiZANidine HCL 4 MG TABLET PO ×2 (09:17→20:26)
[2023-05-28] MEDS: Multivitamin TABLET 1 TAB PO (09:17)
[2023-05-28] MEDS: Torsemide 20 MG TABLET 40 MG PO ×2 (09:17→20:26)
[2023-05-28] MEDS: buPROPion HCL 100 MG TABLET PO ×2 (09:18→20:27)
[2023-05-28] MEDS: Cholecalciferol (Vitamin D3) 25 MCG TABLET PO (09:18)
[2023-05-28] MEDS: Erythromycin Base 0.5% Oph Oin 1 GM TUBE 1 CM EYE-LEFT (09:18)
--- NOTE | 2023-05-28 10:25 | MHC.CM.PN ---
Addendum entered by Maira Ross 05/28/23 14:05: JOANNE RECEIVED A RETURN CALL FROM JASBIR WHO REPORTS THE PT IS WHEEL CHAIR BOUND AT [facility] AND REQUIRES A [employer] LIFT AT HOME SHE SAYS HE HAS 24/7 CARE BY [facility] STAFF AND IS ACTIVE WITH RADHA WARNER. JASBIR REPORTS THE PTS SISTER IS HIS HCP AND THE NUMBER THEY HAVE ON FILE IS [phone] SHE REPORTS THE PREFERRED PHARMACY IS [facility] STAFF TYPICALLY TRANSPORTS PT IN A CHAIR VAN, HOWEVER HE MAY NEED BLS TRANSPORT HOME Original Note: JOANNE SPOKE WITH ABBY, A RN CM AT [employer] ([phone]) SHE WILL ATTEMPT TO LOCATE THE CORRECT CONTACT INFORMATION FOR PTS SISTER/HCP AND CALL T/W BACK
--- NOTE | 2023-05-28 11:16 | MHC.CLN ---
F/U DIET=REGUALR. PT WITH INCREASE NUTRITION RISK R/T PRESSURE INJURY 75% PO DIET RX: REGULAR-APPROPRIATE RECOMMEND ADDING ENSURE TID AND GELATEIN TO PROMOTE WOUND HEALING SUPPS TO PROVIDE 1370KCALS, 100G PROTEIN WITH 100% ACCEPTANCE MONITOR PO INTAKE CLOSELY SEE ALSO FULL CLINICAL NUTRITION ASSESSMENT
--- NOTE | 2023-05-28 11:17 | MHC.CLN ---
F/U DIET RX: REGULAR-APPROPRIATE. ENSURE TID AND GELATEIN BID TO PROMOTE WOUND HEALING. SUPPLEMENTS PROVIDE 1370KCALS, 100G PROTEIN WITH 100% ACCEPTANCE. SKIN WITH STAGE II AREAS TO LEFT ANKLE, RIGHT KNEE, RIGHT HEEL. INTAKE AT MEALS VARIABLE, 0-100% MONITOR PO INTAKE CLOSELY.
--- NOTE | 2023-05-28 15:18 | P.PNIM_ITS ---
Subjective Subjective Date of Service: 05/28/23 Interval History: No acute issues overnight. Remains somnolent but arousable Review of Systems Unable to obtain Physical Exam Vital Signs: Vital Signs: Last Vital Signs Temp 97.2 F 05/28/23 07:47 Pulse 75 05/28/23 07:47 Resp 18 05/28/23 07:47 BP 124/55 L 05/28/23 07:47 Pulse Ox 97 05/28/23 07:47 O2 Del Method Room Air 05/28/23 07:47 BMI result Body Mass Index 24.3 Const: Other: Somnolent but arousable Resp: Other: Clear to auscultation bilaterally no rales rhonchi or wheezes Cardio: Other: No S4; positive S1-S2; no S3 murmurs rubs or gallops GI: Other: Soft nontender nondistended normoactive bowel sounds Extrem: Other: No edema bilaterally Objective Data Active Medications Acetaminophen (Acetaminophen 325 Mg Tablet) 650 mg PO Q6H PRN PRN Reason: Pain, Mild (Pain Scale 1-3) Last Admin: 05/27/23 22:29 Dose: 650 mg Documented By: MANRFED Bupropion HCl (Bupropion Hcl 100 Mg Tablet) 100 mg PO BID REPLACED BY [facility] Last Admin: 05/28/23 09:18 Dose: 100 mg Documented By: IVELISSE Diltiazem HCl (Diltiazem Hcl Cd 240 Mg Cap.Er.Deg) 240 mg PO DAILY REPLACED BY [facility]; Protocol Last Admin: 05/28/23 09:16 Dose: 240 mg Documented By: IVELISSE Divalproex Sodium (Divalproex Sodium 500 Mg Tablet.) 500 mg PO Q2D@1999 REPLACED BY [facility] Last Admin: 05/26/23 20:29 Dose: 500 mg Documented By: MANFRED Divalproex Sodium (Divalproex Sodium 500 Mg Tablet.) 1,000 mg PO BID@0900,1600 REPLACED BY [facility] Last Admin: 05/28/23 09:17 Dose: 1,000 mg Documented By: IVELISSE Divalproex Sodium (Divalproex Sodium 500 Mg Tablet.) 1,000 mg PO Q2D@1999 REPLACED BY [facility] Last Admin: 05/27/23 20:37 Dose: 1,000 mg Documented By: MANFRED Docusate Sodium (Docusate Sodium 100 Mg Capsule) 100 mg PO DAILY PRN PRN Reason: Constipation Erythromycin (Erythromycin Base 0.5% Oph Oin 1 Gm Tube) 1 cm EYE-LEFT BID REPLACED BY [facility] Last Admin: 05/28/23 09:18 Dose: 1 cm Documented By: IVELISSE Finasteride (Finasteride 5 Mg Tablet) 5 mg PO DAILY REPLACED BY [facility] Last Admin: 05/28/23 09:16 Dose: 5 mg Documented By: IVELISSE Fluticasone Propionate (Fluticasone Propionate 100 Mcg Blst.W.Dev) 1 puff INHALE RBID REPLACED BY [facility] Last Admin: 05/28/23 07:35 Dose: Not Given Documented By: TONIO Non-Admin Reason: See Note Hydrocortisone (Hydrocortisone 1 % Cream 28.35 Gm Tube) 1 appl TOPICAL Q12H PRN; Protocol PRN Reason: Hemorrhoids Piperacillin Sod/Tazobactam (Sod 3.375 gm/ Sodium Chloride) 50 mls @ 100 mls/hr IV Q6H REPLACED BY [facility] Last Infusion: 05/28/23 12:18 Dose: 0 mls/hr Documented By: IVELISSE Metoprolol Succinate (Metoprolol Succinate Er 25 Mg Tab.Er.24h) 25 mg PO DAILY REPLACED BY [facility]; Protocol Last Admin: 05/28/23 09:17 Dose: 25 mg Documented By: IVELISSE Multivitamins/Vitamin C (Multivitamin Tablet) 1 tab PO DAILY REPLACED BY [facility] Last Admin: 05/28/23 09:17 Dose: 1 tab Documented By: IVELISSE Ondansetron HCl (Ondansetron Hcl 4 Mg/2 Ml Vial) 4 mg IVPUSH Q8H PRN PRN Reason: Nausea and Vomiting Pharmacy Consult (Consult Rx Perform Med Rec) 1 each MISCELLANE ONCE PRN PRN Reason: Consult order Potassium Chloride (Potassium Chloride Er 20 Meq Tab.Er.Prt) 20 meq PO BID REPLACED BY [facility] Last Admin: 05/28/23 09:17 Dose: 20 meq Documented By: IVELISSE Risperidone (Risperidone 3 Mg Tablet) 3 mg PO BEDTIME REPLACED BY [facility] Last Admin: 05/27/23 20:37 Dose: 3 mg Documented By: MANFRED Sodium Chloride (0.9 % Sodium Chloride Flush 3 Ml Syringe) 3 ml IVFLUSH QSHIFT REPLACED BY [facility] Last Admin: 05/28/23 09:16 Dose: 3 ml Documented By: IVELISSE Tamsulosin HCl (Tamsulosin Hcl 0.4 Mg Capsule) 0.4 mg PO BEDTIME REPLACED BY [facility] Last Admin: 05/27/23 20:36 Dose: 0.4 mg Documented By: MANFRED Tizanidine HCl (Tizanidine Hcl 4 Mg Tablet) 4 mg PO BID REPLACED BY [facility] Last Admin: 05/28/23 09:17 Dose: 4 mg Documented By: IVELISSE Torsemide (Torsemide 20 Mg Tablet) 40 mg PO BID REPLACED BY [facility]; Protocol Last Admin: 05/28/23 09:17 Dose: 40 mg Documented By: IVELISSE Vitamin D (Cholecalciferol (Vitamin D3) 25 Mcg Tablet) 25 mcg PO DAILY REPLACED BY [facility] Last Admin: 05/28/23 09:18 Dose: 25 mcg Documented By: IVELISSE Labs 05/26/23 05:59 05/26/23 05:59 Labs: Laboratory Results - last 24 hr 05/28/23 05:44 PT 34.3 H INR 2.8 H Microbiology Microbiology Results: Microbiology 05/25/23 Unknown Urine Culture - Preliminary Urine clean catch - Urine caceres top Pseudomonas aeruginosa Gram positive cocci 05/25/23 22:49 Blood Culture - Preliminary Blood - Venous No growth after 48 hours. 05/25/23 22:49 Blood Culture - Preliminary Blood - Venous No growth after 48 hours. Assessment and Plan (1) Acute metabolic encephalopathy: Status: Acute (2) Urinary tract infection: Status: Acute (3) Acute DVT of left tibial vein: Status: Acute (4) Hypertension: Status: Acute Plan 62-year-old male with past medical history as mentioned above comes into the hospital with increased change in mental status found to have acute UTI; Pseudomonas pansensitive 1.Acute toxic encephalopathy/ UTI -?Zosyn (3) -? follow urine and blood cultures 2.Acute conjunctivitis left eye -?on erythromycins ointment b.i.d., follow clinical course 3.Seizure disorder -continue outpatient therapies -adjust as indicated 4.History of DVT -Coumadin as ordered -daily PT/INR -adjust as indicated 5.Hypertension -acceptable control on current therapies -adjust as indicated Warfarin Full code ?given patient's need for IV antibiotics patient require continued inpatient hospital stay for further management and monitoring of uti and encephalopathy. Time Spent With Patient Time: Total time managing care of this patient today ____ minutes. Quality Stroke Does the patient have a stroke diagnosis?: No VTE Prior VTE?: No VTE Risk Level:: Medical - moderate - high VTE Device Contraindication: Treatment Not Indicated VTE Drug Contraindication: N/A - Med Ordered
[2023-05-28 16:00] VITALS: BP 123/56; PULSE 78; RESP 18; TEMP 36.2; O2SAT 94
[2023-05-28 20:00] VITALS: BP 146/84; PULSE 91; RESP 19; TEMP 36.1; O2SAT 95
[2023-05-28] MEDS: risperiDONE 3 MG TABLET PO (20:26)
[2023-05-28] MEDS: Divalproex Sodium 500 MG TABLET.DR PO (20:26)
[2023-05-28] MEDS: Tamsulosin HCL 0.4 MG CAPSULE PO (20:27)
[2023-05-29 03:30] VITALS: BP 103/56; PULSE 77; RESP 18; TEMP 36; O2SAT 95
[2023-05-29] MEDS: Piperacillin Sodium/Tazobactam 3.375 GM in 0.9 % Sodium Chloride 50 ML IV ×2 (05:01→10:50)
[2023-05-29 07:13] VITALS: BP 103/58; PULSE 81; RESP 18; TEMP 36.3; O2SAT 94
[2023-05-29] MEDS: Fluticasone Propionate 100 MCG BLST.W.DEV 1 PUFF INHALE ×2 (08:39→20:11)
[2023-05-29] MEDS: Potassium Chloride ER 20 MEQ TAB.ER.PRT PO ×2 (08:56→20:28)
[2023-05-29] MEDS: Torsemide 20 MG TABLET 40 MG PO ×2 (08:56→20:28)
[2023-05-29] MEDS: Cholecalciferol (Vitamin D3) 25 MCG TABLET PO (08:56)
[2023-05-29] MEDS: Multivitamin TABLET 1 TAB PO (08:57)
[2023-05-29] MEDS: TiZANidine HCL 4 MG TABLET PO ×2 (08:57→20:28)
[2023-05-29] MEDS: buPROPion HCL 100 MG TABLET PO ×2 (08:57→20:28)
[2023-05-29] MEDS: Metoprolol Succinate ER 25 MG TAB.ER.24H PO (08:57)
[2023-05-29] MEDS: Divalproex Sodium 500 MG TABLET.DR 1000 MG PO ×3 (08:58→20:29)
[2023-05-29] MEDS: Erythromycin Base 0.5% Oph Oin 1 GM TUBE 1 CM EYE-LEFT ×2 (08:58→20:29)
[2023-05-29] MEDS: dilTIAZem HCL CD 240 MG CAP.ER.DEG PO (08:58)
[2023-05-29] MEDS: Finasteride 5 MG TABLET PO (08:59)
[2023-05-29] MEDS: 0.9 % Sodium Chloride Flush 3 ML SYRINGE IVFLUSH ×2 (08:59→15:41)
[2023-05-29] MEDS: Acetaminophen 325 MG TABLET 650 MG PO (09:02)
--- NOTE | 2023-05-29 14:46 | HO.PM.IMPN ---
Subjective Subjective Date of Service: 05/29/23 Interval History: No acute issues overnight. Remains nonverbal Review of Systems Unable to obtain Physical Exam Vital Signs: Vital Signs: Last Vital Signs Temp 97.4 F 05/29/23 07:13 Pulse 81 05/29/23 07:13 Resp 18 05/29/23 07:13 BP 103/58 L 05/29/23 07:13 Pulse Ox 94 05/29/23 07:13 O2 Del Method Room Air 05/29/23 07:13 BMI result Body Mass Index 24.3 Const: Other: Somnolent but arousable Resp: Other: Clear to auscultation bilaterally no rales rhonchi or wheezes Cardio: Other: No S4; positive S1-S2; no S3 murmurs rubs or gallops GI: Other: Soft nontender nondistended normoactive bowel sounds Extrem: Other: No edema bilaterally Objective Data Active Medications Acetaminophen (Acetaminophen 325 Mg Tablet) 650 mg PO Q6H PRN PRN Reason: Pain, Mild (Pain Scale 1-3) Last Admin: 05/29/23 09:02 Dose: 650 mg Documented By: ESHA Bupropion HCl (Bupropion Hcl 100 Mg Tablet) 100 mg PO BID [facility] Last Admin: 05/29/23 08:57 Dose: 100 mg Documented By: ESHA Diltiazem HCl (Diltiazem Hcl Cd 240 Mg Cap.Er.Deg) 240 mg PO DAILY [facility]; Protocol Last Admin: 05/29/23 08:58 Dose: 240 mg Documented By: ESHA Divalproex Sodium (Divalproex Sodium 500 Mg Tablet.) 500 mg PO Q2D@1999 [facility] Last Admin: 05/28/23 20:26 Dose: 500 mg Documented By: ANUJA Divalproex Sodium (Divalproex Sodium 500 Mg Tablet.) 1,000 mg PO BID@0900,1600 [facility] Last Admin: 05/29/23 08:58 Dose: 1,000 mg Documented By: ESHA Divalproex Sodium (Divalproex Sodium 500 Mg Tablet.) 1,000 mg PO Q2D@1999 [facility] Last Admin: 05/27/23 20:37 Dose: 1,000 mg Documented By: MANFRED Docusate Sodium (Docusate Sodium 100 Mg Capsule) 100 mg PO DAILY PRN PRN Reason: Constipation Erythromycin (Erythromycin Base 0.5% Oph Oin 1 Gm Tube) 1 cm EYE-LEFT BID [facility] Last Admin: 05/29/23 08:58 Dose: 1 cm Documented By: ESHA Finasteride (Finasteride 5 Mg Tablet) 5 mg PO DAILY [facility] Last Admin: 05/29/23 08:59 Dose: 5 mg Documented By: ESHA Fluticasone Propionate (Fluticasone Propionate 100 Mcg Blst.W.Dev) 1 puff INHALE RBID [facility] Last Admin: 05/29/23 08:39 Dose: 1 puff Documented By: NAMRATA Hydrocortisone (Hydrocortisone 1 % Cream 28.35 Gm Tube) 1 appl TOPICAL Q12H PRN; Protocol PRN Reason: Hemorrhoids Piperacillin Sod/Tazobactam (Sod 3.375 gm/ Sodium Chloride) 50 mls @ 100 mls/hr IV Q6H [facility] Last Infusion: 05/29/23 11:41 Dose: 100 mls/hr Documented By: ESHA Metoprolol Succinate (Metoprolol Succinate Er 25 Mg Tab.Er.24h) 25 mg PO DAILY [facility]; Protocol Last Admin: 05/29/23 08:57 Dose: 25 mg Documented By: ESHA Multivitamins/Vitamin C (Multivitamin Tablet) 1 tab PO DAILY [facility] Last Admin: 05/29/23 08:57 Dose: 1 tab Documented By: ESHA Ondansetron HCl (Ondansetron Hcl 4 Mg/2 Ml Vial) 4 mg IVPUSH Q8H PRN PRN Reason: Nausea and Vomiting Pharmacy Consult (Consult Rx Perform Med Rec) 1 each MISCELLANE ONCE PRN PRN Reason: Consult order Potassium Chloride (Potassium Chloride Er 20 Meq Tab.Er.Prt) 20 meq PO BID [facility] Last Admin: 05/29/23 08:56 Dose: 20 meq Documented By: ESHA Risperidone (Risperidone 3 Mg Tablet) 3 mg PO BEDTIME [facility] Last Admin: 05/28/23 20:26 Dose: 3 mg Documented By: ANUJA Sodium Chloride (0.9 % Sodium Chloride Flush 3 Ml Syringe) 3 ml IVFLUSH QSHIFT [facility] Last Admin: 05/29/23 08:59 Dose: 3 ml Documented By: ESHA Tamsulosin HCl (Tamsulosin Hcl 0.4 Mg Capsule) 0.4 mg PO BEDTIME [facility] Last Admin: 05/28/23 20:27 Dose: 0.4 mg Documented By: ANUJA Tizanidine HCl (Tizanidine Hcl 4 Mg Tablet) 4 mg PO BID [facility] Last Admin: 05/29/23 08:57 Dose: 4 mg Documented By: ESHA Torsemide (Torsemide 20 Mg Tablet) 40 mg PO BID [facility]; Protocol Last Admin: 05/29/23 08:56 Dose: 40 mg Documented By: ESHA Vitamin D (Cholecalciferol (Vitamin D3) 25 Mcg Tablet) 25 mcg PO DAILY [facility] Last Admin: 05/29/23 08:56 Dose: 25 mcg Documented By: ESHA Labs 05/26/23 05:59 05/26/23 05:59 Microbiology Microbiology Results: Microbiology 05/25/23 Unknown Urine Culture - Final Urine clean catch - Urine caceres top Pseudomonas aeruginosa Enterococcus faecalis Assessment and Plan (1) UTI (urinary tract infection): Status: Acute Plan 62-year-old male with past medical history as mentioned above comes into the hospital with increased change in mental status found to have acute UTI; Pseudomonas pansensitive 1.Acute toxic encephalopathy/ UTI -?Zosyn (4)... will switched to Levaquin (1) based on cultures -? follow urine and blood cultures 2.Acute conjunctivitis left eye -?on erythromycins ointment b.i.d., follow clinical course 3.Seizure disorder -continue outpatient therapies -adjust as indicated 4.History of DVT -Coumadin as ordered -daily PT/INR -adjust as indicated 5.Hypertension -acceptable control on current therapies -adjust as indicated Warfarin Full code ?given patient's need for IV antibiotics patient require continued inpatient hospital stay for further management and monitoring of uti and encephalopathy. Time Spent With Patient Time: Total time managing care of this patient today ____ minutes. Quality Stroke Does the patient have a stroke diagnosis?: No VTE Prior VTE?: No VTE Risk Level:: Medical - moderate - high VTE Device Contraindication: Treatment Not Indicated VTE Drug Contraindication: N/A - Med Ordered
[2023-05-29 15:28] VITALS: BP 113/58; PULSE 73; RESP 18; TEMP 36.3; O2SAT 96
[2023-05-29] MEDS: levoFLOXacin/D5W 500 MG/100 ML PIGGYBACK 100 MG IV (16:52)
[2023-05-29 19:22] VITALS: BP 123/59; PULSE 89; RESP 18; TEMP 36.4; O2SAT 93
[2023-05-29 20:11] VITALS: PULSE 109; RESP 18; O2SAT 93
[2023-05-29] MEDS: risperiDONE 3 MG TABLET PO (20:29)
[2023-05-29] MEDS: Tamsulosin HCL 0.4 MG CAPSULE PO (20:29)
[2023-05-30] MEDS: 0.9 % Sodium Chloride Flush 3 ML SYRINGE IVFLUSH ×3 (01:08→16:43)
[2023-05-30 03:15] VITALS: BP 104/58; PULSE 90; RESP 20; TEMP 36.8; O2SAT 89
[2023-05-30 03:20] VITALS: O2SAT 94
--- NOTE | 2023-05-30 03:40 | PC.NURSE ---
MD Eagle messaged via [employer] to notify patient has oxygen saturation of 88-90% room air and with fine crackles left base. 2L applied for sats 94% and requested order for O2.
--- NOTE | 2023-05-30 06:05 | PM.EVENT ---
Event Note Date of Service: 05/31/23 Event Note: Patient reported shortness of breath overnight, found to be hypoxic with O2 dropping to 88-90% on room air. Patient placed on 2 L of oxygen. 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
[2023-05-30] MEDS: Piperacillin Sodium/Tazobactam 3.375 GM in 0.9 % Sodium Chloride 50 ML IV ×2 (06:43→12:05)
[2023-05-30 07:25] VITALS: BP 125/57; PULSE 87; RESP 20; TEMP 36.4; O2SAT 95
[2023-05-30 07:44] LABS: Basophils Percent Auto 0.3 % (0-2); Eosinophils Absolute Auto 0.4 X10*3/uL (0.0-0.4); Eosinophils Percent Auto 2.4 % (0-4); Hematocrit 36.5 % (42.0-52.0); Imm Gran Abs Auto 0.08 X10*3/uL (0.00-0.03); Imm Gran Pct Auto 0.5 % (0.0-0.4); Lymphocytes Absolute Auto 1.3 X10*3/uL (1.2-4.9); Lymphocytes Percent Auto 8.4 % (20-40); MANUAL DIFF FLAG SCAN; Mean Corpuscular HGB Conc 32.9 g/dl (31.0-36.0); Mean Corpuscular Hemoglobin 31.7 pg (27.0-33.0); Mean Corpuscular Volume 96.3 fL (80.0-98.0); Mean Platelet Volume 10.3 fL (9.4-12.4); Monocytes Absolute Auto 2.1 X10*3/uL (0.1-1.2); Monocytes Percent Auto 13.4 % (2-11); Neutrophils Absolute Auto 11.7 x10*3/uL (2.0-8.3); Platelet Count 167 X10*3/uL (160-400); Red Blood Count 3.79 X10*6/uL (4.60-5.80); Red Cell Distribution Width 14.7 % (11.0-16.0); SCAN SMEAR FLAG 1; White Blood Count 15.6 X10*3/uL (4.8-10.8)
[2023-05-30 07:56] LABS: INTERNATIONAL NORM RATIO 1.3 (0.9-1.1); Prothrombin Time 16.3 SEC (11.1-13.3)
[2023-05-30 08:03] LABS: Alanine Aminotransferase 7 U/L (0-40); Albumin Level 2.7 g/dL (3.5-5.0); Alkaline Phosphatase 63 U/L (39-117); Anion Gap 11 (12-20); Aspartate Amino Transferase 17 U/L (5-37); Bilirubin Total 0.4 mg/dL (0.0-1.0); Blood Urea Nitrogen 14 mg/dL (9-16); Calcium 10.9 mg/dL (8.4-10.2); Carbon Dioxide 33 mmol/L (22-29); Chloride 103 mmol/L (96-108); Creatinine Clr Calc Pharmacy 123.6; Estimated Glomerular Filt Rate > 60; Glucose Fasting 98 mg/dL (60-99); Potassium 3.3 mmol/L (3.3-5.1); Sodium 144 mmol/L (135-145)
[2023-05-30 08:41] LABS: SLIDE REVIEW VERIFIED
[2023-05-30] MEDS: Potassium Chloride ER 20 MEQ TAB.ER.PRT PO ×2 (09:12→20:59)
[2023-05-30] MEDS: Finasteride 5 MG TABLET PO (09:12)
[2023-05-30] MEDS: Torsemide 20 MG TABLET 40 MG PO ×2 (09:12→21:00)
[2023-05-30] MEDS: buPROPion HCL 100 MG TABLET PO ×2 (09:13→20:59)
[2023-05-30] MEDS: Multivitamin TABLET 1 TAB PO (09:13)
[2023-05-30] MEDS: TiZANidine HCL 4 MG TABLET PO ×2 (09:13→20:58)
[2023-05-30] MEDS: Cholecalciferol (Vitamin D3) 25 MCG TABLET PO (09:13)
[2023-05-30] MEDS: Erythromycin Base 0.5% Oph Oin 1 GM TUBE 1 CM EYE-LEFT ×2 (09:14→21:00)
[2023-05-30] MEDS: Metoprolol Succinate ER 25 MG TAB.ER.24H PO (09:14)
[2023-05-30] MEDS: dilTIAZem HCL CD 240 MG CAP.ER.DEG PO (09:14)
[2023-05-30] MEDS: Divalproex Sodium 500 MG TABLET.DR 1000 MG PO ×2 (09:15→16:44)
[2023-05-30 09:28] VITALS: O2SAT 95
--- NOTE | 2023-05-30 11:06 | HO.SKINPHOTO ---
Location:right ankle/heel Category: Stage: Length: Width: Depth: cm Location: Category: Stage: Length: Width: Depth: cm Location: Category: Stage: Length: Width: Depth: cm Location: Category: Stage: Length: Width: Depth: cm Location: Category: Stage: Length: Width: Depth: cm Location: Category: Stage: Length: Width: Depth: cm
--- NOTE | 2023-05-30 15:08 | HO.PM.IMPN ---
Subjective Subjective Date of Service: 05/30/23 Interval History: Events of overnight noted; episode of desaturation overnight. Chest x-ray consistent with new left lower lobe infiltrate Review of Systems Unable to obtain Physical Exam Vital Signs: Vital Signs: Last Vital Signs Temp 97.5 F 05/30/23 07:25 Pulse 87 05/30/23 07:25 Resp 20 05/30/23 07:25 BP 125/57 L 05/30/23 07:25 Pulse Ox 95 05/30/23 09:28 O2 Del Method Room Air 05/30/23 09:28 O2 Flow Rate 2 05/30/23 03:20 BMI result Body Mass Index 24.3 Const: Other: Somnolent but arousable Resp: Other: Crackles left base with scant Cardio: Other: No S4; positive S1-S2; no S3 murmurs rubs or gallops GI: Other: Soft nontender nondistended normoactive bowel sounds Extrem: Other: No edema bilaterally Objective Data Active Medications Acetaminophen (Acetaminophen 325 Mg Tablet) 650 mg PO Q6H PRN PRN Reason: Pain, Mild (Pain Scale 1-3) Last Admin: 05/29/23 09:02 Dose: 650 mg Documented By: ESHA Bupropion HCl (Bupropion Hcl 100 Mg Tablet) 100 mg PO BID [facility] Last Admin: 05/30/23 09:13 Dose: 100 mg Documented By: ESHA Diltiazem HCl (Diltiazem Hcl Cd 240 Mg Cap.Er.Deg) 240 mg PO DAILY [facility]; Protocol Last Admin: 05/30/23 09:14 Dose: 240 mg Documented By: ESHA Divalproex Sodium (Divalproex Sodium 500 Mg Tablet.) 500 mg PO Q2D@1999 [facility] Last Admin: 05/28/23 20:26 Dose: 500 mg Documented By: ANUJA Divalproex Sodium (Divalproex Sodium 500 Mg Tablet.) 1,000 mg PO BID@0900,1600 [facility] Last Admin: 05/30/23 09:15 Dose: 1,000 mg Documented By: ESHA Divalproex Sodium (Divalproex Sodium 500 Mg Tablet.) 1,000 mg PO Q2D@1999 [facility] Last Admin: 05/29/23 20:29 Dose: 1,000 mg Documented By: VIKTOR Docusate Sodium (Docusate Sodium 100 Mg Capsule) 100 mg PO DAILY PRN PRN Reason: Constipation Erythromycin (Erythromycin Base 0.5% Oph Oin 1 Gm Tube) 1 cm EYE-LEFT BID [facility] Last Admin: 05/30/23 09:14 Dose: 1 cm Documented By: ESHA Finasteride (Finasteride 5 Mg Tablet) 5 mg PO DAILY [facility] Last Admin: 05/30/23 09:12 Dose: 5 mg Documented By: ESHA Fluticasone Propionate (Fluticasone Propionate 100 Mcg Blst.W.Dev) 1 puff INHALE RBID [facility] Last Admin: 05/30/23 08:04 Dose: Not Given Documented By: NAMRATA Non-Admin Reason: Patient Condition Contraindication Hydrocortisone (Hydrocortisone 1 % Cream 28.35 Gm Tube) 1 appl TOPICAL Q12H PRN; Protocol PRN Reason: Hemorrhoids Levofloxacin (Levaquin) 500 mg in 100 mls @ 100 mls/hr IV Q24H [facility] Last Infusion: 05/29/23 18:02 Dose: 0 mls/hr Documented By: VIKTOR Metoprolol Succinate (Metoprolol Succinate Er 25 Mg Tab.Er.24h) 25 mg PO DAILY [facility]; Protocol Last Admin: 05/30/23 09:14 Dose: 25 mg Documented By: ESHA Multivitamins/Vitamin C (Multivitamin Tablet) 1 tab PO DAILY [facility] Last Admin: 05/30/23 09:13 Dose: 1 tab Documented By: ESHA Ondansetron HCl (Ondansetron Hcl 4 Mg/2 Ml Vial) 4 mg IVPUSH Q8H PRN PRN Reason: Nausea and Vomiting Pharmacy Consult (Consult Rx Perform Med Rec) 1 each MISCELLANE ONCE PRN PRN Reason: Consult order Potassium Chloride (Potassium Chloride Er 20 Meq Tab.Er.Prt) 20 meq PO BID [facility] Last Admin: 05/30/23 09:12 Dose: 20 meq Documented By: ESHA Risperidone (Risperidone 3 Mg Tablet) 3 mg PO BEDTIME [facility] Last Admin: 05/29/23 20:29 Dose: 3 mg Documented By: VIKTOR Sodium Chloride (0.9 % Sodium Chloride Flush 3 Ml Syringe) 3 ml IVFLUSH QSHIFT [facility] Last Admin: 05/30/23 06:44 Dose: 3 ml Documented By: RITESH Tamsulosin HCl (Tamsulosin Hcl 0.4 Mg Capsule) 0.4 mg PO BEDTIME [facility] Last Admin: 05/29/23 20:29 Dose: 0.4 mg Documented By: VIKTOR Tizanidine HCl (Tizanidine Hcl 4 Mg Tablet) 4 mg PO BID [facility] Last Admin: 05/30/23 09:13 Dose: 4 mg Documented By: ESHA Torsemide (Torsemide 20 Mg Tablet) 40 mg PO BID [facility]; Protocol Last Admin: 05/30/23 09:12 Dose: 40 mg Documented By: ESHA Vitamin D (Cholecalciferol (Vitamin D3) 25 Mcg Tablet) 25 mcg PO DAILY [facility] Last Admin: 05/30/23 09:13 Dose: 25 mcg Documented By: ESHA Warfarin Sodium (Warfarin Sodium 5 Mg Tablet) 5 mg PO ONCE@1800 ONE Stop: 05/30/23 18:01 Labs 05/30/23 07:32 05/30/23 07:32 Labs: Laboratory Results - last 24 hr 05/30/23 05/30/23 05/30/23 07:32 07:32 07:32 MCV 96.3 MCH 31.7 MCHC 32.9 RDW 14.7 Plt Count 167 MPV 10.3 Immature Gran % (Auto) 0.5 H Neut % (Auto) 75.0 H Lymph % (Auto) 8.4 L [place] % (Auto) 13.4 H Eos % (Auto) 2.4 Baso % (Auto) 0.3 Lymph # (Auto) 1.3 [place] # (Auto) 2.1 H Eos # (Auto) 0.4 Baso # (Auto) 0.0 Abs Immat Gran (auto) 0.08 H Absolute Neuts (auto) 11.7 H Absolute Nucleated RBC 0.000 Nucleated RBC % (auto) 0.0 Smear Tech's Comments VERIFIED PT 16.3 H D INR 1.3 H Anion Gap 11 L Estim Creat Clear Calc 123.6 Estimated GFR > 60 Fasting Glucose 98 Calcium 10.9 H Total Bilirubin 0.4 AST 17 ALT 7 Alkaline Phosphatase 63 Total Protein 6.0 L Albumin 2.7 L Assessment and Plan (1) Left lower lobe pulmonary infiltrate: Status: Acute (2) Recurrent UTI: Status: Acute (3) Acute DVT of left tibial vein: Status: Acute Plan 62-year-old male with past medical history as mentioned above comes into the hospital with increased change in mental status found to have acute UTI; Pseudomonas pansensitive. Overnight question of aspiration; chest x-ray with new left lower lobe infiltrate 1. Left lower lobe infiltrate likely secondary to aspiration -continue Levaquin as ordered -follow O2 requirements 2..Acute toxic encephalopathy/ UTI -?Zosyn (4)... will switched to Levaquin (2) based on cultures -? follow urine and blood cultures 3.Seizure disorder -continue outpatient therapies -adjust as indicated 4.History of DVT -Coumadin as ordered -daily PT/INR -adjust as indicated 5.Hypertension -acceptable control on current therapies -adjust as indicated Warfarin Full code ?given patient's need for IV antibiotics patient require continued inpatient hospital stay for further management and monitoring of uti and encephalopathy. Discussed with Case Management; given change in his overall status do not believe he is suitable for senior living at this time. Will pursue long-term placement Time Spent With Patient Time: Total time managing care of this patient today ____ minutes. Quality Stroke Does the patient have a stroke diagnosis?: No VTE Prior VTE?: No VTE Risk Level:: Medical - moderate - high VTE Device Contraindication: Treatment Not Indicated VTE Drug Contraindication: N/A - Med Ordered
[2023-05-30 16:00] VITALS: BP 102/53; PULSE 64; RESP 16; TEMP 35.9; O2SAT 93
[2023-05-30] MEDS: levoFLOXacin/D5W 500 MG/100 ML PIGGYBACK 100 MG IV (16:37)
[2023-05-30] MEDS: Warfarin Sodium 5 MG TABLET PO (17:25)
[2023-05-30 19:43] VITALS: BP 100/61; PULSE 70; RESP 17; TEMP 36.4; O2SAT 93
[2023-05-30] MEDS: risperiDONE 3 MG TABLET PO (20:58)
[2023-05-30] MEDS: Tamsulosin HCL 0.4 MG CAPSULE PO (20:59)
[2023-05-30] MEDS: Divalproex Sodium 500 MG TABLET.DR PO (20:59)
[2023-05-31] MEDS: 0.9 % Sodium Chloride Flush 3 ML SYRINGE IVFLUSH ×3 (00:01→16:06)
[2023-05-31 04:00] VITALS: BP 105/60; PULSE 71; RESP 16; TEMP 36.6; O2SAT 97
[2023-05-31] MEDS: Acetaminophen 325 MG TABLET 650 MG PO ×2 (04:34→16:08)
[2023-05-31 06:23] LABS: MANUAL DIFF FLAG NO
[2023-05-31 06:27] LABS: Basophils Percent Auto 0.3 % (0-2); Eosinophils Absolute Auto 0.4 X10*3/uL (0.0-0.4); Eosinophils Percent Auto 4.2 % (0-4); Hematocrit 35.7 % (42.0-52.0); Hemoglobin 11.7 g/dl (14.0-18.0); Lymphocytes Absolute Auto 1.5 X10*3/uL (1.2-4.9); Lymphocytes Percent Auto 14.9 % (20-40); Mean Corpuscular HGB Conc 32.8 g/dl (31.0-36.0); Mean Corpuscular Hemoglobin 31.6 pg (27.0-33.0); Mean Corpuscular Volume 96.5 fL (80.0-98.0); Mean Platelet Volume 10.8 fL (9.4-12.4); Monocytes Absolute Auto 1.3 X10*3/uL (0.1-1.2); Monocytes Percent Auto 13.2 % (2-11); Neutrophils Absolute Auto 6.7 x10*3/uL (2.0-8.3); Neutrophils Percent Auto 66.4 % (45-73); Platelet Count 154 X10*3/uL (160-400); Red Cell Distribution Width 14.5 % (11.0-16.0); White Blood Count 10.1 X10*3/uL (4.8-10.8)
[2023-05-31 06:33] LABS: INTERNATIONAL NORM RATIO 1.2 (0.9-1.1); Prothrombin Time 14.5 SEC (11.1-13.3)
[2023-05-31 07:59] VITALS: BP 104/67; PULSE 85; RESP 16; TEMP 36.2; O2SAT 94
[2023-05-31] MEDS: Divalproex Sodium 500 MG TABLET.DR 1000 MG PO ×3 (08:34→20:45)
[2023-05-31] MEDS: Metoprolol Succinate ER 25 MG TAB.ER.24H PO (08:34)
[2023-05-31] MEDS: buPROPion HCL 100 MG TABLET PO ×2 (08:34→20:45)
[2023-05-31] MEDS: Cholecalciferol (Vitamin D3) 25 MCG TABLET PO (08:34)
[2023-05-31] MEDS: Finasteride 5 MG TABLET PO (08:35)
[2023-05-31] MEDS: Torsemide 20 MG TABLET 40 MG PO ×2 (08:35→20:45)
[2023-05-31] MEDS: Multivitamin TABLET 1 TAB PO (08:35)
[2023-05-31] MEDS: dilTIAZem HCL CD 240 MG CAP.ER.DEG PO (08:35)
[2023-05-31] MEDS: TiZANidine HCL 4 MG TABLET PO ×2 (08:35→20:45)
[2023-05-31] MEDS: Docusate Sodium 100 MG CAPSULE PO (08:35)
[2023-05-31] MEDS: Potassium Chloride ER 20 MEQ TAB.ER.PRT PO ×2 (08:36→20:44)
[2023-05-31] MEDS: Erythromycin Base 0.5% Oph Oin 1 GM TUBE 1 CM EYE-LEFT ×2 (08:36→20:44)
[2023-05-31 09:34] LABS: Alanine Aminotransferase 7 U/L (0-40); Albumin Level 2.7 g/dL (3.5-5.0); Alkaline Phosphatase 62 U/L (39-117); Anion Gap 12 (12-20); Aspartate Amino Transferase 15 U/L (5-37); Bilirubin Total 0.4 mg/dL (0.0-1.0); Blood Urea Nitrogen 16 mg/dL (9-16); Carbon Dioxide 31 mmol/L (22-29); Chloride 99 mmol/L (96-108); Creatinine Clr Calc Pharmacy 117.1; Estimated Glomerular Filt Rate > 60; Glucose Fasting 100 mg/dL (60-99); Potassium 3.3 mmol/L (3.3-5.1); Sodium 139 mmol/L (135-145); Total Protein 6.1 g/dL (6.5-8.0)
--- NOTE | 2023-05-31 11:04 | HO.SKINPHOTO ---
Location: Right heel/ankle Category: Stage:II Length: Width: Depth: cm Location: Category: Stage: Length: Width: Depth: cm Location: Category: Stage: Length: Width: Depth: cm Location: Category: Stage: Length: Width: Depth: cm Location: Category: Stage: Length: Width: Depth: cm Location: Category: Stage: Length: Width: Depth: cm
--- NOTE | 2023-05-31 12:46 | MHC.CLN ---
F/U DIET RX: REGULAR. ENSURE TID AND GELATEIN BID TO PROMOTE WOUND HEALING. SUPPLEMENTS PROVIDE [id number], 100G PROTEIN WITH 100% ACCEPTANCE. SKIN WITH STAGE II AREAS TO LEFT ANKLE, RIGHT KNEE, RIGHT HEEL. REDNESS TO LEFT HEEL AND BILATERAL BUTTOCKS.S INTAKE AT MEALS VARIABLE, 0-100%, WITH MOST MEALS ABOUT 25%. MONITOR FOR PO INTAKE AND SKIN INTEGRITY.
--- NOTE | 2023-05-31 13:02 | MHC.CM.PN ---
Per MD rounds no dc today. Blood cultures are pending. DP return to [facility] via [facility].
[2023-05-31] MEDS: Apixaban 5 MG TABLET PO ×2 (13:27→20:45)
--- NOTE | 2023-05-31 14:04 | P.PNIM_ITS ---
Subjective Subjective Date of Service: 05/31/23 Interval History: Intermittent outbursts manage by staff. No acute issues Review of Systems Unable to obtain Physical Exam Vital Signs: Vital Signs: Last Vital Signs Temp 97.1 F 05/31/23 07:59 Pulse 85 05/31/23 07:59 Resp 16 05/31/23 07:59 BP 104/67 05/31/23 07:59 Pulse Ox 94 05/31/23 07:59 O2 Del Method Room Air 05/31/23 07:59 O2 Flow Rate 2 05/30/23 03:20 BMI result Body Mass Index 24.3 Const: Other: Somnolent but arousable Resp: Other: Crackles left base with scant Cardio: Other: No S4; positive S1-S2; no S3 murmurs rubs or gallops GI: Other: Soft nontender nondistended normoactive bowel sounds Extrem: Other: No edema bilaterally Objective Data Active Medications Acetaminophen (Acetaminophen 325 Mg Tablet) 650 mg PO Q6H PRN PRN Reason: Pain, Mild (Pain Scale 1-3) Last Admin: 05/31/23 04:34 Dose: 650 mg Documented By: NITZA Apixaban (Apixaban 5 Mg Tablet) 5 mg PO BID [facility] Last Admin: 05/31/23 13:27 Dose: 5 mg Documented By: ESHA Bupropion HCl (Bupropion Hcl 100 Mg Tablet) 100 mg PO BID [facility] Last Admin: 05/31/23 08:34 Dose: 100 mg Documented By: ESHA Diltiazem HCl (Diltiazem Hcl Cd 240 Mg Cap.Er.Deg) 240 mg PO DAILY [facility]; Protocol Last Admin: 05/31/23 08:35 Dose: 240 mg Documented By: ESHA Divalproex Sodium (Divalproex Sodium 500 Mg Tablet.) 500 mg PO Q2D@1999 [facility] Last Admin: 05/30/23 20:59 Dose: 500 mg Documented By: LETI Divalproex Sodium (Divalproex Sodium 500 Mg Tablet.) 1,000 mg PO BID@0900,1600 [facility] Last Admin: 05/31/23 08:34 Dose: 1,000 mg Documented By: ESHA Divalproex Sodium (Divalproex Sodium 500 Mg Tablet.) 1,000 mg PO Q2D@1999 [facility] Last Admin: 05/29/23 20:29 Dose: 1,000 mg Documented By: VIKTOR Docusate Sodium (Docusate Sodium 100 Mg Capsule) 100 mg PO DAILY PRN PRN Reason: Constipation Last Admin: 05/31/23 08:35 Dose: 100 mg Documented By: ESHA Erythromycin (Erythromycin Base 0.5% Oph Oin 1 Gm Tube) 1 cm EYE-LEFT BID [facility] Last Admin: 05/31/23 08:36 Dose: 1 cm Documented By: ESHA Finasteride (Finasteride 5 Mg Tablet) 5 mg PO DAILY [facility] Last Admin: 05/31/23 08:35 Dose: 5 mg Documented By: ESHA Fluticasone Propionate (Fluticasone Propionate 100 Mcg Blst.W.Dev) 1 puff INHALE RBID [facility] Last Admin: 05/31/23 07:44 Dose: Not Given Documented By: TORI Non-Admin Reason: Patient Refused Hydrocortisone (Hydrocortisone 1 % Cream 28.35 Gm Tube) 1 appl TOPICAL Q12H PRN; Protocol PRN Reason: Hemorrhoids Levofloxacin (Levaquin) 500 mg in 100 mls @ 100 mls/hr IV Q24H [facility] Last Infusion: 05/30/23 17:55 Dose: 0 mls/hr Documented By: LETI Metoprolol Succinate (Metoprolol Succinate Er 25 Mg Tab.Er.24h) 25 mg PO DAILY [facility]; Protocol Last Admin: 05/31/23 08:34 Dose: 25 mg Documented By: ESHA Multivitamins/Vitamin C (Multivitamin Tablet) 1 tab PO DAILY [facility] Last Admin: 05/31/23 08:35 Dose: 1 tab Documented By: ESHA Ondansetron HCl (Ondansetron Hcl 4 Mg/2 Ml Vial) 4 mg IVPUSH Q8H PRN PRN Reason: Nausea and Vomiting Pharmacy Consult (Consult Rx Perform Med Rec) 1 each MISCELLANE ONCE PRN PRN Reason: Consult order Potassium Chloride (Potassium Chloride Er 20 Meq Tab.Er.Prt) 20 meq PO BID [facility] Last Admin: 05/31/23 08:36 Dose: 20 meq Documented By: ESHA Risperidone (Risperidone 3 Mg Tablet) 3 mg PO BEDTIME [facility] Last Admin: 08/13/23 20:58 Dose: 3 mg Documented By: LETI Sodium Chloride (0.9 % Sodium Chloride Flush 3 Ml Syringe) 3 ml IVFLUSH QSHIFT [facility] Last Admin: 05/31/23 08:36 Dose: 3 ml Documented By: ESHA Tamsulosin HCl (Tamsulosin Hcl 0.4 Mg Capsule) 0.4 mg PO BEDTIME [facility] Last Admin: 05/30/23 20:59 Dose: 0.4 mg Documented By: LETI Tizanidine HCl (Tizanidine Hcl 4 Mg Tablet) 4 mg PO BID [facility] Last Admin: 05/31/23 08:35 Dose: 4 mg Documented By: ESHA Torsemide (Torsemide 20 Mg Tablet) 40 mg PO BID [facility]; Protocol Last Admin: 05/31/23 08:35 Dose: 40 mg Documented By: ESHA Vitamin D (Cholecalciferol (Vitamin D3) 25 Mcg Tablet) 25 mcg PO DAILY [facility] Last Admin: 05/31/23 08:34 Dose: 25 mcg Documented By: ESHA Labs 05/31/23 06:02 05/31/23 06:02 Labs: Laboratory Results - last 24 hr 05/31/23 05/31/23 05/31/23 06:02 06:02 06:02 MCV 96.5 MCH 31.6 MCHC 32.8 RDW 14.5 Plt Count 154 L MPV 10.8 Immature Gran % (Auto) 1.0 H Neut % (Auto) 66.4 Lymph % (Auto) 14.9 L Dundy % (Auto) 13.2 H Eos % (Auto) 4.2 H Baso % (Auto) 0.3 Lymph # (Auto) 1.5 Dundy # (Auto) 1.3 H Eos # (Auto) 0.4 Baso # (Auto) 0.0 Abs Immat Gran (auto) 0.10 H Absolute Neuts (auto) 6.7 Absolute Nucleated RBC 0.000 Nucleated RBC % (auto) 0.0 PT 14.5 H INR 1.2 H Anion Gap 12 Estim Creat Clear Calc 117.1 Estimated GFR > 60 Fasting Glucose 100 H Calcium 11.0 H Total Bilirubin 0.4 AST 15 ALT 7 Alkaline Phosphatase 62 Total Protein 6.1 L Albumin 2.7 L Microbiology Microbiology Results: Microbiology 05/25/23 22:49 Blood Culture - Final Blood - Venous No growth after 5 days. 05/25/23 22:49 Blood Culture - Final Blood - Venous No growth after 5 days. Assessment and Plan (1) Left lower lobe pulmonary infiltrate: Status: Acute (2) Acute metabolic encephalopathy: Status: Acute Plan 62-year-old male with past medical history as mentioned above comes into the hospital with increased change in mental status found to have acute UTI; Pseudomonas pansensitive. Overnight question of aspiration; chest x-ray with new left lower lobe infiltrate 1. Left lower lobe infiltrate likely secondary to aspiration -continue Levaquin as ordered -follow O2 requirements -speech eval 2..Acute toxic encephalopathy/ UTI -?Zosyn (4)... will switched to Levaquin (2) based on cultures -? follow urine and blood cultures 3.Seizure disorder -continue outpatient therapies -adjust as indicated -check Depakote 4.History of DVT -switch to Eliquis 5 mg b.i.d. 5.Hypertension -acceptable control on current therapies -adjust as indicated Warfarin Full code ?given patient's need for IV antibiotics patient require continued inpatient hospital stay for further management and monitoring of uti and encephalopathy. Discussed with Case Management; given change in his overall status do not believe he is suitable for halfway at this time. Will pursue long-term placement Time Spent With Patient Time: Total time managing care of this patient today ____ minutes. Quality Stroke Does the patient have a stroke diagnosis?: No VTE Prior VTE?: No VTE Risk Level:: Medical - moderate - high VTE Device Contraindication: Treatment Not Indicated VTE Drug Contraindication: N/A - Med Ordered
--- NOTE | 2023-05-31 14:40 | MHC.SPEECHCO ---
BOOK CLEANER recommending downgrade to Chopped/Advanced Solids (NDD3) and Thin Liquids. Medications Whole with Puree. Straws OK. Continue 1:1 feeding assistance. BOOK CLEANER will monitor tolerance tomorrow.
[2023-05-31 15:40] VITALS: BP 120/71; PULSE 92; RESP 20; TEMP 36; O2SAT 94
[2023-05-31] MEDS: oxyCODONE HCl Immed Release 5 MG TABLET 10 MG PO ×2 (16:08→20:45)
[2023-05-31] MEDS: levoFLOXacin/D5W 500 MG/100 ML PIGGYBACK 100 MG IV (16:09)
[2023-05-31 20:00] VITALS: BP 102/58; PULSE 87; RESP 16; TEMP 36.8; O2SAT 95
[2023-05-31] MEDS: Tamsulosin HCL 0.4 MG CAPSULE PO (20:45)
[2023-05-31] MEDS: risperiDONE 3 MG TABLET PO (20:45)
[2023-06-01] MEDS: 0.9 % Sodium Chloride Flush 3 ML SYRINGE IVFLUSH ×2 (00:23→09:19)
[2023-06-01 01:51] VITALS: BP 99/57; PULSE 75; RESP 16; TEMP 36.1; O2SAT 94
[2023-06-01 06:16] LABS: Valproate 99.9 mcg/mL (50.0-100.0)
[2023-06-01 07:14] VITALS: BP 112/58; PULSE 86; RESP 16; TEMP 36.6; O2SAT 96
[2023-06-01] MEDS: Finasteride 5 MG TABLET PO (08:58)
[2023-06-01] MEDS: Multivitamin TABLET 1 TAB PO (08:58)
[2023-06-01] MEDS: Metoprolol Succinate ER 25 MG TAB.ER.24H PO (08:58)
[2023-06-01] MEDS: Torsemide 20 MG TABLET 40 MG PO (08:58)
[2023-06-01] MEDS: Apixaban 5 MG TABLET PO (08:58)
[2023-06-01] MEDS: TiZANidine HCL 4 MG TABLET PO (08:58)
[2023-06-01] MEDS: Cholecalciferol (Vitamin D3) 25 MCG TABLET PO (08:59)
[2023-06-01] MEDS: dilTIAZem HCL CD 240 MG CAP.ER.DEG PO (08:59)
[2023-06-01] MEDS: Divalproex Sodium 500 MG TABLET.DR 1000 MG PO (08:59)
[2023-06-01] MEDS: Erythromycin Base 0.5% Oph Oin 1 GM TUBE 1 CM EYE-LEFT (08:59)
[2023-06-01] MEDS: buPROPion HCL 100 MG TABLET PO (08:59)
[2023-06-01] MEDS: Potassium Chloride ER 20 MEQ TAB.ER.PRT PO (08:59)
--- NOTE | 2023-06-01 09:46 | P.PNIM_ITS ---
Subjective Subjective Date of Service: 06/01/23 Interval History: Calm at present, no new issues Physical Exam Vital Signs: Vital Signs: Last Vital Signs Temp 97.8 F 06/01/23 07:14 Pulse 86 06/01/23 07:14 Resp 16 06/01/23 07:14 BP 112/58 L 06/01/23 07:14 Pulse Ox 96 06/01/23 07:14 O2 Del Method Room Air 06/01/23 07:14 O2 Flow Rate 2 05/30/23 03:20 BMI result Body Mass Index 24.3 Objective Data Active Medications Acetaminophen (Acetaminophen 325 Mg Tablet) 650 mg PO Q6H PRN PRN Reason: Pain, Mild (Pain Scale 1-3) Last Admin: 05/31/23 16:08 Dose: 650 mg Documented By: MERVIN Apixaban (Apixaban 5 Mg Tablet) 5 mg PO BID [facility] Last Admin: 06/01/23 08:58 Dose: 5 mg Documented By: IVELISSE Bupropion HCl (Bupropion Hcl 100 Mg Tablet) 100 mg PO BID [facility] Last Admin: 06/01/23 08:59 Dose: 100 mg Documented By: IVELISSE Diltiazem HCl (Diltiazem Hcl Cd 240 Mg Cap.Er.Deg) 240 mg PO DAILY [facility]; Protocol Last Admin: 06/01/23 08:59 Dose: 240 mg Documented By: IVELISSE Divalproex Sodium (Divalproex Sodium 500 Mg Tablet.) 500 mg PO Q2D@1999 [facility] Last Admin: 05/30/23 20:59 Dose: 500 mg Documented By: LETI Divalproex Sodium (Divalproex Sodium 500 Mg Tablet.) 1,000 mg PO BID@0900,1600 [facility] Last Admin: 06/01/23 08:59 Dose: 1,000 mg Documented By: IVELISSE Divalproex Sodium (Divalproex Sodium 500 Mg Tablet.) 1,000 mg PO Q2D@1999 [facility] Last Admin: 05/31/23 20:45 Dose: 1,000 mg Documented By: MERVIN Docusate Sodium (Docusate Sodium 100 Mg Capsule) 100 mg PO DAILY PRN PRN Reason: Constipation Last Admin: 05/31/23 08:35 Dose: 100 mg Documented By: ESHA Erythromycin (Erythromycin Base 0.5% Oph Oin 1 Gm Tube) 1 cm EYE-LEFT BID [facility] Last Admin: 06/01/23 08:59 Dose: 1 cm Documented By: IVELISSE Finasteride (Finasteride 5 Mg Tablet) 5 mg PO DAILY [facility] Last Admin: 06/01/23 08:58 Dose: 5 mg Documented By: IVELISSE Fluticasone Propionate (Fluticasone Propionate 100 Mcg Blst.W.Dev) 1 puff INHALE RBID [facility] Last Admin: 06/01/23 07:39 Dose: Not Given Documented By: NAMRATA Non-Admin Reason: Patient Condition Contraindication Hydrocortisone (Hydrocortisone 1 % Cream 28.35 Gm Tube) 1 appl TOPICAL Q12H [facility]; Protocol PRN Reason: Hemorrhoids Levofloxacin (Levaquin) 500 mg in 100 mls @ 100 mls/hr IV Q24H [facility] Last Infusion: 05/31/23 17:53 Dose: 0 mls/hr Documented By: MERVIN Metoprolol Succinate (Metoprolol Succinate Er 25 Mg Tab.Er.24h) 25 mg PO DAILY [facility]; Protocol Last Admin: 06/01/23 08:58 Dose: 25 mg Documented By: IVELISSE Morphine Sulfate (Morphine Sulfate 4 Mg/Ml Cartridge) 4 mg IVPUSH Q4H PRN; Protocol PRN Reason: Pain, Severe (Pain Scale 7-10) Multivitamins/Vitamin C (Multivitamin Tablet) 1 tab PO DAILY [facility] Last Admin: 06/01/23 08:58 Dose: 1 tab Documented By: IVELISSE Ondansetron HCl (Ondansetron Hcl 4 Mg/2 Ml Vial) 4 mg IVPUSH Q8H PRN PRN Reason: Nausea and Vomiting Oxycodone HCl (Oxycodone Hcl Immed Release 5 Mg Tablet) 10 mg PO Q4H PRN PRN Reason: Pain, Moderate(Pain Scale 4-6) Last Admin: 05/31/23 20:45 Dose: 10 mg Documented By: MERVIN Pharmacy Consult (Consult Rx Perform Med Rec) 1 each MISCELLANE ONCE PRN PRN Reason: Consult order Potassium Chloride (Potassium Chloride Er 20 Meq Tab.Er.Prt) 20 meq PO BID [facility] Last Admin: 06/01/23 08:59 Dose: 20 meq Documented By: IVELISSE Risperidone (Risperidone 3 Mg Tablet) 3 mg PO BEDTIME [facility] Last Admin: 05/31/23 20:45 Dose: 3 mg Documented By: MERVIN Sodium Chloride (0.9 % Sodium Chloride Flush 3 Ml Syringe) 3 ml IVFLUSH QSHIFT [facility] Last Admin: 06/01/23 09:19 Dose: 3 ml Documented By: IVELISSE Tamsulosin HCl (Tamsulosin Hcl 0.4 Mg Capsule) 0.4 mg PO BEDTIME [facility] Last Admin: 05/31/23 20:45 Dose: 0.4 mg Documented By: MERVIN Tizanidine HCl (Tizanidine Hcl 4 Mg Tablet) 4 mg PO BID [facility] Last Admin: 06/01/23 08:58 Dose: 4 mg Documented By: IVELISSE Torsemide (Torsemide 20 Mg Tablet) 40 mg PO BID [facility]; Protocol Last Admin: 06/01/23 08:58 Dose: 40 mg Documented By: IVELISSE Vitamin D (Cholecalciferol (Vitamin D3) 25 Mcg Tablet) 25 mcg PO DAILY [facility] Last Admin: 06/01/23 08:59 Dose: 25 mcg Documented By: IVELISSE Labs 05/31/23 06:02 05/31/23 06:02 Labs: Laboratory Results - last 24 hr 06/01/23 05:36 Valproic Acid 99.9 Assessment and Plan (1) Left lower lobe pulmonary infiltrate: Status: Acute (2) Acute metabolic encephalopathy: Status: Acute Plan 62-year-old male with past medical history as mentioned above comes into the hospital with increased change in mental status found to have acute UTI; Pseudomonas pansensitive. Overnight question of aspiration; chest x-ray with new left lower lobe infiltrate 1. Left lower lobe infiltrate likely secondary to aspiration -continue Levaquin 05/29 for total of 7 days, ending 06/05 DAIRY FARM SUPERVISOR recommending downgrade to Chopped/Advanced Solids (NDD3) and Thin Liquids. Medications Whole with Puree. Straws OK. Continue 1:1 feeding assistance. DAIRY FARM SUPERVISOR will monitor tolerance tomorrow. 2..Acute toxic encephalopathy/ UTI -was on?Zosyn for 4 days, then switched to levaquin as above -? follow urine and blood cultures 3.Seizure disorder -continue outpatient therapies -adjust as indicated, Depakote level 99 4.History of DVT -switched to Eliquis 5 mg b.i.d on 05/31 5.Hypertension -acceptable control on current therapies -adjust as indicated Full code ?given patient's need for IV antibiotics patient require continued inpatient hospital stay for further management and monitoring of uti and encephalopathy. Discussed with Case Management; given change in his overall status do not believe he is suitable for senior living at this time. Will pursue long-term placement Time Spent With Patient Time: Total time managing care of this patient today ____ minutes. Quality Stroke Does the patient have a stroke diagnosis?: No VTE Prior VTE?: No VTE Risk Level:: Medical - moderate - high VTE Device Contraindication: Treatment Not Indicated VTE Drug Contraindication: N/A - Med Ordered
--- NOTE | 2023-06-01 10:58 | P.DS_ITS ---
DS: Providers Provider Date of Service: 06/01/23 Date of admission: 05/25/23 22:56 Primary care physician: Fabiola Laws PA-C DS: Diagnosis Discharge Diagnosis (1) Left lower lobe pulmonary infiltrate: Status: Acute (2) Acute metabolic encephalopathy: Status: Acute DS: Summary Hospital Course Hospital Course: Admission HPI Chief Complaint: Altered mental status?62-year-old male past medical history of S affective disorder, encephalomalacia,? spastic quadriplegia, cerebral atrophy, peripheral neuropathy, AFib, HTN, osteoporosis, seizure disorder, history of DVT comes into the hospital secondary to change in mental status? And decreased oral intake.? Patient has underlying encephalomalacia, not a good historian, history is obtained from the operations research group manager at bedside, states the patient has been having increased confusion, as well as decreased oral intake for the past 1 day.? Patient has history of UTI, and staff were concerned that fire he was sent to the hospital.? Patient himself denies any chest pain, no shortness of breath, no abdominal pain, no diarrhea constipation, no? nausea vomiting, no Urinary symptoms and no lower extremity edema( although? not reliable).? on arrival to the ED patient hemodynamically stable slightly has an elevated heart rate, Labs are significant for WBC count of 11, INR of 2.2, UA positive for nitrites, leukocyte Estrace, WBC, bacteria Patient has grown Pseudomonas in the past, patient will be started on antibiotics and will be admitted for further management Hospital course: Patient presented with altered mental status as detailed above and work up revealed metabolic encephalopathy related to UTI, Pneumoni. Pneumonia has been treated with Zosyn from May 25 to May 30 and then changed to Levqaquin and will treat with Levaquin1 10 days (until 06/08). Urine culture showed E. Feacalis and Pseudomonas both sensitive to Levaquin, he has history of Pseudomonas and likelyhas chronic colinization and should not be treated in the future. Metabolic encephalopathy has resolved, he's at his baseline, for history of DVT he was previously on coumadin but has been changed to eliquis to ensure steady level and ease of administration, history of mood desorder and seizure desorder to continue Depakote at preseent dose level is 99.9 (normal 50 to 100) Time Spent with Patient Time attestation: Total time managing care of this patient today ____ minutes. Discharge coordination time: Greater than 30 minutes Quality: Safe Use of Opioids Does Pt have an Active Cancer Diagnosis on the Problem List?: No Quality: Stroke Does the patient have a stroke diagnosis?: No Physical Exam Vital Signs: Vital Signs: Last Vital Signs Temp 97.8 F 06/01/23 07:14 Pulse 86 06/01/23 07:14 Resp 16 06/01/23 07:14 BP 112/58 L 06/01/23 07:14 Pulse Ox 96 06/01/23 07:14 O2 Del Method Room Air 06/01/23 07:14 O2 Flow Rate 2 05/30/23 03:20 BMI result Body Mass Index 24.3 Const: Other: Const:?? General: cooperative and no acute distress Eyes:?? General: appearance normal, both eyes and all related structures Resp:?? Effort & Inspection: normal respiratory effort? Auscultation: clear to auscultation bilaterally Cardio:?? Rate: regular rate? Rhythm: regular rhythm GI:?? Palpation (GI): Soft to palpation? Auscultation: normal bowel sounds Skin:?? General skin exam: no rashes or lesions noted Extrem:?? Other: ?2+ lower extremity edema ? General: Yes normal to inspection DS: Data Data Completed and Pending Labs on day of discharge: Laboratory Results - last 24 hr 06/01/23 05:36 Valproic Acid 99.9 Discharge Plan Discharge Anticipated Discharge Date/Time: 06/01/23 10:58 Patient Disposition: Home, Self-Care Discharge Diagnosis: Aspiration pneumonia, UTI, DVT Referrals: [facility] [Outside] - 1 Week Fabiola Laws PA-C [Primary Care Provider] - 1 Week Discharge Medications: New Eliquis 5 mg Tablet 5 mg PO BID Qty: 60 0RF levofloxacin 500 mg tablet 500 mg PO DAILY 7 Days Qty: 7 0RF Continued finasteride 5 mg tablet 5 mg PO DAILY 90 Days Qty: 90 3RF (DME) [facility] Male External Cath Misc See Rx Instructions .Route Qty: 180 1RF Rx Instructions: As directed 2 per day for incontinence (DME) [place] Urinary Drainage Bag Misc See Rx Instructions .Route Qty: 6 1RF Rx Instructions: As directed 2 per month alendronate 70 mg Tablet 70 mg PO TU cholecalciferol (vitamin D3) 25 mcg (1,000 unit) Tablet 25 mcg PO DAILY multivitamin Tablet 1 tab PO DAILY acetaminophen 325 mg Tablet 650 mg PO Q6H PRN (Reason: Fever Or Pain) tizanidine 4 mg Tablet 4 mg PO BID divalproex 500 mg Tablet,Delayed Release (Dr/Ec) 1,000 mg PO BID@0900,1600 divalproex 500 mg Tablet,Delayed Release (Dr/Ec) 1,000 mg PO Q2D@2000 Rx Instructions: 1000MG IN THE MORNING AND NOON, AND 1000MG ALTERNATING WITH 500MG EVERY OTHER DAY AT NIGHT risperidone 3 mg Tablet 3 mg PO BEDTIME fluticasone propionate [Flovent HFA] 110 mcg/actuation Hfa Aerosol Inhaler 1 puff INHALATION BID divalproex [Depakote] 500 mg Tablet,Delayed Release (Dr/Ec) 500 mg PO Q2D@1999 loperamide [Imodium A-D] 2 mg Tablet 4 mg PO Q6H PRN (Reason: Loose Stool) hydrocortisone [Preparation H Hydrocortisone] 1 % Cream 1 appl TOPICAL Q12H PRN (Reason: Hemorrhoids) metoprolol succinate 25 mg Tablet Extended Release 24 Hr 25 mg PO DAILY torsemide 20 mg tablet 40 mg PO BID bupropion HCl 100 mg tablet sustained-release 12 hr 100 mg PO BID potassium chloride 20 mEq tablet,ER particles/crystals 20 meq PO BID tamsulosin [Flomax] 0.4 mg capsule 0.4 mg PO BEDTIME 90 Days Qty: 90 3RF diltiazem HCl 240 mg capsule,extended release 24hr 240 mg PO DAILY Discontinued warfarin 4 mg tablet 2 mg PO DAILY@1800 Discharge Orders: Discharge Order (Routine); Ordered 06/01/23 Ordered By: Sedrick Daniel Diet: See blow Activity on Discharge: As tolerated Stand Alone Forms: Patient Portal Discharge page Care Plan Goals: Full recovery from aspiration penumonia, UTI and encephalopathy and dysphagia Health Concerns: Aspiration pneumonia UTi Plan of Treatment: Take Levaquin as recommendation to treat pneumonia and UTI Diet:Speech Language Pathology (AIRFIELD OPERATIONS SPECIALIST) recommending downgrade to Chopped/Advanced Solids (NDD3) and Thin Liquids. Medications Whole with Puree. Straws OK. Continue 1:1 feeding assistance. AIRFIELD OPERATIONS SPECIALIST will monitor tolerance tomorrow. Depakote level is within therapeutic range at 99.9 (normal range 50 to 100) Foam dressing to lower extremity wounds Assessment: As above
--- NOTE | 2023-06-01 11:15 | MHC.CM.PN ---
Addendum entered by Dacia Rodrigez 06/01/23 16:08: [facility] did not have eliqu[facility]. The will tomorrow. Called the Pharmacist. 2 Eliquis doses provided. RN notified that Eliquis will be sent with patient. Pm and tomorrow am dose provided. Original Note: Patient is discharged today. He will return to [facility] home. Orders received, MD signed. Patient will transport via BLS at 4pm.
[2023-06-01 15:41] VITALS: BP 109/56; PULSE 87; RESP 20; TEMP 36.6; O2SAT 93
--- NOTE | 2023-06-01 16:11 | MHC.SPEECHCO ---
Pt discharged back to half-way with Choppped/Dysphagia Advanced (NDD3) Solids and Thin Liquids. staff notified at bedside.
== END 2023-06-01 17:33 | disposition home or self-care (01) | DRG 463 ==
LOC: HO.ED 22:19 → HO.EDOVER 23:09 → HO.S3 05-26 16:21
PROVIDERS: Hospitalist; Physician Assistant; Admitting Provider Internal Medicine; Emergency Provider Emergency Medicine Emergency Medical Services; PCP Physician Assistant; Visit Provider Internal Medicine
DX: N39.0 Urinary tract infection, site not specified (principal); J69.0 Pneumonitis due to inhalation of food and vomit; G82.50 Quadriplegia, unspecified; G92.8 Other toxic encephalopathy; B95.2 Enterococcus as the cause of diseases classified elsewhere; H10.9 Unspecified conjunctivitis; F39 Unspecified mood [affective] disorder; I10 Essential (primary) hypertension; I87.303 Chronic venous hypertension (idiopathic) without complications of bilateral lower extremity; M81.0 Age-related osteoporosis without current pathological fracture; B96.5 Pseudomonas (aeruginosa) (mallei) (pseudomallei) as the cause of diseases classified elsewhere; L89.612 Pressure ulcer of right heel, stage 2; Z86.718 Personal history of other venous thrombosis and embolism; G40.909 Epilepsy, unspecified, not intractable, without status epilepticus; Z20.822 Contact with and (suspected) exposure to COVID-19; Z79.51 Long term (current) use of inhaled steroids; Z79.899 Other long term (current) drug therapy
CPT/HCPCS: 0241U; 36415; 70450; 71045; 80048; 80053; 80076; 80164; 80307; 81001; 81003; 82803; 83605; 83735; 84443; 85025; 85610; 85730; 87040; 87086; 87088; 87186; 87635; 92610; 93005; 99285; J1956; J2543

== ENCOUNTER → 2023-05-25 16:41 | Outpatient (BNV) | payer MEDICAID, SELFPAY | PROVIDERS: Admitting Provider Internal Medicine; Emergency Provider Emergency Medicine Emergency Medical Services; PCP Physician Assistant; Visit Provider Internal Medicine Cardiovascular Disease | DX: I49.3 Ventricular premature depolarization (principal); R94.31 Abnormal electrocardiogram [ECG] [EKG] | CPT/HCPCS: 93010 ==

== ENCOUNTER → 2023-05-25 22:56 | Outpatient (BNV) | payer OTHER, SELFPAY | PROVIDERS: Admitting Provider Internal Medicine; Emergency Provider Emergency Medicine Emergency Medical Services; PCP Physician Assistant; Visit Provider Internal Medicine | DX: R91.8 Other nonspecific abnormal finding of lung field (principal); G93.41 Metabolic encephalopathy | CPT/HCPCS: 99223; 99232; 99233; 99239; 99499 ==

== ENCOUNTER 2023-06-03 18:51 | Emergency (ER) | payer MEDICAID, SELFPAY ==
--- NOTE | ~2023-06-03 | CT_ITS ---
EXAMINATION: CT head/brain wo IV con CLINICAL INFORMATION: Reason for Exam ?altered mental status COMPARISON: CT head without contrast 05/25/2023 TECHNIQUE: Contiguous axial imaging was performed from the skull base to vertex without intravenous contrast. Sagittal and coronal reformatted images were obtained. This CT examination was performed using dose optimization techniques as appropriate, variously including the following: * Automated exposure control * Adjustment of mA and/or kV according to patient size (this includes techniques or standardized protocols for targeted exams where dose is matched to indication/reason for exam; i.e. extremities or head) Use of iterative reconstruction technique DLP: 661 mGy-cm FINDINGS: No acute osseous or soft tissue abnormality. The mastoid air cells and visualized portions of the paranasal sinuses are well aerated. There is no evidence of acute intracranial hemorrhage or territorial infarction. No abnormal mass effect or midline shift is seen. [place] to white matter differentiation is well preserved. No extra-axial fluid collections are identified. Stable ventricular enlargement which appears disproportionate to the degree of cerebral volume loss may reflect underlying normal pressure hydrocephalus. Patchy periventricular and deep white matter hypoattenuation is consistent with mild small vessel ischemic changes. CT/CT head/brain wo IV con IMPRESSION: 1. No acute intracranial abnormality including hemorrhage, mass effect, hydrocephalus, or acute territorial edematous infarction. 2. Stable ventriculomegaly out of proportion to the degree of cerebral volume loss which may reflect underlying normal pressure hydrocephalus.
[2023-06-03 19:15] VITALS: BP 118/64; BP 128/90; PULSE 78; PULSE 98; RESP 16; TEMP 37.3; O2SAT 98; BMI 30.4
--- NOTE | 2023-06-03 19:22 | PC.NURSE ---
Pt has multiple un-stageable pressure wounds as follows: R ankle on inner heel, bleeding controlled but red and irritated (bandage replaced by this RN), L ankle/heel bandage intact, no drainage or foul order, Right inner knee, bandage intact, no drainage or foul odor. Some redness and irritation in perineal area but no open wounds
--- NOTE | 2023-06-03 19:36 | PC.NURSE ---
patient's service net worker mentioned to this RN that he wound need his 8pm medication, this RN educated them that we would need to wait until the doctor sees the patient to determine when the meds could be ordered
[2023-06-03 20:19] VITALS: BP 105/73; PULSE 107; RESP 19; O2SAT 93
[2023-06-03 20:22] LABS: MANUAL DIFF FLAG NO
--- NOTE | 2023-06-03 20:22 | PC.NURSE ---
pt had episode of what seemed like an absent seizure, patient stared off into distance, did not respond to verbal or physical stimuli. Dr. Schmitt aware, no new orders. this RN placed 20g in LW as well as jhony labs
[2023-06-03 20:26] LABS: Basophils Percent Auto 0.2 % (0-2); Eosinophils Absolute Auto 0.1 X10*3/uL (0.0-0.4); Eosinophils Percent Auto 0.8 % (0-4); Hematocrit 40.9 % (42.0-52.0); Hemoglobin 13.3 g/dl (14.0-18.0); Imm Gran Abs Auto 0.24 X10*3/uL (0.00-0.03); Imm Gran Pct Auto 1.8 % (0.0-0.4); Lymphocytes Absolute Auto 1.7 X10*3/uL (1.2-4.9); Lymphocytes Percent Auto 12.5 % (20-40); Mean Corpuscular HGB Conc 32.5 g/dl (31.0-36.0); Mean Corpuscular Hemoglobin 30.8 pg (27.0-33.0); Mean Corpuscular Volume 94.7 fL (80.0-98.0); Mean Platelet Volume 9.6 fL (9.4-12.4); Monocytes Absolute Auto 2.3 X10*3/uL (0.1-1.2); Monocytes Percent Auto 17.6 % (2-11); NRBC Pct Auto 0.2 /100WBC (0.0-0.2); Neutrophils Absolute Auto 8.9 x10*3/uL (2.0-8.3); Neutrophils Percent Auto 67.1 % (45-73); Platelet Count 239 X10*3/uL (160-400); Red Blood Count 4.32 X10*6/uL (4.60-5.80); Red Cell Distribution Width 14.7 % (11.0-16.0); White Blood Count 13.3 X10*3/uL (4.8-10.8)
--- NOTE | 2023-06-03 20:31 | PC.NURSE ---
ivy: [phone], service net worker would like to remain updated on patient case
[2023-06-03 20:40] LABS: Anion Gap 15 (12-20); Blood Urea Nitrogen 24 mg/dL (9-16); Calcium 11.8 mg/dL (8.4-10.2); Carbon Dioxide 30 mmol/L (22-29); Chloride 99 mmol/L (96-108); Creatinine Clr Calc Pharmacy 97.9; Estimated Glomerular Filt Rate > 60; Glucose Random 135 mg/dL (60-115); Potassium 3.7 mmol/L (3.3-5.1); Sodium 140 mmol/L (135-145)
--- NOTE | 2023-06-03 21:04 | PC.NURSE ---
pt has second absent like seizure, MD Schmitt aware, no new orders. Pt on forest ecologist, normal sinus with a occasional PVCs
--- NOTE | 2023-06-03 21:22 | PC.NURSE ---
pt has continued stiffness and zoning out , service net worker alerted this RN that symptoms have not gone away, MD aware. No new orders at this time
--- NOTE | 2023-06-03 21:27 | ED.GENADULT ---
HPI - General Adult General Chief complaint: General Medical Stated complaint: MULTIPLE PRESSURE SORES Time Seen by Provider: 06/03/23 21:17 Source: RN notes reviewed, old records reviewed and other ([employer]) Mode of arrival: EMS Limitations: altered mental status History of Present Illness HPI narrative: Patient 62-year-old male past medical history of Schizo affective disorder, encephalomalacia,? spastic quadriplegia, cerebral atrophy, peripheral neuropathy, AFib, HTN, osteoporosis, seizure disorder, history of DVT comes into the hospital secondary to change in mental status? And decreased oral intakejust discharged on 06/01 when admitted with altered mental status work up revealed metabolic encephalopathy related to UTI, Pneumoni. Pneumonia has been treated with Zosyn from May 25 to May 30 and then changed to Levqaquin? and will treat with Levaquin1 10 days (until 06/08). Patient moved to different longterm for higher acuity care today and as the staff not aware of his condition and did not have any instructions to take care of pressure wounds brought the patient back also staff complaining that patient goes to sleep without much response for up to 1 hour with no seizure activities patient is on Depakote and level is therapeutic no recent falls Related Data Home Medications Medication Instructions Recorded Confirmed divalproex 500 mg tablet,delayed 1,000 mg PO BID@0900,1600 03/24/21 06/03/23 release divalproex 500 mg tablet,delayed 1,000 mg PO Q2D@2000 03/24/21 06/03/23 release fluticasone propionate 110 1 puff inhalation BID 03/24/21 06/03/23 mcg/actuation HFA aerosol inhaler (Flovent HFA) multivitamin 1 tab PO DAILY 03/24/21 06/03/23 risperidone 3 mg tablet 3 mg PO BEDTIME 03/24/21 06/03/23 tizanidine 4 mg tablet 4 mg PO BID 03/24/21 06/03/23 bupropion HCl 100 mg tablet,12 hr 100 mg PO BID 04/01/23 06/03/23 sustained-release hydrocortisone 1 % topical cream 1 appl topical Q12H PRN Hemorrhoids 04/01/23 06/03/23 (Preparation H Hydrocortisone) loperamide 2 mg tablet (Imodium 4 mg PO Q6H PRN Loose Stool 04/01/23 06/03/23 A-D) metoprolol succinate 25 mg 25 mg PO DAILY 04/01/23 06/03/23 tablet,extended release 24 hr torsemide 20 mg tablet 40 mg PO BID 04/01/23 06/03/23 diltiazem HCl 240 mg 240 mg PO DAILY 04/06/23 06/03/23 capsule,extended release 24 hr Previous Rx's Medication Instructions Recorded finasteride 5 mg tablet 5 mg PO DAILY 90 days #90 tabs 08/11/22 tamsulosin 0.4 mg capsule (Flomax) 0.4 mg PO BEDTIME 90 days #90 caps 08/11/22 catheter ([facility] Male #180 ea 04/08/23 External Catheter) urinary bag ([facility] Urinary #6 ea 04/08/23 Drainage Bag) apixaban 5 mg tablet (Eliquis) 5 mg PO BID #60 tabs 06/01/23 levofloxacin 500 mg tablet 500 mg PO DAILY 7 days #7 tabs 06/01/23 Allergies Allergy/AdvReac Type Severity Reaction Status Date / Time morphine [MORPHINE] Allergy Mild LOOPY Verified 04/06/23 15:16 ciprofloxacin [CIPROFLOXACIN] AdvReac Intermediate skin Verified 04/06/23 15:16 erythema/macular rash Review of Systems Review of Systems: Yes all other systems are reviewed and are negative PMFSH Past Medical History Medical History Acute DVT of left tibial vein Afib Cerebral atrophy Encephalomalacia Enlarged prostate Hypertension Impaired cognition Osteoporosis Rectal bleeding Recurrent UTI Schizoaffective disorder Seizure disorder Urinary retention with incomplete bladder emptying UTI (urinary tract infection) Surgical History No pertinent past surgical history Social History Social History Household Members: Other Household Members Other:: longterm Housing: Other Housing Other:: longterm Do you presently have visiting nurse or other home services: Yes (longterm) Alcohol intake: never Patient Tobacco Use Status: Never used Tobacco Smoked in Last 30 Days: No Use of substances other than those prescribed or required for medical reasons: No Advance Directives: Yes Advance Directives on File: Yes Advance Directives Date on File: 03/24/21 Physical Exam ED Vital Signs: Vital Signs - 24 hr 06/03/23 19:15 06/03/23 20:19 06/03/23 21:46 Temperature 99.2 F Pulse Rate 98 107 H 113 H Respiratory Rate 16 19 18 Blood Pressure 128/90 H 105/73 120/64 Pulse Oximetry 98 93 97 Oxygen Delivery Method Room Air Room Air Room Air 06/03/23 22:47 Temperature Pulse Rate 5 L Respiratory Rate 18 Blood Pressure 122/50 L Pulse Oximetry 94 Oxygen Delivery Method BMI result Body Mass Index 30.4 Appearance: Alert. Minimal verbal at baseline. No acute distress. Eyes: PERRLA, No Nystagmus ENT: Pharynx normal. Oral Mucosa moist Neck: Normal inspection. Neck supple. CVS: Normal heart rate and rhythm. Pulses normal. Respiratory: No respiratory distress. Equal air entry bilateral, no wheezing/rales/rhonchi Abdomen: Soft and nontender. Bowel sounds are present, no mass palpable, Skin: Skin warm and dry. Normal skin color. Normal skin turgor. Extremities: No lower extremity edema. No calf tenderness superficial stage II pressure ulcer wounds bilateral heel and right thigh Neuro: Awake moving all 4 extremities Medications Administered Discontinued Medications Generic Name Dose Route Start Last Admin Trade Name Freq PRN Reason Stop Dose Admin Apixaban 5 mg 06/03/23 23:30 06/04/23 00:47 Apixaban 5 Mg Tablet PO 06/03/23 23:31 5 mg ONCE ONE Administration Divalproex Sodium 500 mg 06/03/23 22:33 06/03/23 22:41 Divalproex Sodium 500 Mg Tablet. PO 06/03/23 22:34 500 mg ONCE ONE Administration Levetiracetam 1,000 mg in 100 mls @ 400 mls/hr 06/03/23 22:58 06/03/23 23:52 Keppra IV 06/03/23 23:12 Not Given ONCE ONE Risperidone 3 mg 06/03/23 23:29 06/04/23 00:47 Risperidone 3 Mg Tablet PO 06/03/23 23:30 3 mg ONCE ONE Administration Tamsulosin HCl 0.4 mg 06/03/23 23:30 06/04/23 00:47 Tamsulosin Hcl 0.4 Mg Capsule PO 06/03/23 23:31 0.4 mg ONCE ONE Administration Torsemide 20 mg 06/03/23 23:30 06/04/23 00:47 Torsemide 20 Mg Tablet PO 06/03/23 23:31 20 mg ONCE ONE Administration Protocol Medical Decision Making Medical Decision Making [facility] Narrative: Patient with chronic conditions noticed to have hypoactive states intermittently likely with hyperactive delirium labs are stable patient on p.o. Levaquin will continue same no clear seizure activity is noticed patient going back to longterm would day have nursing care for wound CT scan of the head was done to rule out any bleed was negative as patient anticoagulants arterial gases are normal Lab Data [facility] Lab Attestation statement: I reviewed the patient's lab results. 06/03/23 20:18 06/03/23 20:18 Labs: Lab Results 06/03/23 06/03/23 06/03/23 Range/Units 20:18 20:18 22:24 WBC 13.3 H (4.8-10.8) X10*3/uL RBC 4.32 L (4.60-5.80) X10*6/uL Hgb 13.3 L (14.0-18.0) g/dl Hct 40.9 L (42.0-52.0) % MCV 94.7 (80.0-98.0) fL MCH 30.8 (27.0-33.0) pg MCHC 32.5 (31.0-36.0) g/dl RDW 14.7 (11.0-16.0) % Plt Count 239 D (160-400) X10*3/uL MPV 9.6 (9.4-12.4) fL Immature Gran % (Auto) 1.8 H (0.0-0.4) % Neut % (Auto) 67.1 (45-73) % Lymph % (Auto) 12.5 L (20-40) % [place] % (Auto) 17.6 H (2-11) % Eos % (Auto) 0.8 (0-4) % Baso % (Auto) 0.2 (0-2) % Lymph # (Auto) 1.7 (1.2-4.9) X10*3/uL [place] # (Auto) 2.3 H (0.1-1.2) X10*3/uL Eos # (Auto) 0.1 (0.0-0.4) X10*3/uL Baso # (Auto) 0.0 (0.0-0.2) X10*3/uL Abs Immat Gran (auto) 0.24 H (0.00-0.03) X10*3/uL Absolute Neuts (auto) 8.9 H (2.0-8.3) x10*3/uL Absolute Nucleated RBC 0.020 H (0.0-0.012) X10*3/uL Nucleated RBC % (auto) 0.2 (0.0-0.2) /100WBC O2 Saturation % ABG pH at Pt Temp (7.35-7.45) ABG pCO2 at Pt Temp (32-45) mmHg ABG pO2 at Pt Temp (83-108) mmHg ABG HCO3 (22-26) mmol/L ABG Base Excess (Actual) mmol/L Sodium 140 (135-145) mmol/L Potassium 3.7 (3.3-5.1) mmol/L Chloride 99 (96-108) mmol/L Carbon Dioxide 30 H (22-29) mmol/L Anion Gap 15 (12-20) BUN 24 H (9-16) mg/dL Creatinine 0.91 (0.5-1.4) mg/dL Estim Creat Clear Calc 97.9 Estimated GFR > 60 Random Glucose 135 H (60-115) mg/dL Calcium 11.8 H D (8.4-10.2) mg/dL Urine Color Dark Yellow Urine Appearance Clear Urine pH 7.0 (5.0-9.0) Ur Specific [place] 1.015 (1.005-1.025) Urine Protein 30 (1+) H (Neg-Trace) mg/dL Urine Glucose (UA) Negative (Negative) mg/dL Urine Ketones Negative (Negative) mg/dL Urine Blood Negative (Negative) Urine Nitrite Negative (Negative) Ur Leukocyte Esterase Small (1+) H (Negative) Urine RBC 6-10 H (0-2) /HPF Urine WBC 11-20 H (0-5) /HPF Ur Squamous Epith Cells 0-2 (0-2) /HPF Urine Bacteria None Seen (None Seen) Hyaline Casts 0-2 (0-2) /LPF 23 Range/Units 00:20 WBC (4.8-10.8) X10*3/uL RBC (4.60-5.80) X10*6/uL Hgb (14.0-18.0) g/dl Hct (42.0-52.0) % MCV (80.0-98.0) fL MCH (27.0-33.0) pg MCHC (31.0-36.0) g/dl RDW (11.0-16.0) % Plt Count (160-400) X10*3/uL MPV (9.4-12.4) fL Immature Gran % (Auto) (0.0-0.4) % Neut % (Auto) (45-73) % Lymph % (Auto) (20-40) % [place] % (Auto) (2-11) % Eos % (Auto) (0-4) % Baso % (Auto) (0-2) % Lymph # (Auto) (1.2-4.9) X10*3/uL [place] # (Auto) (0.1-1.2) X10*3/uL Eos # (Auto) (0.0-0.4) X10*3/uL Baso # (Auto) (0.0-0.2) X10*3/uL Abs Immat Gran (auto) (0.00-0.03) X10*3/uL Absolute Neuts (auto) (2.0-8.3) x10*3/uL Absolute Nucleated RBC (0.0-0.012) X10*3/uL Nucleated RBC % (auto) (0.0-0.2) /100WBC O2 Saturation 97.0 % ABG pH at Pt Temp 7.54 H (7.35-7.45) ABG pCO2 at Pt Temp 37 (32-45) mmHg ABG pO2 at Pt Temp 84 (83-108) mmHg ABG HCO3 32 H (22-26) mmol/L ABG Base Excess (Actual) 9.3 mmol/L Sodium (135-145) mmol/L Potassium (3.3-5.1) mmol/L Chloride (96-108) mmol/L Carbon Dioxide (22-29) mmol/L Anion Gap (12-20) BUN (9-16) mg/dL Creatinine (0.5-1.4) mg/dL Estim Creat Clear Calc Estimated GFR Random Glucose (60-115) mg/dL Calcium (8.4-10.2) mg/dL Urine Color Urine Appearance Urine pH (5.0-9.0) Ur Specific [place] (1.005-1.025) Urine Protein (Neg-Trace) mg/dL Urine Glucose (UA) (Negative) mg/dL Urine Ketones (Negative) mg/dL Urine Blood (Negative) Urine Nitrite (Negative) Ur Leukocyte Esterase (Negative) Urine RBC (0-2) /HPF Urine WBC (0-5) /HPF Ur Squamous Epith Cells (0-2) /HPF Urine Bacteria (None Seen) Hyaline Casts (0-2) /LPF Discharge Plan Discharge Clinical Impression: Pressure sore Patient Disposition: Home, Self-Care Instructions: Altered Mental Status (ED), Chronic Wounds (ED) Additional Instructions: Continue antibiotic as prescribed during last discharge Apply soft pad pressure dressing daily Patient likely having hypoactive delirium as a cause for hypersomnolence, no medication needed for this Follow-up with your PCP Prescriptions: No Action finasteride 5 mg tablet 5 mg PO DAILY 90 Days Qty: 90 3RF (DME) [facility] Instructions .Route Qty: 180 1RF Rx Instructions: As directed 2 per day for incontinence (DME) [facility] Urinary Drainage Bag Misc See Rx Instructions .Route Qty: 6 1RF Rx Instructions: As directed 2 per month multivitamin Tablet 1 tab PO DAILY tizanidine 4 mg Tablet 4 mg PO BID divalproex 500 mg Tablet,Delayed Release (Dr/Ec) 1,000 mg PO BID@0900,1600 divalproex 500 mg Tablet,Delayed Release (Dr/Ec) 1,000 mg PO Q2D@2000 Rx Instructions: 1000MG IN THE MORNING AND NOON, AND 1000MG ALTERNATING WITH 500MG EVERY OTHER DAY AT NIGHT risperidone 3 mg Tablet 3 mg PO BEDTIME fluticasone propionate [Flovent HFA] 110 mcg/actuation Hfa Aerosol Inhaler 1 puff INHALATION BID loperamide [Imodium A-D] 2 mg Tablet 4 mg PO Q6H PRN (Reason: Loose Stool) hydrocortisone [Preparation H Hydrocortisone] 1 % Cream 1 appl TOPICAL Q12H PRN (Reason: Hemorrhoids) metoprolol succinate 25 mg Tablet Extended Release 24 Hr 25 mg PO DAILY torsemide 20 mg tablet 40 mg PO BID bupropion HCl 100 mg tablet sustained-release 12 hr 100 mg PO BID levofloxacin 500 mg tablet 500 mg PO DAILY 7 Days Qty: 7 0RF Eliquis 5 mg Tablet 5 mg PO BID Qty: 60 0RF tamsulosin [Flomax] 0.4 mg capsule 0.4 mg PO BEDTIME 90 Days Qty: 90 3RF diltiazem HCl 240 mg capsule,extended release 24hr 240 mg PO DAILY
[2023-06-03 21:46] VITALS: BP 120/64; PULSE 113; RESP 18; O2SAT 97
[2023-06-03 22:39] LABS: Appearance Urine Clear; Color Urine Dark Yellow; Glucose Urine UA Negative (Negative); Leukocyte Esterase Urine Small (1+) (Negative); Nitrite Urine Negative (Negative); Specific Gravity - Urine 1.015 (1.005-1.025); UMIC TRIGGER UACC YES; Urine Blood Negative (Negative); Urine Ketones Negative (Negative); Urine Protein 30 (1+) mg/dL (Neg-Trace)
[2023-06-03] MEDS: Divalproex Sodium 500 MG TABLET.DR PO (22:41)
[2023-06-03 22:47] VITALS: BP 122/50; PULSE 5; RESP 18; O2SAT 94
[2023-06-03 22:51] LABS: Bacteria Urine None Seen (None Seen); Hyaline Casts Urine 0-2 /LPF (0-2); Squamous Epithelial Cell Urine 0-2 /HPF (0-2); UACC Culture Trigger YES
--- NOTE | 2023-06-03 23:12 | PC.NURSE ---
Pt had a few episodes of absent seizure like activity. Pts [employer] worker at bedside stated she recorded a 1 hour long zone out . This RN reported that activity to MD, no new orders from MD This RN spoke with Kiesha SANTILLAN at [facility]. Kiesha voiced her concern with no feeling comfortable taking patient [facility] due to new recent seizure activity. This RN agreed and voiced concern to MD. MD discussed in extent with this RN about sending patient home, eventually came to decision of admitting patient.
--- NOTE | 2023-06-03 23:19 | PC.NURSE ---
This RN changed all dressings, both ankle and inside r knee
--- NOTE | 2023-06-03 23:49 | PC.NURSE ---
pt has had no seizure like activity since last note, MD Alcantara in to speak with patient
[2023-06-04 00:25] LABS: ABG Base Excess 9.3 mmol/L; ABG HCO3 32 mmol/L (22-26); ABG pCO2 37 mmHg (32-45); ABG pH 7.54 (7.35-7.45); ABG pO2 84 mmHg (83-108)
[2023-06-04 00:31] VITALS: O2SAT 95
[2023-06-04] MEDS: Tamsulosin HCL 0.4 MG CAPSULE PO (00:47)
[2023-06-04] MEDS: Apixaban 5 MG TABLET PO (00:47)
[2023-06-04] MEDS: risperiDONE 3 MG TABLET PO (00:47)
[2023-06-04] MEDS: Torsemide 20 MG TABLET PO (00:47)
--- NOTE | 2023-06-04 00:57 | PC.NURSE ---
Nursing supervisor prepress called for two missing medications
[2023-06-04] MEDS: buPROPion HCL 100 MG TABLET PO (01:39)
[2023-06-04] MEDS: TiZANidine HCL 4 MG TABLET PO (01:39)
[2023-06-04 01:49] VITALS: BP 126/69; PULSE 114; RESP 20; TEMP 37; O2SAT 95
--- NOTE | 2023-06-04 01:56 | PC.NURSE ---
pt continues to remain pain free throughout stay, all night medications administered per DEC. [employer] aware of plan of care to d/c home. Pt sent home with wound care materials as well as wound care order from MD Dsouza. [facility] employee at bedside acknowledges plan of care. Pt sitting up in bed, respirations even and unlabored, skin pwd, alert and oriented x2, no apparent distress at this time. [facility]
--- NOTE | 2023-06-04 02:46 | PC.NURSE ---
EMS pickup ETA 0300. [employer] worker aware. IV removed from pt, patient continues to rest comfortably, no apparent distress, respirations even and unlabored, no episodes of zoning out
--- NOTE | 2023-06-04 03:03 | PC.NURSE ---
Asumed care of pt. Pt lying on stretcher, pending Ambulance arrival for discharge.
[2023-06-04 05:02] VITALS: BP 115/52; PULSE 110; RESP 18; O2SAT 95
[2023-06-04 07:13] LABS: ABG Refer to POC result
== END 2023-06-04 05:03 | disposition home or self-care (01) ==
PROVIDERS: Student in an Organized Health Care Education/Training Program; Emergency Provider Internal Medicine
DX: L89.622 Pressure ulcer of left heel, stage 2 (principal); L89.612 Pressure ulcer of right heel, stage 2; L89.892 Pressure ulcer of other site, stage 2; R40.0 Somnolence; I10 Essential (primary) hypertension; I48.91 Unspecified atrial fibrillation; F25.9 Schizoaffective disorder, unspecified; Z86.718 Personal history of other venous thrombosis and embolism; Z87.440 Personal history of urinary (tract) infections
CPT/HCPCS: 36415; 51701; 70450; 80048; 81001; 82803; 85025; 87086; 99284